=== PATIENT | female | born 1985 | race Caucasian/White ===

== ENCOUNTER 2016-11-19 16:41 | Emergency (ER) | payer BC ==
[~2016-11-19] VITALS: Ht 162.6 cm; Wt 78.9 kg
[~2016-11-19 16:41] MED LIST: PRED10TA PO; VNTHFA/IN INH
[2016-11-19 16:44] VITALS: Ht 162.6 cm; Wt 78.9 kg
[2016-11-19] MEDS ORDERED: PRED10TA PO ×2 (17:55→18:15)
--- NOTE | 2016-11-19 18:15 | EMERGENCY ROOM VISIT NOTE ---
History First contact with patient: 17:40 Chief Complaint: COUGH Stated Complaint: COUGH, ASTHMA Nursing Triage Summary: states she is having trouble with her asthma, she took her last oral steroid today and she is having trouble breathing and when she starts coughing she cant stop, needs a prescription for more prednisone and would like to talk to someone about getting on advair she currently doesnt take advair History of Present Illness The patient is a 31 year old female who presents to the Emergency Department by private vehicle for evaluation of her ongoing symptoms of asthma. She reports that she is been on 10 mg prednisone daily for the last few months. She took her last dose of prednisone this morning. She also has been using her albuterol inhaler more frequently as well. She has had no worsening symptoms today, but is concerned that her symptoms will progressively worsened well- known than the chronic steroids. 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 She does not see a yarder boss. In addition to her ongoing symptoms, the patient is requesting to be placed back on Advair which she has been on in the past. She feels that this will help her ongoing symptoms. The patient denies any pain rating her discomfort a 0/10. She denies any headaches, dizziness, lightheadedness, nausea, vomiting, chest pain, palpitations, hemoptysis, abdominal pain, hematochezia, melena, hematuria, or dysuria. The patient denies any chance for . Review of Systems A complete 10-point Review of Systems was discussed with the patient, with pertinent positives and negatives listed in the History of Present Illness. All remaining Review of Systems questions can be considered negative unless otherwise specified. 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: [employer] student Current/Historical Medications Scheduled Albuterol Hfa (Ventolin Hfa), 2-4 PUFFS INH Q6H Prednisone (Prednisone), 10 MG PO DAILY Prednisone Tab (Prednisone), 10 MG PO DAILY Allergies Coded Allergies: Cefuroxime (Verified Allergy, Severe, CHEST TIGHTENING, "FEEL LIKE CHOKING ", SOB, 11/19/16) Dairy (Verified Allergy, Severe, CHEST TIGHTENING, "CHOKING" FEELING, SOB , 11/19/16) Gluten (Verified Allergy, Severe, CHEST TIGHTENING, "CHOKING" FEELING, SOB , 11/19/16) Penicillins (Verified Allergy, Severe, CHEST TIGHTENING, "CHOKING" FEELING , SOB, 11/19/16) Peanut (Verified Allergy, Intermediate, "NON STOP COUGHING, FELT LIKE CHOKING", 11/19/16) Physical Exam Vital Signs Date Time Temp Pulse Resp B/P Pulse Ox O2 Delivery O2 Flow Rate FiO2 11/19/16 18:52 36.5 105 18 125/89 98 11/19/16 18:29 105 11/19/16 18:25 36.5 105 18 125/89 98 Room Air 11/19/16 18:24 105 18 125/89 98 Room Air 11/19/16 16:47 98 Room Air 11/19/16 16:44 36.5 127 18 123/75 98 Room Air Pain Rating (0-10): 0 Physical Exam VITAL SIGNS - Vital signs and nursing notes were reviewed. GENERAL - 31-year-old female appearing her stated age who is in no acute distress. Communicates well with provider and answers questions appropriately. HEAD - NC/AT. EYES - PERRL with EOMI bilaterally. Sclera anicteric. Palpebral conjunctiva pink and moist with no injection noted. EARS - No deformities of external structures noted on gross examination bilaterally. No pain elicited with palpation of the tragus bilaterally. External auditory canals without discharge or otorrhea. Tympanic membranes pearly paige without retraction or bulging. NOSE - Midline and without cyanosis. No epistaxis or purulent drainage noted. Septum midline without deviation or septal hematoma noted. MOUTH/OROPHARYNX - Without perioral cyanosis. Buccal mucosa pink and moist and without leukoplakia. Tongue midline with equal elevation of palate bilaterally. No tonsillar hypertrophy, erythema, or exudates noted. Good dentition noted. NECK - Neck with FROM. Supple to palpation. LUNGS - Chest wall symmetric without accessory muscle use, intercostals retractions, or central cyanosis. Normal vesicular breath sounds CTA B/L. No wheezes, rales, or rhonchi appreciated. CARDIAC - RRR with S1/S2. No murmur, rubs, or gallops appreciated. No reproducible tenderness to palpation appreciated over the anterior chest wall. ABDOMEN - Abdominal contour flat and without pulsations or visible masses. BS normoactive all four quadrants. No tenderness, palpable masses, hepatosplenomegaly, or ascites noted. EXTREMITIES - No clubbing or peripheral cyanosis. No pretibial edema present. +3 /5 radial and dorsalis pedis pulses palpated throughout. +3/5 strength noted in UE/LE bilaterally. PSYCH - A&Ox3 and cooperates fully with examiner. Pt is very pleasant and interacts well with examiner. Medical Decision & Procedures ED Course Patient was seen and evaluated by myself. Previous emergency department visit notes were reviewed. I had a lengthy discussion with the patient regarding the appropriateness of chronic management of her asthma. She was offered a 1 week course of 10 mg prednisone, however she was encouraged at this point, this would be the extent of what could be provided out of the emergency setting. She was encouraged to follow-up with [facility] for ongoing management of her chronic condition. The patient was educated on worrisome symptoms for return visit to the emergency department. Patient discharged home afebrile and in good condition. Medical Decision Given the patient's presentation and stated complaints, I did elect to perform the above-mentioned workup. Patient presents today requesting a refill of medications. She's been on chronic steroids that had been provided Ativan emergency settings and walk-in clinics. I do not feel that this is the appropriate management of the patient's ongoing asthma symptoms. She was offered a week's worth of atenolol milligrams prednisone which she is been on daily. I do feel it would be inappropriate to completely discontinue her steroids at this time for the risk of adrenal crisis. Regardless, I do feel that continued management of the patient's chronic condition of the emergency setting is inappropriate. Because of this, she was offered a short course of the steroids and instructed to follow-up with with [facility] to establish continuity of care. The patient was educated on worrisome symptoms for return visit to the emergency department. Patient discharged home in good condition. In the evaluation and treatment of this patient, the following differential diagnoses were considered: ACS, [place], PE, pneumonia, psychosis, malingering, somatizations, amongst others. Impression Primary Impression: Encounter for medication refill Additional Impression: Asthma Departure Information Dispostion Home / Self-Care Condition GOOD Prescriptions Prednisone Tab (PREDNISONE) 10 Mg Tab 10 MG PO DAILY for 7 Days, #7 TAB Prov: Ray Martin PA-C 11/19/16 Referrals No Doctor, Assigned (PCP) Patient Instructions My [facility] Additional Instructions Please follow-up with [facility] for continued management of your chronic asthma. Return for any changing or worsening symptoms. Problem Qualifiers Additional Impression: Asthma Asthma severity: unspecified severity Asthma complication type: uncomplicated Qualified Codes: J45.909 - Unspecified asthma, uncomplicated
[2016-11-19 18:52] VITALS: BP 125/89; PULSE 105; TEMP 36.5; O2SAT 98
[2017-02-14] MEDS ORDERED: ONDA4TAB10 SL (14:01)
[2017-02-14] MEDS ORDERED: LEVO-459 PO (14:01)
[2017-02-14] MEDS ORDERED: FRRG PO (14:17)
[2017-05-12] MEDS ORDERED: NORGTAB39 PO (14:04)
[2017-05-12] MEDS ORDERED: ULT50X PO (14:04)
[2017-05-12] MEDS ORDERED: PRT/20 PO (14:04)
[2017-05-12] MEDS ORDERED: METH4PAK PO (14:04)
[2017-05-12] MEDS ORDERED: BENZ100C7 PO (14:04)
[2017-05-27] MEDS ORDERED: ZNT150 PO (12:56)
[2017-05-27] MEDS ORDERED: MTR500 PO (12:56)
[2017-05-27] MEDS ORDERED: ULT50X PO (12:56)
[2017-05-27] MEDS ORDERED: LVQ750 PO (12:56)
[2017-05-27] MEDS ORDERED: PRED-301 PO (12:56)
[2017-05-27] MEDS ORDERED: PRED10TA PO (12:56)
[2017-05-27] MEDS ORDERED: PRT/20 PO (12:56)
== END 2016-11-19 18:54 | disposition home or self-care (01) ==
LOC: C.EDB 16:42
DX: Z76.0 Encounter for issue of repeat prescription (principal); J45.909 Unspecified asthma, uncomplicated

== ENCOUNTER 2016-12-24 11:12 | Emergency (ER) | payer BC ==
[~2016-12-24] VITALS: Ht 162.6 cm; Wt 77.2 kg
[2016-12-24 11:20] VITALS: TEMP 36.5; Ht 162.6 cm; Wt 77.2 kg
[2016-12-24] MEDS ORDERED: ALBUT/IPRATROP 3MG/0.5MG NEB 3 ML VIAL INH STA (11:26)
[2016-12-24] MEDS ORDERED: DEXAMETHASONE SOD INJ 10 MG/ML VIAL PO ONE (11:30)
[2016-12-24] MEDS ORDERED: ALUMINUM/MAGNESIUM SUSP 30 ML UDC PO STA (11:48)
[2016-12-24] MEDS ORDERED: LIDOCAINE HCL 2% VISC SOLN 20 ML UDC PO STA (11:48)
[2016-12-24 11:51] VITALS: O2SAT 94
--- NOTE | 2016-12-24 11:58 | DIAGNOSTIC IMAGING REPORT ---
TWO VIEW CHEST CLINICAL HISTORY: Cough. FINDINGS: PA and lateral chest radiographs are compared to study dated 10/08/2015. The cardiomediastinal silhouette is unremarkable. The lungs and pleural spaces are clear. There is no pneumothorax. The bony thorax appears intact. IMPRESSION: No active disease in the chest. Electronically signed by: Corey Allen M.D. 12/24/2016 11:56 AM Dictated Date/Time: 12/24/2016 11:56 AM
[2016-12-24] MEDS ORDERED: PANTOprazole SOD 40 MG TAB PO STA (12:30)
[2016-12-24] MEDS ORDERED: PRED50TA PO (12:48)
[2016-12-24] MEDS ORDERED: LIDO2SOL19 PO (12:48)
[2016-12-24] MEDS ORDERED: PANT40TA PO (12:48)
[2016-12-24 13:06] VITALS: BP 119/91; PULSE 102; O2SAT 93
[2016-12-24] MEDS ORDERED: ALBUTEROL HFA 8 GM INHALER INH ONE (13:07)
[2016-12-24] MEDS ORDERED: ALBUTEROL HFA 8 GM INHALER INH STA (13:12)
--- NOTE | 2016-12-24 15:38 | EMERGENCY ROOM VISIT NOTE ---
History First contact with patient: 11:23 Chief Complaint: COUGH Stated Complaint: COUGH Nursing Triage Summary: Pt states, "I feel dizzy. I cough like I'm choking. I can't stop. It started a few hours ago." Pt reports hx of asthma. States used inhalers without relief. History of Present Illness The patient is a 31 year old female who presents to the Emergency Room with complaints of cough and wheezing with throat irritation in the morning that has been intermittent for the past week. Patient states when she wakes up the morning sometimes she feels as if she is choking. She does have asthma. She's been on chronic steroids by health services and has recently days. She does not have a thread reeler. Patient denies chest pain, fever, chills, productive cough, back pain, leg pain or swelling, abdominal pain, vomiting, diarrhea. She does have asthma. Review of Systems See HPI for pertinent positives & negatives. A total of 10 systems reviewed and were otherwise negative. 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 Current/Historical Medications Scheduled Albuterol Hfa (Ventolin Hfa), 2-4 PUFFS INH Q6H Lidocaine Hcl (Mouth-Throat) (Lidocaine Viscous), 5 ML PO Q6 Pantoprazole (Protonix), 40 MG PO DAILY Prednisone (Prednisone), 10 MG PO DAILY Prednisone (Prednisone), 50 MG PO DAILY Allergies Coded Allergies: Cefuroxime (Verified Allergy, Severe, CHEST TIGHTENING, "FEEL LIKE CHOKING ", SOB, 12/24/16) Dairy (Verified Allergy, Severe, CHEST TIGHTENING, "CHOKING" FEELING, SOB , 12/24/16) Gluten (Verified Allergy, Severe, CHEST TIGHTENING, "CHOKING" FEELING, SOB , 12/24/16) Penicillins (Verified Allergy, Severe, CHEST TIGHTENING, "CHOKING" FEELING , SOB, 12/24/16) Peanut (Verified Allergy, Intermediate, "NON STOP COUGHING, FELT LIKE CHOKING", 12/24/16) Physical Exam Vital Signs Date Time Temp Pulse Resp B/P Pulse Ox O2 Delivery O2 Flow Rate FiO2 12/24/16 13:06 102 18 119/91 93 12/24/16 11:51 94 Room Air 12/24/16 11:51 112 22 94 Room Air 12/24/16 11:20 36.5 130 20 137/65 96 Room Air Pain Rating (0-10): 0 Physical Exam VITALS: Vitals are noted on the nurse's note and reviewed by myself. Vital signs stable. GENERAL: Pleasant female, in no acute distress, nondiaphoretic, well-developed well-nourished. SKIN: The skin was without rashes, erythema, edema, or bruising. There is no tenting of the skin. Capillary reflex less than 2 seconds. HEAD: Normocephalic atraumatic. EARS: External auditory canals clear, tympanic membranes pearly paige without erythema or effusion bilaterally. EYES: Pupils equal round and reactive to light and accommodation. Conjunctivae without injection, sclerae without icterus. Extraocular movements intact. NOSE: Patent, turbinates without inflammation or discharge. No sinus tenderness. MOUTH: Mucous membranes moist. Pharynx without erythema or exudate. Uvula midline. Airway patent. Tongue does not deviate. NECK: Supple without nuchal rigidity. No lymphadenopathy. No thyromegaly. Cervical spine is nontender. No JVD. HEART: Regular rate and rhythm without murmurs gallops or rubs. LUNGS: Mild diffuse end expiratory wheezes, without rales or rhonchi. No dullness to percussion. No retractions or accessory muscle use. ABDOMEN: Positive bowel sounds x 4. Normal tympanic percussion. Soft, nontender, without masses or organomegaly. Navarrete sign negative. No guarding or rebound tenderness. MUSCULOSKELETAL: No muscle atrophy, erythema, or edema noted. NEURO: Patient was alert and oriented to person place and time. Normal sensation to light and sharp touch. No focal neurological deficits. Medical Decision & Procedures Medications Administered Medications (Trade) Dose Ordered Sig/Jluis Route Start Time Stop Time Status Last Admin Dose Admin Albuterol/ Ipratropium (Duoneb) 3 ml NOW STAT INH 12/24/16 11:26 12/24/16 11:27 DC 12/24/16 11:42 3 ML Dexamethasone Sodium Phosphate (Decadron Inj) 10 mg NOW ONCE PO 12/24/16 11:30 12/24/16 11:31 DC 12/24/16 11:42 10 MG Lidocaine HCl (Viscous Lidocaine 2% Soln) 10 ml NOW STAT PO 12/24/16 11:48 12/24/16 11:49 DC 12/24/16 11:57 10 ML Al Hydroxide/Mg Hydroxide (Maalox Susp) 30 ml NOW STAT PO 12/24/16 11:48 12/24/16 11:49 DC 12/24/16 11:57 30 ML Pantoprazole Sodium (Protonix Tab) 40 mg NOW STAT PO 12/24/16 12:30 12/24/16 12:32 DC 12/24/16 13:03 40 MG Albuterol (Ventolin Hfa Inhaler) 60 puffs STK-MED ONCE INH 12/24/16 13:07 12/24/16 13:08 DC 12/24/16 13:04 60 PUFFS ED Course Prior records/ancillary studies reviewed. Triage Nursing notes reviewed. The patient's history was concerning for respiratory difficulties. Differential diagnosis: Etiologies such as infections, reactive airway disease, pneumonia, pneumothorax , COPD, CHF, cardiac ischemia, pulmonary embolism, musculoskeletal, gastrointestinal, as well as others were entertained. Physical examination: As above. ER treatment provided: Nebulizer, Decadron, GI cocktail On reassessment the patient felt better. Diagnostic interpretation by me: Imaging studies: Chest x-ray as above. This appears to be consistent with asthma exacerbation with reflux. Patient felt much better after being medicated as above. She was referred to pulmonology as she's had ongoing asthma problems and has not seen a thread reeler in quite sometime. Case management did arrange for this. She was started on steroids for her asthma exacerbation and on a PPI for reflux. Patient was advised to take medications as directed and to follow-up as scheduled with pulmonology or here in the ER sooner for chest pain, difficulty breathing, fevers, worsening signs or symptoms or as needed. Patient no pneumonia on x-ray. She was not hypoxic. She was well-appearing. By the evaluation outlined above emergent etiologies such as CHF, cardiac ischemia, pulmonary embolism, pneumonia, pneumothorax, musculoskeletal, serious bacterial infections, as well as others were deemed relatively unlikely. The pt informed about the findings as listed above. All questions were answered and pleased with the treatment. Return instructions were outlined and the patient was discharged in stable condition. Outpatient prescription management: Prednisone, Protonix Referral: The patient was referred back to their primary care physician for follow-up in 2 to 3 days for a recheck of the current condition. Medical Decision As above Impression Primary Impression: Asthma exacerbation Additional Impression: GERD Departure Information Dispostion Home / Self-Care Condition GOOD Prescriptions Lidocaine Hcl (Mouth-Throat) (LIDOCAINE VISCOUS) 2 % Salima 5 ML PO Q6, #200 ML Prov: Leatha Lott PA-C 12/24/16 Pantoprazole (Protonix) 40 Mg Tab 40 MG PO DAILY for 14 Days, #14 TAB Prov: Leatha Lott PA-C 12/24/16 Prednisone (Prednisone) 50 Mg Tab 50 MG PO DAILY for 4 Days, #4 TAB Prov: Leatha Lott PA-C 12/24/16 Forms HOME CARE DOCUMENTATION FORM, School Instructions, Return To School: 1 day IMPORTANT VISIT INFORMATION Patient Instructions GERD, Asthma - [facility], [facility] Additional Instructions Albuterol Inhaler: Take 2 puffs four times daily for five days, then as needed. Prednisone 50mg: Once daily until the prescription is finished. It is best to take this earlier in the day as some patients note occasional difficulty falling asleep when taken in the late evening. Viscous lidocaine: 10 mL's every 6 hours as needed for sore throat. Protonix 40 m tablet daily for next 2 weeks. Take this on an empty stomach. Try Maalox or Zantac for breakthrough symptoms for reflux. Avoid large meals. Avoid acidic foods. Rest and drink plenty of fluids as tolerated. Continue current medications. Avoid strenuous activities and anything that worsens your pain. Resume normal activities once your symptoms resolve. Return to the ER immediately for worsening or persistent chest pain, abdominal pain, black or blood in your stools, vomiting, fevers, chest pains, difficulty breathing, worsening of your condition, or as needed. Follow up with your primary physician and thread reeler as scheduled in 2-3 days for a recheck of your current condition. School Instructions Return To School: 1 day Problem Qualifiers
[2017-02-14] MEDS ORDERED: ONDA4TAB10 SL (14:01)
[2017-02-14] MEDS ORDERED: LEVO-459 PO (14:01)
[2017-02-14] MEDS ORDERED: FRRG PO (14:17)
[2017-05-12] MEDS ORDERED: ULT50X PO (14:04)
[2017-05-12] MEDS ORDERED: BENZ100C7 PO (14:04)
[2017-05-12] MEDS ORDERED: NORGTAB39 PO (14:04)
[2017-05-12] MEDS ORDERED: METH4PAK PO (14:04)
[2017-05-12] MEDS ORDERED: PRT/20 PO (14:04)
[2017-05-27] MEDS ORDERED: PRED-301 PO (12:56)
[2017-05-27] MEDS ORDERED: LVQ750 PO (12:56)
[2017-05-27] MEDS ORDERED: MTR500 PO (12:56)
[2017-05-27] MEDS ORDERED: ZNT150 PO (12:56)
[2017-05-27] MEDS ORDERED: PRT/20 PO (12:56)
[2017-05-27] MEDS ORDERED: ULT50X PO (12:56)
[2017-05-27] MEDS ORDERED: PRED10TA PO (12:56)
[2017-06-25] MEDS ORDERED: PANT40TA PO (15:06)
[2017-08-09] MEDS ORDERED: IPRASOL4 INH (08:40)
[2017-08-09] MEDS ORDERED: ADVIN10050 INH (08:40)
[2017-08-09] MEDS ORDERED: MONT1TAB3 PO (08:40)
[2017-08-10] MEDS ORDERED: PANT40TA PO (10:09)
[2017-08-10] MEDS ORDERED: VNTHFA/IN INH (10:09)
[2017-08-10] MEDS ORDERED: ADVIN10050 INH (10:09)
[2017-08-10] MEDS ORDERED: LEVO-459 OR (10:10)
[2017-08-10] MEDS ORDERED: PRD20 OR (10:10)
[2017-08-10] MEDS ORDERED: NEBMAC (10:10)
[2017-08-10] MEDS ORDERED: MONT1TAB3 PO (10:10)
[2017-08-10] MEDS ORDERED: ALBU0.633 NEB (10:11)
[2017-08-10] MEDS ORDERED: ZNT150 PO (10:26)
== END 2016-12-24 13:10 | disposition home or self-care (01) ==
LOC: C.EDB 11:13 → C.EDC 13:10
DX: J45.901 Unspecified asthma with (acute) exacerbation (principal); K21.9 Gastro-esophageal reflux disease without esophagitis

== ENCOUNTER 2017-01-18 15:50 | Emergency (ER) | payer BC ==
[~2017-01-18] VITALS: Ht 160 cm; Wt 75.4 kg
[2017-01-18 15:55] VITALS: TEMP 36.6; Ht 160 cm; Wt 75.4 kg
[2017-01-18] MEDS ORDERED: LIDO2SOL19 PO (16:13)
[2017-01-18 17:08] VITALS: BP 119/76; PULSE 89; O2SAT 96
--- NOTE | 2017-01-18 18:26 | EMERGENCY ROOM VISIT NOTE ---
History First contact with patient: 16:26 Chief Complaint: MEDICATION REFILL REQUEST Stated Complaint: MEDICATION REFILL History of Present Illness The patient is a 31 year old female who presents to the Emergency Room with complaints of wanting a prescription for viscous lidocaine. The patient has asthma which is not well controlled. She states when she is walking she gets short of breath and starts coughing and then she gags and sometimes vomits. The patient states that she was seen here in December with the same symptoms and was given a prescription for a mouth rinse which had viscous lidocaine. She was just at her PCP today and they gave her a prescription for Magic swizzle but this does not have the lidocaine in therefore she is requesting a prescription with the lidocaine. The patient is taking all her asthma and allergy medications as prescribed. She is on Nexium for her reflux. 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 The patient had a cost report clerk in her hometown but does not have one in [place]. Review of Systems 10 system review was performed and was negative unless stated otherwise history of present illness. 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: [employer] student Current/Historical Medications Scheduled Lidocaine Hcl (Mouth-Throat) (Lidocaine Viscous), 5 ML PO BID Allergies Coded Allergies: Cefuroxime (Verified Allergy, Severe, CHEST TIGHTENING, "FEEL LIKE CHOKING ", SOB, 01/18/17) Dairy (Verified Allergy, Severe, CHEST TIGHTENING, "CHOKING" FEELING, SOB , 01/18/17) Gluten (Verified Allergy, Severe, CHEST TIGHTENING, "CHOKING" FEELING, SOB , 01/18/17) Penicillins (Verified Allergy, Severe, CHEST TIGHTENING, "CHOKING" FEELING , SOB, 01/18/17) Peanut (Verified Allergy, Intermediate, "NON STOP COUGHING, FELT LIKE CHOKING", 01/18/17) Physical Exam Vital Signs Date Time Temp Pulse Resp B/P Pulse Ox O2 Delivery O2 Flow Rate FiO2 01/18/17 17:08 89 18 119/76 96 Room Air 01/18/17 15:55 36.6 110 18 113/57 96 Room Air Pain Rating (0-10): 4.0 Physical Exam PHYSICAL EXAM: Vital Signs were reviewed: Reviewed Nurse's notes and agree. Oxygen saturation is 96 % on room air which is normal . GENERAL: 31-year-old female appears in no acute distress. MENTAL STATUS: Alert, oriented, coherent. EARS: Canals clear. TMs good light reflex, no erythema or fluid level noted. NOSE: Nasal mucosa with moderate erythema engorgement. PHARYNX: No erythema, no edema noted. No exudate noted. Cobblestoning noted on the posterior pharynx. Airway is adequate. NECK: Supple, non-tender. No lymphadenopathy noted. LUNGS: Patient has both inspiratory and expiratory wheezes bilaterally. Good air exchange noted. No rales or rhonchi noted. CARDIAC: Regular rate and rhythm without murmur. ABDOMEN: Positive bowel sounds all 4 quadrants, nontender to palpation without organomegaly or masses. SKIN: No rashes noted. Medical Decision & Procedures ED Course The patient was evaluated. I discussed with the patient that I will not prescribe viscous lidocaine for uncontrolled allergies/asthma and reflux. I feel that this patient needs to be 6 hours evaluated by cost report clerk I discussed with the patient that she needs to follow up with pulmonology for better care of her asthma and allergies. The patient is in agreement with treatment plan. The patient was discharged home in stable condition. Medical Decision Differential diagnosis include postnasal drainage secondary to uncontrolled allergic rhinitis, uncontrolled asthma, GERD Impression Primary Impression: Asthma Additional Impressions: Reflux esophagitis Allergic rhinitis Departure Information Dispostion Home / Self-Care Condition GOOD Referrals Jaime Calzada, DO Forms WORK / SCHOOL INSTRUCTIONS, HOME CARE DOCUMENTATION FORM, IMPORTANT VISIT INFORMATION Patient Instructions My [facility] Additional Instructions Continue all medications as prescribed. Recommend a follow-up with pulmonology , Dr. calzada as soon as possible since your asthma and allergies are not well controlled. Recommend adding a steroid nasal spray in addition to your Zyrtec. Also recommend adding Zantac 150 mg daily in addition to your Nexium. Further follow-up should be by pulmonology or your family physician. Problem Qualifiers
[2017-02-14] MEDS ORDERED: ONDA4TAB10 SL (14:01)
[2017-02-14] MEDS ORDERED: LEVO-459 PO (14:01)
[2017-02-14] MEDS ORDERED: FRRG PO (14:17)
[2017-05-12] MEDS ORDERED: PRT/20 PO (14:04)
[2017-05-12] MEDS ORDERED: METH4PAK PO (14:04)
[2017-05-12] MEDS ORDERED: ULT50X PO (14:04)
[2017-05-12] MEDS ORDERED: NORGTAB39 PO (14:04)
[2017-05-12] MEDS ORDERED: BENZ100C7 PO (14:04)
[2017-05-27] MEDS ORDERED: MTR500 PO (12:56)
[2017-05-27] MEDS ORDERED: ULT50X PO (12:56)
[2017-05-27] MEDS ORDERED: PRT/20 PO (12:56)
[2017-05-27] MEDS ORDERED: PRED-301 PO (12:56)
[2017-05-27] MEDS ORDERED: PRED10TA PO (12:56)
[2017-05-27] MEDS ORDERED: ZNT150 PO (12:56)
[2017-05-27] MEDS ORDERED: LVQ750 PO (12:56)
[2017-06-25] MEDS ORDERED: PANT40TA PO (15:06)
[2017-08-09] MEDS ORDERED: MONT1TAB3 PO (08:40)
[2017-08-09] MEDS ORDERED: ADVIN10050 INH (08:40)
[2017-08-09] MEDS ORDERED: IPRASOL4 INH (08:40)
[2017-08-10] MEDS ORDERED: PANT40TA PO (10:09)
[2017-08-10] MEDS ORDERED: VNTHFA/IN INH (10:09)
[2017-08-10] MEDS ORDERED: ADVIN10050 INH (10:09)
[2017-08-10] MEDS ORDERED: NEBMAC (10:10)
[2017-08-10] MEDS ORDERED: MONT1TAB3 PO (10:10)
[2017-08-10] MEDS ORDERED: LEVO-459 OR (10:10)
[2017-08-10] MEDS ORDERED: PRD20 OR (10:10)
[2017-08-10] MEDS ORDERED: ALBU0.633 NEB (10:11)
[2017-08-10] MEDS ORDERED: ZNT150 PO (10:26)
== END 2017-01-18 17:10 | disposition home or self-care (01) ==
LOC: C.EDB 15:52 → C.EDD 17:10
DX: Z76.0 Encounter for issue of repeat prescription (principal); J45.909 Unspecified asthma, uncomplicated; K21.0 Gastro-esophageal reflux disease with esophagitis

== ENCOUNTER 2017-02-13 22:45 | Inpatient (IN) | payer BC ==
[~2017-02-13] VITALS: Ht 162.6 cm; Wt 72.2 kg
[~2017-02-13 22:45] MED LIST changes: +LIDO2SOL19 PO; -PRED10TA PO; -VNTHFA/IN INH
[2017-02-13] MEDS ORDERED: ONDANSETRON INJ 2 MG/ML 2 ML VIAL IV STA (23:07)
[2017-02-13] MEDS ORDERED: SODIUM CHLORIDE 0.9% 1000ML 1,000 ML IV ONE ×2 (23:15→23:45)
[2017-02-13] MEDS ORDERED: ALBUT/IPRATROP 3MG/0.5MG NEB 3 ML VIAL INH ONE (23:15)
[2017-02-13] MEDS ORDERED: ADVIN10/60 INH (23:26)
[2017-02-13 23:27] LABS: HEMATOCRIT 34.2 % (37-47); MEAN CORPUSCULAR HEMOGLOBIN 20.8 pg (25-34); MEAN CORPUSCULAR HGB CONC 30.1 g/dl (32-36); MEAN PLATELET VOLUME 8.8 fL (7.4-10.4); PLATELET COUNT 703 K/uL (130-400); RED BLOOD COUNT 4.96 M/uL (4.2-5.4); WHITE BLOOD COUNT 16.34 K/uL (4.8-10.8)
[2017-02-13] MEDS ORDERED: DEXT30LI PO (23:27)
[2017-02-13] MEDS ORDERED: CETI10TA84 PO (23:27)
[2017-02-13] MEDS ORDERED: IBUP-103 PO (23:27)
[2017-02-13] MEDS ORDERED: AZTREONAM IV 2,000 MG in DEXTROSE 5% 100ML 100 ML IV ONE (23:45)
[2017-02-13] MEDS ORDERED: SODIUM CHLORIDE 0.9% IV ONE (23:45)
[2017-02-13] MEDS ORDERED: OPTIRAY 320 IV PRN (23:45)
[2017-02-13] MEDS ORDERED: DAPTOMYCIN IV ONE (23:45)
[2017-02-13 23:51] LABS: BUN/CREATININE RATIO 10.4 (10-20); CALCIUM 8.7 mg/dl (8.5-10.1); POTASSIUM 3.7 mmol/L (3.5-5.1)
[2017-02-14 00:09] LABS: BASO % 0.1 %; BASO ABS # 0.02 K/uL (0-0.2); COMPLETE YES; EOS % 2.8 %; IG% 0.2 %; LYMPH % 17.7 %; MICROCYTOSIS PRESENT; MONO % 4.4 %; NEUT % 74.8 %
--- NOTE | 2017-02-14 00:25 | DIAGNOSTIC IMAGING REPORT ---
TWO VIEW CHEST CLINICAL HISTORY: Cough and wheezing. FINDINGS: PA and lateral chest radiographs are compared to study dated 02/14/2017 and correlated with chest CT dated 01/15/2015. The cardiomediastinal silhouette is unremarkable. There is patchy airspace consolidation at the left lung base. The right lung appears clear. No pleural effusion or pneumothorax is seen. The bony thorax appears intact. IMPRESSION: There is left basilar airspace consolidation typical in appearance for pneumonia. Radiographic follow-up to resolution is recommended. Electronically signed by: Corey Allen M.D. 02/14/2017 12:24 AM Dictated Date/Time: 02/14/2017 12:23 AM
--- NOTE | 2017-02-14 00:37 | DIAGNOSTIC IMAGING REPORT ---
CT SCAN OF THE CHEST, ABDOMEN, AND PELVIS WITH IV CONTRAST CLINICAL HISTORY: Atypical chest pain. Generalized abdominal pain. Nausea and vomiting. Fever. Sepsis. COMPARISON STUDY: Chest CT dated 01/15/2015. Chest x-ray dated 02/14/2017. TECHNIQUE: Following the IV administration of 93 of Optiray 320, CT scan of the chest, abdomen, and pelvis was performed from the thoracic inlet to the proximal femora. Images are reviewed in the axial, sagittal, and coronal planes. IV contrast was administered without complication. Automated dose control exposure was utilized. The examination is modestly degraded by motion artifact. CT DOSE: 573.99 mGy.cm FINDINGS: CHEST: Thyroid: Imaged portions of the thyroid gland are normal in size and attenuation. Thoracic aorta: The thoracic aorta is normal in caliber and demonstrates standard 3-vessel arch anatomy. No dissection is seen. Pulmonary vasculature: The pulmonary trunk is normal in caliber. There are no filling defects identified in the central pulmonary vessels to indicate pulmonary was. Note that this examination was not protocoled for evaluation of the pulmonary arteries. Heart: The heart is normal in size and configuration, and without pericardial effusion. Lungs and pleural spaces: Evaluation of the lung parenchyma is degraded by respiratory motion artifact. The trachea and central airways are clear. There is patchy airspace consolidation identified in the left lower lobe, most confluence anteriorly along the major fissure and the left heart border. Mild patchy consolidation is also seen in the lingula. Minimal consolidative change is seen at the right lung base. The right lung is largely clear. No pleural effusion is seen. Mediastinum: There are mildly enlarged mediastinal nodes. A subcarinal node on image #113 measures 13 mm in short axis. A high right paratracheal node image #43 measures 8 mm in short axis. Steph: Prominent left hilar lymph nodes measure up to 9 mm in short axis. Axillae: There is no axillary lymphadenopathy. Bony thorax: No lytic or blastic lesions are identified. ABDOMEN AND PELVIS: Liver: The contrast-enhanced liver is normal in size, contour, and attenuation. There is no intrahepatic or ductal dilatation. The hepatic veins and portal veins are patent. Gallbladder: Unremarkable. Spleen: Normal in size and attenuation. Pancreas: Unremarkable. Adrenal glands: Unremarkable. Kidneys: The contrast enhanced kidneys are normal in size and without hydronephrosis. The kidneys enhance symmetrically. Abdominal vasculature: The abdominal aorta is normal in course and caliber. Bowel: The small bowel and colon are normal in course and caliber. The appendix is well-visualized and normal. Peritoneum: There is no intraperitoneal free air or abdominal ascites. There is a small fat-containing umbilical hernia. Lymphadenopathy: None. Pelvic viscera: The bladder, uterus, and adnexa are normal as visualized. Bilateral ovarian follicles are noted. Skeletal structures: No lytic or blastic lesions are seen. IMPRESSION: 1. There is airspace consolidation in the left lower lobe and lingula typical in appearance for pneumonia. Radiographic follow-up to resolution is recommended. 2. Minimally enlarged mediastinal lymph nodes are likely on a reactive basis. 3. There are no acute infectious or inflammatory findings in the abdomen or pelvis. Electronically signed by: Corey Allen M.D. 02/14/2017 12:36 AM Dictated Date/Time: 02/14/2017 12:27 AM
[2017-02-14] MEDS ORDERED: LEVAQUIN 750MG / 150ML D5W IV ONE (00:45)
[2017-02-14] MEDS ORDERED: ACETAMINOPHEN 325 MG TAB PO STA (01:08)
[2017-02-14] MEDS ORDERED: CLINDAMYCIN IV 600 MG in DEXTROSE 5% ADD-VANTAGE 50ML 50 ML IV STA (01:11)
[2017-02-14] MEDS ORDERED: LACTATED RINGER'S 1000ML 1,000 ML IV SCH (01:15)
[2017-02-14] MEDS ORDERED: ACETAMINOPHEN 325 MG TAB PO PRN ×2 (01:15→02:00)
[2017-02-14] MEDS ORDERED: POTASSIUM CHLORIDE 10 MEQ TABCR PO STA (01:50)
[2017-02-14] MEDS ORDERED: PROMETHAZINE HCL INJ 12.5 MG in SODIUM CHLORIDE 0.9% 50ML 50 ML IV PRN (02:00)
[2017-02-14] MEDS ORDERED: BENZONATATE 100MG CAP PO PRN (02:00)
[2017-02-14] MEDS ORDERED: TRAMADOL HCL 50 MG TAB PO PRN (02:00)
[2017-02-14] MEDS ORDERED: HYDROmorphone INJ 1 MG/ML SYR IV PRN (02:00)
[2017-02-14] MEDS ORDERED: ONDANSETRON INJ 2 MG/ML 2 ML VIAL IV PRN (02:00)
[2017-02-14] MEDS ORDERED: PANTOprazole SOD 40 MG TAB PO STA (02:02)
[2017-02-14 02:03] LABS: FERRITIN 8.8 ng/ml (8.0-388.0); MAGNESIUM 2.1 mg/dl (1.8-2.4); THYROID STIMULATING HORMONE 3.82 uIu/ml (0.300-4.500)
[2017-02-14 02:08] LABS: PREG INTERNAL NEGATIVE QC NEG CLEAR BACKGROUND; PREG INTERNAL POSITIVE QC POS CONTROL LINE
[2017-02-14 02:10] LABS: PARTIAL THROMBOPLASTIN RATIO 1.2
[2017-02-14] MEDS ORDERED: hydrOXYzine HCL 10 MG TAB PO PRN (02:15)
[2017-02-14] MEDS ORDERED: LORAZEPAM 2 MG/ML 1 ML VIAL IV PRN (02:15)
[2017-02-14 02:47] VITALS: O2SAT 97
[2017-02-14 02:55] VITALS: BP 103/69; PULSE 89; TEMP 36.5; Ht 162.6 cm; Wt 72.2 kg
[2017-02-14] MEDS ORDERED: LACTATED RINGER'S 1000ML 1,000 ML IV ONE (03:00)
[2017-02-14] MEDS ORDERED: INFLUENZA ADMINISTRATION CHARGE ONE (03:15)
[2017-02-14] MEDS ORDERED: PNEUMOCOCCAL ADMINISTRATION CHARGE ONE (03:15)
[2017-02-14] MEDS ORDERED: PNEUMOCOCCAL POLYSACCHARIDES 25 MCG/0.5 ML VIAL/SYR IM. ONE (03:15)
[2017-02-14] MEDS ORDERED: INFLUENZA VIRUS QUAD VACCINE 0.5 ML SYR IM. ONE (03:15)
--- NOTE | 2017-02-14 03:57 | EMERGENCY ROOM VISIT NOTE ---
History First contact with patient: 23:00 Chief Complaint: VOMITING Stated Complaint: SEPSIS Nursing Triage Summary: Patient reports coughing, choking, vomiting since earlier today. Patient reports intermittent for the past week. History of Present Illness The patient is a 31 year old female who presents to the Emergency Room with complaints of coughing and wheezing off and on for the past week. The patient has a bad history of asthma and previously was on long-term steroids for this. She has attempted to use her inhalers without relief of symptoms. Today she began with multiple episodes of vomiting. She does not report fever or chills at home. She does not have distinct chest pain and she is short of breath. She has not had recent travel history and has not been able to eat or drink well today because of her symptoms. She rates her overall discomfort a 7/10. She does report some mid abdominal pain that worsens with vomiting. She did eat a hot dog earlier today, and ultimately did vomit this as well. She denies chance of . 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 Review of Systems More than 10 systems were reviewed and otherwise negative with the exception of history of present illness. Past Medical/Surgical History Medical Problems: (1) Asthma, Unspecified (2) Sepsis Surgical Problems: (1) No significant past surgical history Family History No significant family history Social History Smoking Status: Never Smoker Alcohol Use: occasionally Drug Use: none Marital Status: single Housing Status: lives with family Occupation Status: [employer] student Current/Historical Medications Scheduled Cetirizine (Zyrtec), 10 MG PO DAILY Fluticasone Prop/Salmeterol (Advair Diskus 100/50 60 Dose), 1 PUFF INH BID Scheduled PRN Albuterol Hfa (Ventolin Hfa), 2-4 PUFFS INH Q6H PRN for SOB/Wheezing Dextromethorphan Polistirex (Delsym), 5 ML PO UD PRN for Cough Ibuprofen Tab (Advil), 200-600 MG PO Q4H PRN for Pain Allergies Coded Allergies: Cefuroxime (Verified Allergy, Severe, CHEST TIGHTENING, "FEEL LIKE CHOKING ", SOB, 02/13/17) Dairy (Verified Allergy, Severe, CHEST TIGHTENING, "CHOKING" FEELING, SOB , 02/13/17) Gluten (Verified Allergy, Severe, CHEST TIGHTENING, "CHOKING" FEELING, SOB , 02/13/17) Penicillins (Verified Allergy, Severe, CHEST TIGHTENING, "CHOKING" FEELING , SOB, 02/13/17) Peanut (Verified Allergy, Intermediate, "NON STOP COUGHING, FELT LIKE CHOKING", 02/13/17) Physical Exam Vital Signs Date Time Temp Pulse Resp B/P (MAP) Pulse Ox O2 Delivery O2 Flow Rate FiO2 02/14/17 00:45 101 13 96 02/14/17 00:28 110 02/14/17 00:26 111 20 109/62 96 Room Air 02/14/17 00:25 109/62 02/13/17 22:51 38.1 132 25 124/80 92 Room Air Pain Rating (0-10): 0 Physical Exam VITALS: Vitals are noted on the nurse's note and reviewed by myself. Vital signs stable. With fever and tachycardia GENERAL: Female who is vomiting upon my arrival to the room. The patient is with audible wheezing upon my entrance. She is ill but nontoxic HEAD: Normocephalic atraumatic. HEART: Tachycardic rate with regular rhythm LUNGS: Diffuse wheezing and rhonchi throughout ABDOMEN: Positive normal bowel sounds x 4. Soft, nontender, without masses or organomegaly. No guarding or rebound tenderness. MUSCULOSKELETAL: No muscle atrophy, erythema, or edema noted. Full range of motion without joint tenderness in all extremities. Medical Decision & Procedures ER Provider Diagnostic Interpretation: TWO VIEW CHEST CLINICAL HISTORY: Cough and wheezing. FINDINGS: PA and lateral chest radiographs are compared to study dated 02/14/2017 and correlated with chest CT dated 01/15/2015. The cardiomediastinal silhouette is unremarkable. There is patchy airspace consolidation at the left lung base. The right lung appears clear. No pleural effusion or pneumothorax is seen. The bony thorax appears intact. IMPRESSION: There is left basilar airspace consolidation typical in appearance for pneumonia. Radiographic follow-up to resolution is recommended. CT SCAN OF THE CHEST, ABDOMEN, AND PELVIS WITH IV CONTRAST CLINICAL HISTORY: Atypical chest pain. Generalized abdominal pain. Nausea and vomiting. Fever. Sepsis. COMPARISON STUDY: Chest CT dated 01/15/2015. Chest x-ray dated 02/14/2017. TECHNIQUE: Following the IV administration of 93 of Optiray 320, CT scan of the chest, abdomen, and pelvis was performed from the thoracic inlet to the proximal femora. Images are reviewed in the axial, sagittal, and coronal planes. IV contrast was administered without complication. Automated dose control exposure was utilized. The examination is modestly degraded by motion artifact. CT DOSE: 573.99 mGy.cm FINDINGS: CHEST: Thyroid: Imaged portions of the thyroid gland are normal in size and attenuation. Thoracic aorta: The thoracic aorta is normal in caliber and demonstrates standard 3-vessel arch anatomy. No dissection is seen. Pulmonary vasculature: The pulmonary trunk is normal in caliber. There are no filling defects identified in the central pulmonary vessels to indicate pulmonary was. Note that this examination was not protocoled for evaluation of the pulmonary arteries. Heart: The heart is normal in size and configuration, and without pericardial effusion. Lungs and pleural spaces: Evaluation of the lung parenchyma is degraded by respiratory motion artifact. The trachea and central airways are clear. There is patchy airspace consolidation identified in the left lower lobe, most confluence anteriorly along the major fissure and the left heart border. Mild patchy consolidation is also seen in the lingula. Minimal consolidative change is seen at the right lung base. The right lung is largely clear. No pleural effusion is seen. Mediastinum: There are mildly enlarged mediastinal nodes. A subcarinal node on image #113 measures 13 mm in short axis. A high right paratracheal node image #43 measures 8 mm in short axis. Steph: Prominent left hilar lymph nodes measure up to 9 mm in short axis. Axillae: There is no axillary lymphadenopathy. Bony thorax: No lytic or blastic lesions are identified. ABDOMEN AND PELVIS: Liver: The contrast-enhanced liver is normal in size, contour, and attenuation. There is no intrahepatic or ductal dilatation. The hepatic veins and portal veins are patent. Gallbladder: Unremarkable. Spleen: Normal in size and attenuation. Pancreas: Unremarkable. Adrenal glands: Unremarkable. Kidneys: The contrast enhanced kidneys are normal in size and without hydronephrosis. The kidneys enhance symmetrically. Abdominal vasculature: The abdominal aorta is normal in course and caliber. Bowel: The small bowel and colon are normal in course and caliber. The appendix is well-visualized and normal. Peritoneum: There is no intraperitoneal free air or abdominal ascites. There is a small fat-containing umbilical hernia. Lymphadenopathy: None. Pelvic viscera: The bladder, uterus, and adnexa are normal as visualized. Bilateral ovarian follicles are noted. Skeletal structures: No lytic or blastic lesions are seen. IMPRESSION: 1. There is airspace consolidation in the left lower lobe and lingula typical in appearance for pneumonia. Radiographic follow-up to resolution is recommended. 2. Minimally enlarged mediastinal lymph nodes are likely on a reactive basis. 3. There are no acute infectious or inflammatory findings in the abdomen or pelvis. Laboratory Results 02/13/17 23:05 Red Blood Count 4.96, Mean Corpuscular Volume 69.0, Mean Corpuscular Hemoglobin 20.8, Mean Corpuscular Hemoglobin Concent 30.1, Mean Platelet Volume 8.8, Neutrophils (%) (Auto) 74.8, Lymphocytes (%) (Auto) 17.7, Monocytes (%) (Auto) 4.4, Eosinophils (%) (Auto) 2.8, Basophils (%) (Auto) 0.1, Neutrophils # (Auto) 12.22, Lymphocytes # (Auto) 2.90, Monocytes # (Auto) 0.72, Eosinophils # (Auto) 0.45, Basophils # (Auto) 0.02 02/13/17 23:05 Test 02/13/17 23:05 02/13/17 23:17 White Blood Count 16.34 K/uL (4.8-10.8) Red Blood Count 4.96 M/uL (4.2-5.4) Hemoglobin 10.3 g/dL (12.0-16.0) Hematocrit 34.2 % (37-47) Mean Corpuscular Volume 69.0 fL (80-100) Mean Corpuscular Hemoglobin 20.8 pg (25-34) Mean Corpuscular Hemoglobin Concent 30.1 g/dl (32-36) Platelet Count 703 K/uL (130-400) Mean Platelet Volume 8.8 fL (7.4-10.4) Neutrophils (%) (Auto) 74.8 % Lymphocytes (%) (Auto) 17.7 % Monocytes (%) (Auto) 4.4 % Eosinophils (%) (Auto) 2.8 % Basophils (%) (Auto) 0.1 % Neutrophils # (Auto) 12.22 K/uL (1.4-6.5) Lymphocytes # (Auto) 2.90 K/uL (1.2-3.4) Monocytes # (Auto) 0.72 K/uL (0.11-0.59) Eosinophils # (Auto) 0.45 K/uL (0-0.5) Basophils # (Auto) 0.02 K/uL (0-0.2) RDW Standard Deviation 44.1 fL (36.4-46.3) RDW Coefficient of Variation 17.4 % (11.5-14.5) Immature Granulocyte % (Auto) 0.2 % Immature Granulocyte # (Auto) 0.03 K/uL (0.00-0.02) Microcytosis PRESENT Activated Partial Thromboplast Time 32.4 SECONDS (21.0-31.0) Partial Thromboplastin Ratio 1.2 Anion Gap 12.0 mmol/L (3-11) Est Creatinine Clear Calc Drug Dose 80.2 ml/min Estimated GFR () 87.6 Estimated GFR (Non- 75.5 BUN/Creatinine Ratio 10.4 (10-20) Calcium Level 8.7 mg/dl (8.5-10.1) Total Bilirubin 0.4 mg/dl (0.2-1) Aspartate Amino Transf (AST/SGOT) 21 U/L (15-37) Alanine Aminotransferase (ALT/SGPT) 22 U/L (12-78) Alkaline Phosphatase 113 U/L (45-117) Total Protein 7.7 gm/dl (6.4-8.2) Albumin 3.8 gm/dl (3.4-5.0) Globulin 3.9 gm/dl (2.5-4.0) Albumin/Globulin Ratio 1.0 (0.9-2) Lipase 134 U/L (73-393) Human Chorionic Gonadotropin, Qual NEG (NEG) Bedside Lactic Acid Venous 2.98 mmol/L (0.90-1.70) Medications Administered Medications (Trade) Dose Ordered Sig/Jluis Route Start Time Stop Time Status Last Admin Dose Admin Albuterol/ Ipratropium (Duoneb) 3 ml NOW ONCE INH 02/13/17 23:15 02/13/17 23:16 DC 02/13/17 23:24 3 ML Ondansetron HCl (Zofran Inj) 8 mg NOW STAT IV 02/13/17 23:07 02/13/17 23:11 DC 02/13/17 23:24 8 MG Sodium Chloride 1,000 ml @ 999 mls/hr Q1H1M ONCE IV 6/3/17 23:15 02/14/17 00:15 DC 02/13/17 23:24 999 MLS/HR Aztreonam 2000 mg/ Dextrose 110 ml @ 100 mls/hr NOW ONCE IV 02/13/17 23:45 02/14/17 01:24 DC 02/14/17 00:44 100 MLS/HR Daptomycin 432 mg/ Sodium Chloride 58.64 ml @ 100 mls/hr NOW ONCE IV 02/13/17 23:45 02/14/17 01:25 DC 02/14/17 00:44 100 MLS/HR Sodium Chloride 1,000 ml @ 999 mls/hr Q1H1M ONCE IV 02/13/17 23:45 02/14/17 00:45 DC 02/13/17 00:26 999 MLS/HR Acetaminophen (Tylenol Tab) 650 mg NOW STAT PO 02/14/17 01:08 02/14/17 01:09 DC 02/14/17 02:08 650 MG ED Course Physical exam and history were performed. Nursing notes and EMR were reviewed. Patient appears to have fever, tachycardia, wheezing, and vomiting bringing her to the emergency department this evening. IV access was established and labs were obtained. Blood cultures were gathered. X-ray of the chest was performed. The patient was hydrated and medicated as above. The patient's blood work is with a notably elevated white blood cell count of greater than 16,000. She does have a left shift. Additionally her lactic acid is elevated, and this is very concerning for sepsis. The patient was given additional fluids as well as daptomycin and aztreonam. She is penicillin allergic, and at the time of medication we do not have a known source. Because she appears to be septic and has both findings of her chest and abdomen, CT scans were performed. The patient CT scans appear to show acute left lower lobe pneumonia, which clinically would correlate with the patient's symptoms. I suspect that she is having posttussive emesis secondary to the coughing. She was given a dose of Levaquin here in the ER. The case was discussed with the on-call [facility] hospitalist, who agreed to evaluate the patient here in the department. Please see their dictation for further patient course, plan, and disposition. The chart was completed utilizing [employer] Voice Recognition Software. Grammatical errors, random word insertions, pronoun errors, and incomplete sentences are an occasional consequence of this system due to software limitations, ambient noise, and hardware issues. Any formal questions or concerns about the content, text, or information contained within the body of this dictation should be directly addressed to the provider for clarification. . Medical Decision Differential diagnosis: Etiologies such as sepsis, UTI, pneumonia, metabolic, electrolyte abnormalities , cardiac sources, intracerebral event, toxicologic, neurologic, as well as others were entertained. Impression Primary Impression: Sepsis Additional Impression: Pneumonia Departure Information Dispostion Still a Patient Condition FAIR Referrals Karely Oreilly D.O. (PCP) Forms HOME CARE DOCUMENTATION FORM, IMPORTANT VISIT INFORMATION Patient Instructions [facility] Problem Qualifiers
--- NOTE | 2017-02-14 05:34 | HISTORY & PHYSICAL EXAMINATION ---
DATE OF ADMISSION: 02/14/2017 PRIMARY CARE DOCTOR: Dr. Oreilly. CHIEF COMPLAINT: Coughing, choking and vomiting. History obtained from the patient's records. HISTORY OF PRESENT ILLNESS: Medical history significant for asthma, panic disorder as per records, reflux as per records. Recent confinement last January 2015 for hypoxia with asthma exacerbation. Occasional ER visits since but no hospital confinements related to asthma. Daily rescue inhaler use however.. Asper patient since she was in her teens, about 10 years ago, she would have a choking sensation, coughing followed by emesis. PX seen at PCP's office last month ff [facility] ER visit for asthma exacerbation. Prescribed Lidocaine viscous, Protonix, and prednisone course. As per outpx note, px claimed she was in the ER for "nerve pain", Px recounted chronic choking,coughing sx to PCP. Outpx Pulmo, GI, ENT work up in [place]. Px not clear on findings. Magic swizzle prescribed by PCP for "phlegm associated choking/vomiting episodes ". PCP concerned about possible concomitant Panic DSO as per outpx note. Lexapro rx given. Unclear if px compliant w/ rx. Outpx GI appointment scheduled next week for chronic vomiting symptoms. Over the last week, worsening choking-cough symptoms. No chest pain, no shortness of breath, left-sided achy abdominal pain w/ coughing, fever, vomiting, ncreasing shortness of breath. good bowel movement. No black/bloody stools; no bloody emesis. No unusual weight loss although px admits to chronic fatigue symptoms. Irregular menses like 4 times a year, but would last a month long. At the Emergency Room, the patient given Azactam and Daptomycin for sepsis. MEDICAL HISTORY: As above. No history of pneumococcal vaccines in the past. No recent flu vaccines (cites illness following administration in the past.) SURGERIES: Sinus surgery. HOME MEDICATIONS: Include albuterol, Zyrtec, Advair Diskus, Advil. ALLERGIES: DAIRY, GLUTEN, CEFUROXIME, PENICILLIN, PEANUTS. FAMILY HISTORY: Diabetes. 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 REVIEW OF SYSTEMS: As per HPI, all other ROS negative PHYSICAL EXAMINATION: VITAL SIGNS: Blood pressure was noted to be 130/80, pulse rate 102, RR 25, temperature 38.1, sats 92% on room air. GENERAL: Noted to be slightly anxious, no respiratory distress SKIN: Pallor. HEENT: Pale palpebral conjunctivae. Dry mucosa. NECK: No JVD. Supple. CHEST: Decreased breath sounds. No wheeze. HEART: Tachycardic. ABDOMEN: Some distension. some LUQ tenderness RECTAL: Intact sphincter, pasty stool heme negative. EXTREMITIES: No edema. no tenderness NEUROLOGIC: No gross focality. LABORATORY DATA: Hemoglobin is noted to be 10 (from 13.9 last 01/2016), hematocrit 34.2, white cell count 16 platelets 703. Sodium 140, potassium 3.7, chloride 105, CO2 20, BUN 10, creatinine 1, glucose 142. Initial lactic acid 2.4 later 1.4. IMAGING DATA: CT chest showed airspace consolidation in the left lower lobe and lingula ASSESSMENT: 1. Sepsis secondary to possible aspiration pneumonia recurrent coughing, choking and vomiting episodes in the last 10 years esophageal dysfunction versus laryngopharyngeal reflux (hx GERD as per records, PPI non-compliance) ? anxiety/depression contributory to recurrent choking/vomting sx (panic DSO as per recent outpx PCP visit 12/2016) 2. Anemia gastrointestinal (esophagitis, celiac dse) versus gynecological (irregular/ infrequent menses w/ prolonged heavy bleeding as per px) 3. Asthma currently not in exacerbation suboptimal control however w/ daily rescue inhaler use PLAN: GMF Cultures, Clindamycin aspiration precautions for now swallow eval. resume PPI for reflux. Outpatient GI appointment next week as per px. RE recurrent choking, coughing, vomiting sx Anemia workup. Transfuse prbc for hemoglobin less than 7 and/or symptomatic anemia if px agreeable (px currently undecided about blood transfusion should need arise) outpx Pulmo referral (suboptimal asthma) outpx Care Assistant referral (abnormal menses) Consider Psych eval for poss concomitant anxiety/mood DSO. DVT prophylaxis, SCDs RE anemia Full code. MTDD
[2017-02-14] MEDS ORDERED: CETIRIZINE HCL 10 MG TAB PO SCH (08:00)
[2017-02-14] MEDS ORDERED: CLINDAMYCIN CONSULT ACTIVE PRN (08:00)
[2017-02-14] MEDS ORDERED: CLINDAMYCIN HCL 150 MG CAP PO SCH (08:00)
[2017-02-14] MEDS ORDERED: FLUTICASONE/SALMETEROL 100/50 (ADVAIR) 14 PUFF/1 INHALER INH SCH (08:00)
[2017-02-14 08:10] VITALS: BP 106/71; PULSE 77; TEMP 36.3; O2SAT 97
[2017-02-14 08:20] LABS: MEAN CELL VOLUME 68.3 fL (80-100); MEAN CORPUSCULAR HEMOGLOBIN 20.7 pg (25-34); MEAN CORPUSCULAR HGB CONC 30.3 g/dl (32-36); MEAN PLATELET VOLUME 8.3 fL (7.4-10.4); PLATELET COUNT 549 K/uL (130-400); RED BLOOD COUNT 4.39 M/uL (4.2-5.4); WHITE BLOOD COUNT 13.76 K/uL (4.8-10.8)
[2017-02-14] MEDS: LACTOBACILLUS ACIDOPHILUS (FLORANEX) TAB PO SCH ×2 (08:39→11:39)
[2017-02-14 08:44] LABS: BUN/CREATININE RATIO 10.4 (10-20); CREATININE 0.73 mg/dl (0.60-1.20); POTASSIUM 4.1 mmol/L (3.5-5.1)
[2017-02-14 08:48] LABS: CALCIUM 8.1 mg/dl (8.5-10.1)
[2017-02-14] MEDS ORDERED: GUAIFENESIN 600 MG TABCR PO SCH (09:00)
[2017-02-14 09:08] LABS: BASO % 0.2 %; BASO ABS # 0.03 K/uL (0-0.2); COMPLETE YES; EOS % 5.7 %; IG% 0.2 %; LYMPH % 19.2 %; LYMPH ABS # 2.64 K/uL (1.2-3.4); MICROCYTOSIS PRESENT; MONO % 6.3 %; NEUT % 68.4 %; OVALOCYTES 1+
[2017-02-14 10:48] LABS: URINE APPEARANCE CLEAR (CLEAR); URINE BILIRUBIN NEG (NEG); URINE COLOR YELLOW; URINE NITRITE NEG (NEG); UROBILINOGEN NEG (NEG); ZZUR CULT IF INDIC CLEAN CATCH NO
[2017-02-14 10:59] LABS: MANUAL MICROSCOPIC REQUIRED? NO; REVIEW REQ? NO
[2017-02-14] MEDS ORDERED: LEVO-459 PO (14:01)
[2017-02-14] MEDS ORDERED: ONDA4TAB10 SL (14:01)
--- NOTE | 2017-02-14 14:03 | Discharge Instructions ---
Discharge Instructions Date of Service Feb 14, 2017. Admission Reason for Admission: Sepsis Discharge Discharge Diagnosis / Problem: INTRACTABLE NAUSEA /PNEUMONIA Discharge Goals Goal(s): Decrease discomfort, Diagnostic testing Activity Recommendations Activity Limitations: resume your previous activity . Instructions / Follow-Up Instructions / Follow-Up HOSPITAL FOLLOW UP AT [facility] OFFICE WILL CALL WITH APPOINTMENT GASTROENTEROLOGY FOLLOW UP ON 02/18/2017 @ 2:[address] Myra Leroy, DO Gastroenterology, [facility] PLEASE SCHEDULE OUT PT [facility] REPAIR HELPER FOLLOW UP , NEED EVALUATION FOR IRREGULAR /EXCESSIVE MENSTRUATION Current Hospital Diet Patient's current hospital diet: Regular Diet Discharge Diet Recommended Diet: Regular Diet Pending Studies Studies pending at discharge: no Laboratory Results Hemoglobin A1c Test 02/14/17 01:25 Range/Units Medical Emergencies . Who to Call and When: Medical Emergencies: If at any time you feel your situation is an emergency, please call 911 immediately. . Non-Emergent Contact Non-Emergency issues call your: Primary Care Provider . . "Provider Documentation" section prepared by Sara Henderson. . VTE Core Measure Inpt VTE Proph given/why not?: Jacques Penn, SCD's
--- NOTE | 2017-02-14 14:05 | Discharge Summary ---
Discharge Summary Date of Service Feb 14, 2017. Discharge Summary Admission Date: Feb 14, 2017 at 01:09 Discharge Date: Feb 14, 2017 Discharge Disposition: Home Principal Diagnosis: INTRACTABLE NAUSEA /PNEUMONIA Procedures: CT ABDOMEN /PELVIS : IMPRESSION: 1. There is airspace consolidation in the left lower lobe and lingula typical in appearance for pneumonia. Radiographic follow-up to resolution is recommended. 2. Minimally enlarged mediastinal lymph nodes are likely on a reactive basis. 3. There are no acute infectious or inflammatory findings in the abdomen or pelvis. Medication Reconciliation New Medications: Levofloxacin (Levaquin) 500 Mg Tab 1 TAB PO DAILY for 4 Days, #4 TABS Ondasetron Odt (Zofran Odt) 4 Mg Tab 4 MG SL Q6H for Nausea for 30 Days, #120 TAB Continued Medications: Albuterol Hfa (Ventolin Hfa) 200 Puffs/85131 Mcg Aers 2-4 PUFFS INH Q6H PRN for SOB/Wheezing, #1 INHALER Cetirizine (Zyrtec) 10 Mg Tab 10 MG PO DAILY, TAB Dextromethorphan Polistirex (Delsym) 30 Mg/5 Ml Liq 5 ML PO UD PRN for Cough, ML Ibuprofen Tab (Advil) 200 Mg Tab 200-600 MG PO Q4H PRN for Pain, TAB Discontinued Medications: Fluticasone Prop/Salmeterol (Advair Diskus 100/50 60 Dose) 1 Ea Aerp 1 PUFF INH BID, INHALER Referrals At Discharge Follow up Referrals: Generation Technician Referral - 02/18/17 with Myra Leroy DO Admission Information HPI (per Admitting provider): DATE OF ADMISSION: 02/14/2017 PRIMARY CARE DOCTOR: Dr. Oreilly. CHIEF COMPLAINT: Coughing, choking and vomiting. History obtained from the patient's records. HISTORY OF PRESENT ILLNESS: Medical history significant for asthma, panic disorder as per records, reflux as per records. Recent confinement last January 2015 for hypoxia with asthma exacerbation. Occasional ER visits since but no hospital confinements related to asthma. Daily rescue inhaler use however.. Asper patient since she was in her teens, about 10 years ago, she would have a choking sensation, coughing followed by emesis. PX seen at PCP's office last month ff [facility] ER visit for asthma exacerbation. Prescribed Lidocaine viscous, Protonix, and prednisone course. As per outpx note, px claimed she was in the ER for "nerve pain", Px recounted chronic choking,coughing sx to PCP. Outpx Pulmo, GI, ENT work up in [place]. Px not clear on findings. Magic swizzle prescribed by PCP for "phlegm associated choking/vomiting episodes ". PCP concerned about possible concomitant Panic DSO as per outpx note. Lexapro rx given. Unclear if px compliant w/ rx. Outpx GI appointment scheduled next week for chronic vomiting symptoms. Over the last week, worsening choking-cough symptoms. No chest pain, no shortness of breath, left-sided achy abdominal pain w/ coughing, fever, vomiting, ncreasing shortness of breath. good bowel movement. No black/bloody stools; no bloody emesis. No unusual weight loss although px admits to chronic fatigue symptoms. Irregular menses like 4 times a year, but would last a month long. At the Emergency Room, the patient given Azactam and Daptomycin for sepsis. MEDICAL HISTORY: As above. No history of pneumococcal vaccines in the past. No recent flu vaccines (cites illness following administration in the past.) SURGERIES: Sinus surgery. HOME MEDICATIONS: Include albuterol, Zyrtec, Advair Diskus, Advil. ALLERGIES: DAIRY, GLUTEN, CEFUROXIME, PENICILLIN, PEANUTS. FAMILY HISTORY: Diabetes. 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 Physical Exam (per Admitting): REVIEW OF SYSTEMS: As per HPI, all other ROS negative PHYSICAL EXAMINATION: VITAL SIGNS: Blood pressure was noted to be 130/80, pulse rate 102, RR 25, temperature 38.1, sats 92% on room air. GENERAL: Noted to be slightly anxious, no respiratory distress SKIN: Pallor. HEENT: Pale palpebral conjunctivae. Dry mucosa. NECK: No JVD. Supple. CHEST: Decreased breath sounds. No wheeze. HEART: Tachycardic. ABDOMEN: Some distension. some LUQ tenderness RECTAL: Intact sphincter, pasty stool heme negative. EXTREMITIES: No edema. no tenderness NEUROLOGIC: No gross focality. Hospital Course feels much better today , no nausea or vomiting , diet advanced to regular , tolerating well no cough , no fever or chills wants to be discharged home today P/E: GEN ; no sign of distress HEENT ; sclera non icteric HT : regular , S1/S2 LUNGS : CTA ABDOMEN : soft, non tender EXT : no lower ext edema NEURO: AAO x3, no focal deficit A/P: INTRACTABLE NAUSEA /VOMITING : not sure of the etiology had extensive work up done in [address] [place] [address] abdomen /pelvis -no pathology noted possible Cyclic vomiting syndrome ? scheduled to see GI on 02/18/17 diet advanced to regular tolerating well pt requests to be discharged home and follow up with GI Dr Leroy on script sent her Pharmacy for PRN Zofran ODT PNEUMONIA: Possible due to aspiration with chronic vomiting Chest xray /Ct chest shows left lower lobe infiltrate no evidence of sepsis afebrile with minimum cough Abx changed to PO Levaquin stable to be discharged home today ANEMIA : due to fe deficiency Fe study shows low Fe level 8 ordered for Fe supplement need to follow up with [facility] as out pt for irregular menstrual period FULL CODE DISPOSITION : discharge pt home today GI follow up with Dr Myra Leroy on 02/18/17 Total time spent on discharge = 35 MINS This includes examination of the patient, discharge planning, medication reconciliation, and communication with other providers. Discharge Instructions Discharge Instructions Date of Service Feb 14, 2017. Admission Reason for Admission: Sepsis Discharge Discharge Diagnosis / Problem: INTRACTABLE NAUSEA /PNEUMONIA Discharge Goals Goal(s): Decrease discomfort, Diagnostic testing Activity Recommendations Activity Limitations: resume your previous activity . Instructions / Follow-Up Instructions / Follow-Up HOSPITAL FOLLOW UP AT [facility] OFFICE WILL CALL WITH APPOINTMENT GASTROENTEROLOGY FOLLOW UP ON 02/18/2017 @ 2:[address] Myra Leroy, DO Gastroenterology, [facility] Diet Patient's current hospital diet: Regular Diet Discharge Diet Recommended Diet: Regular Diet Pending Studies Studies pending at discharge: no Laboratory Results Hemoglobin A1c Test 02/14/17 01:25 Range/Units Medical Emergencies . Who to Call and When: Medical Emergencies: If at any time you feel your situation is an emergency, please call 911 immediately. . Non-Emergent Contact Non-Emergency issues call your: Primary Care Provider . . "Provider Documentation" section prepared by Sara Henderson. . VTE Core Measure Inpt VTE Proph given/why not?: Jacques Penn, SCD's Additional Copies To Myra Leroy, DO
[2017-02-14 14:06] VITALS: BP 106/71; PULSE 77; TEMP 36.3; O2SAT 97
[2017-02-14] MEDS ORDERED: FRRG PO (14:17)
[2017-02-15 06:58] LABS: ESTIMATED AVERAGE GLUCOSE 123 mg/dl; HA1C FLAG Normal (Normal)
[2017-02-15] MEDS ORDERED: PANTOprazole SOD 40 MG TAB PO SCH (08:00)
[2017-02-17 17:37] LABS: IGA SERUM 184 mg/dL (81-463); TIS TRANS IGA 1 U/mL (<4)
[2017-05-12] MEDS ORDERED: METH4PAK PO (14:04)
[2017-05-12] MEDS ORDERED: ULT50X PO (14:04)
[2017-05-12] MEDS ORDERED: NORGTAB39 PO (14:04)
[2017-05-12] MEDS ORDERED: PRT/20 PO (14:04)
[2017-05-12] MEDS ORDERED: BENZ100C7 PO (14:04)
[2017-05-27] MEDS ORDERED: LVQ750 PO (12:56)
[2017-05-27] MEDS ORDERED: MTR500 PO (12:56)
[2017-05-27] MEDS ORDERED: PRED-301 PO (12:56)
[2017-05-27] MEDS ORDERED: ULT50X PO (12:56)
[2017-05-27] MEDS ORDERED: ZNT150 PO (12:56)
[2017-05-27] MEDS ORDERED: PRT/20 PO (12:56)
[2017-05-27] MEDS ORDERED: PRED10TA PO (12:56)
[2017-06-25] MEDS ORDERED: PANT40TA PO (15:06)
[2017-08-09] MEDS ORDERED: IPRASOL4 INH (08:40)
[2017-08-09] MEDS ORDERED: MONT1TAB3 PO (08:40)
[2017-08-09] MEDS ORDERED: ADVIN10050 INH (08:40)
[2017-08-10] MEDS ORDERED: ADVIN10050 INH (10:09)
[2017-08-10] MEDS ORDERED: PANT40TA PO (10:09)
[2017-08-10] MEDS ORDERED: VNTHFA/IN INH (10:09)
[2017-08-10] MEDS ORDERED: PRD20 OR (10:10)
[2017-08-10] MEDS ORDERED: LEVO-459 OR (10:10)
[2017-08-10] MEDS ORDERED: NEBMAC (10:10)
[2017-08-10] MEDS ORDERED: MONT1TAB3 PO (10:10)
[2017-08-10] MEDS ORDERED: ALBU0.633 NEB (10:11)
[2017-08-10] MEDS ORDERED: ZNT150 PO (10:26)
== END 2017-02-14 14:30 | disposition home or self-care (01) | DRG 179 ==
LOC: C.EDB 22:47 → C.4E 02-14 01:09 → ENRESERV 02-14 02:34
PROVIDERS: ADMIT Internal Medicine; ATTEND Hospitalist
DX: J69.0 Pneumonitis due to inhalation of food and vomit (principal); J45.909 Unspecified asthma, uncomplicated; F41.0 Panic disorder [episodic paroxysmal anxiety]; R00.0 Tachycardia, unspecified; K21.9 Gastro-esophageal reflux disease without esophagitis; D50.9 Iron deficiency anemia, unspecified; Z91.19 Patient's noncompliance with other medical treatment and regimen; Z79.899 Other long term (current) drug therapy; Z91.011 Allergy to milk products; Z91.010 Allergy to peanuts; Z88.0 Allergy status to penicillin; Z88.8 Allergy status to other drugs, medicaments and biological substances; Z91.018 Allergy to other foods; Z83.3 Family history of diabetes mellitus

== ENCOUNTER 2017-02-26 17:32 | Emergency (ER) | payer BC ==
[~2017-02-26] VITALS: Ht 162.6 cm; Wt 72.1 kg
[~2017-02-26 17:32] MED LIST changes: +CETI10TA84 PO; +DEXT30LI PO; +FRRG PO; +IBUP-103 PO; +LEVO-459 PO; -LIDO2SOL19 PO; +ONDA4TAB10 SL
[2017-02-26 17:39] VITALS: TEMP 36.9; Ht 162.6 cm; Wt 72.1 kg
[2017-02-26] MEDS ORDERED: SODIUM CHLORIDE 0.9% 1000ML 1,000 ML IV STA (17:58)
[2017-02-26] MEDS ORDERED: ONDANSETRON INJ 2 MG/ML 2 ML VIAL IV STA (17:58)
[2017-02-26] MEDS ORDERED: PROMETHAZINE HCL INJ 25 MG/ML 1 ML VIAL IV STA (17:58)
[2017-02-26] MEDS ORDERED: PROMETHAZINE HCL INJ 12.5 MG in SODIUM CHLORIDE 0.9% 50ML 50 ML IV STA (18:07)
--- NOTE | 2017-02-26 18:07 | EMERGENCY ROOM VISIT NOTE ---
History Report prepared by Moses: Felecia Galloway Under the Supervision of: Dr. Corey Augustin M.D. First contact with patient: 17:52 Chief Complaint: VOMITING Stated Complaint: VOMIT, STOMACH WORM POSSIBLE Nursing Triage Summary: triage note: pt reports nausea and vomitting x a month. pt reports " i was in the er two weeks ago and admitted and it got worse again last night." History of Present Illness The patient is a 31 year old female who presents to the Emergency Room with complaints of intermittent vomiting for the past 4 weeks. She reports she was seen here in the ED 2 weeks ago with the same symptoms and remained in the hospital for a brief stay. She improved for a few days, but then her vomiting started up again last night. She has tried taking Zofran, and reports it has provided minimal relief. She has also experienced abdominal pain, rating her discomfort as a 7/10 in severity. The patient states she thinks she has pinworms , and has been taking a prescription medication she had from a previous bout of pinworms. She reports she was having rectal itching before she started taking the prescription, but that has now resolved. The patient recently had pneumonia and states her cough has improved with antibiotics, but she still coughs with the vomiting. She was running a fever two weeks ago, but has not had any recent fevers. She denies any recent diarrhea and states she has been moving her bowels. She does have an upcoming appointment with Gastroenterology next month. 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 A total of 10 systems reviewed and were otherwise negative. Past Medical & Surgical Medical Problems: (1) Asthma, Unspecified (2) Nausea (3) Sepsis Surgical Problems: (1) No significant past surgical history Family History No significant family history Social History Smoking Status: Never Smoker Smokeless Tobacco Use: No Alcohol Use: occasionally Drug Use: none Marital Status: single Housing Status: lives with family Occupation Status: [employer] student Current/Historical Medications Scheduled Cetirizine (Zyrtec), 10 MG PO DAILY Ferrous Gluconate (Ferrous Gluconate), 324 MG PO BID Mebendazole (Emverm), 1 TAB PO DIRECTED Scheduled PRN Albuterol Hfa (Ventolin Hfa), 2-4 PUFFS INH Q6H PRN for SOB/Wheezing Dextromethorphan Polistirex (Delsym), 5 ML PO UD PRN for Cough Ibuprofen Tab (Advil), 200-600 MG PO Q4H PRN for Pain Ondasetron Odt (Zofran Odt), 4 MG SL Q6H PRN for Nausea or Vomiting Promethazine Hcl (Phenergan), 25 MG PO Q6H PRN for Nausea Sennosides-Docusate Sodium (Senokot S), 2 TAB PO BID PRN for Constipation Allergies Coded Allergies: Cefuroxime (Verified Allergy, Severe, CHEST TIGHTENING, "FEEL LIKE CHOKING ", SOB, 02/26/17) Dairy (Verified Allergy, Severe, CHEST TIGHTENING, "CHOKING" FEELING, SOB , 02/26/17) Gluten (Verified Allergy, Severe, CHEST TIGHTENING, "CHOKING" FEELING, SOB , 02/26/17) Penicillins (Verified Allergy, Severe, CHEST TIGHTENING, "CHOKING" FEELING , SOB, 02/26/17) Peanut (Verified Allergy, Intermediate, "NON STOP COUGHING, FELT LIKE CHOKING", 02/26/17) Physical Exam Vital Signs Date Time Temp Pulse Resp B/P (MAP) Pulse Ox O2 Delivery O2 Flow Rate FiO2 02/26/17 20:01 101 16 112/75 97 Room Air 02/26/17 17:39 36.9 88 18 109/72 98 Room Air Physical Exam GENERAL: Patient is in no acute distress. HEENT: No acute trauma, normocephalic atraumatic, mucous membranes moist, no nasal congestion, no scleral icterus. NECK: No stridor, no adenopathy, no meningismus, trachea is midline. LUNGS: Clear to auscultation bilaterally, no wheeze, no rhonchi, breath sounds equal. HEART: Without murmurs gallops or rubs, regular rate and rhythm. ABDOMEN: Soft, nontender, bowel sounds positive, no hernias, no peritonitis. EXTREMITIES: No cyanosis or edema, full range of motion of all the joints without pain or difficulty, no signs for acute trauma. NEUROLOGIC: Oriented x 3, no acute motor or sensory deficits, no focal weakness. SKIN: No rash, no jaundice, no diaphoresis. Medical Decision & Procedures ER Provider Diagnostic Interpretation: X-ray results as stated below per interpretation by me and the radiologist: CHEST AND ABDOMEN 2 VIEWS HISTORY: Generalized abdominal pain. COMPARISON: Chest abdomen and pelvis CT 02/14/2017. FINDINGS: The heart is normal in size. Lingular airspace opacity has a most completely resolved. The right lung is clear. No pleural effusions. No pneumothorax. No dilated loops of bowel to suggest an obstruction. No pneumoperitoneum. No pneumatosis. No renal or ureteral calculi. Moderate well-formed stool within the proximal colon. IMPRESSION: 1. Near complete resolution of the lingular airspace opacity consistent with a resolving pneumonia. 2. No evidence for bowel obstruction. Electronically signed by: Mason Reilly M.D. 02/26/2017 7:38 PM Laboratory Results 02/26/17 18:10 Red Blood Count 5.23, Mean Corpuscular Volume 67.1, Mean Corpuscular Hemoglobin 19.5, Mean Corpuscular Hemoglobin Concent 29.1, Mean Platelet Volume 8.2, Neutrophils (%) (Auto) 69.1, Lymphocytes (%) (Auto) 24.5, Monocytes (%) (Auto) 4.0, Eosinophils (%) (Auto) 1.8, Basophils (%) (Auto) 0.2, Neutrophils # (Auto) 10.96, Lymphocytes # (Auto) 3.89, Monocytes # (Auto) 0.63, Eosinophils # (Auto) 0.28, Basophils # (Auto) 0.03 02/26/17 18:10 Test 02/26/17 00:00 02/26/17 18:10 Urine Color RED Urine Appearance CLOUDY (CLEAR) Urine pH 6.0 (4.5-7.5) Urine Specific [place] 1.023 (1.000-1.030) Urine Protein 1+ (NEG) Urine Glucose (UA) NEG (NEG) Urine Ketones NEG (NEG) Urine Occult Blood 3+ (NEG) Urine Nitrite NEG (NEG) Urine Bilirubin NEG (NEG) Urine Urobilinogen NEG (NEG) Urine Leukocyte Esterase SMALL (NEG) Urine WBC (Auto) 10-30 /hpf (0-5) Urine RBC (Auto) >30 /hpf (0-4) Urine Hyaline Casts (Auto) 1-5 /lpf (0-5) Urine Epithelial Cells (Auto) >30 /lpf (0-5) Urine Bacteria (Auto) NEG (NEG) Urine Yeast (Auto) (NONE PRSENT) White Blood Count 15.85 K/uL (4.8-10.8) Red Blood Count 5.23 M/uL (4.2-5.4) Hemoglobin 10.2 g/dL (12.0-16.0) Hematocrit 35.1 % (37-47) Mean Corpuscular Volume 67.1 fL (80-100) Mean Corpuscular Hemoglobin 19.5 pg (25-34) Mean Corpuscular Hemoglobin Concent 29.1 g/dl (32-36) Platelet Count 704 K/uL (130-400) Mean Platelet Volume 8.2 fL (7.4-10.4) Neutrophils (%) (Auto) 69.1 % Lymphocytes (%) (Auto) 24.5 % Monocytes (%) (Auto) 4.0 % Eosinophils (%) (Auto) 1.8 % Basophils (%) (Auto) 0.2 % Neutrophils # (Auto) 10.96 K/uL (1.4-6.5) Lymphocytes # (Auto) 3.89 K/uL (1.2-3.4) Monocytes # (Auto) 0.63 K/uL (0.11-0.59) Eosinophils # (Auto) 0.28 K/uL (0-0.5) Basophils # (Auto) 0.03 K/uL (0-0.2) RDW Standard Deviation 44.1 fL (36.4-46.3) RDW Coefficient of Variation 18.1 % (11.5-14.5) Immature Granulocyte % (Auto) 0.4 % Immature Granulocyte # (Auto) 0.06 K/uL (0.00-0.02) Polychromasia 1+ Ovalocytes 1+ Anion Gap 8.0 mmol/L (3-11) Est Creatinine Clear Calc Drug Dose 93.1 ml/min Estimated GFR () 105.1 Estimated GFR (Non- 90.7 BUN/Creatinine Ratio 11.9 (10-20) Calcium Level 9.6 mg/dl (8.5-10.1) Total Bilirubin 0.3 mg/dl (0.2-1) Aspartate Amino Transf (AST/SGOT) 13 U/L (15-37) Alanine Aminotransferase (ALT/SGPT) 24 U/L (12-78) Alkaline Phosphatase 89 U/L (45-117) Total Protein 7.7 gm/dl (6.4-8.2) Albumin 3.8 gm/dl (3.4-5.0) Globulin 3.9 gm/dl (2.5-4.0) Albumin/Globulin Ratio 1.0 (0.9-2) Lipase 216 U/L (73-393) Human Chorionic Gonadotropin, Qual NEG (NEG) Laboratory results reviewed by me. Medications Administered Medications (Trade) Dose Ordered Sig/Jluis Route Start Time Stop Time Status Last Admin Dose Admin Ondansetron HCl (Zofran Inj) 4 mg NOW STAT IV 02/26/17 17:58 02/26/17 18:02 DC 02/26/17 18:12 4 MG Sodium Chloride 1,000 ml @ 200 mls/hr Q5H STAT IV 02/26/17 17:58 02/26/17 22:57 02/26/17 18:17 200 MLS/HR Promethazine HCl 12.5 mg/Sodium Chloride 50.5 ml @ 202 mls/hr NOW STAT IV 02/26/17 18:07 02/26/17 18:21 DC 02/26/17 18:14 202 MLS/HR ED Course 1755: The patient was evaluated in room C8. A complete history and physical exam was performed. 175: NSS 1000 ml @ 200 mls/hr IV, Zofran 4 mg IV. 1806: Promethazine HCl 12.5 mg/NSS 50.5 ml @ 202 mls/hr IV. 2024: I reevaluated the patient. She is feeling better. I discussed her results and discharge instructions and she verbalized complete understanding and agreement. Medical Decision Medication Reconciliation: I attest that I have personally reviewed the patient' s current medication list. Blood Pressure Screening: Patient was found to have normal blood pressure on screening and does not require follow-up. The differential diagnoses considered include pinworms, viral illness, bowel obstruction, pneumonia, UTI, electrolyte imbalance and anemia. There is a moderate leukocytosis, this is consistent with her vomiting. Her white count has been elevated recently with her hospital stay. She is anemic but this is baseline. Platelet count is elevated but also this seems baseline. No significant electrolyte abnormality or kidney failure. There is no hepatitis or pancreatitis. testing is negative. Obstruction series shows some extra stool, no bowel obstruction, her pneumonia has almost completely resolved. There was no free air. Urinalysis shows contamination, no infection. On exam, the patient was not toxic or febrile. There was no peritonitis. The patient received IV saline, IV Zofran and IV Phenergan, there has been no vomiting, she is resting comfortably. The patient does not need to be brought into the hospital. I do think she can be managed as an outpatient. She is quite adamant that she has pinworms and would like treatment as she has felt similar with previous pinworm infections. She is asking for Mebendazole orally. The patient is being discharged on Mebendazole, I will switch her to Phenergan for nausea. A bland diet was suggested. Some Senokot will be used for her constipation. She can return for fever, lack of improvement or worsening symptoms. The cause for her entire presentation is not completely clear but I suspect multifactorial. Impression Primary Impression: Nausea and vomiting Additional Impression: Dehydration Scribe Attestation The scribe's documentation has been prepared under my direction and personally reviewed by me in its entirety. I confirm that the note above accurately reflects all work, treatment, procedures, and medical decision making performed by me. Departure Information Dispostion Home / Self-Care Prescriptions Sennosides-Docusate Sodium (SENOKOT S) 1 Tab Tab 2 TAB PO BID Y for Constipation, #15 TAB Prov: Corey Augustin M.D. 02/26/17 Mebendazole (Emverm) 100 Mg Chw 1 TAB PO DIRECTED, #2 TAB take 1 tab now and then 1 tab in 2 weeks Prov: Corey Augustin M.D. 02/26/17 Promethazine Hcl (Phenergan) 25 Mg Tab 25 MG PO Q6H Y for Nausea, #15 TAB Prov: Corey Augustin M.D. 02/26/17 Referrals Karely Oreilly D.OKirk (PCP) Patient Instructions [facility] Additional Instructions senokot 2 tab 2x per day to help you move your bowels try phenergan 1 tab every 6 hours for the nausea if the zofran does not work mebendazole now orally and then again in 2 weeks bland diet--crackers, soup, gatorade, toast return if worsening or if not improving as we discussed see michele wolf and GI in follow up--call for appts Problem Qualifiers
[2017-02-26 18:18] LABS: BASO % 0.2 %; BASO ABS # 0.03 K/uL (0-0.2); EOS % 1.8 %; HEMATOCRIT 35.1 % (37-47); IG% 0.4 %; LYMPH % 24.5 %; LYMPH ABS # 3.89 K/uL (1.2-3.4); MEAN CELL VOLUME 67.1 fL (80-100); MEAN CORPUSCULAR HEMOGLOBIN 19.5 pg (25-34); MEAN CORPUSCULAR HGB CONC 29.1 g/dl (32-36); MEAN PLATELET VOLUME 8.2 fL (7.4-10.4); NEUT % 69.1 %; PLATELET COUNT 704 K/uL (130-400); RED BLOOD COUNT 5.23 M/uL (4.2-5.4); WHITE BLOOD COUNT 15.85 K/uL (4.8-10.8)
[2017-02-26 18:37] LABS: BUN/CREATININE RATIO 11.9 (10-20); CALCIUM 9.6 mg/dl (8.5-10.1); CREATININE 0.86 mg/dl (0.60-1.20); POTASSIUM 3.6 mmol/L (3.5-5.1)
[2017-02-26 18:45] LABS: PREG INTERNAL NEGATIVE QC NEG CLEAR BACKGROUND; PREG INTERNAL POSITIVE QC POS CONTROL LINE
[2017-02-26 18:50] LABS: COMPLETE YES; OVALOCYTES 1+; POLYCHROMASIA 1+
--- NOTE | 2017-02-26 19:39 | DIAGNOSTIC IMAGING REPORT ---
CHEST AND ABDOMEN 2 VIEWS HISTORY: Generalized abdominal pain. COMPARISON: Chest abdomen and pelvis CT 02/14/2017. FINDINGS: The heart is normal in size. Lingular airspace opacity has a most completely resolved. The right lung is clear. No pleural effusions. No pneumothorax. No dilated loops of bowel to suggest an obstruction. No pneumoperitoneum. No pneumatosis. No renal or ureteral calculi. Moderate well-formed stool within the proximal colon. IMPRESSION: 1. Near complete resolution of the lingular airspace opacity consistent with a resolving pneumonia. 2. No evidence for bowel obstruction. Electronically signed by: Mason Reilly M.D. 02/26/2017 7:38 PM Dictated Date/Time: 02/26/2017 7:34 PM
[2017-02-26 20:01] VITALS: BP 112/75; PULSE 101; O2SAT 97
[2017-02-26 20:03] LABS: MANUAL MICROSCOPIC REQUIRED? NO; REVIEW REQ? YES; URINE APPEARANCE CLOUDY (CLEAR); URINE BILIRUBIN NEG (NEG); URINE COLOR RED; URINE EPITHELIAL CELL AUTO >30 /lpf (0-5); URINE NITRITE NEG (NEG); URINE SPECIFIC GRAVITY 1.023 (1.000-1.030); UROBILINOGEN NEG (NEG); ZZUR CULT IF INDIC CLEAN CATCH YES
[2017-02-26] MEDS ORDERED: SENN-65 PO (20:36)
[2017-02-26] MEDS ORDERED: MEBE1CHW PO (20:36)
[2017-02-26] MEDS ORDERED: PROM25TA9 PO (20:36)
[2017-05-12] MEDS ORDERED: ULT50X PO (14:04)
[2017-05-12] MEDS ORDERED: METH4PAK PO (14:04)
[2017-05-12] MEDS ORDERED: NORGTAB39 PO (14:04)
[2017-05-12] MEDS ORDERED: PRT/20 PO (14:04)
[2017-05-12] MEDS ORDERED: BENZ100C7 PO (14:04)
[2017-05-27] MEDS ORDERED: ULT50X PO (12:56)
[2017-05-27] MEDS ORDERED: PRED10TA PO (12:56)
[2017-05-27] MEDS ORDERED: LVQ750 PO (12:56)
[2017-05-27] MEDS ORDERED: ZNT150 PO (12:56)
[2017-05-27] MEDS ORDERED: PRED-301 PO (12:56)
[2017-05-27] MEDS ORDERED: PRT/20 PO (12:56)
[2017-05-27] MEDS ORDERED: MTR500 PO (12:56)
[2017-06-25] MEDS ORDERED: PANT40TA PO (15:06)
[2017-08-09] MEDS ORDERED: ADVIN10050 INH (08:40)
[2017-08-09] MEDS ORDERED: IPRASOL4 INH (08:40)
[2017-08-09] MEDS ORDERED: MONT1TAB3 PO (08:40)
[2017-08-10] MEDS ORDERED: PANT40TA PO (10:09)
[2017-08-10] MEDS ORDERED: ADVIN10050 INH (10:09)
[2017-08-10] MEDS ORDERED: VNTHFA/IN INH (10:09)
[2017-08-10] MEDS ORDERED: MONT1TAB3 PO (10:10)
[2017-08-10] MEDS ORDERED: NEBMAC (10:10)
[2017-08-10] MEDS ORDERED: PRD20 OR (10:10)
[2017-08-10] MEDS ORDERED: LEVO-459 OR (10:10)
[2017-08-10] MEDS ORDERED: ALBU0.633 NEB (10:11)
[2017-08-10] MEDS ORDERED: ZNT150 PO (10:26)
== END 2017-02-26 20:44 | disposition home or self-care (01) ==
LOC: C.EDB 17:34 → C.EDC 20:44
DX: R11.2 Nausea with vomiting, unspecified (principal); E86.0 Dehydration; J45.909 Unspecified asthma, uncomplicated

== ENCOUNTER 2017-03-01 22:45 | Emergency (ER) | payer BC ==
[~2017-03-01] VITALS: Ht 162.6 cm; Wt 75.0 kg
[~2017-03-01 22:45] MED LIST changes: -FRRG PO; -LEVO-459 PO; +MEBE1CHW PO; -ONDA4TAB10 SL; +PROM25TA9 PO; +SENN-65 PO
[2017-03-01 22:50] VITALS: TEMP 36.8; O2SAT 98; Ht 162.6 cm; Wt 75.0 kg
[2017-03-01] MEDS ORDERED: ALBUT/IPRATROP 3MG/0.5MG NEB 3 ML VIAL INH STA (23:05)
[2017-03-01] MEDS ORDERED: LORAZEPAM 0.5 MG TAB PO STA (23:48)
[2017-03-01] MEDS ORDERED: COUGH DROP (SUGAR FREE) LOZ 24 LOZ/1 BOX PO STA (23:48)
[2017-03-02] MEDS ORDERED: FLEXERIL HOME PACK 10 MG VIAL PO ONE (00:30)
[2017-03-02] MEDS ORDERED: LIDOCAINE HCL 2% VISC SOLN 20 ML UDC MT ONE (00:30)
[2017-03-02] MEDS ORDERED: LIDO2SOL19 PO (00:33)
[2017-03-02] MEDS ORDERED: CYCL10TA6 PO (00:33)
--- NOTE | 2017-03-02 00:34 | EMERGENCY ROOM VISIT NOTE ---
History First contact with patient: 22:52 Chief Complaint: RESPIRATORY PROBLEMS Stated Complaint: ASTHMA ATTACK Nursing Triage Summary: arrived via amb with als. pt walked home from work and when it got dark she sdeveloped a cough and felt short of breath. seen in ed recently for the same. pt had one duoneb History of Present Illness The patient is a 31 year old female who presents to the Emergency Room with complaints of coughing and vomiting for the past several months. The patient states that she has had intermittent episodes of coughing with vomiting. Her symptoms started approximately one hour ago today. She states that she has these symptoms every day. She has been seeing her primary care provider and has an EGD scheduled due to some intermittent abdominal pain. She has a prescription for albuterol nebulized treatments, but states she does not have a nebulizer. She reports her throat feels dry and painful. She denies any chest pain or difficulty breathing. She does report a history of asthma. Review of Systems A complete 10 point review of systems was reviewed with the patient with pertinent positives and negatives as per history of present illness. All else were negative. Past Medical/Surgical History Medical Problems: (1) Asthma, Unspecified (2) Nausea (3) Sepsis Surgical Problems: (1) No significant past surgical history Family History No significant family history Social History Smoking Status: Never Smoker Alcohol Use: occasionally Drug Use: none Marital Status: single Housing Status: lives with family Occupation Status: [employer] student Current/Historical Medications Scheduled Cetirizine (Zyrtec), 10 MG PO DAILY Cyclobenzaprine Hcl (Flexeril), 10 MG PO TID Ferrous Gluconate (Ferrous Gluconate), 324 MG PO BID Lidocaine Hcl (Mouth-Throat) (Lidocaine Viscous), 5 ML PO TID Mebendazole (Emverm), 1 TAB PO DIRECTED Scheduled PRN Albuterol Hfa (Ventolin Hfa), 2-4 PUFFS INH Q6H PRN for SOB/Wheezing Dextromethorphan Polistirex (Delsym), 5 ML PO UD PRN for Cough Ibuprofen Tab (Advil), 200-600 MG PO Q4H PRN for Pain Ondasetron Odt (Zofran Odt), 4 MG SL Q6H PRN for Nausea or Vomiting Promethazine Hcl (Phenergan), 25 MG PO Q6H PRN for Nausea Sennosides-Docusate Sodium (Senokot S), 2 TAB PO BID PRN for Constipation Allergies Coded Allergies: Cefuroxime (Verified Allergy, Severe, CHEST TIGHTENING, "FEEL LIKE CHOKING ", SOB, 03/01/17) Dairy (Verified Allergy, Severe, CHEST TIGHTENING, "CHOKING" FEELING, SOB , 03/01/17) Gluten (Verified Allergy, Severe, CHEST TIGHTENING, "CHOKING" FEELING, SOB , 03/01/17) Penicillins (Verified Allergy, Severe, CHEST TIGHTENING, "CHOKING" FEELING , SOB, 03/01/17) Peanut (Verified Allergy, Intermediate, "NON STOP COUGHING, FELT LIKE CHOKING", 03/01/17) Physical Exam Vital Signs Date Time Temp Pulse Resp B/P (MAP) Pulse Ox O2 Delivery O2 Flow Rate FiO2 03/02/17 00:43 106 18 102/51 100 Room Air 03/01/17 23:56 102 18 115/63 98 Room Air 03/01/17 22:53 104 03/01/17 22:50 98 Room Air 03/01/17 22:50 36.8 109 22 121/71 98 Room Air Physical Exam VITALS: Vitals are noted on the nurse's note and reviewed by myself. Vital signs stable. GENERAL: This is a 31-year-old female, in no acute distress, nondiaphoretic, well-developed well-nourished. SKIN: Capillary reflex less than 2 seconds. HEENT: Normocephalic. PERRLA. EOMI. Nares patent. Mucous membranes moist. Neck is supple without nuchal rigidity. HEART: Regular rate and rhythm without murmurs gallops or rubs. LUNGS: Patient has a dry, hacking cough. Clear to auscultation bilaterally without wheezes, rales or rhonchi. No retractions or accessory muscle use. ABDOMEN: Positive bowel sounds x 4. Soft, nontender, without masses or organomegaly. NEURO: Patient was alert and oriented to person place and time. Medical Decision & Procedures ER Provider Diagnostic Interpretation: Chest x-ray interpretation: No acute cardiopulmonary abnormalities. No infiltrate. Medications Administered Medications (Trade) Dose Ordered Sig/Jluis Route Start Time Stop Time Status Last Admin Dose Admin Albuterol/ Ipratropium (Duoneb) 3 ml NOW STAT INH 03/01/17 23:05 03/01/17 23:07 DC 03/01/17 23:15 3 ML Menthol (Nice Cain) 1 cain NOW STAT PO 03/01/17 23:48 03/01/17 23:49 DC 03/01/17 23:55 1 CAIN Lorazepam (Ativan Tab) 0.5 mg NOW STAT PO 03/01/17 23:48 03/01/17 23:49 DC 03/01/17 23:55 0.5 MG Cyclobenzaprine HCl (FLEXERIL 10MG Home Pack) 1 homepack UD ONCE PO 03/02/17 00:30 03/02/17 00:31 DC 03/02/17 00:38 1 HOMEPACK Lidocaine HCl (Viscous Lidocaine 2% Soln) 20 ml NOW ONCE MT 03/02/17 00:30 03/02/17 00:31 DC 03/02/17 00:38 20 ML ED Course The patient was evaluated as above. Labs were drawn and IV access was obtained. Patient was medicated with a DuoNeb treatment. Chest x-ray was performed and read by radiology as above. Patient was reevaluated and requested something for her spasms. She was given Ativan here without relief. She will be sent home with Flexeril and viscous lidocaine. Discharge instructions were reviewed with the patient. The patient verbalized understanding of my assessment and treatment plan and was discharged home in good condition. Medical Decision Differential diagnosis includes asthma exacerbation, pneumonia, upper respiratory infection, among others. The patient is a 31-year-old female who presents today complaining of coughing and vomiting. The patient has had these symptoms daily for the past several months. She has already seen her primary care provider multiple times for these symptoms and has an EGD scheduled for intermittent abdominal "spasms." The patient is well-appearing but has a dry hacking cough. She was given a DuoNeb treatment. She was given viscous lidocaine for her throat discomfort and Flexeril for her muscle spasms. The patient had oxygen saturations of 100% on room air. She was mildly tachycardic, likely secondary to the albuterol treatments. I recommended that she follow-up with her primary care provider so that she is able to get a nebulizer and receive her treatments at home. She is well-appearing and I feel that she can be discharged to follow-up with her primary care provider this week. Based on the patient's presentation and work up, I feel the patient is stable for outpatient treatment. The patient was educated to return to the emergency department for any worsening of their current condition or new/concerning symptoms. She will follow up with her PCP. Medication reconciliation: I attest that I have personally reviewed the patient 's current medication list. Blood pressure screening: Patient was found to have normal blood pressure on screening and does not require follow-up. Impression Primary Impression: Asthma exacerbation Departure Information Dispostion Home / Self-Care Condition GOOD Prescriptions Lidocaine Hcl (Mouth-Throat) (LIDOCAINE VISCOUS) 2 % Salima 5 ML PO TID for 6 Days, #100 ML Prov: Dorota Mora PA-C 03/02/17 Cyclobenzaprine Hcl (FLEXERIL) 10 Mg Tab 10 MG PO TID for 3 Days, #9 TAB Prov: Dorota Mora PA-C 03/02/17 Referrals Karely Oreilly D.O. (PCP) Patient Instructions My [facility] Additional Instructions You have been prescribed Flexeril (cyclobenzaprine) 1-2 tabs orally, three times per day. Do NOT exceed 30 mg (6 tabs) per day. Take your first dose at bedtime as it can make you drowsy. Always take all medications as prescribed. Viscous Lidocaine as needed. Call your primary care provider tomorrow for follow-up. For pain control, you can use the following [id number] medicines (if >12 yo): - Regular strength (325mg/tab) Tylenol (acetaminophen) 2 tabs every 4-6 hours as needed. Do not exceed 12 tablets in a 24 hour period. Avoid taking more than 4 grams (4000 mg) of Tylenol per day. This includes any other sources of acetaminophen you may take on a regular basis. - Regular strength (200 mg/tab) Advil (ibuprofen) 1-2 tabs every 4-6 hours as needed. Do not exceed a dose of 3200 mg per day. Use your albuterol treatments at home. Return to the emergency department for any worsening or new/concerning symptoms.
[2017-03-02 00:43] VITALS: BP 102/51; PULSE 106; O2SAT 100
--- NOTE | 2017-03-02 07:19 | DIAGNOSTIC IMAGING REPORT ---
TWO VIEW CHEST CLINICAL HISTORY: Cough. FINDINGS: PA and lateral chest radiographs are compared to study dated 02/26/2017. Correlation is made with chest CT dated 02/14/2017. The cardiomediastinal silhouette is unremarkable. Persistent airspace consolidation is suggested within the left lower lobe/lingula. This is best seen on the lateral projection. The right lung appears clear. No pleural effusion or pneumothorax is identified. The bony thorax appears intact. IMPRESSION: There is persistent consolidation at the left lung base, likely within the left lower lobe/lingula. This is similar to recent prior examinations. Electronically signed by: Corey Allen M.D. 03/02/2017 7:18 AM Dictated Date/Time: 03/02/2017 7:16 AM
[2017-05-12] MEDS ORDERED: METH4PAK PO (14:04)
[2017-05-12] MEDS ORDERED: PRT/20 PO (14:04)
[2017-05-12] MEDS ORDERED: ULT50X PO (14:04)
[2017-05-12] MEDS ORDERED: NORGTAB39 PO (14:04)
[2017-05-12] MEDS ORDERED: BENZ100C7 PO (14:04)
[2017-05-27] MEDS ORDERED: LVQ750 PO (12:56)
[2017-05-27] MEDS ORDERED: PRED10TA PO (12:56)
[2017-05-27] MEDS ORDERED: ULT50X PO (12:56)
[2017-05-27] MEDS ORDERED: ZNT150 PO (12:56)
[2017-05-27] MEDS ORDERED: PRED-301 PO (12:56)
[2017-05-27] MEDS ORDERED: PRT/20 PO (12:56)
[2017-05-27] MEDS ORDERED: MTR500 PO (12:56)
[2017-06-25] MEDS ORDERED: PANT40TA PO (15:06)
[2017-08-09] MEDS ORDERED: ADVIN10050 INH (08:40)
[2017-08-09] MEDS ORDERED: IPRASOL4 INH (08:40)
[2017-08-09] MEDS ORDERED: MONT1TAB3 PO (08:40)
[2017-08-10] MEDS ORDERED: PANT40TA PO (10:09)
[2017-08-10] MEDS ORDERED: VNTHFA/IN INH (10:09)
[2017-08-10] MEDS ORDERED: ADVIN10050 INH (10:09)
[2017-08-10] MEDS ORDERED: NEBMAC (10:10)
[2017-08-10] MEDS ORDERED: MONT1TAB3 PO (10:10)
[2017-08-10] MEDS ORDERED: PRD20 OR (10:10)
[2017-08-10] MEDS ORDERED: LEVO-459 OR (10:10)
[2017-08-10] MEDS ORDERED: ALBU0.633 NEB (10:11)
[2017-08-10] MEDS ORDERED: ZNT150 PO (10:26)
== END 2017-03-02 00:46 | disposition home or self-care (01) ==
LOC: C.EDC 22:45 → EDBD 22:45 → C.EDC 03-02 00:46
DX: J45.901 Unspecified asthma with (acute) exacerbation (principal)

== ENCOUNTER 2017-05-11 12:09 | Inpatient (IN) | payer BC, OTHER ==
[~2017-05-11] VITALS: Ht 162.6 cm; Wt 74.7 kg
[~2017-05-11 12:09] MED LIST changes: -SENN-65 PO
[2017-05-11] MEDS ORDERED: LORAZEPAM 1 MG TAB PO STA (12:34)
[2017-05-11] MEDS ORDERED: GI COCKTAIL PO STA (12:34)
[2017-05-11] MEDS ORDERED: ALUMINUM/MAGNESIUM SUSP 30 ML UDC ONE (12:41)
[2017-05-11] MEDS ORDERED: LIDOCAINE HCL 2% VISC SOLN 20 ML UDC ONE (12:41)
--- NOTE | 2017-05-11 13:08 | DIAGNOSTIC IMAGING REPORT ---
CHEST ONE VIEW PORTABLE CLINICAL HISTORY: Cough. History of pneumonia. COMPARISON STUDY: Chest radiograph 11/01/[address] February 14, 2017. FINDINGS: Lung volumes are normal. Lungs are clear. No pneumothorax or pleural effusion is present. Pulmonary vascularity is normal. Cardiomediastinal silhouette is normal. IMPRESSION: No acute cardiopulmonary findings. Electronically signed by: Arcenio De La Torre M.D. 05/11/2017 1:06 PM Dictated Date/Time: 05/11/2017 1:03 PM
[2017-05-11 13:10] LABS: URINE APPEARANCE CLEAR (CLEAR); URINE BILIRUBIN NEG (NEG); URINE COLOR ORANGE; URINE NITRITE NEG (NEG); URINE PH >= 9.0 (4.5-7.5); URINE SPECIFIC GRAVITY 1.006 (1.000-1.030); UROBILINOGEN NEG (NEG); ZZUR CULT IF INDIC CLEAN CATCH NO
[2017-05-11 13:16] LABS: MANUAL MICROSCOPIC REQUIRED? YES; REVIEW REQ? NO
[2017-05-11 13:35] LABS: BASO % 0.3 %; BASO ABS # 0.04 K/uL (0-0.2); EOS % 6.9 %; HEMATOCRIT 28.9 % (37-47); IG% 0.4 %; LYMPH ABS # 4.11 K/uL (1.2-3.4); MEAN CELL VOLUME 75.3 fL (80-100); MEAN CORPUSCULAR HEMOGLOBIN 22.9 pg (25-34); MEAN CORPUSCULAR HGB CONC 30.4 g/dl (32-36); MEAN PLATELET VOLUME 8.3 fL (7.4-10.4); MONO % 5.6 %; NEUT % 56.8 %; PLATELET COUNT 554 K/uL (130-400); RED BLOOD COUNT 3.84 M/uL (4.2-5.4); WHITE BLOOD COUNT 13.69 K/uL (4.8-10.8)
[2017-05-11 13:39] LABS: URINE RBC >30 /hpf (0-4)
[2017-05-11 13:40] LABS: URINE BACTERIA NEG (NEG)
[2017-05-11 13:54] LABS: BUN/CREATININE RATIO 13.9 (10-20); CALCIUM 8.7 mg/dl (8.5-10.1); CREATININE 0.62 mg/dl (0.60-1.20); MAGNESIUM 2.1 mg/dl (1.8-2.4); POTASSIUM 3.8 mmol/L (3.5-5.1)
[2017-05-11 13:57] LABS: ALB/GLOB RATIO 0.9 (0.9-2); ANISOCYTOSIS PRESENT; COMPLETE YES; OVALOCYTES 1+; POLYCHROMASIA 1+
[2017-05-11] MEDS ORDERED: ALBUT/IPRATROP 3MG/0.5MG NEB 3 ML VIAL INH STA (14:18)
[2017-05-11] MEDS ORDERED: BENZONATATE 100MG CAP PO STA (15:03)
[2017-05-11] MEDS ORDERED: FAMOTIDINE 20 MG TAB PO STA (15:03)
[2017-05-11] MEDS ORDERED: PROMETHAZINE HCL INJ 12.5 MG in SODIUM CHLORIDE 0.9% 50ML 50 ML IV STA (15:43)
[2017-05-11] MEDS ORDERED: SODIUM CHLORIDE 0.9% 1000ML 1,000 ML IV STA (17:11)
[2017-05-11] MEDS ORDERED: AZITHROMYCIN 250 MG TAB PO STA (17:11)
[2017-05-11] MEDS ORDERED: SODIUM CHLORIDE 0.9% 500ML 500 ML IV STA (18:11)
[2017-05-11] MEDS ORDERED: ACETAMINOPHEN 325 MG TAB PO ONE (20:14)
[2017-05-11] MEDS ORDERED: ACETAMINOPHEN 325 MG TAB PO PRN (20:15)
[2017-05-11] MEDS ORDERED: OPTIRAY 320 IV PRN (20:30)
[2017-05-11] MEDS ORDERED: ACETAMINOPHEN IV 650 MG in EMPTY BAG 0 ML IV PRN (20:45)
[2017-05-11] MEDS ORDERED: hydrOXYzine HCL 10 MG TAB PO PRN (20:45)
[2017-05-11] MEDS ORDERED: PROMETHAZINE HCL INJ 12.5 MG in SODIUM CHLORIDE 0.9% 50ML 50 ML IV PRN (20:45)
[2017-05-11] MEDS ORDERED: ONDANSETRON INJ 2 MG/ML 2 ML VIAL IV PRN (20:45)
[2017-05-11] MEDS ORDERED: LEVALBUTEROL/IPRATROPIUM NEB INH PRN ×2 (20:45→22:15)
[2017-05-11 21:00] VITALS: BP 117/78; PULSE 121; TEMP 37.1; O2SAT 100
[2017-05-11] MEDS ORDERED: IPRATROPIUM BROMIDE NEB SOLN 0.02% 2.5 ML VIAL INH PRN ×2 (21:15→22:30)
[2017-05-11] MEDS ORDERED: LEVALBUTEROL 1.25MG/0.5ML NEB INH PRN ×2 (21:15→22:30)
--- NOTE | 2017-05-11 21:25 | EMERGENCY ROOM VISIT NOTE ---
History First contact with patient: 12:25 Chief Complaint: COUGH Stated Complaint: SEPSIS Nursing Triage Summary: pt was at [facility] for cough reports coughs so hard vomits sometimes feels like she is going to pass out. sx for 2 weeks. pt is extremely anxious ,wants lido for throat History of Present Illness The patient is a 32 year old female who presents to the Emergency Room via ambulance with complaints of "cough/nausea". The patient states that a year ago , she had recurring pain with vomiting. She notes that this started when she ate. She also notes pain in the left upper quadrant. She states that most recently, she woke up and began vomiting, and notes that she is up able to eat food or drink liquids over the past couple weeks secondary to vomiting. She states ice cream helps. She states that today she was at the [facility] walk-in clinic, and was given Zofran and began vomiting. She does have history of sepsis. She thinks that this all occurred because she consumed contaminated food in the past. She requests lidocaine for her throat. Review of Systems A complete 10-point Review of Systems was discussed with the patient, with pertinent positives and negatives listed in the History of Present Illness. All remaining Review of Systems questions can be considered negative unless otherwise specified. Past Medical/Surgical History Medical Problems: (1) Asthma, Unspecified (2) Nausea (3) Sepsis Surgical Problems: (1) No significant past surgical history Family History No significant family history Social History Smoking Status: Never Smoker Alcohol Use: occasionally Drug Use: none Marital Status: single Housing Status: lives with family Occupation Status: [employer] student Current/Historical Medications Scheduled Cetirizine (Zyrtec), 10 MG PO DAILY Ferrous Gluconate (Ferrous Gluconate), 324 MG PO BID Scheduled PRN Albuterol Hfa (Ventolin Hfa), 2-4 PUFFS INH Q6H PRN for SOB/Wheezing Ondasetron Odt (Zofran Odt), 4 MG SL Q6H PRN for Nausea or Vomiting Physical Exam Vital Signs Date Time Temp Pulse Resp B/P (MAP) Pulse Ox O2 Delivery O2 Flow Rate FiO2 05/11/17 19:10 37.3 05/11/17 18:30 127 18 124/75 96 Room Air 05/11/17 17:35 120 05/11/17 17:00 118 20 114/77 96 Room Air 05/11/17 16:01 115 20 104/61 99 Room Air 05/11/17 14:52 128 22 103/74 100 Nebulizer 05/11/17 13:38 103 05/11/17 13:34 105 24 103/74 93 Room Air 05/11/17 13:33 92 Room Air 05/11/17 12:17 36.8 118 18 103/74 97 Room Air 05/11/17 12:14 97 Room Air Pain Rating (0-10): 3.0 Physical Exam VITAL SIGNS - Vital signs and nursing notes were reviewed. Patient is afebrile , normotensive, tachycardic irregular 118 bpm, and is saturating well on room air 97%. GENERAL -32-year-old female appearing her stated age who is in no acute distress , but does appear to be actively expressing vomiting in the room as well as coughing. Communicates well with provider and answers questions appropriately. SKIN - Without rashes. No petechial rashes. HEAD - NC/AT. EYES - PERRL with EOMI bilaterally. Sclera anicteric. EARS - No deformities of external structures noted on gross examination bilaterally. NOSE - Midline and without cyanosis. No epistaxis or purulent drainage noted. MOUTH/OROPHARYNX - Without perioral cyanosis. NECK - Neck with FROM. Supple to palpation. No lymphadenopathy noted. No nuchal rigidity. LUNGS - Chest wall symmetric without accessory muscle use, intercostals retractions, or central cyanosis. Normal vesicular breath sounds CTA B/L. No wheezes, rales, or rhonchi appreciated. CARDIAC - RRR with S1/S2. No murmur, rubs, or gallops appreciated. ABDOMEN - Abdominal contour without pulsations or visible masses. BS normoactive all four quadrants. No tenderness, palpable masses, hepatosplenomegaly, or ascites noted. EXTREMITIES - No clubbing or peripheral cyanosis. No pretibial edema present. +5 /5 strength noted in UE/LE bilaterally. NEUROLOGIC - Cranial nerves II through XII grossly intact. Sensory intact to light touch throughout. PSYCH - A&O. Pt is very pleasant and interacts well with examiner. Medical Decision & Procedures ER Provider Diagnostic Interpretation: CHEST ONE VIEW PORTABLE CLINICAL HISTORY: Cough. History of pneumonia. COMPARISON STUDY: Chest radiograph 11/01/[address] February 14, 2017. FINDINGS: Lung volumes are normal. Lungs are clear. No pneumothorax or pleural effusion is present. Pulmonary vascularity is normal. Cardiomediastinal silhouette is normal. IMPRESSION: No acute cardiopulmonary findings. Electronically signed by: Arcenio De La Torre M.D. 05/11/2017 1:06 PM Dictated Date/Time: 05/11/2017 1:03 PM Laboratory Results 05/11/17 13:05 Red Blood Count 3.84, Mean Corpuscular Volume 75.3, Mean Corpuscular Hemoglobin 22.9, Mean Corpuscular Hemoglobin Concent 30.4, Mean Platelet Volume 8.3, Neutrophils (%) (Auto) 56.8, Lymphocytes (%) (Auto) 30.0, Monocytes (%) (Auto) 5.6, Eosinophils (%) (Auto) 6.9, Basophils (%) (Auto) 0.3, Neutrophils # (Auto) 7.79, Lymphocytes # (Auto) 4.11, Monocytes # (Auto) 0.76, Eosinophils # (Auto) 0.94, Basophils # (Auto) 0.04 05/11/17 13:05 Test 05/11/17 12:50 05/11/17 13:05 05/11/17 19:39 Urine Color ORANGE Urine Appearance CLEAR (CLEAR) Urine pH >= 9.0 (4.5-7.5) Urine Specific [place] 1.006 (1.000-1.030) Urine Protein NEG (NEG) Urine Glucose (UA) NEG (NEG) Urine Ketones NEG (NEG) Urine Occult Blood 3+ (NEG) Urine Nitrite NEG (NEG) Urine Bilirubin NEG (NEG) Urine Urobilinogen NEG (NEG) Urine Leukocyte Esterase NEG (NEG) Urine WBC (Auto) /hpf (0-5) Urine RBC (Auto) /hpf (0-4) Urine Hyaline Casts (Auto) /lpf (0-5) Urine Epithelial Cells (Auto) /lpf (0-5) Urine Bacteria (Auto) (NEG) Urine RBC >30 /hpf (0-4) Urine WBC 1-5 /hpf (0-5) Urine Epithelial Cells 5-10 /lpf (0-5) Urine Bacteria NEG (NEG) Urine Test NEG (NEG) White Blood Count 13.69 K/uL (4.8-10.8) Red Blood Count 3.84 M/uL (4.2-5.4) Hemoglobin 8.8 g/dL (12.0-16.0) Hematocrit 28.9 % (37-47) Mean Corpuscular Volume 75.3 fL (80-100) Mean Corpuscular Hemoglobin 22.9 pg (25-34) Mean Corpuscular Hemoglobin Concent 30.4 g/dl (32-36) Platelet Count 554 K/uL (130-400) Mean Platelet Volume 8.3 fL (7.4-10.4) Neutrophils (%) (Auto) 56.8 % Lymphocytes (%) (Auto) 30.0 % Monocytes (%) (Auto) 5.6 % Eosinophils (%) (Auto) 6.9 % Basophils (%) (Auto) 0.3 % Neutrophils # (Auto) 7.79 K/uL (1.4-6.5) Lymphocytes # (Auto) 4.11 K/uL (1.2-3.4) Monocytes # (Auto) 0.76 K/uL (0.11-0.59) Eosinophils # (Auto) 0.94 K/uL (0-0.5) Basophils # (Auto) 0.04 K/uL (0-0.2) RDW Standard Deviation 63.6 fL (36.4-46.3) RDW Coefficient of Variation 23.2 % (11.5-14.5) Immature Granulocyte % (Auto) 0.4 % Immature Granulocyte # (Auto) 0.05 K/uL (0.00-0.02) Polychromasia 1+ Anisocytosis PRESENT Ovalocytes 1+ Activated Partial Thromboplast Time 24.7 SECONDS (21.0-31.0) Partial Thromboplastin Ratio 1.0 Anion Gap 7.0 mmol/L (3-11) Est Creatinine Clear Calc Drug Dose 130.2 ml/min Estimated GFR () 139.3 Estimated GFR (Non- 120.2 BUN/Creatinine Ratio 13.9 (10-20) Calcium Level 8.7 mg/dl (8.5-10.1) Magnesium Level 2.1 mg/dl (1.8-2.4) Total Bilirubin 0.1 mg/dl (0.2-1) Aspartate Amino Transf (AST/SGOT) 16 U/L (15-37) Alanine Aminotransferase (ALT/SGPT) 27 U/L (12-78) Alkaline Phosphatase 85 U/L (45-117) Total Protein 7.0 gm/dl (6.4-8.2) Albumin 3.4 gm/dl (3.4-5.0) Globulin 3.6 gm/dl (2.5-4.0) Albumin/Globulin Ratio 0.9 (0.9-2) Lipase 184 U/L (73-393) Medications Administered Medications (Trade) Dose Ordered Sig/Jluis Route Start Time Stop Time Status Last Admin Dose Admin Lorazepam (Ativan Tab) 1 mg NOW STAT PO 05/11/17 12:34 05/11/17 12:38 DC 05/11/17 12:47 1 MG Al Hydroxide/Mg Hydroxide (Maalox Susp) 30 ml STK-MED ONCE .ROUTE 05/11/17 12:41 05/11/17 12:42 DC 05/11/17 12:47 30 ML Lidocaine HCl (Viscous Lidocaine 2% Soln) 20 ml STK-MED ONCE .ROUTE 05/11/17 12:41 05/11/17 12:42 DC 05/11/17 12:47 20 ML Albuterol/ Ipratropium (Duoneb) 3 ml NOW STAT INH 05/11/17 14:18 05/11/17 14:19 DC 05/11/17 14:51 3 ML Benzonatate (Tessalon Perles Cap) 100 mg NOW STAT PO 05/11/17 15:03 05/11/17 15:04 DC 05/11/17 15:16 100 MG Famotidine (Pepcid Tab) 20 mg NOW STAT PO 05/11/17 15:03 05/11/17 15:04 DC 05/11/17 15:16 20 MG Promethazine HCl 12.5 mg/Sodium Chloride 50.5 ml @ 204 mls/hr NOW STAT IV 05/11/17 15:43 05/11/17 15:57 DC 05/11/17 16:00 204 MLS/HR Azithromycin (Zithromax Tab) 500 mg NOW STAT PO 05/11/17 17:11 05/11/17 17:12 DC 05/11/17 17:18 500 MG Sodium Chloride 1,000 ml @ 999 mls/hr Q1H1M STAT IV 05/11/17 17:11 05/11/17 18:11 DC 05/11/17 17:18 999 MLS/HR Sodium Chloride 500 ml @ 999 mls/hr Q31M STAT IV 05/11/17 18:11 05/11/17 18:41 DC 05/11/17 18:44 999 MLS/HR Acetaminophen (Tylenol Tab) 650 mg 2014 ONCE PO 05/11/17 20:14 05/11/17 20:19 DC 05/11/17 20:33 650 MG Medical Decision Patient was seen and evaluated as above. She presents to us today with nausea, coughing and vomiting. She also has left upper quadrant pain, which at this time appears to be nearly dissolved. Her examination is unremarkable of the abdomen. She does appear to be nauseous, but I suspect she is likely experiencing a lot of GERD. CBC reveals leukocytosis at 13.69, hemoglobin low at 8.8. Coags unremarkable. Total bilirubin is low 0.1. CMP otherwise unremarkable. She was given a GI cocktail, 1 mg of sublingual Ativan, DuoNeb, Pepcid, Tessalon Perle, 12.5 mg Phenergan, a liter of normal saline, 500 mg of azithromycin, another half liter of normal saline with persistence of her symptoms. She was having a fluid trial by mouth, as well as food and did not do well. I do believe that further evaluation and management in the inpatient setting is warranted. The concern is that there could be underlying infection and has not been identify, and she cannot tolerate by mouth food well. Please refer to further documentation regarding her stay. Case was discussed with the attending physician. In the evaluation and treatment of this patient following differential diagnoses were entertained: Cyclic vomiting, sepsis, gallbladder etiology, splenic etiology, GERD, reflux, gastric ulcer, among others. Impression Primary Impression: Cough Additional Impressions: Anemia Acute asthma exacerbation Nausea Departure Information Dispostion Admitted as an inpatient Condition FAIR Referrals Karely Oreilly D.O. (PCP) Patient Instructions My [facility] Problem Qualifiers
[2017-05-11] MEDS: NSS + 20MEQ KCL 1000ML 1,000 ML IV SCH (21:53)
[2017-05-11] MEDS: FERROUS GLUCONATE 324 MG TAB PO SCH (21:53)
[2017-05-11] MEDS: TRAMADOL HCL 50 MG TAB PO PRN (21:55)
[2017-05-11] MEDS ORDERED: GUAIFENESIN 600 MG TABCR PO ONE (21:57)
[2017-05-11] MEDS ORDERED: LEVALBUTEROL/IPRATROPIUM NEB INH STA (22:09)
[2017-05-11] MEDS ORDERED: IPRATROPIUM BROMIDE NEB SOLN 0.02% 2.5 ML VIAL INH STA (22:18)
[2017-05-11] MEDS ORDERED: LEVALBUTEROL 1.25MG/0.5ML NEB INH STA (22:18)
[2017-05-11 22:35] VITALS: BP 117/78; PULSE 121; TEMP 37.1; O2SAT 100; Ht 162.6 cm; Wt 74.7 kg
[2017-05-11 22:43] LABS: HEMATOCRIT 28.7 % (37-47)
[2017-05-11 22:46] VITALS: PULSE 78; O2SAT 96
[2017-05-11] MEDS: DOXYCYCLINE IV 100 MG in DEXTROSE 5% 100ML 100 ML IV SCH (22:55)
[2017-05-11 23:33] VITALS: BP 108/71; PULSE 108; TEMP 36.9; O2SAT 93
--- NOTE | 2017-05-11 23:57 | HISTORY & PHYSICAL EXAMINATION ---
DATE OF ADMISSION: 05/11/2017 PRIMARY CARE DOCTOR: Dr. Oreilly. CHIEF COMPLAINT: Cough, vomiting, abdominal pain. HISTORY OF PRESENT ILLNESS: History obtained from patient, patient's mother, and records. Medical history significant for asthma, panic disorder as per records, reflux. chronic anemia baseline hemoglobin 10. Recent confinement February 2017 for sepsis secondary to possible aspiration pneumonia. The patient also noted to be anemic, hemoglobin noted to be 10. Workup showed iron deficiency anemia. As per patient in the last 5 years, she has been having chronic choking, coughing, emesis symptoms. Claims she has had a previous outpatient Pulmo, GI, ENT workup in [place]. (Mother only aware of [employer] evaluation.) Patient not clear on findings. Patient seen at [facility] last February 2017. As per note, patient worried about history of food poisoning. Impression was intractable cyclic vomiting and nausea. Outpatient EGD contemplated. Over the last 2 months, patient has had intermittent flare ups of her vomiting, cough symptoms. In February of 2017, she was vacationing in [place], [place]. She was seen at the ER for recurrent abdominal pain, coughing symptoms. (Patient cannot recall name of hospital ER where she was evaluated.) She was told she had a GI bug. She claims she was prescribed in antiparasitic which resolved symptoms. The last few days, she had recurrence of dry cough symptoms with vomiting, complaining of achy left upper quadrant pain. Good bowel movement, no diarrhea. Denies hematemesis, coffee-ground emesis, black/bloody stools. Denies chest pain or shortness of breath. Complaining of achy posterior headache symptoms. Patient denies history of weight loss. Patient denies alcohol intake. Patient seen at the Emergency Room for intractable symptoms, given Azithromycin. MEDICAL HISTORY: As above. Patient claims she has had an upper endoscopy in the past in [place]. Mother unaware of previous endoscopies. SURGERIES: Sinus surgery. HOME MEDICATIONS: Include Ventolin, Zyrtec, ferrous gluconate, Zofran. ALLERGIES: DAIRY GLUTEN, CEFUROXIME, PENICILLIN, PEANUTS. FAMILY HISTORY: Diabetes. PERSONAL AND SOCIAL HISTORY: Nonsmoker. 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 REVIEW OF SYSTEMS: As per HPI, patient also gives a history of heavy vaginal bleeding more than usual For a month now which she attributes to running out off her OCP, no unusual pain ; all other ROS negative. PHYSICAL EXAMINATION: VITAL SIGNS: Blood pressure was noted to be BP 110/70, pulse rate 120 RR 18, T 37 O2 sats 96% on room air. GENERAL: Noted to be slightly anxious, distressed. SKIN: Pallor. HEENT: Pale palpebral conjunctivae. Dry mucosa. NECK: Short neck. LUNGS: Decreased breath sounds. Occasional wheeze left HEART: Tachycardic. ABDOMEN: Some distention, no overt tenderness. RECTAL : Intact sphincter. Menstrual blood, perianal area, brown stool FOBT positive EXTREMITIES: No edema. No tenderness NEUROLOGIC: No gross focality. LABS: Hemoglobin was noted to be 8.8, WBC 13 Sodium 140 potassium 3.8, chloride 104, CO2 28, BUN 9, creatinine 0.6, glucose was noted to be 82. Lipase 184. LFTs normal. UA - pH 9, occult blood +3. IMAGING DATA: Chest x-ray did not show any clear cut infiltrate. CT head initial read no acute pathology CT chest initial read: No pulmonary embolism, atelectasis versus improved consolidation L from [address] abdomen and pelvis initial read no bowel obstruction, ASSESSMENT: 1. Sepsis secondary to atypical pneumonia, bronchitis 2. Asthma exacerbation secondary to above 3. Recurrent cough/vomiting episodes over the last 5 years ? GERD ? psychosomatic 4. Acute on chronic anemia Secondary to heavy vaginal bleeding the last month after running out of OCP as per patient ? Occult GI bleed (unreliable stool FOBT due to menstrual blood at the perineum /perianal area at time of exam) PLAN: GMF Cultures. IV fluids. Doxycycline for now. Nebs steroids for asthma exacerbation PPI trial for GERD, possible precipitant of asthma exacerbation GI consult. RE recurrent vomiting episodes Pelvic ultrasound, Sales Product Specialist consult RE month-long heavy vaginal bleeding Follow H&H, transfuse packed RBC for hemoglobin less than 7 (Patient currently undecided about receiving blood products for now.) DVT prophylaxis, SCDs RE anemia Full code. MTDD
[2017-05-12] MEDS: BENZONATATE 100MG CAP PO PRN ×2 (01:35→11:07)
[2017-05-12] MEDS ORDERED: OPTIRAY 320 IV PRN (01:45)
[2017-05-12 02:38] VITALS: PULSE 111; O2SAT 82
[2017-05-12] MEDS: IPRATROPIUM BROMIDE NEB SOLN 0.02% 2.5 ML VIAL INH SCH ×3 (02:38→14:21)
[2017-05-12] MEDS: LEVALBUTEROL 1.25MG/0.5ML NEB INH SCH ×3 (02:38→14:21)
[2017-05-12] MEDS ORDERED: LEVALBUTEROL/IPRATROPIUM NEB INH SCH (03:00)
[2017-05-12 03:37] VITALS: BP 108/70; PULSE 104; TEMP 37; O2SAT 97
[2017-05-12] MEDS ORDERED: BENZONATATE 100MG CAP PO PRN (06:30)
[2017-05-12] MEDS ORDERED: METHYLPREDNISOLONE IV 40 MG in SYRINGE 0 ML IV STA (06:31)
[2017-05-12] MEDS ORDERED: PANTOprazole SOD 40 MG TAB PO ONE (06:34)
[2017-05-12] MEDS ORDERED: LEVALBUTEROL/IPRATROPIUM NEB INH STA (06:51)
[2017-05-12] MEDS ORDERED: IPRATROPIUM BROMIDE NEB SOLN 0.02% 2.5 ML VIAL INH STA (06:52)
[2017-05-12] MEDS ORDERED: LEVALBUTEROL 1.25MG/0.5ML NEB INH STA (06:52)
--- NOTE | 2017-05-12 07:01 | DIAGNOSTIC IMAGING REPORT ---
CT OF THE HEAD WITHOUT CONTRAST CLINICAL HISTORY: Headache. COMPARISON STUDY: Head CT October 08, 2015. TECHNIQUE: Helical axial images of the head were obtained without IV contrast. Automated exposure control was utilized for the study. A dose lowering technique was utilized adhering to the principles of ALARA. FINDINGS: No acute intracranial hemorrhage, midline shift or mass effect is present. Ventricular system is normal. Basilar cisterns are patent. There are no extra-axial collections. Redd-white differentiation is maintained. There are no findings to suggest acute dural sinus thrombosis or acute territorial infarct. Trace fluid is noted within left mastoid air cells. A small amount of fluid is present within the right mastoid air cells. Moderate polypoid mucosal thickening within visualized portions of the sinuses and nasal cavity is noted. A small left maxillary sinus air-fluid level is present. IMPRESSION: 1. No acute intracranial findings. 2. Moderate polypoid mucosal thickening of the visualized portions of the sinuses and nasal cavity with a small left maxillary sinus air-fluid level. This may reflect acute sinusitis. 3. Small amount of fluid within the right mastoid air cells and trace fluid within the left mastoid air cells. Electronically signed by: Arcenio De La Torre M.D. 05/12/2017 6:59 AM Dictated Date/Time: 05/12/2017 6:55 AM
[2017-05-12 07:15] LABS: BASO % 0.2 %; BASO ABS # 0.03 K/uL (0-0.2); EOS % 8.2 %; HEMATOCRIT 28.8 % (37-47); IG% 0.2 %; LYMPH % 20.3 %; LYMPH ABS # 2.45 K/uL (1.2-3.4); MEAN CELL VOLUME 76.6 fL (80-100); MEAN CORPUSCULAR HEMOGLOBIN 22.6 pg (25-34); MEAN CORPUSCULAR HGB CONC 29.5 g/dl (32-36); MONO % 4.2 %; NEUT % 66.9 %; PLATELET COUNT 513 K/uL (130-400); RED BLOOD COUNT 3.76 M/uL (4.2-5.4); WHITE BLOOD COUNT 12.08 K/uL (4.8-10.8)
--- NOTE | 2017-05-12 07:24 | DIAGNOSTIC IMAGING REPORT ---
(CHEST FOR PE) ANGIO WITH CT DOSE: 2064.23 mGy.cm HISTORY: 32 years-old Female presents with acute cough and chest pain TECHNIQUE: Multiple CTA images of the chest were obtained after the intravenous administration of 93 ml Optiray 320. Coronal and sagittal MIPS were obtained from the axial data set and were submitted for review. A dose lowering technique was utilized adhering to the principles of ALARA. COMPARISON: CT chest 02/14/2017. FINDINGS: CTA: There is adequate opacification of the pulmonary arteries to the level of the proximal subsegmental branches without convincing evidence of acute pulmonary embolism. Thoracic aorta is normal in course and caliberHeart size is normal. Exam is mildly limited secondary to respiratory motion. CT CHEST: No dominant thyroid. Mild subcarinal adenopathy is seen measuring up to 1.0 cm in short axis, mildly improved. Mild left hilar adenopathy is again seen as well, which appears unchanged. There is likely residual thymic tissue of the anterior mediastinum. There is no pneumothorax or pleural effusion. Improved aeration of the left lower lobe and lingula is noted with minimal residual airspace opacities and groundglass densities within this distribution. Mild bronchial wall thickening is seen within the left upper lobe, lingula and left lower lobe with mild mucous plugging. Asymmetric increased density seen involving the inferolateral aspect of the left breast without discrete mass identified. The imaged upper abdominal structures are unremarkable. The soft tissues are within normal limits. The bones appear intact. IMPRESSION: 1. No aortic aneurysm or evidence of pulmonary thromboembolic disease. 2. Improved aeration of the left lung with minimal persistent airspace opacities and groundglass densities of the left upper lobe, lingula and left lower lobe with bronchial wall thickening and areas of mucus plugging seen within this distribution suggesting residual bronchopneumonia. 3. Mildly improved likely reactive mediastinal adenopathy. 4. Incidental note is made of asymmetric increased density of the inferior lateral quadrant left breast which can be correlated with mammography. The above report was generated using voice recognition software. It may contain grammatical, syntax or spelling errors. Electronically signed by: Jay Palmer M.D. 05/12/2017 7:22 AM Dictated Date/Time: 05/12/2017 7:15 AM
[2017-05-12 07:28] VITALS: PULSE 119; O2SAT 85
[2017-05-12 07:37] VITALS: BP 117/78; PULSE 119; TEMP 37.1; O2SAT 94
[2017-05-12] MEDS: NSS + 20MEQ KCL 1000ML 1,000 ML IV SCH (07:57)
--- NOTE | 2017-05-12 08:04 | DIAGNOSTIC IMAGING REPORT ---
CT OF THE ABDOMEN AND PELVIS WITH CONTRAST CLINICAL HISTORY: Abdominal pain. Nausea. COMPARISON STUDY: CT of the abdomen and pelvis February 14, 2017. TECHNIQUE: Following IV administration of 93 mL of Optiray-320, axial images of the abdomen and pelvis were obtained from the lung bases to the proximal femurs. Images were reviewed in the axial, sagittal, and coronal planes. IV contrast was administered without complication. A dose lowering technique was utilized adhering to the principles of ALARA. FINDINGS: The chest will be reported separately. The liver, spleen, adrenal glands, kidneys and pancreas are normal. There is no biliary or pancreatic ductal dilatation. Caliber and wall thickness of small and large bowel are normal. The appendix is normal. Both ovaries are mildly enlarged. No peripancreatic or pericholecystic infiltration is present. Skeletal structures are unremarkable. IMPRESSION: No acute process within the abdomen or pelvis. Electronically signed by: Arcenio De La Torre M.D. 05/12/2017 8:03 AM Dictated Date/Time: 05/12/2017 7:41 AM
[2017-05-12 08:17] LABS: ANISOCYTOSIS PRESENT; COMPLETE YES; HYPOCHROMIA PRESENT; POLYCHROMASIA 1+
[2017-05-12] MEDS: DOXYCYCLINE IV 100 MG in DEXTROSE 5% 100ML 100 ML IV SCH (08:32)
[2017-05-12] MEDS: FERROUS GLUCONATE 324 MG TAB PO SCH (08:33)
[2017-05-12] MEDS ORDERED: GUAIFENESIN 600 MG TABCR PO SCH (09:00)
[2017-05-12] MEDS ORDERED: CETIRIZINE HCL 10 MG TAB PO SCH (09:00)
--- NOTE | 2017-05-12 10:47 | Gastrointestinal Consultation ---
Gastrointestinal Consultation Date of Consultation: May 12, 2017 Attending Physician: Dr. Jason/Di Telles NP Consulting Physician: Dr. Herbert Reason for Consultation: Episodic vomiting History of Present Illness Patient is a 32 year old female patient of Dr. Karely Oreilly with ahx of asthma presented to the ED yesterday for chest discomfort, cough, vomiting. Since age 17, after having eaten something that didn't agree with her, she has had episodes of chest discomfort, cough and vomiting. Almost every day, she has a cough and discomfort in her chest, sometimes after eating foods and sometimes it "just happens." Soon after feeling this, she has gurgling and bubbling in her stomach, and a prickly pain in the chest and then without experiencing nausea, she vomits. There are no specific food triggers. Regarding this episode, she was awakened early yesterday morning by a cough, then had the above symptoms. she is standing, breathing quickly and tells me that the pain in the left upper quadrant is strong, making it hard to breath and then "I start chocking." The pain yesterday "disappeared with the pain medicine and cough pearls." She feels that if she had "strong medicine" to " keep the discomfort from happening in the chest," then the cough and bubbling would not start and she would not vomit. Past Medical/Surgical History Medical Problems: (1) Acute asthma exacerbation Status: Acute (2) Allergic rhinitis Status: Acute (3) Anemia Status: Acute (4) Asthma Status: Acute (5) Asthma Status: Acute (6) Asthma exacerbation Status: Acute (7) Cough Status: Acute (8) Cough Status: Acute (9) Dehydration Status: Acute (10) Encounter for medication refill Status: Acute (11) Medication refill Status: Acute (12) Nausea and vomiting Status: Acute (13) Pneumonia Status: Acute (14) Reflux esophagitis Status: Acute (15) Vomiting Status: Acute Past Medical History: Asthma Past Surgical History: Sinus surgery Pt tells me no prior endoscopies (of note the H&P states the that pt reported a prior upper endoscopy but unsure when) Family History No significant family history Social History Smoking Status: Never Smoker Alcohol Use: occasionally Drug Use: none Marital Status: single Housing Status: lives with family Occupation Status: [email or web address] student Allergies Coded Allergies: Cefuroxime (Verified Allergy, Severe, CHEST TIGHTENING, "FEEL LIKE CHOKING ", SOB, 05/11/17) Dairy (Verified Allergy, Severe, CHEST TIGHTENING, "CHOKING" FEELING, SOB , 05/11/17) Gluten (Verified Allergy, Severe, CHEST TIGHTENING, "CHOKING" FEELING, SOB , 05/11/17) Penicillins (Verified Allergy, Severe, CHEST TIGHTENING, "CHOKING" FEELING , SOB, 05/11/17) Peanut (Verified Allergy, Intermediate, "NON STOP COUGHING, FELT LIKE CHOKING", 05/11/17) Current Medications Home Meds and Scripts Medications Dose Route/Sig Max Daily Dose Days Date Category Zofran Odt (Ondansetron HCl) 4 Mg Tab 4 Mg SL Q6H PRN 02/26/17 Reported Ferrous Gluconate 324 Mg Tab 324 Mg PO BID 02/26/17 Reported Zyrtec (Cetirizine HCl) 10 Mg Tab 10 Mg PO DAILY 02/13/17 Reported Ventolin Hfa (Albuterol) 200 Puffs/57780 Mcg Aers 2-4 Puffs INH Q6H PRN 02/13/17 Reported Review of Systems Constitutional: No fever, No chills, No sweats, No weight loss, No weakness Eyes: No eye pain, No redness ENT: No sore throat, No trouble swallowing, No pain on swallowing Respiratory: No cough, No wheezing, No shortness of breath, No dyspnea on exertion Cardiac: + chest pain, No edema, No palpitations Abdomen: + see HPI, + pain (upper abd ), + vomiting Female : No dysuria Neuro: No memory loss, No weakness, No numbness/tingling, No vertigo, No balance problems Psych: No depression symptoms, No anxiety, No insomnia Heme: No abnormal bleeding/bruising, No night sweats Endo: No fatigue, No excessive thirst, No excessive urination Skin: No rash, No itch, No new/changing skin lesions, No jaundice Physical Exam Date Time Temp Pulse Resp B/P (MAP) Pulse Ox O2 Delivery O2 Flow Rate FiO2 05/12/17 07:37 37.1 119 16 117/78 (91) 94 Nasal Cannula 3.0 05/12/17 07:28 119 16 85 Room Air 05/12/17 03:37 37.0 104 20 108/70 (83) 97 Nasal Cannula 2.0 05/12/17 02:38 111 16 82 Room Air 05/12/17 00:00 Nasal Cannula 2.0 05/11/17 23:33 36.9 108 20 108/71 (83) 93 Nasal Cannula 2.0 05/11/17 22:46 78 16 96 Room Air 05/11/17 22:35 37.1 121 16 117/78 100 Room Air 05/11/17 21:00 37.1 121 16 117/78 (91) 100 Room Air 05/11/17 20:52 114 20 127/82 100 05/11/17 19:10 37.3 05/11/17 18:30 127 18 124/75 96 Room Air 05/11/17 17:35 120 05/11/17 17:00 118 20 114/77 96 Room Air 05/11/17 16:01 115 20 104/61 99 Room Air 05/11/17 14:52 128 22 103/74 100 Nebulizer 05/11/17 13:38 103 05/11/17 13:34 105 24 103/74 93 Room Air 05/11/17 13:33 92 Room Air 05/11/17 12:17 36.8 118 18 103/74 97 Room Air 05/11/17 12:14 97 Room Air General Appearance: no apparent distress, + moderate distress (intermittently during the interview with pt being very verbal and very discriptive of her pain) Eyes: normal inspection, EOMI Neck: supple, no adenopathy, thyroid normal Respiratory/Chest: chest non-tender, lungs clear, normal breath sounds, no accessory muscle use Cardiovascular: regular rate, rhythm, no JVD, no murmur Abdomen: normal bowel sounds, soft, no organomegaly, + tenderness (mild, upper abdomen tenderness) Extremities: normal inspection, no pedal edema, normal capillary refill Neurologic/Psych: alert, normal mood/affect, oriented x 3 Skin: normal color, no jaundice, warm/dry, no rash Laboratory Results Last 24 Hours Test 05/11/17 12:50 05/11/17 13:05 05/11/17 22:22 05/12/17 04:44 Urine Color ORANGE Urine Appearance CLEAR Urine pH >= 9.0 Urine Specific [place] 1.006 Urine Protein NEG Urine Glucose (UA) NEG Urine Ketones NEG Urine Occult Blood 3+ Urine Nitrite NEG Urine Bilirubin NEG Urine Urobilinogen NEG Urine Leukocyte Esterase NEG Urine WBC (Auto) /hpf Urine RBC (Auto) /hpf Urine Hyaline Casts (Auto) /lpf Urine Epithelial Cells (Auto) /lpf Urine Bacteria (Auto) Urine RBC >30 /hpf Urine WBC 1-5 /hpf Urine Epithelial Cells 5-10 /lpf Urine Bacteria NEG Urine Test NEG White Blood Count 13.69 K/uL Red Blood Count 3.84 M/uL Hemoglobin 8.8 g/dL 8.7 g/dL Hematocrit 28.9 % 28.7 % Mean Corpuscular Volume 75.3 fL Mean Corpuscular Hemoglobin 22.9 pg Mean Corpuscular Hemoglobin Concent 30.4 g/dl Platelet Count 554 K/uL Mean Platelet Volume 8.3 fL Neutrophils (%) (Auto) 56.8 % Lymphocytes (%) (Auto) 30.0 % Monocytes (%) (Auto) 5.6 % Eosinophils (%) (Auto) 6.9 % Basophils (%) (Auto) 0.3 % Neutrophils # (Auto) 7.79 K/uL Lymphocytes # (Auto) 4.11 K/uL Monocytes # (Auto) 0.76 K/uL Eosinophils # (Auto) 0.94 K/uL Basophils # (Auto) 0.04 K/uL RDW Standard Deviation 63.6 fL RDW Coefficient of Variation 23.2 % Immature Granulocyte % (Auto) 0.4 % Immature Granulocyte # (Auto) 0.05 K/uL Polychromasia 1+ Anisocytosis PRESENT Ovalocytes 1+ Activated Partial Thromboplast Time 24.7 SECONDS Partial Thromboplastin Ratio 1.0 Sodium Level 139 mmol/L Potassium Level 3.8 mmol/L Chloride Level 104 mmol/L Carbon Dioxide Level 28 mmol/L Anion Gap 7.0 mmol/L Blood Urea Nitrogen 9 mg/dl Creatinine 0.62 mg/dl Est Creatinine Clear Calc Drug Dose 130.2 ml/min Estimated GFR () 139.3 Estimated GFR (Non- 120.2 BUN/Creatinine Ratio 13.9 Random Glucose 82 mg/dl Calcium Level 8.7 mg/dl Magnesium Level 2.1 mg/dl Total Bilirubin 0.1 mg/dl Aspartate Amino Transf (AST/SGOT) 16 U/L Alanine Aminotransferase (ALT/SGPT) 27 U/L Alkaline Phosphatase 85 U/L Total Protein 7.0 gm/dl Albumin 3.4 gm/dl Globulin 3.6 gm/dl Albumin/Globulin Ratio 0.9 Lipase 184 U/L Lactic Acid Level 2.7 mmol/L Test 05/12/17 06:58 White Blood Count 12.08 K/uL Red Blood Count 3.76 M/uL Hemoglobin 8.5 g/dL Hematocrit 28.8 % Mean Corpuscular Volume 76.6 fL Mean Corpuscular Hemoglobin 22.6 pg Mean Corpuscular Hemoglobin Concent 29.5 g/dl Platelet Count 513 K/uL Mean Platelet Volume 8.0 fL Neutrophils (%) (Auto) 66.9 % Lymphocytes (%) (Auto) 20.3 % Monocytes (%) (Auto) 4.2 % Eosinophils (%) (Auto) 8.2 % Basophils (%) (Auto) 0.2 % Neutrophils # (Auto) 8.08 K/uL Lymphocytes # (Auto) 2.45 K/uL Monocytes # (Auto) 0.51 K/uL Eosinophils # (Auto) 0.99 K/uL Basophils # (Auto) 0.03 K/uL RDW Standard Deviation 66.0 fL RDW Coefficient of Variation 23.6 % Immature Granulocyte % (Auto) 0.2 % Immature Granulocyte # (Auto) 0.02 K/uL Polychromasia 1+ Hypochromasia PRESENT Anisocytosis PRESENT Lactic Acid Level 2.9 mmol/L Impression Patient is a 32 year old female with report of reflux symptoms that trigger a cough. This most likely represents GERD or esophageal dysmotility. Plan 1. Pt mentioned that she would be OK if she had "strong medication," three times during the interview. There is no indication for narcotic or even NSAID use for GERD or esophageal dysmotility. I told that pt that I would not prescribe narcotics for these symptoms. 2. Would recommend low dose Omeprazole BID on DC. 3. Recommend EGD though pt asks if she could be discharged and plan an OP EGD. This is very appropriate. I will place the order for EGD and give her contact information to our OP GI schedulers and ask them to contact her to set this up. I have personally seen and examined the patient with SINDHU Barakat. Her note reflects my exam and findings. I agree with her impression and plan. Agree with treatment with PPI and out patient EGD. Cody Herbert M.D.
--- NOTE | 2017-05-12 10:51 | GYNECOLOGICAL CONSULTATION ---
DATE OF CONSULTATION: 05/12/2017 DATE OF CONSULTATION: 05/12/2017 CHIEF COMPLAINT: Prolonged vaginal bleeding, coughing associated with vomiting. HISTORY OF PRESENT ILLNESS: The patient is a 32-year-old nullip. General health complicated by asthma diagnosed since age 17. She uses an albuterol inhaler p.r.n. She was previously on Ortho Tri-Cyclen low for control; however, she ran out a month ago and has had irregular bleeding since then. She states in the past when she was not on the control she had irregular bleeding cycle. Her normal cycles on the pill are described as being 28-30 days, periods last for 3-4 days, bleeding is moderate, no cramps. She had a Pap smear done 6 months ago which was normal. Her last menstrual period started 04/16/2017, ran out of pills, has been bleeding ever since. I did suggest that she have a transvaginal ultrasound and the patient stated that she was planning on doing it as an outpatient and was not interested in having it done in the hospital. She did request that I renew her control pills, which I did. She was hospitalized after being seen at an outpatient urgicenter with symptoms of coughing associated with persistent vomiting. PAST MEDICAL HISTORY: ALLERGIC TO PENICILLIN. She been diagnosed with asthma since age 17 on albuterol inhaler and recently has had coughing associated with vomiting. PAST SURGICAL HISTORY: She has had no previous surgery. SOCIAL HISTORY: No smoking. No excessive alcohol intake. Works for [employer]. FAMILY HISTORY: Mom is 60 in good health. Father 60 in good health. No brothers or sisters. REVIEW OF SYSTEMS: She has had asthma since age 17. No history of migraine headaches. PHYSICAL EXAMINATION: GENERAL: Well-developed, well-nourished 32-year-old white female, alert, oriented x3 and cooperative in no acute distress, appears stated age. EYES: Conjunctivae are pink, sclerae white, no evidence of jaundice. EARS: Had normal light reflex bilaterally. NOSE: Had normal mucosa. Septum is midline. There were no polyps. THROAT: No erythema or evidence of infection. Teeth are in good state of repair. HEAD: Was normocephalic. Normal distribution of hair. NECK: Supple. Trachea midline. Thyroid is not enlarged. No adenopathy appreciated. Both carotids are of good intensity. CHEST: Clear to auscultation and percussion. HEART: Regular rhythm. S1 and S2 were normal. ABDOMEN: Soft and nontender. There was no CVA tenderness. EXTREMITIES: No calf tenderness. IMPRESSIONS OF THIS CASE: Asthma, dysfunctional uterine bleeding and persistent nausea of uncertain etiology.
[2017-05-12] MEDS: TRAMADOL HCL 50 MG TAB PO PRN (11:07)
[2017-05-12 13:04] LABS: HEMATOCRIT 29.5 % (37-47)
--- NOTE | 2017-05-12 14:00 | Progress Note ---
Subjective Date of Service: May 12, 2017. Subjective Pt evaluation today including: conversation w/ patient, physical exam, lab review, review of studies, review of inpatient medication list Saw/examined the patient in room 282 She ate her lunch without gagging/coughing or vomiting no more nausea at this time Denies any other symptoms and is eager to go home Problem List Medical Problems: (1) Acute asthma exacerbation Status: Acute (2) Allergic rhinitis Status: Acute (3) Anemia Status: Acute (4) Asthma Status: Acute (5) Asthma Status: Acute (6) Asthma exacerbation Status: Acute (7) Cough Status: Acute (8) Cough Status: Acute (9) Dehydration Status: Acute (10) Encounter for medication refill Status: Acute (11) Medication refill Status: Acute (12) Nausea and vomiting Status: Acute (13) Pneumonia Status: Acute (14) Reflux esophagitis Status: Acute (15) Vomiting Status: Acute Review of Systems Constitutional: No fever, No chills Respiratory: No cough (resolved), No sputum, No shortness of breath Cardiac: No chest pain Abdomen: No pain, No nausea, No vomiting (resolved), No diarrhea Medications Current Inpatient Medications Medications (Trade) Dose Ordered Sig/Jluis Route Start Time Stop Time Status Last Admin Dose Admin Acetaminophen (Tylenol Tab) 650 mg Q6H PRN PO 05/11/17 20:15 06/10/17 20:14 Ioversol (Optiray 320) 111 ml UD PRN IV 05/11/17 20:30 05/15/17 20:29 Potassium Chloride/Sodium Chloride 1,000 ml @ 100 mls/hr Q10H IV 05/11/17 21:30 06/10/17 20:44 05/12/17 07:57 100 MLS/HR Doxycycline Hyclate 100 mg/ Dextrose 110 ml @ 50 mls/hr BID IV 05/11/17 21:00 05/18/17 20:59 05/12/17 08:32 50 MLS/HR Ondansetron HCl (Zofran Inj) 4 mg Q6H PRN IV 05/11/17 20:45 06/10/17 20:44 05/11/17 21:55 4 MG Promethazine HCl 12.5 mg/Sodium Chloride 50.5 ml @ 204 mls/hr Q6H PRN IV 05/11/17 20:45 06/10/17 20:44 Acetaminophen 650 mg/Empty Bag 65 ml @ 260 mls/hr Q6H PRN IV 05/11/17 20:45 06/10/17 20:44 Tramadol HCl (Ultram Tab) `1-2 tabs for pain 1 tab ... Q6H PRN PO 05/11/17 20:45 06/10/17 20:44 05/12/17 11:07 25 MG Cetirizine HCl (zyrTEC TAB) 10 mg DAILY PO 05/12/17 09:00 06/11/17 08:59 05/12/17 08:33 10 MG Ferrous Gluconate (Ferrous Gluconate Tab) 324 mg BID PO 05/11/17 21:00 06/10/17 20:59 05/12/17 08:33 324 MG Hydroxyzine HCl (Vistaril Tab) 10 mg Q6H PRN PO 05/11/17 20:45 06/10/17 20:44 05/11/17 21:54 10 MG Ipratropium Schlater (Atrovent 0.02% 0.5MG/2.5ML Neb) 0.5 mg Q4H PRN INH 05/11/17 21:15 06/10/17 21:14 Levalbuterol (Xopenex 1.25MG/ 0.5ML Neb) 1.25 mg Q4H PRN INH 05/11/17 21:15 06/10/17 21:14 Benzonatate (Tessalon Perles Cap) 100 mg Q8H PRN PO 05/11/17 22:00 06/10/17 21:59 05/12/17 11:07 100 MG Guaifenesin (Mucinex Contr Rel Tab) 600 mg Q12 PO 05/12/17 09:00 06/11/17 08:59 05/12/17 08:33 600 MG Ipratropium Schlater (Atrovent 0.02% 0.5MG/2.5ML Neb) 0.5 mg Q6R INH 05/12/17 03:00 06/11/17 02:59 05/12/17 07:13 0.5 MG Levalbuterol (Xopenex 1.25MG/ 0.5ML Neb) 1.25 mg Q6R INH 05/12/17 03:00 06/11/17 02:59 05/12/17 07:13 1.25 MG Ipratropium Schlater (Atrovent 0.02% 0.5MG/2.5ML Neb) 0.5 mg Q4H PRN INH 05/11/17 22:30 06/10/17 22:29 Levalbuterol (Xopenex 1.25MG/ 0.5ML Neb) 1.25 mg Q4H PRN INH 05/11/17 22:30 06/10/17 22:29 Ioversol (Optiray 320) 100 ml UD PRN IV 05/12/17 01:45 05/16/17 01:44 Prednisone (PredniSONE TAB) 40 mg DAILY PO 05/13/17 09:00 05/18/17 08:59 Benzonatate (Tessalon Perles Cap) 100 mg Q8H PRN PO 05/12/17 06:30 06/11/17 06:29 Pantoprazole Sodium (Protonix Tab) 40 mg QAM PO 05/13/17 09:00 06/12/17 08:59 Objective Vital Signs Date Time Temp Pulse Resp B/P (MAP) Pulse Ox O2 Delivery O2 Flow Rate FiO2 05/12/17 08:00 Nasal Cannula 2.0 05/12/17 07:37 37.1 119 16 117/78 (91) 94 Nasal Cannula 3.0 05/12/17 07:28 119 16 85 Room Air 05/12/17 03:37 37.0 104 20 108/70 (83) 97 Nasal Cannula 2.0 05/12/17 02:38 111 16 82 Room Air 05/12/17 00:00 Nasal Cannula 2.0 05/11/17 23:33 36.9 108 20 108/71 (83) 93 Nasal Cannula 2.0 05/11/17 22:46 78 16 96 Room Air 05/11/17 22:35 37.1 121 16 117/78 100 Room Air 05/11/17 21:00 37.1 121 16 117/78 (91) 100 Room Air 05/11/17 20:52 114 20 127/82 100 05/11/17 19:10 37.3 05/11/17 18:30 127 18 124/75 96 Room Air 05/11/17 17:35 120 05/11/17 17:00 118 20 114/77 96 Room Air 05/11/17 16:01 115 20 104/61 99 Room Air 05/11/17 14:52 128 22 103/74 100 Nebulizer Physical Exam General Appearance: no apparent distress Respiratory/Chest: lungs clear, normal breath sounds, no respiratory distress, no accessory muscle use Cardiovascular: no edema, no murmur, + tachycardia Abdomen: normal bowel sounds, non tender, soft Extremities: normal inspection, no pedal edema Neurologic/Psychiatric: no motor/sensory deficits, alert, normal mood/affect Laboratory Results Last 24 Hours Test 05/11/17 22:22 05/12/17 06:58 05/12/17 12:41 Hemoglobin 8.7 g/dL 8.5 g/dL 9.2 g/dL Hematocrit 28.7 % 28.8 % 29.5 % Lactic Acid Level 2.7 mmol/L 2.9 mmol/L White Blood Count 12.08 K/uL Red Blood Count 3.76 M/uL Mean Corpuscular Volume 76.6 fL Mean Corpuscular Hemoglobin 22.6 pg Mean Corpuscular Hemoglobin Concent 29.5 g/dl Platelet Count 513 K/uL Mean Platelet Volume 8.0 fL Neutrophils (%) (Auto) 66.9 % Lymphocytes (%) (Auto) 20.3 % Monocytes (%) (Auto) 4.2 % Eosinophils (%) (Auto) 8.2 % Basophils (%) (Auto) 0.2 % Neutrophils # (Auto) 8.08 K/uL Lymphocytes # (Auto) 2.45 K/uL Monocytes # (Auto) 0.51 K/uL Eosinophils # (Auto) 0.99 K/uL Basophils # (Auto) 0.03 K/uL RDW Standard Deviation 66.0 fL RDW Coefficient of Variation 23.6 % Immature Granulocyte % (Auto) 0.2 % Immature Granulocyte # (Auto) 0.02 K/uL Polychromasia 1+ Hypochromasia PRESENT Anisocytosis PRESENT Assessment and Plan This is a 32 year old female with a PMH of cyclic vomiting, panic disorder, possibly asthma presents with excessive belching/burping and vomiting Vomiting possibly GERD vs. esophageal dysmotility which is now resolved as per patient, she feels better today ate her lunch with no issues does not want an EGD done while inpatient would like outpatient EGD; appreciate GI input will d/c with low dose PPI - she is refusing Prilosec, will write for Protonix 20mg BID Shortness of Breath Possibly Aspiration vs. Asthma Exacerbation unlikely infectious, patient states she has had no fevers does not feel short of breath, no chest pain will discharge with a medrol dose pamela as well as Tessalon Perlzach Anemia likely acute blood loss secondary to menorrhagia appreciate hand binder cutter input patient is refusing pelvic U/S script written for ortho tricyclic lo DVT ppx SCDs FULL CODE
[2017-05-12] MEDS ORDERED: ULT50X PO (14:04)
[2017-05-12] MEDS ORDERED: METH4PAK PO (14:04)
[2017-05-12] MEDS ORDERED: NORGTAB39 PO (14:04)
[2017-05-12] MEDS ORDERED: BENZ100C7 PO (14:04)
[2017-05-12] MEDS ORDERED: PRT/20 PO (14:04)
--- NOTE | 2017-05-12 14:11 | Discharge Instructions ---
Discharge Instructions Date of Service May 12, 2017. Admission Reason for Admission: Sepsis Discharge Discharge Diagnosis / Problem: GERD/Esophageal Dysmotility; Cyclic Vomiting, Asthma Exacerbation; Anemia Discharge Goals Goal(s): Decrease discomfort, Improve function, Diagnostic testing, Therapeutic intervention Activity Recommendations Activity Limitations: resume your previous activity . Instructions / Follow-Up Instructions / Follow-Up Please follow-up with Dr. Karely Oreilly on May 18 at 1:15PM * For your anemia, you should continue taking iron supplements and start taking oral contraceptives - recheck blood work in one week * Please follow-up with roll line operator, you will likely need an outpatient pelvic ultrasound done * For your vomiting, you will be put on Protonix 20mg twice a day - you will need an outpatient EGD done with gastroenterology * For your coughing/shortness of breath, you will be started on a medrol dose pamela (take this as directed) and Tessalon Perles * You are prescribed a low dose Tramadol - only take this as needed Current Hospital Diet Patient's current hospital diet: Regular Diet Discharge Diet Recommended Diet: Regular Diet Pending Studies Studies pending at discharge: no Laboratory Results Hemoglobin A1c Test 02/14/17 01:25 Range/Units Estimated Average Glucose 123 mg/dl Hemoglobin A1c 5.9 H 4.5-5.6 % Medical Emergencies . Who to Call and When: Medical Emergencies: If at any time you feel your situation is an emergency, please call 911 immediately. . Non-Emergent Contact Non-Emergency issues call your: Primary Care Provider, International Account Representative . . "Provider Documentation" section prepared by Erin Jason. . VTE Core Measure Inpt VTE Proph given/why not?: SCD's [place] Drug Monitoring Program Search Results: patient reviewed within database, no issues identified
--- NOTE | 2017-05-12 14:14 | Discharge Summary ---
Discharge Summary Date of Service May 12, 2017. Discharge Summary Admission Date: May 11, 2017 at 20:17 Discharge Date: May 12, 2017 Discharge Disposition: Home Principal Diagnosis: GERD/Dysmotility Intermittent, Cyclic Vomiting Anemia secondary to Acute Blood Loss; Menorrhagia Medication Reconciliation New Medications: Methylprednisolone (Medrol Dosepak) 4 Mg Yoshi 1 PKT PO DAILY, #1 PKT Norgestimate-Ethinyl Estradiol (Ortho Tri-Cyclen Lo) 1 Tab Tab 1 TAB PO DAILY for 28 Days, #28 TAB 11 Refills Pantoprazole (Protonix) 20 Mg Tab 20 MG PO BID for 30 Days, #60 TAB Benzonatate (Benzonatate) 100 Mg Cap 100 MG PO TID PRN for Cough for 5 Days, #15 CAP Tramadol HCl (Tramadol HCl) 50 Mg Tab 25 MG PO Q6H PRN for Pain for 3 Days, #6 TAB Continued Medications: Albuterol Hfa (Ventolin Hfa) 200 Puffs/46268 Mcg Aers 2-4 PUFFS INH Q6H PRN for SOB/Wheezing, #1 INHALER Cetirizine (Zyrtec) 10 Mg Tab 10 MG PO DAILY, TAB Ferrous Gluconate (Ferrous Gluconate) 324 Mg Tab 324 MG PO BID, TAB Ondasetron Odt (Zofran Odt) 4 Mg Tab 4 MG SL Q6H PRN for Nausea or Vomiting, #6 TAB Admission Information HPI (per Admitting provider): DATE OF ADMISSION: 05/11/2017 PRIMARY CARE DOCTOR: Dr. Oreilly. CHIEF COMPLAINT: Cough, vomiting, abdominal pain. HISTORY OF PRESENT ILLNESS: History obtained from patient and patient's mother, and records, chronic anemia baseline hemoglobin 10. Medical history significant for asthma, panic disorder as per records, reflux. Recent confinement February 2017 for sepsis secondary to possible aspiration pneumonia. The patient also noted to be anemic, hemoglobin noted to be 10, workup showed iron deficiency anemia. As per patient in the last 5 years, she has been having chronic choking, coughing, emesis symptoms, claims she has had a previous outpatient ____ GI, ENT workup in [place]. As per mother, patient ____ seen by a it program engagement director. Patient not clear on findings. Patient's [facility] last February 2017. As per note, patient worried about history of food poisoning. Impression was intractable cyclic vomiting and nausea. Outpatient EGD contemplated. Over the last 2 months, patient has had intermittent flare ups of her vomiting, cough symptoms. In February of 2017, she was vacationing in ____ [place]. She was seen at the ER for symptoms, told she had a GI ____ which resolved symptoms. The last few days, she had recurrence of dry cough symptoms with vomiting, complaining of left upper quadrant pain. Good bowel movement, no diarrhea. Denies chest pain or shortness of breath. Complaining of posterior headache symptoms. The patient seen at the Emergency Room for intractable symptoms, given azithromycin. Patient denies history of weight loss. Patient denies alcohol intake. PAST MEDICAL HISTORY: As above. As per mother, mother unaware of previous endoscopies ____ patient claims she has had an upper endoscopy in the past. ____ at home. SURGERIES: Sinus surgery. HOME MEDICATIONS: Include Ventolin, Zyrtec, ferrous gluconate, Zofran. ALLERGIES: DAIRY GLUTEN, CEFUROXIME, PENICILLIN, PEANUTS. FAMILY HISTORY: Diabetes. PERSONAL AND SOCIAL HISTORY: Nonsmoker. 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 REVIEW OF SYSTEMS: As per HPI, others negative. PHYSICAL EXAMINATION: VITAL SIGNS: Blood pressure was noted to be ____ RR 18, ____ sats 96% on room air. GENERAL: Noted to be slightly anxious and distressed. SKIN: Pallor. HEENT: [place] palpebral conjunctivae. Dry mucosa. NECK: Short neck. LUNGS: Decreased breath sounds. HEART: Tachycardic. ABDOMEN: Some distention, no overt tenderness. RECTAL : Intact sphincter. Menstrual blood, perianal area, brown stool FOBT positive EXTREMITIES: No edema. NEUROLOGIC: No gross focality. LABS: Hemoglobin was noted to be 8.8, ____ Sodium ____ potassium 3.8, chloride 104, CO2 28, BUN 9, creatinine 0.6, glucose was noted to be 82. Lipase 184. LFTs normal. UA - pH 9, occult blood +3. IMAGING DATA: Chest x-ray did not show any clear cut infiltrate. CT abdomen and pelvis. CT head, headache. CT abdomen and pelvis, ASSESSMENT: 1. Sepsis secondary to atypical pneumonia, bronchitis 2. Asthma exacerbation secondary to above 3. Recurrent cough/vomiting episodes over the last 5 years ? GERD ? psychosomatic 4. Acute on chronic anemia Secondary to heavy vaginal bleeding the last month after running out of OCP as per patient ? Occult GI bleed (unreliable stool FOBT due to menstrual blood at the perineum /perianal area at time of exam) PLAN: [facility] Cultures. IV fluids. Doxycycline for now. Nebs steroids for asthma exacerbation PPI trial for GERD, possible precipitant of asthma exacerbation GI consult. RE recurrent vomiting episodes Pelvic ultrasound, Net Washer consult RE month-long heavy vaginal bleeding Follow H&H, transfuse packed RBC for hemoglobin less than 7 (Patient currently undecided about receiving blood products for now.) DVT prophylaxis, SCDs RE anemia Full code. Hospital Course This is a 32 year old female with a PMH of cyclic vomiting, panic disorder, possibly asthma presents with excessive belching/burping and vomiting Vomiting possibly GERD vs. esophageal dysmotility which is now resolved as per patient, she feels better today ate her lunch with no issues does not want an EGD done while inpatient would like outpatient EGD; appreciate GI input will d/c with low dose PPI - she is refusing Prilosec, will write for Protonix 20mg BID Shortness of Breath Possibly Aspiration vs. Asthma Exacerbation unlikely infectious, patient states she has had no fevers does not feel short of breath, no chest pain will discharge with a medrol dose yoshi as well as Tessalon Perles Anemia likely acute blood loss secondary to menorrhagia appreciate material coordinator input patient is refusing pelvic U/S script written for ortho tricyclic lo DVT ppx SCDs FULL CODE Total time spent on discharge = 50 minutes This includes examination of the patient, discharge planning, medication reconciliation, and communication with other providers. Discharge Instructions Please follow-up with Dr. Karely Oreilly on May 18 at 1:15PM * For your anemia, you should continue taking iron supplements and start taking oral contraceptives - recheck blood work in one week * Please follow-up with material coordinator, you will likely need an outpatient pelvic ultrasound done * For your vomiting, you will be put on Protonix 20mg twice a day - you will need an outpatient EGD done with gastroenterology * For your coughing/shortness of breath, you will be started on a medrol dose yoshi (take this as directed) and Tessalon Perles * You are prescribed a low dose Tramadol - only take this as needed
[2017-05-12 14:16] VITALS: BP 117/78; PULSE 119; TEMP 37.1; O2SAT 94
[2017-05-12 14:21] VITALS: PULSE 122; O2SAT 92
[2017-05-13] MEDS ORDERED: PANTOprazole SOD 40 MG TAB PO SCH (09:00)
[2017-05-27] MEDS ORDERED: PRED10TA PO (12:56)
[2017-05-27] MEDS ORDERED: ULT50X PO (12:56)
[2017-05-27] MEDS ORDERED: LVQ750 PO (12:56)
[2017-05-27] MEDS ORDERED: PRT/20 PO (12:56)
[2017-05-27] MEDS ORDERED: MTR500 PO (12:56)
[2017-05-27] MEDS ORDERED: ZNT150 PO (12:56)
[2017-05-27] MEDS ORDERED: PRED-301 PO (12:56)
[2017-06-25] MEDS ORDERED: PANT40TA PO (15:06)
== END 2017-05-12 14:36 | disposition home or self-care (01) | DRG 871 ==
LOC: EDBD 12:09 → C.EDA 12:10 → C.MED 20:17 → ENRESERV 20:42
PROVIDERS: ADMIT Family Medicine; ATTEND Family Medicine
DX: A41.9 Sepsis, unspecified organism (principal); J18.9 Pneumonia, unspecified organism; J45.901 Unspecified asthma with (acute) exacerbation; D62 Acute posthemorrhagic anemia; D50.9 Iron deficiency anemia, unspecified; K21.9 Gastro-esophageal reflux disease without esophagitis; K22.4 Dyskinesia of esophagus; G43.A0 Cyclical vomiting, in migraine, not intractable; N92.0 Excessive and frequent menstruation with regular cycle; N93.8 Other specified abnormal uterine and vaginal bleeding; F41.0 Panic disorder [episodic paroxysmal anxiety]; Z79.899 Other long term (current) drug therapy

== ENCOUNTER 2017-05-22 15:54 | Emergency (ER) | payer BC, OTHER ==
[~2017-05-22] VITALS: Ht 162.6 cm; Wt 74.4 kg
[~2017-05-22 15:54] MED LIST changes: +BENZ100C7 PO; -DEXT30LI PO; -IBUP-103 PO; -MEBE1CHW PO; +METH4PAK PO; +NORGTAB39 PO; -PROM25TA9 PO; +PRT/20 PO; +ULT50X PO
[2017-05-22 15:57] VITALS: Ht 162.6 cm; Wt 74.4 kg
[2017-05-22] MEDS ORDERED: BCPILLS PO (16:16)
[2017-05-22] MEDS ORDERED: PRT/20 PO (16:16)
[2017-05-22] MEDS ORDERED: ALBUT/IPRATROP 3MG/0.5MG NEB 3 ML VIAL INH STA (16:30)
[2017-05-22] MEDS ORDERED: BENZ100C84 PO ×2 (16:34→21:22)
[2017-05-22] MEDS ORDERED: VNTHFA/IN INH ×2 (16:34→23:26)
[2017-05-22 17:12] VITALS: BP 123/69; PULSE 96; TEMP 36.8; O2SAT 99
--- NOTE | 2017-05-22 17:18 | EMERGENCY ROOM VISIT NOTE ---
History First contact with patient: 16:16 Chief Complaint: MEDICATION REFILL REQUEST Stated Complaint: PAIN, COUGH History of Present Illness The patient is a 32 year old female who presents to the Emergency Room requesting refills of Ultram, Tessalon Perles and albuterol inhaler. The patient reports that she was recently admitted to our hospital and was prescribed these medications. The patient reports that she is now starting to get shortness of breath, chest discomfort and cough similar to what she had prior to her admission. When asked if the patient followed up with her family doctor after her discharge, she reports that she was scheduled for an appointment this past Wednesday, but could not go because of work. She denies any fevers or chills, productive cough, back pain, abdominal pain, urinary symptoms or diarrhea. Review of Systems 10 system review was performed and was negative except for pertinent positives and negatives as indicated in history of present illness Past Medical/Surgical History Medical Problems: (1) Asthma, Unspecified (2) Nausea (3) Sepsis Surgical Problems: (1) No significant past surgical history Family History No significant family history Social History Smoking Status: Never Smoker Alcohol Use: occasionally Drug Use: none Marital Status: single Housing Status: lives with family Occupation Status: [employer] student Current/Historical Medications Scheduled Albuterol Hfa (Ventolin Hfa), 2 PUFFS INH QID Benzonatate (Tessalon Perles), 1 CAP PO TID Control Pills ( Control Pills), 1 TAB PO DAILY Ferrous Gluconate (Ferrous Gluconate), 324 MG PO BID Methylprednisolone (Medrol Dosepak), 1 PKT PO DAILY Pantoprazole (Protonix), 20 MG PO BID Scheduled PRN Albuterol Hfa (Ventolin Hfa), 2-4 PUFFS INH Q6H PRN for SOB/Wheezing Benzonatate (Benzonatate), 100 MG PO TID PRN for Cough Ondasetron Odt (Zofran Odt), 4 MG SL Q6H PRN for Nausea or Vomiting Tramadol HCl (Tramadol HCl), 25 MG PO Q6H PRN for Pain Physical Exam Vital Signs Date Time Temp Pulse Resp B/P (MAP) Pulse Ox O2 Delivery O2 Flow Rate FiO2 05/22/17 17:12 36.8 96 18 123/69 99 05/22/17 15:57 36.8 115 18 123/69 98 Room Air Physical Exam CONSTITUTIONAL: Healthy and well nourished. Alert and oriented X 3 with positive affect. HEENT: Normocephalic, atraumatic. Pupils equal, round and reactive. No scleral icterus or conjunctival injection. NECK: Full active range of motion without discomfort. RESPIRATORY: Patient shows mild expiratory wheezing in upper lung benjamin. No crackles, rhonchi or stridor appreciated. CARDIOVASCULAR: Regular rate and rhythm with no murmurs, rubs or gallops. GASTROINTESTINAL: Bowel sounds present in all quadrants. Soft and nontender to palpation. MUSCULOSKELETAL: Full range of motion of all joints without discomfort. INTEGUMENTARY: No rash or other significant dermatologic conditions noted. NEUROLOGIC: No focal neurologic deficits noted. Medical Decision & Procedures Medications Administered Medications (Trade) Dose Ordered Sig/Jluis Route Start Time Stop Time Status Last Admin Dose Admin Albuterol/ Ipratropium (Duoneb) 3 ml NOW STAT INH 05/22/17 16:30 05/22/17 16:31 DC 05/22/17 16:30 3 ML ED Course Patient history and physical exam were performed. Nurse's notes were reviewed. Vital signs were reviewed and normal. The patient is afebrile, and has an O2 saturation of 98% on room air. As indicated in the history of present illness, the patient is requesting prescription refills of her Tessalon Perles, Ultram and albuterol inhaler. Review of medical records shows that the patient was recently admitted to our hospital for intermittent GERD/dysmotility and cyclic vomiting. A GI consultation was performed. It is noted in the notes that the patient requested "strong medication" for her symptoms, and was told that she would not be provided prescriptions for narcotics. It is noted that the patient was provided discharge prescriptions for a Medrol Dosepak, Protonix 20 mg twice daily, Ultram and Tessalon Perles. It is also noted that the patient was scheduled for an outpatient follow-up with Dr. Karely Johnson on Wednesday at 1:15 PM. I did have our dependency case managerdietary services manager her office notes, and discovered that the patient was a no-show for her appointment. The patient reports that she has been taking her medication as prescribed. The patient was administered a DuoNeb treatment in the emergency department. The patient was provided prescriptions for Tessalon Perles 100 mg 3 times a day 10 days, as well as an albuterol metered-dose inhaler. The patient was advised that the emergency department does not provide prescription refills for controlled substances. She will need to follow-up with her family doctor or call her family doctor's office for this prescription. The patient was happy with plan of care, and voiced understanding of all discharge instructions. Medical Decision See previous section, showing a review of the patient's medical records for her condition. The patient presents today for prescription refills after missing her family doctor's office appointment this past week. The patient did have some respiratory wheezing, and a DuoNeb treatment was administered. At this time, I do not feel that further imaging or laboratory studies are needed. Patient does not appear in any acute distress. The patient was reminded again that she must follow-up with her PCP for further management. He was also recommended that she follow up with GI to schedule an outpatient EGD study. [place] Drug Monitoring Program Search Results: patient reviewed within database, no issues identified Medication Reconcilliation Current Medication List: was personally reviewed by me Blood Pressure Screening Patient's blood pressure: Normal blood pressure Impression Primary Impression: Asthma exacerbation Additional Impression: GERD (gastroesophageal reflux disease) Departure Information Prescriptions Benzonatate (Tessalon Perles) 100 Mg Cap 1 CAP PO TID for 10 Days, #30 CAP Prov: Miky Corey PA 05/22/17 Albuterol Hfa (VENTOLIN HFA) 200 Puffs/96295 Mcg Aers 2 PUFFS INH QID, #1 INHALER Prov: Miky Corey PA 05/22/17 Referrals No Doctor, Assigned (PCP) Patient Instructions [facility] Problem Qualifiers Additional Impression: GERD (gastroesophageal reflux disease) Esophagitis presence: esophagitis presence not specified Qualified Codes: K21.9 - Gastro-esophageal reflux disease without esophagitis
[2017-05-22] MEDS ORDERED: FERR325T18 PO (18:19)
[2017-05-22] MEDS ORDERED: ONDA4TAB10 SL (18:19)
[2017-05-27] MEDS ORDERED: ULT50X PO (12:56)
[2017-05-27] MEDS ORDERED: MTR500 PO (12:56)
[2017-05-27] MEDS ORDERED: LVQ750 PO (12:56)
[2017-05-27] MEDS ORDERED: ZNT150 PO (12:56)
[2017-05-27] MEDS ORDERED: PRED10TA PO (12:56)
[2017-05-27] MEDS ORDERED: PRT/20 PO (12:56)
[2017-05-27] MEDS ORDERED: PRED-301 PO (12:56)
[2017-06-25] MEDS ORDERED: PANT40TA PO (15:06)
== END 2017-05-22 17:13 | disposition home or self-care (01) ==
LOC: C.EDB 15:56 → C.EDD 17:13
DX: J45.909 Unspecified asthma, uncomplicated (principal); K21.9 Gastro-esophageal reflux disease without esophagitis; Z76.0 Encounter for issue of repeat prescription

== ENCOUNTER 2017-05-22 20:37 | Inpatient (IN) | payer BC ==
[~2017-05-22] VITALS: Ht 162.6 cm; Wt 71.6 kg
[~2017-05-22 20:37] MED LIST changes: +BCPILLS PO; +BENZ100C84 PO; +FERR325T18 PO; +ONDA4TAB10 SL; +VNTHFA/IN INH
[2017-05-22] MEDS ORDERED: BENZ100C84 PO (21:22)
[2017-05-22] MEDS ORDERED: LORAZEPAM 2 MG/ML 1 ML VIAL IV STA (21:31)
[2017-05-22] MEDS ORDERED: TRAMADOL HCL 50 MG TAB PO STA (21:31)
[2017-05-22] MEDS ORDERED: SODIUM CHLORIDE 0.9% 500ML 500 ML IV STA (21:31)
[2017-05-22] MEDS ORDERED: ALBUT/IPRATROP 3MG/0.5MG NEB 3 ML VIAL INH ONE (21:45)
[2017-05-22] MEDS ORDERED: DEXAMETHASONE SOD INJ 10 MG/ML VIAL IV ONE (21:45)
[2017-05-22 21:53] VITALS: PULSE 112; O2SAT 97
--- NOTE | 2017-05-22 21:53 | DIAGNOSTIC IMAGING REPORT ---
CHEST ONE VIEW PORTABLE CLINICAL HISTORY: CHEST PAIN dyspnea COMPARISON STUDY: 05/11/2017 FINDINGS: Mild chronic left hilar fullness. Lungs are clear. Diaphragms smooth. There are no focal infiltrates. IMPRESSION: No acute process. The above report was generated using voice recognition software. It may contain grammatical, syntax or spelling errors. Electronically signed by: Gurinder Lau M.D. 05/22/2017 9:51 PM Dictated Date/Time: 05/22/2017 9:51 PM
[2017-05-22 22:28] LABS: BASO % 0.3 %; BASO ABS # 0.03 K/uL (0-0.2); EOS % 3.8 %; IG% 0.2 %; LYMPH % 16.6 %; LYMPH ABS # 1.88 K/uL (1.2-3.4); MEAN CELL VOLUME 72.7 fL (80-100); MEAN CORPUSCULAR HEMOGLOBIN 21.6 pg (25-34); MEAN CORPUSCULAR HGB CONC 29.7 g/dl (32-36); MEAN PLATELET VOLUME 8.5 fL (7.4-10.4); MONO % 5.8 %; NEUT % 73.3 %; PLATELET COUNT 514 K/uL (130-400); RED BLOOD COUNT 3.99 M/uL (4.2-5.4); WHITE BLOOD COUNT 11.31 K/uL (4.8-10.8)
[2017-05-22 22:47] LABS: ALT/SGPT 21 U/L (12-78); ANISOCYTOSIS PRESENT; BLOOD UREA NITROGEN 14 mg/dl (7-18); BUN/CREATININE RATIO 10.5 (10-20); CALCIUM 8.8 mg/dl (8.5-10.1); CARBON DIOXIDE 24 mmol/L (21-32); CHLORIDE 106 mmol/L (98-107); COMPLETE YES; GLUCOSE 101 mg/dl (70-99); HYPOCHROMIA PRESENT; OVALOCYTES 1+; POTASSIUM 3.6 mmol/L (3.5-5.1); SODIUM 139 mmol/L (136-145)
[2017-05-22 22:52] LABS: ALKALINE PHOSPHATASE 84 U/L (45-117); AST/SGOT 13 U/L (15-37)
[2017-05-22] MEDS ORDERED: VNTHFA/IN INH (23:26)
[2017-05-22] MEDS ORDERED: OPTIRAY 320 IV PRN (23:45)
[2017-05-23] VITALS (16 sets, daily range): BP systolic 108–142; BP diastolic 62–76; PULSE 92–130; TEMP 36.5–37; O2SAT 95–98; Ht 162.6 cm; Wt 71.6 kg
[2017-05-23] MEDS ORDERED: LEVALBUTEROL/IPRATROPIUM NEB INH SCH
[2017-05-23] MEDS ORDERED: ONDANSETRON INJ 2 MG/ML 2 ML VIAL IV PRN (00:15)
[2017-05-23] MEDS ORDERED: ACETAMINOPHEN 325 MG TAB PO PRN (00:15)
--- NOTE | 2017-05-23 00:36 | History and Physical ---
History & Physical Date & Time of Service: May 23, 2017 at 00:09 Chief Complaint: Asthma Attack Primary Care Physician: Karely Oreilly D.O. History of Present Illness Source: patient, clinic records, hospital records 32 year old female with history of Asthma, Cyclic Vomiting, GERD, Anemia, presenting with shortness of breath that started today. Patient follows with Dr. Oreilly for Primary Care. She was discharged last 05/12/17 from [facility] after being treated for vomiting, asthma exacerbation and was discharged on Medrol dosepak. Patient states since she finished the Medrol dosepak, she had non productive cough again. She also has intermittent epigastric pain, followed by reflux symptoms which triggers her cough more. Today, the shortness of breath worsened. She presented to the ER this morning, given Duoneb and was discharged home. She returned due to progressive shortness of breath. On arrival, O2 sats was 95% , HR 136. She was given Decadron, Duoneb. CXR did not show pneumonia. CT chest for PE pending. On exam, patient is sitting up in bed, comfortable, o2 via NC is off with o2 sats 92%, HR 120s. She states her breathing has improved since arrival. Denies active chest pain, palpitations, dizziness, nausea, abdominal pain. Past Medical/Surgical History Surgical Problems: (1) No significant past surgical history Status: Chronic Family History No significant family history Social History Smoking Status: Never Smoker Smokeless Tobacco Use: No Alcohol Use: none Drug Use: none Marital Status: single Occupational Status: [employer] student Allergies Coded Allergies: Cefuroxime (Verified Allergy, Severe, CHEST TIGHTENING, "FEEL LIKE CHOKING ", SOB, 05/11/17) Dairy (Verified Allergy, Severe, CHEST TIGHTENING, "CHOKING" FEELING, SOB , 05/11/17) Gluten (Verified Allergy, Severe, CHEST TIGHTENING, "CHOKING" FEELING, SOB , 05/11/17) Penicillins (Verified Allergy, Severe, CHEST TIGHTENING, "CHOKING" FEELING , SOB, 05/11/17) Peanut (Verified Allergy, Intermediate, "NON STOP COUGHING, FELT LIKE CHOKING", 05/11/17) Home Medications Scheduled Albuterol Hfa (Ventolin Hfa), 2 PUFFS INH Q6H Control Pills ( Control Pills), 1 TAB PO DAILY Ferrous Gluconate (Ferrous Gluconate), 324 MG PO BID Pantoprazole (Protonix), 20 MG PO BID Scheduled PRN Benzonatate (Tessalon Perles), 100 MG PO TID PRN for Cough Ondasetron Odt (Zofran Odt), 4 MG SL Q6H PRN for Nausea or Vomiting Tramadol HCl (Tramadol HCl), 25 MG PO Q6H PRN for Pain Review of Systems Constitutional- no fever; no weight loss Eyes- no acute visual changes ENT- no sinus drainage; no pharyngitis Pulmonary- (+) as noted above Cardiac- no chest pain, no palpitations, no orthopnea, no dependent edema GI- (+) as noted above - no dysuria, no hematuria Musculoskeletal- no arthralgias, no myalgias Derm- no rashes, no new skin lesions, no changing skin lesions Hematologic- no unusual bruising, no unusual bleeding Lymphatics- no adenopathy Endocrine- no polyuria or polydipsia; no heat or cold intolerance Neuro- no headaches, no focal neurologic symptoms Psych- no anxiety, no depression Physical Exam Vital Signs Date Time Temp Pulse Resp B/P (MAP) Pulse Ox O2 Delivery O2 Flow Rate FiO2 05/22/17 23:01 119 18 134/84 97 Nebulizer 05/22/17 22:04 Room Air 05/22/17 22:04 Room Air 05/22/17 21:53 112 15 97 Nasal Cannula 3.0 05/22/17 20:54 128 05/22/17 20:38 37.5 136 25 133/69 95 Room Air General Appearance: WD/WN, no apparent distress Head: normocephalic, atraumatic Eyes: normal inspection, EOMI, sclerae normal ENT: normal ENT inspection, hearing grossly normal, pharynx normal Neck: supple, no adenopathy, thyroid normal, no JVD, trachea midline Respiratory/Chest: no respiratory distress, no accessory muscle use, + pertinent finding ((+) scattered mild rhonchi and wheeze bilaterally at mid- bases) Cardiovascular: no edema, no JVD, no murmur, + tachycardia (regular) Abdomen/GI: normal bowel sounds, non tender, soft, no organomegaly Back: normal inspection, no CVA tenderness Extremities/Musculoskelatal: normal inspection, no calf tenderness, no pedal edema, non-tender Neurologic/Psych: urogynaecologist II-XII nml as tested, no motor/sensory deficits, alert, normal mood/affect, oriented x 3 Skin: normal color, warm/dry, no rash Lymphatic: no adenopathy Diagnostics Laboratory Results Results Past 24 Hours Test 05/22/17 22:17 05/22/17 23:48 Range/Units White Blood Count 11.31 4.8-10.8 K/uL Red Blood Count 3.99 4.2-5.4 M/uL Hemoglobin 8.6 12.0-16.0 g/dL Hematocrit 29.0 37-47 % Mean Corpuscular Volume 72.7 80-100 fL Mean Corpuscular Hemoglobin 21.6 25-34 pg Mean Corpuscular Hemoglobin Concent 29.7 32-36 g/dl Platelet Count 514 130-400 K/uL Mean Platelet Volume 8.5 7.4-10.4 fL Neutrophils (%) (Auto) 73.3 % Lymphocytes (%) (Auto) 16.6 % Monocytes (%) (Auto) 5.8 % Eosinophils (%) (Auto) 3.8 % Basophils (%) (Auto) 0.3 % Neutrophils # (Auto) 8.29 1.4-6.5 K/uL Lymphocytes # (Auto) 1.88 1.2-3.4 K/uL Monocytes # (Auto) 0.66 0.11-0.59 K/uL Eosinophils # (Auto) 0.43 0-0.5 K/uL Basophils # (Auto) 0.03 0-0.2 K/uL RDW Standard Deviation 60.9 36.4-46.3 fL RDW Coefficient of Variation 22.8 11.5-14.5 % Immature Granulocyte % (Auto) 0.2 % Immature Granulocyte # (Auto) 0.02 0.00-0.02 K/uL Hypochromasia PRESENT Anisocytosis PRESENT Ovalocytes 1+ D-Dimer 630 0-500 ug/L FEU Sodium Level 139 136-145 mmol/L Potassium Level 3.6 3.5-5.1 mmol/L Chloride Level 106 98-107 mmol/L Carbon Dioxide Level 24 21-32 mmol/L Anion Gap 9.0 3-11 mmol/L Blood Urea Nitrogen 14 7-18 mg/dl Creatinine 1.30 0.60-1.20 mg/dl Est Creatinine Clear Calc Drug Dose 62.4 ml/min Estimated GFR () 63.3 Estimated GFR (Non- 54.6 BUN/Creatinine Ratio 10.5 10-20 Random Glucose 101 70-99 mg/dl Calcium Level 8.8 8.5-10.1 mg/dl Total Bilirubin 0.2 0.2-1 mg/dl Direct Bilirubin < 0.1 0-0.2 mg/dl Aspartate Amino Transf (AST/SGOT) 13 15-37 U/L Alanine Aminotransferase (ALT/SGPT) 21 12-78 U/L Alkaline Phosphatase 84 45-117 U/L Troponin I < 0.015 0-0.045 ng/ml Total Protein 7.6 6.4-8.2 gm/dl Albumin 3.7 3.4-5.0 gm/dl Lipase 314 73-393 U/L Microbiology Results 05/22/17 Blood Culture, Received Pending 05/22/17 Blood Culture, Received Pending Diagnostic Radiology CHEST ONE VIEW PORTABLE CLINICAL HISTORY: CHEST PAIN dyspnea COMPARISON STUDY: 05/11/2017 FINDINGS: Mild chronic left hilar fullness. Lungs are clear. Diaphragms smooth. There are no focal infiltrates. IMPRESSION: No acute process. EKG sinus tachycardia Impression Assessment and Plan 32 year old female with history of Asthma, Cyclic Vomiting, GERD, Anemia, presenting with shortness of breath that started today. LEFT UPPER LOBE COLLAPSE - seen on CT chest, preliminary reading - patient currently without respiratory distress 98% on 3 liters nasal cannula - discussed with Dr. Valadez for Bronch early AM today NPO ASTHMA EXACERBATION - likely Acute Bronchitis GERD contributing? - symptoms recurred after finishing Medrol dosepak, no antibiotics on discharge last admission CXR no pneumonia empiric Levaquin 500mg IV Solumedrol 40mg q8h Nebs q4h - on PO Omeprazole 20mg BID Protonix 40mg IV daily for now may need to add Ranitidine on discharge ACUTE RENAL FAILURE - crea 1.3 baseline 0.6 - IV NSS D DIMER ELEVATION - 600s - CT chest: No PE will order Lower Ext Doppler SINUS TACHYCARDIA - from nebs? Dehydration? - CT chest no PE - IV fluids monitor in Tele GERD CYCLIC VOMITING - on PO Omeprazole 20mg BID Protonix 40mg IV daily for now may need to add Ranitidine on discharge ANEMIA - Hg 9 on previous admission 8.6 today monitor DVT PROPHYLAXIS SCDs Full Code Disposition anticipate d/c home when medically stable Dr. Oreilly for PCP follow up VTE Prophylaxis VTE Risk Assessment Done? Y/N: Yes Risk Level: Moderate Given or contraindicated: SCD's
--- NOTE | 2017-05-23 01:12 | EMERGENCY ROOM VISIT NOTE ---
History First contact with patient: 20:51 Chief Complaint: RESPIRATORY PROBLEMS Stated Complaint: ASTHMA ATTACK Nursing Triage Summary: Patient reports asthma attack, seen here at 1600 today for same thing, left here feeling better and approx 30 mins ago began having another asthma attack. History of Present Illness The patient is a 32 year old female who presents to the Emergency Room with complaints of worsening difficulty breathing. The patient was here earlier today, and evaluated by me. On that visit, the patient was administered a unit dose DuoNeb treatment, and reported complete resolution of her wheezing. When she got home, she reported that the wheezing worsened, and now presents with worsening symptoms. She still reports mild lower central chest pain. She denies any recent cough, fever or chills. The patient was admitted this past summer with sepsis secondary to pneumonia. She was just admitted less than 2 weeks ago with respiratory symptoms. The patient rates her overall discomfort a 4 out of 10 on my exam. She rated her pain a 9 out of 10 in triage. Review of Systems HEENT: Denies dizziness, visual problems, hearing loss, tinnitus. Denies difficulty swallowing or oral lesions. PULMONARY: Denies recent sputum production or hemoptysis. Otherwise see history of present illness. CARDIOVASCULAR: Reports mild lower chest pain, but denies palpitations, dyspnea on exertion, orthopnea or peripheral edema. GASTROINTESTINAL: Denies diarrhea, constipation, nausea, vomiting, or abdominal pain. GENITOURINARY: Denies dysuria, frequency, urgency or nocturia. NEUROLOGIC: Denies history of epilepsy, CVA, TIA or chronic headaches. MUSCULOSKELETAL: Denies history of joint tenderness/swelling. SKIN: Denies rashes or lesions. PSYCHIATRIC: Denies history of depression or mental illness. ENDOCRINE: Denies history of diabetes or thyroid disorders. Past Medical/Surgical History Medical Problems: (1) Asthma, Unspecified (2) Nausea (3) Sepsis Surgical Problems: (1) No significant past surgical history Family History No significant family history Social History Smoking Status: Never Smoker Alcohol Use: occasionally Drug Use: none Marital Status: single Housing Status: lives with family Occupation Status: [employer] student Current/Historical Medications Scheduled Albuterol Hfa (Ventolin Hfa), 2 PUFFS INH Q6H Control Pills ( Control Pills), 1 TAB PO DAILY Ferrous Gluconate (Ferrous Gluconate), 324 MG PO BID Pantoprazole (Protonix), 20 MG PO BID Scheduled PRN Benzonatate (Tessalon Perles), 100 MG PO TID PRN for Cough Ondasetron Odt (Zofran Odt), 4 MG SL Q6H PRN for Nausea or Vomiting Tramadol HCl (Tramadol HCl), 25 MG PO Q6H PRN for Pain Physical Exam Vital Signs Date Time Temp Pulse Resp B/P (MAP) Pulse Ox O2 Delivery O2 Flow Rate FiO2 05/22/17 23:01 119 18 134/84 97 Nebulizer 05/22/17 22:04 Room Air 05/22/17 22:04 Room Air 05/22/17 21:53 112 15 97 Nasal Cannula 3.0 05/22/17 20:54 128 05/22/17 20:38 37.5 136 25 133/69 95 Room Air Physical Exam CONSTITUTIONAL: Healthy and well nourished. Alert and oriented X 3 with positive affect. Patient appears in mild to moderate respiratory distress. She does not appear acutely ill or toxic. HEENT: Normocephalic, atraumatic. Pupils equal, round and reactive. Ears and nares are clear. No rhinorrhea, scleral icterus or conjunctival injection. NECK: Full active range of motion without discomfort. No JVD or carotid bruits. RESPIRATORY: Auscultation shows worsened expiratory wheezing when compared to breath sounds earlier this afternoon. No crackles, rhonchi or stridor noted. No accessory muscle use. CARDIOVASCULAR: Regular rate and rhythm with no murmurs, rubs or gallops. GASTROINTESTINAL: Bowel sounds present in all quadrants. Soft and nontender to palpation. MUSCULOSKELETAL: Full range of motion of all joints without discomfort. INTEGUMENTARY: No rash or other significant dermatologic conditions noted. HEMATOLOGIC: No ecchymosis or petechiae. NEUROLOGIC: No focal neurologic deficits noted. Medical Decision & Procedures ER Provider Diagnostic Interpretation: My interpretation of an ECG shows a sinus tachycardia of [address] elevation or other conduction abnormalities. My interpretation of a portable chest x-ray does not show any consolidations, pneumothorax or cardiomegaly. Radiologist report is as follows: CHEST ONE VIEW PORTABLE CLINICAL HISTORY: CHEST PAIN dyspnea COMPARISON STUDY: 05/11/2017 FINDINGS: Mild chronic left hilar fullness. Lungs are clear. Diaphragms smooth. There are no focal infiltrates. IMPRESSION: No acute process. Chest CT angiography shows a complete collapse of the left upper lobe. There is no evidence for PE or aortic dissection. Comparison was made with a CT dated 05/12/17. Local radiologist report is pending. Laboratory Results 05/22/17 22:17 Red Blood Count 3.99, Mean Corpuscular Volume 72.7, Mean Corpuscular Hemoglobin 21.6, Mean Corpuscular Hemoglobin Concent 29.7, Mean Platelet Volume 8.5, Neutrophils (%) (Auto) 73.3, Lymphocytes (%) (Auto) 16.6, Monocytes (%) (Auto) 5.8, Eosinophils (%) (Auto) 3.8, Basophils (%) (Auto) 0.3, Neutrophils # (Auto) 8.29, Lymphocytes # (Auto) 1.88, Monocytes # (Auto) 0.66, Eosinophils # (Auto) 0.43, Basophils # (Auto) 0.03 05/22/17 22:17 Test 05/22/17 22:17 05/22/17 23:48 White Blood Count 11.31 K/uL (4.8-10.8) Red Blood Count 3.99 M/uL (4.2-5.4) Hemoglobin 8.6 g/dL (12.0-16.0) Hematocrit 29.0 % (37-47) Mean Corpuscular Volume 72.7 fL (80-100) Mean Corpuscular Hemoglobin 21.6 pg (25-34) Mean Corpuscular Hemoglobin Concent 29.7 g/dl (32-36) Platelet Count 514 K/uL (130-400) Mean Platelet Volume 8.5 fL (7.4-10.4) Neutrophils (%) (Auto) 73.3 % Lymphocytes (%) (Auto) 16.6 % Monocytes (%) (Auto) 5.8 % Eosinophils (%) (Auto) 3.8 % Basophils (%) (Auto) 0.3 % Neutrophils # (Auto) 8.29 K/uL (1.4-6.5) Lymphocytes # (Auto) 1.88 K/uL (1.2-3.4) Monocytes # (Auto) 0.66 K/uL (0.11-0.59) Eosinophils # (Auto) 0.43 K/uL (0-0.5) Basophils # (Auto) 0.03 K/uL (0-0.2) RDW Standard Deviation 60.9 fL (36.4-46.3) RDW Coefficient of Variation 22.8 % (11.5-14.5) Immature Granulocyte % (Auto) 0.2 % Immature Granulocyte # (Auto) 0.02 K/uL (0.00-0.02) Hypochromasia PRESENT Anisocytosis PRESENT Ovalocytes 1+ D-Dimer 630 ug/L FEU (0-500) Anion Gap 9.0 mmol/L (3-11) Est Creatinine Clear Calc Drug Dose 62.4 ml/min Estimated GFR () 63.3 Estimated GFR (Non- 54.6 BUN/Creatinine Ratio 10.5 (10-20) Calcium Level 8.8 mg/dl (8.5-10.1) Total Bilirubin 0.2 mg/dl (0.2-1) Direct Bilirubin < 0.1 mg/dl (0-0.2) Aspartate Amino Transf (AST/SGOT) 13 U/L (15-37) Alanine Aminotransferase (ALT/SGPT) 21 U/L (12-78) Alkaline Phosphatase 84 U/L (45-117) Troponin I < 0.015 ng/ml (0-0.045) Total Protein 7.6 gm/dl (6.4-8.2) Albumin 3.7 gm/dl (3.4-5.0) Lipase 314 U/L (73-393) Lactic Acid Level 2.7 mmol/L (0.4-2.0) The above labs were reviewed. D-dimer is now elevated. Creatinine 1.3. Hemoglobin is 8.6, which is baseline for the patient. She has a mild leukocytosis of 11.31. Troponin is normal. Medications Administered Medications (Trade) Dose Ordered Sig/Jluis Route Start Time Stop Time Status Last Admin Dose Admin Sodium Chloride 500 ml @ 999 mls/hr Q31M STAT IV 05/22/17 21:31 05/22/17 22:01 DC 05/22/17 22:05 999 MLS/HR Albuterol/ Ipratropium (Duoneb) 12 ml ONE ONCE INH 05/22/17 21:45 05/22/17 21:46 DC 05/22/17 21:53 12 ML Lorazepam (Ativan Inj) 0.5 mg NOW STAT IV 05/22/17 21:31 05/22/17 21:36 DC 05/22/17 22:04 0.5 MG Tramadol HCl (Ultram Tab) 50 mg NOW STAT PO 05/22/17 21:31 05/22/17 21:36 DC 05/22/17 22:04 50 MG Dexamethasone Sodium Phosphate (Decadron Inj) 10 mg NOW ONCE IV 05/22/17 21:45 05/22/17 21:46 DC 05/22/17 22:05 10 MG ED Course Patient history and physical exam were performed. Nurse's notes were reviewed. Vital signs were reviewed, showing that the patient is afebrile with a temperature 37.5C. Pulse rate is 136 with an O2 saturation of 95% in triage. On my assessment, her pulse rate was in the 120s with an O2 saturation of 92% on room air. O2 via nasal cannula was administered. A laboratory monitor was also applied. IV access was established, and labs were drawn. The patient was administered IV Decadron, and hydrated with a normal saline 500 mL bolus and Ativan 0.5 mg IVP. She was administered Ultram 50 mg for pain. Review of labs showed a mild leukocytosis. Creatinine was also elevated at 1.3. D-dimer was also mildly elevated with a normal troponin. An ECG and portable chest x-ray were normal. The patient was also administered an hour-long DuoNeb treatment. Whenever back to reevaluate the patient, she had fallen asleep, and her nebulizer mask was off. The patient was hypoxic with an O2 saturation of 88% on room air. She was placed back on O2 via nasal cannula at 4 L/m. Her heart rate continued to remain in the upper 120s. Chest CT angiography was ordered as well, showing a complete collapse of the left upper lobe. The case was discussed with Dr. Augustin, ED attending physician, who suggested hospitalist evaluation for an acute asthma exacerbation with hypoxia. Blood cultures 2 were collected, along with a lactic acid level. Because I do not suspect infection, antibiotic treatment was deferred to the hospitalist service. The case was discussed with Dr. Hendrickson, [facility] hospitalist, for further reevaluation. Please see his dictation for further treatment and final disposition. Medical Decision Patient presents to the emergency department with an asthma exacerbation and hypoxia. After an hour-long DuoNeb treatment and IV corticosteroids, the patient was still hypoxic. She remained on laboratory monitor without any concerning dysrhythmia. The patient remained tachycardic as well. Her CT does show complete collapse of the left upper lobe of unknown etiology. Medication Reconcilliation Current Medication List: was personally reviewed by me Blood Pressure Screening Patient's blood pressure: Normal blood pressure Impression Primary Impression: Left upper lobe collapse Additional Impressions: Acute asthma exacerbation Hypoxia Critical Care I have personally spent greater than 30 minutes of critical care time in the direct management of this patient. This includes bedside care, interpretation of diagnostic studies, and testing, discussion with consultants, patient, and family members, and other required patient management activities. This 30 minutes is in excess of all separately billable procedures. Departure Information Referrals Karely Oreilly D.O. (PCP) Patient Instructions My [facility] Problem Qualifiers Additional Impressions: Acute asthma exacerbation Asthma severity: mild intermittent Qualified Codes: J45.21 - Mild intermittent asthma with (acute) exacerbation
[2017-05-23] MEDS ORDERED: PANTOprazole INJ 40 MG in SYRINGE 0 ML IV STA (01:13)
[2017-05-23] MEDS ORDERED: SODIUM CHLORIDE 0.9% 1000ML 1,000 ML IV SCH (01:15)
[2017-05-23] MEDS: TRAMADOL HCL 50 MG TAB PO PRN ×4 (01:32→21:52)
[2017-05-23] MEDS: D5W AND NSS 1,000 ML IV SCH ×4 (01:33→21:08)
[2017-05-23] MEDS ORDERED: LEVOFLOXACIN / D5W 500 MG in PREMIXED IN D5W 100 ML IV SCH (02:00)
[2017-05-23 02:07] LABS: PREG INTERNAL NEGATIVE QC NEG CLEAR BACKGROUND; PREG INTERNAL POSITIVE QC POS CONTROL LINE
[2017-05-23] MEDS: LEVALBUTEROL 1.25MG/0.5ML NEB INH SCH ×6 (03:43→22:56)
[2017-05-23] MEDS: IPRATROPIUM BROMIDE NEB SOLN 0.02% 2.5 ML VIAL INH SCH ×6 (03:43→22:56)
[2017-05-23 03:49] LABS: PREG INTERNAL NEGATIVE QC NEG CLEAR BACKGROUND; PREG INTERNAL POSITIVE QC POS CONTROL LINE
[2017-05-23 04:07] LABS: BENZODIAZEPINE, URINE NEG (NEG); COCAINE,URINE NEG (NEG); PHENCYCLIDINE, URINE NEG (NEG)
[2017-05-23] MEDS: METHYLPREDNISOLONE IV 40 MG in SYRINGE 0 ML IV SCH ×3 (05:48→21:51)
[2017-05-23 05:56] LABS: MEAN CELL VOLUME 73.2 fL (80-100); MEAN CORPUSCULAR HEMOGLOBIN 21.7 pg (25-34); MEAN CORPUSCULAR HGB CONC 29.6 g/dl (32-36); MEAN PLATELET VOLUME 8.3 fL (7.4-10.4); PLATELET COUNT 471 K/uL (130-400); RED BLOOD COUNT 3.69 M/uL (4.2-5.4); WHITE BLOOD COUNT 9.51 K/uL (4.8-10.8)
--- NOTE | 2017-05-23 06:13 | DIAGNOSTIC IMAGING REPORT ---
(CHEST FOR PE) ANGIO WITH CT DOSE: 368.70 mGy.cm HISTORY: Chest pain dyspnea TECHNIQUE: Multiaxial CT images of the chest were performed following the intravenous administration of contrast to evaluate the pulmonary arteries. Maximal intensity projection images were also obtained. A dose lowering technique was utilized adhering to the principles of ALARA. COMPARISON STUDY: None. FINDINGS: There is a normal caliber thoracic aorta with no evidence for dissection. There is no evidence for pulmonary embolus. No pleural effusions. No pneumothorax. The liver and spleen are unremarkable. No mediastinal or hilar lymphadenopathy. The central airways are patent. The lungs demonstrate atelectasis of the left upper lobe. IMPRESSION: 1. No evidence for pulmonary embolus. 2. Complete atelectasis left upper lobe. 3. Monitoring to confirm complete re-opacification is suggested as well as exclude the possibility of a central obstructing lesion. The above report was generated using voice recognition software. It may contain grammatical, syntax or spelling errors. Electronically signed by: Gurinder Lau M.D. 05/23/2017 6:12 AM Dictated Date/Time: 05/23/2017 6:10 AM
[2017-05-23 06:17] LABS: ANISOCYTOSIS PRESENT; BASO % 0.1 %; BASO ABS # 0.01 K/uL (0-0.2); COMPLETE YES; HYPOCHROMIA PRESENT; IG% 0.2 %; LYMPH % 6.6 %; LYMPH ABS # 0.63 K/uL (1.2-3.4); MONO % 1.1 %; TEAR DROP CELLS 1+
--- NOTE | 2017-05-23 06:33 | DIAGNOSTIC IMAGING REPORT ---
VENOUS DOPPLER LWR EXT BILA HISTORY: Pain. Edema. rule out DVT COMPARISON STUDY: None. FINDINGS: There is normal compressibility, flow, and augmentation within the bilateral lower extremity deep venous systems. IMPRESSION: No DVT within the right or left lower extremity. The above report was generated using voice recognition software. It may contain grammatical, syntax or spelling errors. Electronically signed by: Gurinder Lau M.D. 05/23/2017 6:32 AM Dictated Date/Time: 05/23/2017 6:32 AM
[2017-05-23 06:34] LABS: BUN/CREATININE RATIO 10.3 (10-20); CALCIUM 8.7 mg/dl (8.5-10.1); CREATININE 0.95 mg/dl (0.60-1.20); POTASSIUM 4.1 mmol/L (3.5-5.1)
[2017-05-23] MEDS: ACETAMINOPHEN IV 650 MG in EMPTY BAG 0 ML IV PRN (07:54)
[2017-05-23] MEDS: FERROUS GLUCONATE 324 MG TAB PO SCH ×2 (09:56→21:09)
[2017-05-23] MEDS: BENZONATATE 100MG CAP PO PRN (09:57)
--- NOTE | 2017-05-23 10:16 | Pulmonary Consultation ---
History General Date of Service: May 23, 2017. Stated Complaint: Left upper lobe collapse with associated cough HPI The patient is a 32 year old female who presents to [facility] with complaints of Asthma Exacerbation. The patient's primary care provider is Karely Oreilly D.O.. This is a 32-year-old female who was initially evaluated for acute on chronic cough and during her workup was noted to have complete lobar atelectasis of the left upper lobe. The patient has a long history of cough associated with GI upset/vomiting since age 17. She has a significant past medical history of colon asthma (admitted for status asthmaticus), chronic rhinitis, nasal polyps, anemia, GERD/severe reflux and aspiration pneumonia. The patient has had multiple admissions over the past 3 months for asthma exacerbation which have all been proceeded by GI upset with nausea and vomiting. She was admitted in February 2017 with aspiration pneumonia and associated sepsis. Prior to her current admission she did note increased nausea, vomiting and substernal chest pain which proceeded the cough and her associated shortness of breath. She was denying any, sick contacts, productive cough, rhinitis, hemoptysis, unintentional weight loss, dysphagia, odynophagia or abnormal menses. Current workup: WBC: 11K--10K (Neutro: 8.29) Hgb: 8 Ptl: 471K D-dimer: 630 Cr: 1.30 BUN: 140.95 Lactic A: 2.7 HCG: Negative U Tox: Negative across the board Radiology Chest x-ray 05/22/2017: Mild left perihilar fullness CT angio 05/23/2017: Lobar collapse of the NIKKI, bilateral mosaic pattern CT angio 05/12/2017: Proximal bronchiectatic changes perihilar lymphadenopathy noted in the left upper lobe CT angio 02/14/2017: Atelectasis of the anterior left lower lobe, lingula enlarged mediastinal lymphadenopathy Historian: patient, EMS Review of Systems Constitutional: reports: no symptoms ENT: reports: as stated in HPI Cardiovascular: reports: no symptoms Respiratory: reports: as stated in HPI Gastrointestinal: reports: as stated in HPI Genitourinary - Female: reports: no symptoms Musculoskeletal: reports: no symptoms Integumentary: reports: no symptoms Neurologic: reports: no symptoms Psychiatric: reports: no symptoms Endocrine: no symptoms Hematologic / Lymphatic: no symptoms Allergic / Immunologic: no symptoms Past Medical History Past Medical History: 1. Asthma Status asthmaticus requiring hospitalization Triggers: Cold, exercise Attacks: Associated with vomiting mildly improved with omeprazole 2. Allergies 3. Chronic rhinitis 4. Nasal polyps 5. Chronic anemia baseline HGB: 10 6. Panic disorder 7. GERD/severe reflux 8. Sepsis/SIRS possible aspiration pneumonia--February 2017 Past Surgical History: 1. 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 Hx Tobacco Use In Past Year?: No Smoking Status: Never Smoker Marital status: single Occupational Status: [employer] student Allergies Coded Allergies: Cefuroxime (Verified Allergy, Severe, CHEST TIGHTENING, "FEEL LIKE CHOKING ", SOB, 05/11/17) Dairy (Verified Allergy, Severe, CHEST TIGHTENING, "CHOKING" FEELING, SOB , 05/11/17) Gluten (Verified Allergy, Severe, CHEST TIGHTENING, "CHOKING" FEELING, SOB , 05/11/17) Penicillins (Verified Allergy, Severe, CHEST TIGHTENING, "CHOKING" FEELING , SOB, 05/11/17) Peanut (Verified Allergy, Intermediate, "NON STOP COUGHING, FELT LIKE CHOKING", 05/11/17) Current Medications Reported Home Medications Medications Dose Route/Sig Max Daily Dose Days Date Category Tessalon Perles (Benzonatate) 100 Mg Cap 100 Mg PO TID PRN 05/22/17 Reported Protonix (Pantoprazole Sodium) 20 Mg Tab 20 Mg PO BID 05/22/17 Reported Control Pills (Miscellaneous) Tab 1 Tab PO DAILY 05/22/17 Reported Tramadol HCl 50 Mg Tab 25 Mg PO Q6H PRN 3 05/12/17 Rx Zofran Odt (Ondansetron HCl) 4 Mg Tab 4 Mg SL Q6H PRN 02/26/17 Reported Ferrous Gluconate 324 Mg Tab 324 Mg PO BID 02/26/17 Reported Ventolin Hfa (Albuterol) 200 Puffs/[id number] Mcg Aers 2 Puffs INH Q6H 02/13/17 Reported Physical Physical Exam Vital Signs: Date Time Temp Pulse Resp B/P (MAP) Pulse Ox O2 Delivery O2 Flow Rate FiO2 05/23/17 08:00 95 Room Air 05/23/17 07:19 36.7 117 20 137/72 (93) 95 Room Air 05/23/17 07:09 115 16 96 Nasal Cannula 3.0 05/23/17 04:20 36.5 113 28 108/72 (84) 96 05/23/17 04:02 Nasal Cannula 3.0 05/23/17 03:43 111 16 98 Nasal Cannula 3.0 05/23/17 01:00 Nasal Cannula 3.0 05/23/17 00:35 36.8 112 22 139/72 98 Nasal Cannula 3.0 05/22/17 23:01 119 18 134/84 97 Nebulizer 05/22/17 22:04 Room Air 05/22/17 22:04 Room Air 05/22/17 21:53 112 15 97 Nasal Cannula 3.0 05/22/17 20:54 128 05/22/17 20:38 37.5 136 25 133/69 95 Room Air General Appearance: WELL-APPEARING, NO APPARENT DISTRESS Head: NORMOCEPHALIC, ATRAUMATIC Eyes: PERRLA, NO DISCHARGE, EOMI, SCLERAE NORMAL, CONJUNCTIVAE NORMAL ENT: NORMAL EAR EXAM, NORMAL NASAL EXAM, NORMAL MOUTH EXAM, NORMAL THROAT EXAM , NORMAL DENTAL EXAM Neck: NORMAL RANGE OF MOTION, NO TENDERNESS, TRACHEA MIDLINE, NO STRIDOR, SUPPLE Respiratory: BREATH SOUNDS NORMAL, CLEAR TO AUSCULTATION, CLEAR TO PERCUSSION Cardiovasular: REGULAR RATE/RHYTHM, NORMAL S1S2, NO M/G/R, NO MURMUR, NO GALLOP Abdomen: NON TENDER, NORMAL BOWEL SOUNDS, NO REBOUND, NO MASSES, NO GUARDING, NO ORGANOMEGALY Genitourinary - Female: EXTERNAL GENITALIA NORMAL Back: NORMAL INSPECTION, NO MIDLINE TENDERNESS, NO CVA TENDERNESS, NO PARAVERTEBRAL TTP Upper Extremities: NO EDEMA, NO DEFORMITY, NORMAL ROM Lower Extremities: NO EDEMA, NO DEFORMITY, NORMAL ROM Pulses: carotid (R) (2+), carotid (L) (2+), dorsalis pedis (R) (2+), dorsalis pedis (L) (2+) Neuro: ALERT, ORIENTED x 3, NORMAL MOTOR EXAM, NORMAL SENSATION, NORMAL CEREBELLAR EXAM Reflexes: biceps (R) (2+), bicpes (L) (2+), achilles (R) (2+), achilles (L) (2+ ) Babinski Testing: right (downgoing), left (downgoing) Psychiatric: NORMAL AFFECT, NO SUICIDAL IDEATION, CONTRACTS FOR SAFETY Diagnostics Labs Results Past 24 Hours Test 05/22/17 22:17 05/22/17 23:48 05/23/17 03:20 05/23/17 05:16 Range/Units White Blood Count 11.31 9.51 4.8-10.8 K/uL Red Blood Count 3.99 3.69 4.2-5.4 M/uL Hemoglobin 8.6 8.0 12.0-16.0 g/dL Hematocrit 29.0 27.0 37-47 % Mean Corpuscular Volume 72.7 73.2 80-100 fL Mean Corpuscular Hemoglobin 21.6 21.7 25-34 pg Mean Corpuscular Hemoglobin Concent 29.7 29.6 32-36 g/dl Platelet Count 514 471 130-400 K/uL Mean Platelet Volume 8.5 8.3 7.4-10.4 fL Neutrophils (%) (Auto) 73.3 92.0 % Lymphocytes (%) (Auto) 16.6 6.6 % Monocytes (%) (Auto) 5.8 1.1 % Eosinophils (%) (Auto) 3.8 0.0 % Basophils (%) (Auto) 0.3 0.1 % Neutrophils # (Auto) 8.29 8.75 1.4-6.5 K/uL Lymphocytes # (Auto) 1.88 0.63 1.2-3.4 K/uL Monocytes # (Auto) 0.66 0.10 0.11-0.59 K/uL Eosinophils # (Auto) 0.43 0.00 0-0.5 K/uL Basophils # (Auto) 0.03 0.01 0-0.2 K/uL RDW Standard Deviation 60.9 61.2 36.4-46.3 fL RDW Coefficient of Variation 22.8 23.0 11.5-14.5 % Immature Granulocyte % (Auto) 0.2 0.2 % Immature Granulocyte # (Auto) 0.02 0.02 0.00-0.02 K/uL Hypochromasia PRESENT PRESENT Anisocytosis PRESENT PRESENT Ovalocytes 1+ D-Dimer 630 0-500 ug/L FEU Sodium Level 139 139 136-145 mmol/L Potassium Level 3.6 4.1 3.5-5.1 mmol/L Chloride Level 106 108 98-107 mmol/L Carbon Dioxide Level 24 22 21-32 mmol/L Anion Gap 9.0 9.0 3-11 mmol/L Blood Urea Nitrogen 14 10 7-18 mg/dl Creatinine 1.30 0.95 0.60-1.20 mg/dl Est Creatinine Clear Calc Drug Dose 62.4 84.1 ml/min Estimated GFR () 63.3 92.5 Estimated GFR (Non- 54.6 79.8 BUN/Creatinine Ratio 10.5 10.3 10-20 Random Glucose 101 169 70-99 mg/dl Calcium Level 8.8 8.7 8.5-10.1 mg/dl Total Bilirubin 0.2 0.2-1 mg/dl Direct Bilirubin < 0.1 0-0.2 mg/dl Aspartate Amino Transf (AST/SGOT) 13 15-37 U/L Alanine Aminotransferase (ALT/SGPT) 21 12-78 U/L Alkaline Phosphatase 84 45-117 U/L Troponin I < 0.015 0-0.045 ng/ml Total Protein 7.6 6.4-8.2 gm/dl Albumin 3.7 3.4-5.0 gm/dl Lipase 314 73-393 U/L Human Chorionic Gonadotropin, Qual NEG NEG Lactic Acid Level 2.7 0.4-2.0 mmol/L Urine Test NEG NEG Urine Opiates Screen NEG NEG Urine Methadone, Qualitative NEG NEG Urine Barbiturates NEG NEG Urine Phencyclidine (PCP) Level NEG NEG Ur Amphetamine/Methamphetamine NEG NEG MDMA (Ecstasy) Screen NEG NEG Urine Benzodiazepines Screen NEG NEG Urine Cocaine Metabolite NEG NEG Urine Marijuana (THC) NEG NEG Tear Drop Cells 1+ Test 05/23/17 07:16 Range/Units Lactic Acid Level 4.3 0.4-2.0 mmol/L Microbiology Results 05/22/17 Blood Culture, Received Pending 05/22/17 Blood Culture, Received Pending Diagnostic Radiology Chest x-ray 05/22/2017: Mild left perihilar fullness CT angio 05/23/2017: Lobar collapse of the NIKKI, bilateral mosaic pattern CT angio 05/12/2017: Proximal bronchiectatic changes perihilar lymphadenopathy noted in the left upper lobe CT angio 02/14/2017: Atelectasis of the anterior left lower lobe, lingula enlarged mediastinal lymphadenopathy EKG Sinus tachycardia no signs of ischemic changes Impression Assessment and Plan 32-year-old female with nausea vomiting and left upper lobe lobar collapse: 1. Lobar Collapse: I have discussed the case at length with the patient and also went over her last 3 months worth of CTs of the thorax. I have shown her the left upper lobe collapse and suggested that we undergo rigid bronchoscopy to help remove the obstruction in re-expand the left upper lobe. We also spoke about the possibility performing EBUS bronchoscopy as the patient has diffuse mediastinal lymphadenopathy as well as local bronchiectatic changes in left upper lobe that have been consistent over her last 3 CTs of the thorax. At this time the patient is not willing to move forward. We also did discuss her chronic nausea vomiting associated cough and I noted that she could have an EGD performed at the same time as the bronchoscopy. She is chronically refused workup with an EGD in once again at this time is not willing to move forward. As the patient is not willing to move forward with bronchoscopic intervention I will initiate dornase, chest physiotherapy and flutter valve to try to loosen up and re-expand the left upper lobe. 2. Asthma: Patient has been worked up in the past by produce specialist and is noted to be non-atopic and has never had an elevated eosinophil % in the peripheral blood. There is no eosinophil percentage based off sputum sample which I will attempt to acquired during this admission and/or via BAL if the patient would like to move forward. Patient does require more workup for atypical etiologies of cough and mediastinal fullness as well as associated nausea vomiting since she was 17 years old. At this time I do agree with continue the pantoprazole as well as Atrovent/Xopenex nebulizers in [place] [place] but I will decrease her methylprednisolone did q.12 hours as on physical exam today she had no active wheezing. We should also initiate peak flow meter 3 times per day monitor her throughout her hospital stay. 2. Infectious disease: At this time the patient does have an elderly lactic acidosis in lobar collapse we should initiate antibiotics with broad-spectrum coverage for post obstructive pneumonia/HCAP and she is pen allergic will initiate cefepime and vancomycin at this time.
[2017-05-23] MEDS ORDERED: VANCOMYCIN CONSULT ACTIVE PRN (10:45)
[2017-05-23] MEDS ORDERED: PANTOprazole INJ 40 MG in SYRINGE 0 ML IV SCH (11:00)
[2017-05-23] MEDS ORDERED: VANCOMYCIN INJ 1,750 MG in SODIUM CHLORIDE 0.9% 500ML 500 ML IV ONE (11:00)
[2017-05-23] MEDS: METRONIDAZOLE / NSS 500 MG in PREMIXED NSS 100 ML IV SCH ×2 (11:44→21:08)
--- NOTE | 2017-05-23 13:14 | Pharmacy Progress Note ---
Pharmacy Antibiotic Consult Date of Service: May 23, 2017. Pharmacy Dosing Scope Pharmacy is consulted to initiate vancomycin IV dosing therapy, order appropriate labs and adjust drug dose/frequency. Subjective The patient is a 32 year old female admitted on May 23, 2017 at 00:06. Objective Height (Feet): 5 Height (Inches): 4.00 Weight (Kilograms): 73.100 Lab Results (24hrs): Test 05/22/17 22:17 05/23/17 03:20 05/23/17 05:16 05/23/17 07:16 White Blood Count 11.31 K/uL (4.8-10.8) 9.51 K/uL (4.8-10.8) Red Blood Count 3.99 M/uL (4.2-5.4) 3.69 M/uL (4.2-5.4) Hemoglobin 8.6 g/dL (12.0-16.0) 8.0 g/dL (12.0-16.0) Hematocrit 29.0 % (37-47) 27.0 % (37-47) Mean Corpuscular Volume 72.7 fL (80-100) 73.2 fL (80-100) Mean Corpuscular Hemoglobin 21.6 pg (25-34) 21.7 pg (25-34) Mean Corpuscular Hemoglobin Concent 29.7 g/dl (32-36) 29.6 g/dl (32-36) Platelet Count 514 K/uL (130-400) 471 K/uL (130-400) Mean Platelet Volume 8.5 fL (7.4-10.4) 8.3 fL (7.4-10.4) Neutrophils (%) (Auto) 73.3 % 92.0 % Lymphocytes (%) (Auto) 16.6 % 6.6 % Monocytes (%) (Auto) 5.8 % 1.1 % Eosinophils (%) (Auto) 3.8 % 0.0 % Basophils (%) (Auto) 0.3 % 0.1 % Neutrophils # (Auto) 8.29 K/uL (1.4-6.5) 8.75 K/uL (1.4-6.5) Lymphocytes # (Auto) 1.88 K/uL (1.2-3.4) 0.63 K/uL (1.2-3.4) Monocytes # (Auto) 0.66 K/uL (0.11-0.59) 0.10 K/uL (0.11-0.59) Eosinophils # (Auto) 0.43 K/uL (0-0.5) 0.00 K/uL (0-0.5) Basophils # (Auto) 0.03 K/uL (0-0.2) 0.01 K/uL (0-0.2) RDW Standard Deviation 60.9 fL (36.4-46.3) 61.2 fL (36.4-46.3) RDW Coefficient of Variation 22.8 % (11.5-14.5) 23.0 % (11.5-14.5) Immature Granulocyte % (Auto) 0.2 % 0.2 % Immature Granulocyte # (Auto) 0.02 K/uL (0.00-0.02) 0.02 K/uL (0.00-0.02) Hypochromasia PRESENT PRESENT Anisocytosis PRESENT PRESENT Ovalocytes 1+ D-Dimer 630 ug/L FEU (0-500) Sodium Level 139 mmol/L (136-145) 139 mmol/L (136-145) Potassium Level 3.6 mmol/L (3.5-5.1) 4.1 mmol/L (3.5-5.1) Chloride Level 106 mmol/L (98-107) 108 mmol/L (98-107) Carbon Dioxide Level 24 mmol/L (21-32) 22 mmol/L (21-32) Anion Gap 9.0 mmol/L (3-11) 9.0 mmol/L (3-11) Blood Urea Nitrogen 14 mg/dl (7-18) 10 mg/dl (7-18) Creatinine 1.30 mg/dl (0.60-1.20) 0.95 mg/dl (0.60-1.20) Est Creatinine Clear Calc Drug Dose 62.4 ml/min 84.1 ml/min Estimated GFR () 63.3 92.5 Estimated GFR (Non- 54.6 79.8 BUN/Creatinine Ratio 10.5 (10-20) 10.3 (10-20) Random Glucose 101 mg/dl (70-99) 169 mg/dl (70-99) Calcium Level 8.8 mg/dl (8.5-10.1) 8.7 mg/dl (8.5-10.1) Total Bilirubin 0.2 mg/dl (0.2-1) Direct Bilirubin < 0.1 mg/dl (0-0.2) Aspartate Amino Transf (AST/SGOT) 13 U/L (15-37) Alanine Aminotransferase (ALT/SGPT) 21 U/L (12-78) Alkaline Phosphatase 84 U/L (45-117) Troponin I < 0.015 ng/ml (0-0.045) Total Protein 7.6 gm/dl (6.4-8.2) Albumin 3.7 gm/dl (3.4-5.0) Lipase 314 U/L (73-393) Human Chorionic Gonadotropin, Qual NEG (NEG) Urine Test NEG (NEG) Urine Opiates Screen NEG (NEG) Urine Methadone, Qualitative NEG (NEG) Urine Barbiturates NEG (NEG) Urine Phencyclidine (PCP) Level NEG (NEG) Ur Amphetamine/Methamphetamine NEG (NEG) MDMA (Ecstasy) Screen NEG (NEG) Urine Benzodiazepines Screen NEG (NEG) Urine Cocaine Metabolite NEG (NEG) Urine Marijuana (THC) NEG (NEG) Tear Drop Cells 1+ Lactic Acid Level 4.3 mmol/L (0.4-2.0) Test 05/23/17 12:30 Micro Results: Date/Time Source Procedure Growth Status 05/22/17 23:48 Blood Blood Culture Pending Received 05/22/17 23:45 Blood Blood Culture Pending Received Assessment & Plan Assessment: 32 yo female with pmh of asthma, cyclic vomiting Complete lobar atelectasis of left upper lobe Leukocytosis resolved, afebrile, lactic acid trending up- currently 4.3 Dr. Valadez starting vancomycin/flagyl/levaquin for broad-spectrum coverage for post obstructive pneumonia/HCAP Plan: Loading dose 1750 mg x 1 (24 mg/kg) Maintenance dose 1000 mg q12H PK: SCr 0.94 (decreased from 1.3), CrCl 84.1, Ke 0.074, T1/2 ~9 hours Dose may need adjusted if SCr continues to improve. Goal trough estimate: 15-20 mcg/mL Trough level has been ordered for 05/25 @ 1130 Pharmacy will continue to follow and will adjust dose/frequency as necessary. Thank you
--- NOTE | 2017-05-23 14:20 | Progress Note ---
Internal Med Progress Note Date of Service: May 23, 2017. Provider Documentation: SUBJECTIVE: pt remains persistently tachycardic on monitor , hypoxic on ambulation put on 2 L 02 via nasal canula denies of any SOB or pleuritic chest pain remains afebrile still indecisive regarding Bronchoscopy wants to think about it , worried about anesthesia and procedure explained to her -as she remains tachycardic , hypoxic , requiring 02 , Her lactic acid continued to go up even after giving continuous fluid and broad spectrum abx having a Bronchoscopy with possible suction and getting sampler for culture - can provide definitive treatment and could be life saving procedure for her -as her chance of developing overwhelmed sepsis form loculated left upper lobe pulmonary infection remains high I offered to speak with her Mother or any other family members to help her make decision for her or to give update regarding her status she refuses , mentions she will call her mother first if there is any concern or questions she will ask me to call family OBJECTIVE: Vital Signs-as noted below Exam: General-young female , no apparent distress , anxious Eyes-sclera non icteric ENT-NAD Neck-no JVD Lungs-diminished, no rales or wheeze noted Heart-tachycardic regular Abdomen-soft, non tender Extremities-no lower ext edema Neuro-AAo x3, no focal deficit Lab data as noted below. ASSESSMENT & PLAN: 32 year old female with history of Asthma, Cyclic Vomiting, GERD, Anemia, presenting with shortness of breath SEPSIS WITH LEFT UPPER LOBE PNEUMONIA : meets criteria for sepsis -presented with tachycardia , hypoxia , elevated lactic acid level /JORDEN continued with IV Abx , IVF , monitor in tele ID eval requested LEFT UPPER LOBE OPACITY /DIFFUSE ATELECTASIS /CONCERN FOR LOCULATED INFECTION : - CT chest shows : 1. No evidence for pulmonary embolus. 2. Complete atelectasis left upper lobe. 3. Monitoring to confirm complete re-opacification is suggested as well as exclude the possibility of a central obstructing lesion. remains tachycardic , with persisted Lactic acid elevation hx of cyclic vomiting syndrome -and severe GERD , concern for aspiration will benefit form Bronchoscopy Pulmonology Dr Valadez consulted -appreciate input had lengthy discussion with pt regarding her diagnosis , print copy of CT chest given to pt and explained the extent of infection and need for procedure pt dose not want to do the procedure today wants to have some time to think about it ABx coverage increased to add Vancomycin /Flagyl /Levaquin -for additional gram negative /and anaerobic coverage cont neb tx , flutter valve , chest PT blood and sputum culture ordered - ordered for NPO past midnight for possible Bronch tomorrow PERSISTENT LACTIC ACIDOSIS : due to above -loculated infection on left upper lobe cont Broad spectrum ABx as above cont IVF @ 200 ml /hr repeat Lactic acid level at 1800 and tomorrow -follow cultures ACUTE RENAL FAILURE due to sepsis resolved with IVF follow PPR D DIMER ELEVATION - 600s-due to sepsis - CT chest: No PE/ left upper lobe opacity Lower Ext Doppler-negative for DVT SINUS TACHYCARDIA - Due to sepsis /on going infection /complete atelectasis of left upper lobe / persisted hypoxia continue 02 supplement - CT chest no PE - IV fluids to correct dehydration monitor in Tele GERD WITH HX OF CYCLIC VOMITING Protonix 40mg IV bid Pt was evaluated by GI in last admission refused to have EGD done CHRONIC ANEMIA - Hg 9 on previous admission 8.6 today ; on Fe supplement monitor DVT PROPHYLAXIS SCDs low risk ambulate Full Code Disposition anticipate d/c home when medically stable Dr. Oreilly for PCP follow up Vital Signs: Date Time Temp Pulse Resp B/P (MAP) Pulse Ox O2 Delivery O2 Flow Rate FiO2 05/23/17 12:00 Room Air 05/23/17 11:29 130 16 113/62 (79) 96 Room Air 05/23/17 11:20 118 16 95 Room Air 05/23/17 10:52 36.7 120 20 113/62 (79) 95 Room Air 05/23/17 08:00 95 Room Air 05/23/17 07:19 36.7 117 20 137/72 (93) 95 Room Air 05/23/17 07:09 115 16 96 Nasal Cannula 3.0 05/23/17 04:20 36.5 113 28 108/72 (84) 96 05/23/17 04:02 Nasal Cannula 3.0 05/23/17 03:43 111 16 98 Nasal Cannula 3.0 05/23/17 01:00 Nasal Cannula 3.0 05/23/17 00:35 36.8 112 22 139/72 98 Nasal Cannula 3.0 05/22/17 23:01 119 18 134/84 97 Nebulizer 05/22/17 22:04 Room Air 05/22/17 22:04 Room Air 05/22/17 21:53 112 15 97 Nasal Cannula 3.0 05/22/17 20:54 128 05/22/17 20:38 37.5 136 25 133/69 95 Room Air Lab Results: Results Past 24 Hours Test 05/22/17 22:17 05/22/17 23:48 05/23/17 03:20 05/23/17 05:16 Range/Units White Blood Count 11.31 9.51 4.8-10.8 K/uL Red Blood Count 3.99 3.69 4.2-5.4 M/uL Hemoglobin 8.6 8.0 12.0-16.0 g/dL Hematocrit 29.0 27.0 37-47 % Mean Corpuscular Volume 72.7 73.2 80-100 fL Mean Corpuscular Hemoglobin 21.6 21.7 25-34 pg Mean Corpuscular Hemoglobin Concent 29.7 29.6 32-36 g/dl Platelet Count 514 471 130-400 K/uL Mean Platelet Volume 8.5 8.3 7.4-10.4 fL Neutrophils (%) (Auto) 73.3 92.0 % Lymphocytes (%) (Auto) 16.6 6.6 % Monocytes (%) (Auto) 5.8 1.1 % Eosinophils (%) (Auto) 3.8 0.0 % Basophils (%) (Auto) 0.3 0.1 % Neutrophils # (Auto) 8.29 8.75 1.4-6.5 K/uL Lymphocytes # (Auto) 1.88 0.63 1.2-3.4 K/uL Monocytes # (Auto) 0.66 0.10 0.11-0.59 K/uL Eosinophils # (Auto) 0.43 0.00 0-0.5 K/uL Basophils # (Auto) 0.03 0.01 0-0.2 K/uL RDW Standard Deviation 60.9 61.2 36.4-46.3 fL RDW Coefficient of Variation 22.8 23.0 11.5-14.5 % Immature Granulocyte % (Auto) 0.2 0.2 % Immature Granulocyte # (Auto) 0.02 0.02 0.00-0.02 K/uL Hypochromasia PRESENT PRESENT Anisocytosis PRESENT PRESENT Ovalocytes 1+ D-Dimer 630 0-500 ug/L FEU Sodium Level 139 139 136-145 mmol/L Potassium Level 3.6 4.1 3.5-5.1 mmol/L Chloride Level 106 108 98-107 mmol/L Carbon Dioxide Level 24 22 21-32 mmol/L Anion Gap 9.0 9.0 3-11 mmol/L Blood Urea Nitrogen 14 10 7-18 mg/dl Creatinine 1.30 0.95 0.60-1.20 mg/dl Est Creatinine Clear Calc Drug Dose 62.4 84.1 ml/min Estimated GFR () 63.3 92.5 Estimated GFR (Non- 54.6 79.8 BUN/Creatinine Ratio 10.5 10.3 10-20 Random Glucose 101 169 70-99 mg/dl Calcium Level 8.8 8.7 8.5-10.1 mg/dl Total Bilirubin 0.2 0.2-1 mg/dl Direct Bilirubin < 0.1 0-0.2 mg/dl Aspartate Amino Transf (AST/SGOT) 13 15-37 U/L Alanine Aminotransferase (ALT/SGPT) 21 12-78 U/L Alkaline Phosphatase 84 45-117 U/L Troponin I < 0.015 0-0.045 ng/ml Total Protein 7.6 6.4-8.2 gm/dl Albumin 3.7 3.4-5.0 gm/dl Lipase 314 73-393 U/L Human Chorionic Gonadotropin, Qual NEG NEG Lactic Acid Level 2.7 0.4-2.0 mmol/L Urine Test NEG NEG Urine Opiates Screen NEG NEG Urine Methadone, Qualitative NEG NEG Urine Barbiturates NEG NEG Urine Phencyclidine (PCP) Level NEG NEG Ur Amphetamine/Methamphetamine NEG NEG MDMA (Ecstasy) Screen NEG NEG Urine Benzodiazepines Screen NEG NEG Urine Cocaine Metabolite NEG NEG Urine Marijuana (THC) NEG NEG Tear Drop Cells 1+ Test 05/23/17 07:16 05/23/17 12:30 Range/Units Lactic Acid Level 4.3 5.8 0.4-2.0 mmol/L Procalcitonin 0.13 0-0.5 ng/ml Microbiology Results 05/22/17 Blood Culture, Received Pending 05/22/17 Blood Culture, Received Pending
[2017-05-23] MEDS: DORNASE ALFA (2500U) 2.5MG/2.5ML INH SCH ×2 (19:07→22:56)
[2017-05-23] MEDS: PANTOprazole INJ 40 MG in SYRINGE 0 ML IV SCH (21:09)
[2017-05-24] VITALS (23 sets, daily range): BP systolic 105–135; BP diastolic 70–84; PULSE 92–114; TEMP 36.5–37; O2SAT 95–99
[2017-05-24] MEDS: D5W AND NSS 1,000 ML IV SCH ×3 (00:06→20:18)
[2017-05-24] MEDS: VANCOMYCIN INJ 1,000 MG in SODIUM CHLORIDE 0.9% 250ML 250 ML IV SCH ×3 (00:08→22:06)
[2017-05-24] MEDS: LEVALBUTEROL 1.25MG/0.5ML NEB INH SCH ×6 (03:19→23:09)
[2017-05-24] MEDS: IPRATROPIUM BROMIDE NEB SOLN 0.02% 2.5 ML VIAL INH SCH ×6 (03:19→23:09)
[2017-05-24] MEDS: METRONIDAZOLE / NSS 500 MG in PREMIXED NSS 100 ML IV SCH ×3 (04:05→20:16)
[2017-05-24] MEDS: ACETAMINOPHEN IV 650 MG in EMPTY BAG 0 ML IV PRN (04:25)
[2017-05-24] MEDS: METHYLPREDNISOLONE IV 40 MG in SYRINGE 0 ML IV SCH ×3 (05:41→22:07)
[2017-05-24 05:51] LABS: BASO % 0.1 %; BASO ABS # 0.01 K/uL (0-0.2); HEMATOCRIT 25.5 % (37-47); IG% 0.4 %; LYMPH ABS # 1.43 K/uL (1.2-3.4); MEAN CORPUSCULAR HGB CONC 30.6 g/dl (32-36); MEAN PLATELET VOLUME 8.1 fL (7.4-10.4); MONO % 5.5 %; PLATELET COUNT 470 K/uL (130-400); RED BLOOD COUNT 3.54 M/uL (4.2-5.4); WHITE BLOOD COUNT 15.82 K/uL (4.8-10.8)
[2017-05-24 06:24] LABS: ANISOCYTOSIS PRESENT; COMPLETE YES; HYPOCHROMIA PRESENT; MICROCYTOSIS PRESENT; OVALOCYTES 1+
[2017-05-24 06:28] LABS: BUN/CREATININE RATIO 16.2 (10-20); CALCIUM 8.8 mg/dl (8.5-10.1); CREATININE 0.65 mg/dl (0.60-1.20)
[2017-05-24] MEDS: DORNASE ALFA (2500U) 2.5MG/2.5ML INH SCH ×2 (07:05→19:25)
--- NOTE | 2017-05-24 07:08 | DIAGNOSTIC IMAGING REPORT ---
CHEST ONE VIEW PORTABLE CLINICAL HISTORY: Pneumonia. COMPARISON STUDY: Chest radiograph May 22, [address] May 23, 2017. FINDINGS: There is no pneumothorax or pleural effusion. Hazy left suprahilar hilar opacity suggests left upper lobe atelectasis. This was shown on prior chest CT. There is no evidence of pulmonary edema. Cardiomediastinal silhouette is normal. IMPRESSION: Persistent hazy left suprahilar opacity which suggests left upper lobe atelectasis, as shown on CT of May 23, 2017. Radiographic follow-up to ensure resolution is recommended. Electronically signed by: Arcenio De La Torre M.D. 05/24/2017 7:06 AM Dictated Date/Time: 05/24/2017 7:04 AM
[2017-05-24] MEDS: TRAMADOL HCL 50 MG TAB PO PRN ×3 (08:29→21:47)
[2017-05-24] MEDS: PANTOprazole INJ 40 MG in SYRINGE 0 ML IV SCH ×2 (09:54→21:48)
[2017-05-24] MEDS: LEVOFLOXACIN / D5W 750 MG in PREMIXED IN D5W 150 ML IV SCH (09:54)
[2017-05-24] MEDS: FERROUS GLUCONATE 324 MG TAB PO SCH ×2 (09:55→21:46)
--- NOTE | 2017-05-24 10:40 | Progress Note ---
Internal Med Progress Note Date of Service: May 24, 2017. Provider Documentation: SUBJECTIVE: pt remains persistently tachycardic, hypoxic on 2 L 02 persisted lactic acidosis pt mention of having uneventful night denies of chest pain or cough still undeceived about Bronchoscopy-wants to be discharged and do it out pt -updated her White count been elevated > 15 K she is still hypoxic; requiring IV fluids and multiple Iv ABx -not safe to be discharged at present OBJECTIVE: Vital Signs-as noted below Exam: General-young female , no apparent distress , anxious Eyes-sclera non icteric ENT-NAD Neck-no JVD Lungs-diminished, no rales or wheeze noted Heart-tachycardic regular Abdomen-soft, non tender Extremities-no lower ext edema Neuro-AAo x3, no focal deficit Lab data as noted below. ASSESSMENT & PLAN: 32 year old female with history of Asthma, Cyclic Vomiting, GERD, Anemia, presenting with shortness of breath SEPSIS WITH LEFT UPPER LOBE PNEUMONIA : meets criteria for sepsis -presented with tachycardia , hypoxia , elevated lactic acid level /JORDEN continued with IV Abx , IVF Lactic acid improved but remains elevated > 2 tachycardic , hypoxic , worsening of leukocytosis 15 K ID eval requested LEFT UPPER LOBE OPACITY /DIFFUSE ATELECTASIS /CONCERN FOR LOCULATED INFECTION : - CT chest shows : 1. No evidence for pulmonary embolus. 2. Complete atelectasis left upper lobe. 3. Monitoring to confirm complete re-opacification is suggested as well as exclude the possibility of a central obstructing lesion. remains tachycardic , with persisted Lactic acid elevation hx of cyclic vomiting syndrome -and severe GERD , concern for aspiration will benefit form Bronchoscopy Pulmonology -appreciate input had lengthy discussion with pt regarding her diagnosis , print copy of CT chest given to pt and explained the extent of infection and need for procedure pt still remains indecisive wants to have some time to think about it ABx coverage increased to add Vancomycin /Flagyl /Levaquin -for additional gram negative /and anaerobic coverage cont neb tx , flutter valve , chest PT blood culture -no growth till date sputum culture ordered - PERSISTENT LACTIC ACIDOSIS : due to above -loculated infection on left upper lobe cont Broad spectrum ABx as above cont IVF @ 200 ml /hr repeat Lactic acid level tomorrow ACUTE RENAL FAILURE due to sepsis resolved with IVF follow PPR D DIMER ELEVATION - 600s-due to sepsis - CT chest: No PE/ left upper lobe opacity Lower Ext Doppler-negative for DVT SINUS TACHYCARDIA - Due to sepsis /on going infection /complete atelectasis of left upper lobe / persisted hypoxia continue 02 supplement - CT chest no PE - IV fluids to correct dehydration monitor in Tele GERD WITH HX OF CYCLIC VOMITING Protonix 40mg IV bid Pt was evaluated by GI in last admission refused to have EGD done CHRONIC ANEMIA - Hg 9 on previous admission 8.6 -> 7.8 today ;possible due to dilution on Fe supplement monitor; transfuse for Hb < 7 DVT PROPHYLAXIS SCDs low risk ambulate Full Code Disposition anticipate d/c home when medically stable Dr. Oreilly for PCP follow up Vital Signs: Date Time Temp Pulse Resp B/P (MAP) Pulse Ox O2 Delivery O2 Flow Rate FiO2 05/24/17 07:28 37.0 111 20 118/74 (89) 96 Room Air 05/24/17 07:07 107 16 95 Room Air 05/24/17 04:03 36.5 106 16 127/70 (89) 97 05/24/17 04:00 95 Nasal Cannula 2.0 05/24/17 03:19 102 16 95 Room Air 05/24/17 00:15 36.7 109 18 105/76 (86) 95 05/24/17 00:01 95 Nasal Cannula 2.0 05/23/17 22:56 106 16 97 Room Air 05/23/17 20:00 97 Nasal Cannula 2.0 05/23/17 19:20 36.8 92 18 129/73 (91) 97 Nasal Cannula 2.0 05/23/17 17:24 37.0 115 142/74 (96) 05/23/17 16:00 97 Nasal Cannula 2.0 05/23/17 15:45 37.0 119 20 129/76 (93) 97 05/23/17 15:20 111 16 97 Nasal Cannula 2.0 05/23/17 12:00 Room Air 05/23/17 11:29 130 16 113/62 (79) 96 Room Air 05/23/17 11:20 118 16 95 Room Air 05/23/17 10:52 36.7 120 20 113/62 (79) 95 Room Air Lab Results: Results Past 24 Hours Test 05/23/17 12:30 05/23/17 18:07 05/24/17 05:40 Range/Units Lactic Acid Level 5.8 4.9 3.6 0.4-2.0 mmol/L Procalcitonin 0.13 0-0.5 ng/ml White Blood Count 15.82 4.8-10.8 K/uL Red Blood Count 3.54 4.2-5.4 M/uL Hemoglobin 7.8 12.0-16.0 g/dL Hematocrit 25.5 37-47 % Mean Corpuscular Volume 72.0 80-100 fL Mean Corpuscular Hemoglobin 22.0 25-34 pg Mean Corpuscular Hemoglobin Concent 30.6 32-36 g/dl Platelet Count 470 130-400 K/uL Mean Platelet Volume 8.1 7.4-10.4 fL Neutrophils (%) (Auto) 85.0 % Lymphocytes (%) (Auto) 9.0 % Monocytes (%) (Auto) 5.5 % Eosinophils (%) (Auto) 0.0 % Basophils (%) (Auto) 0.1 % Neutrophils # (Auto) 13.45 1.4-6.5 K/uL Lymphocytes # (Auto) 1.43 1.2-3.4 K/uL Monocytes # (Auto) 0.87 0.11-0.59 K/uL Eosinophils # (Auto) 0.00 0-0.5 K/uL Basophils # (Auto) 0.01 0-0.2 K/uL RDW Standard Deviation 61.7 36.4-46.3 fL RDW Coefficient of Variation 23.4 11.5-14.5 % Immature Granulocyte % (Auto) 0.4 % Immature Granulocyte # (Auto) 0.06 0.00-0.02 K/uL Nucleated RBC Absolute Count (auto) 0.06 0-0 K/uL Nucleated Red Blood Cells % 0.4 % Hypochromasia PRESENT Anisocytosis PRESENT Microcytosis PRESENT Ovalocytes 1+ Sodium Level 140 136-145 mmol/L Potassium Level 4.0 3.5-5.1 mmol/L Chloride Level 107 98-107 mmol/L Carbon Dioxide Level 23 21-32 mmol/L Anion Gap 10.0 3-11 mmol/L Blood Urea Nitrogen 11 7-18 mg/dl Creatinine 0.65 0.60-1.20 mg/dl Est Creatinine Clear Calc Drug Dose 122.9 ml/min Estimated GFR () 137.1 Estimated GFR (Non- 118.3 BUN/Creatinine Ratio 16.2 10-20 Random Glucose 120 70-99 mg/dl Calcium Level 8.8 8.5-10.1 mg/dl
[2017-05-24] MEDS ORDERED: NURSING VERBAL MED ORDER ONE (11:30)
--- NOTE | 2017-05-24 12:30 | Pulmonology Progress Note ---
Pulmonary Progress Note Date of Service May 24, 2017. Attending Subjective Patient seen and examined. She has no respiratory complaints. She denies any fever, chills, cough, chest pain or shortness of breath. She had episode of midsternal chest pain that resolved with Ultram. She is currently NPO. Objective VS reviewed. Tm 37, BP 105/76, P 102-111, RR 16-20, SaO2 95-97, on 2L NC. Currently on RA. Gen: AAOx3, NAD, speaking in full sentences Mouth/Throat: Mallampati II CVS: S1, S2, RRR Lungs: CTA b/l, no wheezes, no crackles, no rales Abd: soft/NT/ND+ Ext: no edema b/l, no cyanosis, no clubbing. Psych: flat affect. Labs and medications reviewed. Images viewed by me. CXR: 05/24/2017 FINDINGS: There is no pneumothorax or pleural effusion. Hazy left suprahilar hilar opacity suggests left upper lobe atelectasis. This was shown on prior chest CT. There is no evidence of pulmonary edema. Cardiomediastinal silhouette is normal. IMPRESSION: Persistent hazy left suprahilar opacity which suggests left upper lobe atelectasis, as shown on CT of May 23, 2017. Radiographic follow-up to ensure resolution is recommended. Assessment & Plan NIKKI atelectasis Hypoxia Anemia Lactic acidosis Anxiety disorder Patient has NIKKI with atelectasis with intermittent. I explained to patient the need for bronchoscopy to evaluate for obstruction of NIKKI. I discussed the risk and benefits of the procedure and also with Dr. Valadez, interventional education department registrar. Patient has agreed. Patient's history of asthma is unclear. She states that she often has bronchospasm when she has vomiting episodes and uses inhaler when she coughs. She may have cough-variant asthma or this may be bronchospasm from GERD or post nasal drip. Lactic acidosis trending down. Continue with supplemental oxygen prn Continue with broad spectrum antibiotics and bronchodilator treatment. Blood cultures are negative to date. Obtain sputum cultures Continue with dornase alpha and flutter valve for aggressive chest PT Will keep NPO for bronchoscopy. Data Medications: Current Inpatient Medications Medications (Trade) Dose Ordered Sig/Jluis Route Start Time Stop Time Status Last Admin Dose Admin Ioversol (Optiray 320) 100 ml UD PRN IV 9/9/17 23:45 05/26/17 23:44 Methylprednisolone Sodium Succinate 40 mg/Syringe 0.64 ml @ 1.5 mls/min Q8H IV 05/23/17 06:00 06/22/17 05:59 05/24/17 05:41 1.5 MLS/MIN Acetaminophen (Tylenol Tab) 650 mg Q4H PRN PO 05/23/17 00:15 06/22/17 00:14 Ondansetron HCl (Zofran Inj) 4 mg Q6H PRN IV 05/23/17 00:15 06/22/17 00:14 Benzonatate (Tessalon Perles Cap) 100 mg TID PRN PO 05/23/17 00:15 06/22/17 00:14 05/23/17 09:57 100 MG Ferrous Gluconate (Ferrous Gluconate Tab) 324 mg BID PO 05/23/17 09:00 06/22/17 08:59 05/24/17 09:55 324 MG Tramadol HCl (Ultram Tab) 25 mg Q6H PRN PO 05/23/17 00:15 06/22/17 00:14 05/24/17 08:29 25 MG Ipratropium [place] (Atrovent 0.02% 0.5MG/2.5ML Neb) 0.5 mg Q4R INH 05/23/17 04:00 06/22/17 03:59 05/24/17 11:07 0.5 MG Levalbuterol (Xopenex 1.25MG/ 0.5ML Neb) 1.25 mg Q4R INH 05/23/17 04:00 06/22/17 03:59 05/24/17 11:07 1.25 MG Acetaminophen 650 mg/Empty Bag 65 ml @ 260 mls/hr Q6H PRN IV 05/23/17 01:45 06/22/17 01:44 05/24/17 04:25 260 MLS/HR Dornase [place] (Pulmozyme Inhalation Soln 2.5ml Amp) 2.5 ml BIDR INH 05/23/17 20:00 05/25/17 20:00 05/24/17 07:05 2.5 ML Levofloxacin 750 mg/Prmx 150 ml @ 100 mls/hr Q24H IV 05/24/17 08:00 05/31/17 07:59 05/24/17 09:54 100 MLS/HR Vancomycin HCl 1000 mg/Sodium Chloride 270 ml @ 125 mls/hr Q12@0000,1200 IV 05/24/17 00:00 05/31/17 00:00 05/24/17 00:08 125 MLS/HR Metronidazole 500 mg/Prmx 100 ml @ 100 mls/hr Q8H IV 05/23/17 12:00 05/30/17 11:59 05/24/17 04:05 100 MLS/HR Vancomycin HCl (Consult) 1 ea UD PRN N/A 05/23/17 10:45 06/22/17 10:44 Pantoprazole Sodium 40 mg/ Syringe 10 ml @ 5 mls/min Q12@0900,2100 IV 05/23/17 21:00 06/22/17 20:59 05/24/17 09:54 5 MLS/MIN Dextrose/Sodium Chloride 1,000 ml @ 150 mls/hr Q6H40M IV 05/24/17 08:30 06/23/17 08:29 05/24/17 09:54 200 MLS/HR Vital Signs: Date Time Temp Pulse Resp B/P (MAP) Pulse Ox O2 Delivery O2 Flow Rate FiO2 05/24/17 11:07 108 16 97 Room Air 05/24/17 07:28 37.0 111 20 118/74 (89) 96 Room Air 05/24/17 07:07 107 16 95 Room Air 05/24/17 04:03 36.5 106 16 127/70 (89) 97 05/24/17 04:00 95 Nasal Cannula 2.0 05/24/17 03:19 102 16 95 Room Air 05/24/17 00:15 36.7 109 18 105/76 (86) 95 05/24/17 00:01 95 Nasal Cannula 2.0 05/23/17 22:56 106 16 97 Room Air 05/23/17 20:00 97 Nasal Cannula 2.0 05/23/17 19:20 36.8 92 18 129/73 (91) 97 Nasal Cannula 2.0 05/23/17 17:24 37.0 115 142/74 (96) 05/23/17 16:00 97 Nasal Cannula 2.0 05/23/17 15:45 37.0 119 20 129/76 (93) 97 05/23/17 15:20 111 16 97 Nasal Cannula 2.0 05/23/17 12:00 Room Air Laboratory Results: Last 24 Hours Test 05/23/17 12:30 05/23/17 18:07 05/24/17 05:40 Lactic Acid Level 5.8 mmol/L 4.9 mmol/L 3.6 mmol/L Procalcitonin 0.13 ng/ml White Blood Count 15.82 K/uL Red Blood Count 3.54 M/uL Hemoglobin 7.8 g/dL Hematocrit 25.5 % Mean Corpuscular Volume 72.0 fL Mean Corpuscular Hemoglobin 22.0 pg Mean Corpuscular Hemoglobin Concent 30.6 g/dl Platelet Count 470 K/uL Mean Platelet Volume 8.1 fL Neutrophils (%) (Auto) 85.0 % Lymphocytes (%) (Auto) 9.0 % Monocytes (%) (Auto) 5.5 % Eosinophils (%) (Auto) 0.0 % Basophils (%) (Auto) 0.1 % Neutrophils # (Auto) 13.45 K/uL Lymphocytes # (Auto) 1.43 K/uL Monocytes # (Auto) 0.87 K/uL Eosinophils # (Auto) 0.00 K/uL Basophils # (Auto) 0.01 K/uL RDW Standard Deviation 61.7 fL RDW Coefficient of Variation 23.4 % Immature Granulocyte % (Auto) 0.4 % Immature Granulocyte # (Auto) 0.06 K/uL Nucleated RBC Absolute Count (auto) 0.06 K/uL Nucleated Red Blood Cells % 0.4 % Hypochromasia PRESENT Anisocytosis PRESENT Microcytosis PRESENT Ovalocytes 1+ Sodium Level 140 mmol/L Potassium Level 4.0 mmol/L Chloride Level 107 mmol/L Carbon Dioxide Level 23 mmol/L Anion Gap 10.0 mmol/L Blood Urea Nitrogen 11 mg/dl Creatinine 0.65 mg/dl Est Creatinine Clear Calc Drug Dose 122.9 ml/min Estimated GFR () 137.1 Estimated GFR (Non- 118.3 BUN/Creatinine Ratio 16.2 Random Glucose 120 mg/dl Calcium Level 8.8 mg/dl
[2017-05-24] MEDS ORDERED: FENTANYL CITRATE INJ 50 MCG/1 ML 2 ML VIAL ONE (12:59)
[2017-05-24] MEDS ORDERED: MIDAZOLAM HCL 1 MG/ML 2ML VIAL ONE (12:59)
--- NOTE | 2017-05-24 13:09 | History & Physical Bridge Note ---
H&P Re-Evaluation Bridge Note: I have examined the patient, reviewed the History & Physical and in the interval since the performance of the History & Physical I have noted the following changes of clinical significance: No changes noted
[2017-05-24] MEDS ORDERED: DEXAMETHASONE SOD INJ 4 MG/ML VIAL ONE (14:26)
[2017-05-24] MEDS ORDERED: PROPOFOL IV EMULSION 10 MG/ML 20 ML VIAL IV ONE (14:26)
[2017-05-24] MEDS ORDERED: ONDANSETRON INJ 2 MG/ML 2 ML VIAL ONE (14:26)
[2017-05-24] MEDS ORDERED: SUCCINYLCHOLINE CHLORIDE 20 MG/ML 10 ML VIAL IV ONE (14:26)
[2017-05-24] MEDS ORDERED: LIDOCAINE HCL 2% 2 ML VIAL (20MG/ML) ONE (14:26)
[2017-05-24] MEDS ORDERED: ATROPINE SULFATE 0.1 MG/ML 5ML SYR IV PRN ×2 (14:30→15:30)
[2017-05-24] MEDS ORDERED: ONDANSETRON INJ 2 MG/ML 2 ML VIAL IV PRN ×2 (14:30→15:30)
[2017-05-24] MEDS ORDERED: FENTANYL CITRATE INJ 50 MCG/1 ML 2 ML VIAL IV PRN ×2 (14:30→15:30)
[2017-05-24] MEDS ORDERED: EpHEDrine SULFATE INJ 50 MG/ML AMP IV PRN ×2 (14:30→15:30)
--- NOTE | 2017-05-24 14:35 | Bronchoscopy Procedure Note ---
Bronchoscopy Procedure Note Procedure: Flexible bronchoscopy, rigid bronchoscopy, bronchial lavage Consent: Obtained through the patient placed into the chart Pre-procedural diagnosis: Aspiration Post-procedural diagnosis: Aspiration Sedation:GETA Procedure: Initially the [place] 13.2 mm rigid bronchoscope was attempted but was too large for the patient's vocal cord subglottic region and we switched to the 12.0 mm rigid bronchoscope. Along with this the Olympus video bronchoscope was used for this procedure. Glottis: The glottic tissue was severely erythematous as well as had characteristic of malacia. Vocal cords: Anatomically within normal limits Subglottis/trachea/Carleen: Diffuse erythema with notable edema throughout with mild mucous secretions throughout Right bronchial tree: Right mainstem bronchus: Diffuse erythema with edema Right upper lobe: Diffuse erythema with edema, large mucous plugs in the posterior right upper lobe with complete occlusion Bronchus intermedius: Diffuse erythema with edema Right middle lobe: Diffuse erythema with edema Right lower lobe: Diffuse erythema with edema, large mucous plugs with occlusion of all the subsegments Findings: All subsegments had diffuse erythema and notable edema as well as mucous plugs Left bronchial tree: Left mainstem bronchus: Diffuse erythema with edema Left upper lobe: Diffuse erythema with severe edema of all subsegments, diffuse mucous plugs throughout all the subsegments requiring aggressive bronchoscopic intervention for removal these plugs completely obstructed the takeoff to the lingula as well as left upper lobe. Lingula: Diffuse erythema with edema, diffuse mucus plugging initially completely obstructing the takeoff Left lower lobe: Anatomically within normal limits Findings: Anatomically within normal limits, with diffuse mucous plugs Bronchial alveolar lavage: Left upper lobe EBL: None Complications: None Follow-up: Return to her inpatient bed
[2017-05-24] MEDS ORDERED: ALBUT/IPRATROP 3MG/0.5MG NEB 3 ML VIAL INH PRN (15:30)
--- NOTE | 2017-05-24 16:05 | Anesthesiology Progress Note ---
Anesthesia Post Op Note Date & Time May 24, 2017 at 16:05 Vital Signs Pain Intensity: 5 Vital Signs Past 12 Hours Date Time Temp Pulse Resp B/P (MAP) Pulse Ox O2 Delivery O2 Flow Rate FiO2 05/24/17 15:55 108 16 129/85 94 Nasal Cannula 2 05/24/17 15:45 36.3 111 18 116/84 92 Room Air 05/24/17 15:35 113 16 126/83 92 Room Air 05/24/17 15:25 116 18 126/83 100 Room Air 05/24/17 15:15 108 21 106/69 100 Mask 10 05/24/17 15:08 36.2 118 21 118/46 99 Oxymask 10 05/24/17 13:17 36.3 110 18 121/80 (94) 95 Room Air 05/24/17 11:07 108 16 97 Room Air 05/24/17 10:59 36.7 106 20 116/84 (95) 96 Nasal Cannula 2.0 05/24/17 07:28 37.0 111 20 118/74 (89) 96 Room Air 05/24/17 07:07 107 16 95 Room Air Notes Mental Status: alert / awake / arousable, participated in evaluation Pt Amnestic to Procedure: Yes Nausea / Vomiting: adequately controlled Pain: adequately controlled Airway Patency, RR, SpO2: stable & adequate BP & HR: stable & adequate Hydration State: stable & adequate Anesthetic Complications: no major complications apparent
--- NOTE | 2017-05-24 18:10 | Progress Note ---
Progress Note Date of Service May 24, 2017. Progress Note updated by Pulmonology had diffuse erythematous lesion on all air way with large mucus plug concerned for possible collagenous disease vs vasculitis ESR / SILVA /ANCA /complement level ordered rheumatology eval requested
[2017-05-25] VITALS (17 sets, daily range): BP systolic 117–129; BP diastolic 68–83; PULSE 86–112; TEMP 36.7–36.9; O2SAT 0–99
[2017-05-25] MEDS: LEVALBUTEROL 1.25MG/0.5ML NEB INH SCH ×6 (03:34→23:10)
[2017-05-25] MEDS: IPRATROPIUM BROMIDE NEB SOLN 0.02% 2.5 ML VIAL INH SCH ×6 (03:34→23:10)
[2017-05-25] MEDS: D5W AND NSS 1,000 ML IV SCH ×4 (03:41→23:30)
[2017-05-25] MEDS: METRONIDAZOLE / NSS 500 MG in PREMIXED NSS 100 ML IV SCH ×3 (03:44→22:09)
[2017-05-25] MEDS: VANCOMYCIN INJ 1,000 MG in SODIUM CHLORIDE 0.9% 250ML 250 ML IV SCH ×2 (04:12→13:58)
[2017-05-25] MEDS: TRAMADOL HCL 50 MG TAB PO PRN ×4 (04:19→22:09)
[2017-05-25] MEDS: METHYLPREDNISOLONE IV 40 MG in SYRINGE 0 ML IV SCH ×3 (06:31→22:09)
[2017-05-25 07:15] LABS: BASO ABS # 0.01 K/uL (0-0.2); HEMATOCRIT 25.9 % (37-47); IG% 0.4 %; LYMPH ABS # 1.65 K/uL (1.2-3.4); MEAN CORPUSCULAR HEMOGLOBIN 21.7 pg (25-34); MEAN CORPUSCULAR HGB CONC 29.7 g/dl (32-36); MEAN PLATELET VOLUME 8.5 fL (7.4-10.4); MONO % 3.3 %; NEUT % 88.3 %; PLATELET COUNT 548 K/uL (130-400); RED BLOOD COUNT 3.55 M/uL (4.2-5.4); WHITE BLOOD COUNT 20.58 K/uL (4.8-10.8)
[2017-05-25 07:41] LABS: BUN/CREATININE RATIO 16.5 (10-20); CALCIUM 8.2 mg/dl (8.5-10.1); CREATININE 0.73 mg/dl (0.60-1.20); POTASSIUM 3.9 mmol/L (3.5-5.1)
--- NOTE | 2017-05-25 08:05 | Anesthesiology Progress Note ---
Anesthesia Post Op Note Date & Time May 25, 2017 at 08:05 Vital Signs Vital Signs Past 12 Hours Date Time Temp Pulse Resp B/P (MAP) Pulse Ox O2 Delivery O2 Flow Rate FiO2 05/25/17 04:00 98 Nasal Cannula 2.0 05/25/17 03:54 36.7 94 18 123/74 (90) 98 Nasal Cannula 2.0 05/25/17 03:34 103 16 97 Room Air 05/25/17 00:01 97 Nasal Cannula 2.0 05/25/17 00:01 97 Nasal Cannula 2.0 05/24/17 23:00 36.7 92 18 111/73 (86) 97 Nasal Cannula 2.0 Notes Mental Status: alert / awake / arousable, participated in evaluation Pt Amnestic to Procedure: Yes Nausea / Vomiting: adequately controlled Pain: adequately controlled Airway Patency, RR, SpO2: stable & adequate BP & HR: stable & adequate Hydration State: stable & adequate Anesthetic Complications: no major complications apparent
[2017-05-25 08:21] LABS: COMPLETE YES; HYPERSEGMENTED POLYS 1+; HYPOCHROMIA PRESENT; MICROCYTOSIS PRESENT; POIKILOCYTOSIS PRESENT; POLYCHROMASIA 1+
[2017-05-25] MEDS: LEVOFLOXACIN / D5W 750 MG in PREMIXED IN D5W 150 ML IV SCH (08:33)
[2017-05-25] MEDS: FERROUS GLUCONATE 324 MG TAB PO SCH ×2 (08:36→22:09)
[2017-05-25] MEDS: BENZONATATE 100MG CAP PO PRN (08:36)
[2017-05-25] MEDS: PANTOprazole INJ 40 MG in SYRINGE 0 ML IV SCH ×2 (08:37→22:09)
[2017-05-25] MEDS: DORNASE ALFA (2500U) 2.5MG/2.5ML INH SCH ×2 (08:43→19:10)
--- NOTE | 2017-05-25 09:54 | Progress Note ---
Internal Med Progress Note Date of Service: May 25, 2017. Provider Documentation: SUBJECTIVE: Seen and examined at bedside Has intermittent dry cough Saturating 99% on Room air Denies SOB, chest pain, wheezing, nausea, vomiting Offers no other complaints Denies rash or Joint pain OBJECTIVE: Vital Signs-as noted below Physical Exam: General Appearance:Moderately built and nourished, no apparent distress Head: normocephalic, Atraumatic Eyes: normal inspection, EOMI, PERRL Neck: supple, Trachea midline Respiratory/Chest: Normal breath sounds, CTA Cardiovascular: S1, S2, No murmur Abdomen/GI:Soft, Non tender, Bowel sounds present Extremities/Musculoskelatal:normal inspection, no edema Neurologic/Psych: grossly no focal neurological deficits Skin: normal color, warm Lab data as noted below. ASSESSMENT & PLAN: Patient is 32 yr female with H/O Asthma, Cyclic Vomiting, GERD, Anemia, presenting with shortness of breath SEPSIS WITH LEFT UPPER LOBE PNEUMONIA: presented with tachycardia, hypoxia, elevated lactic acid level /JORDEN continue IV Abx, IV Fluids Lactic acidosis improving slowly S/P Bronchoscopy on 05/24/17 Appreciate Pulmonology Input Bronchoscopy showed diffuse erythema of the bronchial tree and was ? concerned for vasculitis Serological work up pending Rheumatology consulted Blood culture:no growth to date Bronchial cultures pending H/O cyclic vomiting syndrome and severe GERD, concern for aspiration Patient reports epigastric pain with food intake Will consult GI for possible EGD Continue PPI BID ACUTE RENAL FAILURE Resolved with IV Fluids monitor renal function D DIMER ELEVATION 600s-due to sepsis CT chest: No PE/ left upper lobe opacity Lower Ext Doppler-negative for DVT SINUS TACHYCARDIA Due to sepsis /on going infection /complete atelectasis of left upper lobe / persisted hypoxia CT chest no PE monitor in Tele CHRONIC ANEMIA Hb 9 on previous admission Hb 7.7 today likely secondary to hemodilution on Fe supplement monitor DVT Px SCDs low risk ambulate Code Status: Full Code Disposition anticipate d/c home when medically stable Dr. Oreilly for PCP follow up Vital Signs: Date Time Temp Pulse Resp B/P (MAP) Pulse Ox O2 Delivery O2 Flow Rate FiO2 05/25/17 08:43 98 15 99 Room Air 05/25/17 08:00 0 Nasal Cannula 2.0 05/25/17 07:20 36.8 102 20 117/68 (84) 94 Room Air 05/25/17 04:00 98 Nasal Cannula 2.0 05/25/17 03:54 36.7 94 18 123/74 (90) 98 Nasal Cannula 2.0 05/25/17 03:34 103 16 97 Room Air 05/25/17 00:01 97 Nasal Cannula 2.0 05/25/17 00:01 97 Nasal Cannula 2.0 05/24/17 23:00 36.7 92 18 111/73 (86) 97 Nasal Cannula 2.0 05/24/17 20:00 96 Nasal Cannula 2.0 05/24/17 20:00 97 Nasal Cannula 2.0 05/24/17 19:55 36.6 114 20 134/77 (96) 96 Room Air 05/24/17 19:25 107 16 99 Nasal Cannula 2.0 05/24/17 17:30 36.7 107 24 135/81 (99) 98 05/24/17 17:16 104 28 122/81 (95) 98 05/24/17 17:15 108 15 97 05/24/17 17:00 99 19 118/78 (91) 96 05/24/17 16:45 102 27 122/77 (92) 96 05/24/17 16:30 104 15 113/78 (90) 98 05/24/17 16:22 36.7 96 19 112/75 (87) 96 Nasal Cannula 2.0 05/24/17 16:05 105 16 112/82 96 Nasal Cannula 2 05/24/17 16:00 97 Nasal Cannula 2.0 05/24/17 15:55 108 16 129/85 94 Nasal Cannula 2 05/24/17 15:45 36.3 111 18 116/84 92 Room Air 05/24/17 15:35 113 16 126/83 92 Room Air 05/24/17 15:25 116 18 126/83 100 Room Air 05/24/17 15:15 108 21 106/69 100 Mask 10 05/24/17 15:08 36.2 118 21 118/46 99 Oxymask 10 05/24/17 13:17 36.3 110 18 121/80 (94) 95 Room Air 05/24/17 12:00 36.7 106 20 116/84 (95) 96 Nasal Cannula 2.0 05/24/17 12:00 97 Nasal Cannula 2.0 05/24/17 11:07 108 16 97 Room Air 05/24/17 10:59 36.7 106 20 116/84 (95) 96 Nasal Cannula 2.0 Lab Results: Results Past 24 Hours Test 05/24/17 14:15 05/24/17 16:56 05/25/17 04:44 05/25/17 06:52 Range/Units Erythrocyte Sedimentation Rate 30 0-21 mm/hr C-Reactive Protein 0.70 0-0.29 mg/dl Rheumatoid Factor < 10.0 0-15 U/mL Cyclic Citrullinated Peptide IgG Ab < 0.40 0-4.99 U/mL White Blood Count 20.58 4.8-10.8 K/uL Red Blood Count 3.55 4.2-5.4 M/uL Hemoglobin 7.7 12.0-16.0 g/dL Hematocrit 25.9 37-47 % Mean Corpuscular Volume 73.0 80-100 fL Mean Corpuscular Hemoglobin 21.7 25-34 pg Mean Corpuscular Hemoglobin Concent 29.7 32-36 g/dl Platelet Count 548 130-400 K/uL Mean Platelet Volume 8.5 7.4-10.4 fL Neutrophils (%) (Auto) 88.3 % Lymphocytes (%) (Auto) 8.0 % Monocytes (%) (Auto) 3.3 % Eosinophils (%) (Auto) 0.0 % Basophils (%) (Auto) 0.0 % Neutrophils # (Auto) 18.16 1.4-6.5 K/uL Lymphocytes # (Auto) 1.65 1.2-3.4 K/uL Monocytes # (Auto) 0.67 0.11-0.59 K/uL Eosinophils # (Auto) 0.00 0-0.5 K/uL Basophils # (Auto) 0.01 0-0.2 K/uL RDW Standard Deviation 64.8 36.4-46.3 fL RDW Coefficient of Variation 24.1 11.5-14.5 % Immature Granulocyte % (Auto) 0.4 % Immature Granulocyte # (Auto) 0.09 0.00-0.02 K/uL Nucleated RBC Absolute Count (auto) 0.08 0-0 K/uL Nucleated Red Blood Cells % 0.4 % Hypersegmented Polys 1+ Polychromasia 1+ Hypochromasia PRESENT Poikilocytosis PRESENT Microcytosis PRESENT Sodium Level 139 136-145 mmol/L Potassium Level 3.9 3.5-5.1 mmol/L Chloride Level 107 98-107 mmol/L Carbon Dioxide Level 24 21-32 mmol/L Anion Gap 8.0 3-11 mmol/L Blood Urea Nitrogen 12 7-18 mg/dl Creatinine 0.73 0.60-1.20 mg/dl Est Creatinine Clear Calc Drug Dose 111.2 ml/min Estimated GFR () 127.2 Estimated GFR (Non- 109.7 BUN/Creatinine Ratio 16.5 10-20 Random Glucose 124 70-99 mg/dl Calcium Level 8.2 8.5-10.1 mg/dl Microbiology Results 05/24/17 Fungal Smear - Final, Resulted 05/24/17 Fungal Culture, Resulted Pending 05/24/17 Acid Fast Stain, Received Pending 05/24/17 Mycobacterial Culture, Received Pending 05/24/17 Gram Stain - Final, Resulted 05/24/17 Bronchoalveolar Lavage Culture, Resulted Pending
--- NOTE | 2017-05-25 11:11 | Gastrointestinal Consultation ---
Gastrointestinal Consultation Date of Consultation: May 25, 2017 Attending Physician: Kervin Consulting Physician: Javi Reason for Consultation: abdominal pain History of Present Illness Patient is a 32 year old female w/ history of Asthma admitted to [facility] with wheezing and SOB found to be hypoxic, tachycardiac with elevated lactic acid, Bo with a left upper lobe pneumonia, sepsis likely secondary - GI is consulted for upper abdominal pain. Pt was seen and evaluated, chart reviewed. Of note she was scheduled for an outpatient EGD but did not come to the appointment as she was out of town. She was last evaluated at [facility] by SINDHU Barakat and Dr. Herbert in April. Pt tells me that at rest she does not have any abdominal pain or nausea. however , every time she swallows she notes severe sharp stabbing pain pointing to her epigastric region. There is associated nausea and can be bouts of emesis and cough. No history of coffee ground emesis or hematemesis. She tells me the PPI did not relieve her pain but notes when she was able to use PPI with pain medication the pain was managed - however, she ran out of her pain medication so the pain returned. No weight loss. Moving bowels well, 1-2 times daily, no lower abdominal pain, no black or bloody stool. Past Medical/Surgical History Medical Problems: (1) Acute asthma exacerbation Status: Acute (2) Allergic rhinitis Status: Acute (3) Anemia Status: Acute (4) Asthma Status: Acute (5) Asthma Status: Acute (6) Asthma exacerbation Status: Acute (7) Cough Status: Acute (8) Cough Status: Acute (9) Dehydration Status: Acute (10) Encounter for medication refill Status: Acute (11) GERD (gastroesophageal reflux disease) Status: Acute (12) Hypoxia Status: Acute (13) Medication refill Status: Acute (14) Nausea and vomiting Status: Acute (15) Pneumonia Status: Acute (16) Reflux esophagitis Status: Acute (17) Vomiting Status: Acute Past Medical History: asthma, allergic rhinitis, anemia, chronic cough, CVS, GERD Past Surgical History: bronchoscopy, sinus surgery Family History No significant family history Social History Smoking Status: Never Smoker Alcohol Use: occasionally Drug Use: none Marital Status: single Housing Status: lives with family Occupation Status: [employer] / [employer] student Allergies Coded Allergies: Cefuroxime (Verified Allergy, Severe, CHEST TIGHTENING, "FEEL LIKE CHOKING ", SOB, 05/24/17) Dairy (Verified Allergy, Severe, CHEST TIGHTENING, "CHOKING" FEELING, SOB , 05/24/17) Gluten (Verified Allergy, Severe, CHEST TIGHTENING, "CHOKING" FEELING, SOB , 05/24/17) Penicillins (Verified Allergy, Severe, CHEST TIGHTENING, "CHOKING" FEELING , SOB, 05/24/17) Peanut (Verified Allergy, Intermediate, "NON STOP COUGHING, FELT LIKE CHOKING", 05/24/17) Current Medications Home Meds and Scripts Medications Dose Route/Sig Max Daily Dose Days Date Category Tessalon Perles (Benzonatate) 100 Mg Cap 100 Mg PO TID PRN 05/22/17 Reported Protonix (Pantoprazole Sodium) 20 Mg Tab 20 Mg PO BID 05/22/17 Reported Control Pills (Miscellaneous) Tab 1 Tab PO DAILY 05/22/17 Reported Tramadol HCl 50 Mg Tab 25 Mg PO Q6H PRN 3 05/12/17 Rx Zofran Odt (Ondansetron HCl) 4 Mg Tab 4 Mg SL Q6H PRN 02/26/17 Reported Ferrous Gluconate 324 Mg Tab 324 Mg PO BID 02/26/17 Reported Ventolin Hfa (Albuterol) 200 Puffs/14970 Mcg Aers 2 Puffs INH Q6H 02/13/17 Reported Review of Systems Constitutional: No fever, No chills Respiratory: + shortness of breath, No cough, No sputum Cardiac: No chest pain, No edema Abdomen: + pain, + nausea, + vomiting, No diarrhea, No constipation, No GI bleeding Physical Exam Date Time Temp Pulse Resp B/P (MAP) Pulse Ox O2 Delivery O2 Flow Rate FiO2 05/25/17 08:43 98 15 99 Room Air 05/25/17 08:00 0 Nasal Cannula 2.0 05/25/17 07:20 36.8 102 20 117/68 (84) 94 Room Air 05/25/17 04:00 98 Nasal Cannula 2.0 05/25/17 03:54 36.7 94 18 123/74 (90) 98 Nasal Cannula 2.0 05/25/17 03:34 103 16 97 Room Air 05/25/17 00:01 97 Nasal Cannula 2.0 05/25/17 00:01 97 Nasal Cannula 2.0 05/24/17 23:00 36.7 92 18 111/73 (86) 97 Nasal Cannula 2.0 05/24/17 20:00 96 Nasal Cannula 2.0 05/24/17 20:00 97 Nasal Cannula 2.0 05/24/17 19:55 36.6 114 20 134/77 (96) 96 Room Air 05/24/17 19:25 107 16 99 Nasal Cannula 2.0 05/24/17 17:30 36.7 107 24 135/81 (99) 98 05/24/17 17:16 104 28 122/81 (95) 98 05/24/17 17:15 108 15 97 05/24/17 17:00 99 19 118/78 (91) 96 05/24/17 16:45 102 27 122/77 (92) 96 05/24/17 16:30 104 15 113/78 (90) 98 05/24/17 16:22 36.7 96 19 112/75 (87) 96 Nasal Cannula 2.0 05/24/17 16:05 105 16 112/82 96 Nasal Cannula 2 05/24/17 16:00 97 Nasal Cannula 2.0 05/24/17 15:55 108 16 129/85 94 Nasal Cannula 2 05/24/17 15:45 36.3 111 18 116/84 92 Room Air 05/24/17 15:35 113 16 126/83 92 Room Air 05/24/17 15:25 116 18 126/83 100 Room Air 05/24/17 15:15 108 21 106/69 100 Mask 10 05/24/17 15:08 36.2 118 21 118/46 99 Oxymask 10 05/24/17 13:17 36.3 110 18 121/80 (94) 95 Room Air 05/24/17 12:00 36.7 106 20 116/84 (95) 96 Nasal Cannula 2.0 05/24/17 12:00 97 Nasal Cannula 2.0 05/24/17 11:07 108 16 97 Room Air 05/24/17 10:59 36.7 106 20 116/84 (95) 96 Nasal Cannula 2.0 General Appearance: no apparent distress (upright in bed) Eyes: PERRL ENT: hearing grossly normal Neck: supple Respiratory/Chest: no accessory muscle use, + decreased breath sounds, + rhonchi (dont clear with cough), + wheezing (scattered) Cardiovascular: regular rate, rhythm, + tachycardia Abdomen: normal bowel sounds, non tender, soft, no organomegaly, no pulsatile mass Neurologic/Psych: alert, normal mood/affect, oriented x 3 Skin: normal color, no jaundice, warm/dry Laboratory Results Last 24 Hours Test 05/24/17 14:15 05/24/17 16:56 05/25/17 04:44 05/25/17 06:52 Erythrocyte Sedimentation Rate 30 mm/hr C-Reactive Protein 0.70 mg/dl Rheumatoid Factor < 10.0 U/mL Cyclic Citrullinated Peptide IgG Ab < 0.40 U/mL White Blood Count 20.58 K/uL Red Blood Count 3.55 M/uL Hemoglobin 7.7 g/dL Hematocrit 25.9 % Mean Corpuscular Volume 73.0 fL Mean Corpuscular Hemoglobin 21.7 pg Mean Corpuscular Hemoglobin Concent 29.7 g/dl Platelet Count 548 K/uL Mean Platelet Volume 8.5 fL Neutrophils (%) (Auto) 88.3 % Lymphocytes (%) (Auto) 8.0 % Monocytes (%) (Auto) 3.3 % Eosinophils (%) (Auto) 0.0 % Basophils (%) (Auto) 0.0 % Neutrophils # (Auto) 18.16 K/uL Lymphocytes # (Auto) 1.65 K/uL Monocytes # (Auto) 0.67 K/uL Eosinophils # (Auto) 0.00 K/uL Basophils # (Auto) 0.01 K/uL RDW Standard Deviation 64.8 fL RDW Coefficient of Variation 24.1 % Immature Granulocyte % (Auto) 0.4 % Immature Granulocyte # (Auto) 0.09 K/uL Nucleated RBC Absolute Count (auto) 0.08 K/uL Nucleated Red Blood Cells % 0.4 % Hypersegmented Polys 1+ Polychromasia 1+ Hypochromasia PRESENT Poikilocytosis PRESENT Microcytosis PRESENT Sodium Level 139 mmol/L Potassium Level 3.9 mmol/L Chloride Level 107 mmol/L Carbon Dioxide Level 24 mmol/L Anion Gap 8.0 mmol/L Blood Urea Nitrogen 12 mg/dl Creatinine 0.73 mg/dl Est Creatinine Clear Calc Drug Dose 111.2 ml/min Estimated GFR () 127.2 Estimated GFR (Non- 109.7 BUN/Creatinine Ratio 16.5 Random Glucose 124 mg/dl Calcium Level 8.2 mg/dl Impression Patient is a 32 year old female with report of reflux symptoms with epigastric pain, nausea, emesis and cough who was admitted through the ED as she was tachycardiac and septic secondary to left upper lobe pneumonia. S/P bronchoscopy by Dr. Valadez with large mucous plug and erythematous lesions of the airway with concern of a vasculitis vs collagenous disease, rheumatology has been consulted. As for her upper GI symptoms, she needs to have an EGD +/- motility studies, this will need to be postponed until she is more stable from a respiratory standpoint. Plan Celiac AB Omeprazole 40 mg in the AM Zantac 150 mg HS Trial of Bentyl 10 mg BID for abdominal pain Outpatient EGD +/- motility I saw and evaluated the patient. She has a history of recurrent nausea and vomiting and was under evaluation with . She had been scheduled for an upper endoscopy several months ago but Mr. appointment as she decided to go on vacation and not reschedule. She denies having difficulty with swallowing pain with swallowing and notes having epigastric discomfort. She is presently admitted for left upper lobe pneumonia and underwent a bronchoscopy yesterday. Physical examination No obvious distress No abdominal tenderness No scleral icterus Impression: Patient with a history of recurrent nausea and vomiting thought to be cyclic vomiting syndrome by her regular GI provider. Given her pneumonia and recent bronchoscopy I would suggest holding on upper endoscopy for 4-6 weeks unless more urgent evaluation is felt necessary. Plan Upper endoscopy with Dr. Leroy in 4-6 weeks
[2017-05-25] MEDS ORDERED: VANCOMYCIN TROUGH ONE (11:30)
--- NOTE | 2017-05-25 13:09 | Rheumatology Consultation ---
Rheumatology Consultation Date of Consultation: May 25, 2017. Requesting Physician: Dr Rory Cartwright Attending Physician: Dr Henderson Reason for Consultation: bronchial inflammatory, ? CTD, vasculitis History of Present Illness Ms Phuong Mulligan was recently admitted to [facility] for asthma/vomiting episode and returned several days ago with recurrent symptoms. On CT imaging she had left upper lung collapse likely from mucus plugging. Otherwise no ILD noted on CT imaging. she underwent bronchoscopy yesterday by Dr Valadez and noted to have edematous, inflamed bronchial tissue in both lungs with mucus plugging. Bronchial washings were done. given the degree of inflammation Dr Valadez wondered about an inflammatory process. she was supposed to have an EGD as well but that was not done. She was seen today laying comfortably in bed. she denies any SOB, ZAMORA, cough at this point. she reports that she believes her breathing issues are related to her stomach issues. she reports a history of chronic vomiting syndrome since the age of 17. Her asthma also started around that time. she states that it started with food poisoning and believes that her parents (mother) was purposefully poisoning her food. she did go away for college for some time in [place] but states the episodes continued away from home. she reports that her weight is stable and has gained some weight. she states that almost every time she eats solid food she gets vomiting. she also reports choking sensations as well. she states these episodes can last a few minutes to 1/2 to 1 hr. it gets to the point where she is choking so bad that she has to call the ambulance. after last visit she had been given some medrol and that seemed to help. she also was admitted in February for sepsis from pneumonia. at that time had CT abd/pelvis.chest that did not show any vascular disease, liver dz. only abnormal finding was left lower lobe/lingula consolidation. she denies any family history of autoimmune diseases. she is an only child. parents from [place] but she grew up in [facility]. she denies any joint issues, no skin rashes, nodules, no history of inflammatory eye disease, chondritis. denies hematuria, hemoptysis. only surgery was a sinus surgery. 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 she reports she has not eaten since being in the hospital. she can drink liquids with no issues. had seen Dr Leroy as outpatient but did not get her EGD done this summer as planned - states she was away. she is currently on IV solumedrol 40mg BID. she is chronically anemic for some time. she had low + ESR at this admission. so far autoimmune labs show normal RF, CCP, this has been normal in past as well. she had a slightly elevated IgE level in the past. SILVA, ANCA pending. her CBC does not show any eosinophilia (in past had slight elevation of eos). Bronchial washing, cultures pending. Past Medical/Surgical History Medical History: asthma, other (chronic vomiting syndrome) Surgical History: sinus surgery Family History denies any family history of autoimmune diseases Social History Smoking Status: Never Smoker History of Alcohol Use: No Drug Use: none Marital Status: single Occupation Status: employed Review of Systems Constitutional: No fever, No chills Eyes: + see HPI ENT: + see HPI Respiratory: + see HPI Cardiac: No chest pain, No edema Abdomen: + nausea, + vomiting Musculoskeletal: + see HPI Skin: + see HPI All Other Systems: Reviewed and Negative Allergies Coded Allergies: Cefuroxime (Verified Allergy, Severe, CHEST TIGHTENING, "FEEL LIKE CHOKING ", SOB, 05/24/17) Dairy (Verified Allergy, Severe, CHEST TIGHTENING, "CHOKING" FEELING, SOB , 05/24/17) Gluten (Verified Allergy, Severe, CHEST TIGHTENING, "CHOKING" FEELING, SOB , 05/24/17) Penicillins (Verified Allergy, Severe, CHEST TIGHTENING, "CHOKING" FEELING , SOB, 05/24/17) Peanut (Verified Allergy, Intermediate, "NON STOP COUGHING, FELT LIKE CHOKING", 05/24/17) Medications Current Inpatient Medications Medications (Trade) Dose Ordered Sig/Jluis Route Start Time Stop Time Status Last Admin Dose Admin Ioversol (Optiray 320) 100 ml UD PRN IV 05/22/17 23:45 05/26/17 23:44 Methylprednisolone Sodium Succinate 40 mg/Syringe 0.64 ml @ 1.5 mls/min Q8H IV 05/23/17 06:00 06/22/17 05:59 05/25/17 06:31 1.5 MLS/MIN Acetaminophen (Tylenol Tab) 650 mg Q4H PRN PO 05/23/17 00:15 06/22/17 00:14 Ondansetron HCl (Zofran Inj) 4 mg Q6H PRN IV 05/23/17 00:15 06/22/17 00:14 Benzonatate (Tessalon Perles Cap) 100 mg TID PRN PO 05/23/17 00:15 06/22/17 00:14 05/23/17 09:57 100 MG Ferrous Gluconate (Ferrous Gluconate Tab) 324 mg BID PO 05/23/17 09:00 06/22/17 08:59 05/24/17 21:46 324 MG Tramadol HCl (Ultram Tab) 25 mg Q6H PRN PO 05/23/17 00:15 06/22/17 00:14 05/25/17 04:19 25 MG Ipratropium [place] (Atrovent 0.02% 0.5MG/2.5ML Neb) 0.5 mg Q4R INH 05/23/17 04:00 06/22/17 03:59 05/25/17 03:34 0.5 MG Levalbuterol (Xopenex 1.25MG/ 0.5ML Neb) 1.25 mg Q4R INH 05/23/17 04:00 06/22/17 03:59 05/25/17 03:34 1.25 MG Acetaminophen 650 mg/Empty Bag 65 ml @ 260 mls/hr Q6H PRN IV 05/23/17 01:45 06/22/17 01:44 05/24/17 04:25 260 MLS/HR Dornase Dwight (Pulmozyme Inhalation Soln 2.5ml Amp) 2.5 ml BIDR INH 05/23/17 20:00 05/25/17 20:00 05/24/17 19:25 2.5 ML Levofloxacin 750 mg/Prmx 150 ml @ 100 mls/hr Q24H IV 05/24/17 08:00 05/31/17 07:59 05/24/17 09:54 100 MLS/HR Metronidazole 500 mg/Prmx 100 ml @ 100 mls/hr Q8H IV 05/23/17 12:00 05/30/17 11:59 05/25/17 03:44 100 MLS/HR Vancomycin HCl (Consult) 1 ea UD PRN N/A 05/23/17 10:45 06/22/17 10:44 Pantoprazole Sodium 40 mg/ Syringe 10 ml @ 5 mls/min Q12@0900,2100 IV 05/23/17 21:00 06/22/17 20:59 05/24/17 21:48 5 MLS/MIN Dextrose/Sodium Chloride 1,000 ml @ 150 mls/hr Q6H40M IV 05/24/17 08:30 06/23/17 08:29 05/25/17 03:41 150 MLS/HR Vancomycin HCl 1000 mg/Sodium Chloride 270 ml @ 125 mls/hr Q8H IV 05/24/17 20:00 05/31/17 19:59 05/25/17 04:12 125 MLS/HR Ondansetron HCl (Zofran Inj) 4 mg ONE PRN IV 05/24/17 14:30 Physical Exam Date Time Temp Pulse Resp B/P (MAP) Pulse Ox O2 Delivery O2 Flow Rate FiO2 05/25/17 04:00 98 Nasal Cannula 2.0 05/25/17 03:54 36.7 94 18 123/74 (90) 98 Nasal Cannula 2.0 05/25/17 03:34 103 16 97 Room Air 05/25/17 00:01 97 Nasal Cannula 2.0 05/25/17 00:01 97 Nasal Cannula 2.0 05/24/17 23:00 36.7 92 18 111/73 (86) 97 Nasal Cannula 2.0 05/24/17 20:00 96 Nasal Cannula 2.0 05/24/17 20:00 97 Nasal Cannula 2.0 05/24/17 19:55 36.6 114 20 134/77 (96) 96 Room Air 05/24/17 19:25 107 16 99 Nasal Cannula 2.0 05/24/17 17:30 36.7 107 24 135/81 (99) 98 05/24/17 17:16 104 28 122/81 (95) 98 05/24/17 17:15 108 15 97 05/24/17 17:00 99 19 118/78 (91) 96 05/24/17 16:45 102 27 122/77 (92) 96 05/24/17 16:30 104 15 113/78 (90) 98 05/24/17 16:22 36.7 96 19 112/75 (87) 96 Nasal Cannula 2.0 05/24/17 16:05 105 16 112/82 96 Nasal Cannula 2 05/24/17 16:00 97 Nasal Cannula 2.0 05/24/17 15:55 108 16 129/85 94 Nasal Cannula 2 05/24/17 15:45 36.3 111 18 116/84 92 Room Air 05/24/17 15:35 113 16 126/83 92 Room Air 05/24/17 15:25 116 18 126/83 100 Room Air 05/24/17 15:15 108 21 106/69 100 Mask 10 05/24/17 15:08 36.2 118 21 118/46 99 Oxymask 10 05/24/17 13:17 36.3 110 18 121/80 (94) 95 Room Air 05/24/17 12:00 36.7 106 20 116/84 (95) 96 Nasal Cannula 2.0 05/24/17 12:00 97 Nasal Cannula 2.0 05/24/17 11:07 108 16 97 Room Air 05/24/17 10:59 36.7 106 20 116/84 (95) 96 Nasal Cannula 2.0 05/24/17 08:00 98 Nasal Cannula 2.0 05/24/17 07:28 37.0 111 20 118/74 (89) 96 Room Air General Appearance: WD/WN, no apparent distress Eyes: bilateral eyes normal inspection, bilateral eyes EOMI Respiratory: chest non-tender, lungs clear, normal breath sounds, no respiratory distress, no accessory muscle use Cardiovascular: regular rate, rhythm, no edema, no gallop, no murmur Abdomen: normal bowel sounds, non tender, soft Musculoskeletal: no synovitis or effusions Neurologic/Psychiatric: alert, normal mood/affect, oriented x 3 Skin: normal color, warm/dry, no rash Laboratory Results Last 24 Hours Test 05/24/17 14:15 05/24/17 16:56 05/25/17 04:44 05/25/17 06:52 Erythrocyte Sedimentation Rate 30 mm/hr C-Reactive Protein 0.70 mg/dl Rheumatoid Factor < 10.0 U/mL Cyclic Citrullinated Peptide IgG Ab < 0.40 U/mL White Blood Count 20.58 K/uL Red Blood Count 3.55 M/uL Hemoglobin 7.7 g/dL Hematocrit 25.9 % Mean Corpuscular Volume 73.0 fL Mean Corpuscular Hemoglobin 21.7 pg Mean Corpuscular Hemoglobin Concent 29.7 g/dl Platelet Count 548 K/uL Mean Platelet Volume 8.5 fL Neutrophils (%) (Auto) 88.3 % Lymphocytes (%) (Auto) 8.0 % Monocytes (%) (Auto) 3.3 % Eosinophils (%) (Auto) 0.0 % Basophils (%) (Auto) 0.0 % Neutrophils # (Auto) 18.16 K/uL Lymphocytes # (Auto) 1.65 K/uL Monocytes # (Auto) 0.67 K/uL Eosinophils # (Auto) 0.00 K/uL Basophils # (Auto) 0.01 K/uL RDW Standard Deviation 64.8 fL RDW Coefficient of Variation 24.1 % Immature Granulocyte % (Auto) 0.4 % Immature Granulocyte # (Auto) 0.09 K/uL Nucleated RBC Absolute Count (auto) 0.08 K/uL Nucleated Red Blood Cells % 0.4 % Assessment & Plan Assessment & Plan: Assessment: Phuong is a 32 y/o female with a chronic history of vomiting/nausea/ choking since age 17 that she attributes to food poisoning with associated asthma. she has had several hospitalizations recently for airway obstruction and pneumonia. I spoke with Dr Valadez this am and he reports bronch showed diffuse erythema of the bronchial tree that looked like a vasculitis and her epiglottis was damaged. Chronic aspiration is also a consideration. as for a vasculitic process she has no other historical features concerning and given her history of asthma Churgg debbie or now eosinophilic vasculitis would be a consideration but her eosinophile count overall has been normal. So far RF, CCP are normal and other autoimmune testing including ANCA is pending. My feeling this is less likely a vasculitis and I wonder if related to her chronic vomiting syndrome. Has seen GI in past and EGD was planned and awaiting for this to be completed as well. I also spoke with Dr Galeana. I do not feel this is likely a autoimmune vasculitis but need to await lab studies. Plan: 1. await cultures and bronchial washings 2. await EGD 3. await labs 4. can taper solumedrol as needed for her breathing at this point 5. Thank you for the consult and involving 6. I will continue to follow along and can arrange outpatient follow up if needed
--- NOTE | 2017-05-25 14:18 | Pulmonology Progress Note ---
Pulmonary Progress Note Date of Service May 25, 2017. Attending Dr. Acevedo Subjective Patient seen and examined. She states that she is feeling fine. She has a little hoarse voice, but otherwise feels ok. She denies any fever, chills, chest pain or shortness of breath. Denies any episodes of nausea or vomiting. Objective VS reviewed. Tm 36.8, BP 117/68-123/74, P 94-104, RR 15-20, SaO2 99%, .Currently on RA. Gen: AAOx3, NAD, speaking in full sentences Mouth/Throat: Mallampati II CVS: S1, S2, RRR Lungs: CTA b/l, no wheezes, no crackles, no rales Abd: soft/NT/ND+ Ext: no edema b/l, no cyanosis, no clubbing. Psych: flat affect. Labs and medications reviewed. Images viewed by me. CXR: 05/24/2017 FINDINGS: There is no pneumothorax or pleural effusion. Hazy left suprahilar hilar opacity suggests left upper lobe atelectasis. This was shown on prior chest CT. There is no evidence of pulmonary edema. Cardiomediastinal silhouette is normal. IMPRESSION: Persistent hazy left suprahilar opacity which suggests left upper lobe atelectasis, as shown on CT of May 23, 2017. Radiographic follow-up to ensure resolution is recommended. Assessment & Plan NIKKI atelectasis Hypoxia--resolved Anemia Lactic acidosis--resolved Anxiety disorder Patient has NIKKI with atelectasis with intermittent hypoxia. She is rigid bronchoscopy on 05/24/2017--with removal of thick mucus plugs from NIKKI. She was also noted to have friable mucus and inflamed epiglottis concerning for inflammatory disorder, ie Shemar's granulomatosis or Churg-Rubia. I have sent of SILVA, ANCA, and IgE, RF and anti-CCP are negative at this time. Rheumatology has been consulted as well as GI--who recommend that patient have EGD and work up as outpatient. Patient's history of asthma is unclear. She states that she often has bronchospasm when she has vomiting episodes and uses inhaler when she coughs. She may have cough-variant asthma or this may be bronchospasm from GERD or post nasal drip. Lactic acidosis trending down. Continue with supplemental oxygen prn F/u bronchoscopy cultures--prelim shows normal malia. Blood cultures are negative to date. I have deescalated to Unasyn. Pathology from bronchial washings--pending. Continue with bronchodilator treatment. Continue with dornase alpha and flutter valve for aggressive chest PT Taper solumedrol. Will continue to follow with you. Data Medications: Current Inpatient Medications Medications (Trade) Dose Ordered Sig/Jluis Route Start Time Stop Time Status Last Admin Dose Admin Ioversol (Optiray 320) 100 ml UD PRN IV 05/22/17 23:45 05/26/17 23:44 Methylprednisolone Sodium Succinate 40 mg/Syringe 0.64 ml @ 1.5 mls/min Q8H IV 05/23/17 06:00 06/22/17 05:59 05/25/17 13:57 1.5 MLS/MIN Acetaminophen (Tylenol Tab) 650 mg Q4H PRN PO 05/23/17 00:15 06/22/17 00:14 Ondansetron HCl (Zofran Inj) 4 mg Q6H PRN IV 05/23/17 00:15 06/22/17 00:14 Benzonatate (Tessalon Perles Cap) 100 mg TID PRN PO 05/23/17 00:15 06/22/17 00:14 05/25/17 08:36 100 MG Ferrous Gluconate (Ferrous Gluconate Tab) 324 mg BID PO 05/23/17 09:00 06/22/17 08:59 05/25/17 08:36 324 MG Tramadol HCl (Ultram Tab) 25 mg Q6H PRN PO 05/23/17 00:15 06/22/17 00:14 05/25/17 10:40 25 MG Ipratropium [place] (Atrovent 0.02% 0.5MG/2.5ML Neb) 0.5 mg Q4R INH 05/23/17 04:00 06/22/17 03:59 05/25/17 10:59 0.5 MG Levalbuterol (Xopenex 1.25MG/ 0.5ML Neb) 1.25 mg Q4R INH 05/23/17 04:00 06/22/17 03:59 05/25/17 10:59 1.25 MG Acetaminophen 650 mg/Empty Bag 65 ml @ 260 mls/hr Q6H PRN IV 05/23/17 01:45 06/22/17 01:44 05/24/17 04:25 260 MLS/HR Dornase [place] (Pulmozyme Inhalation Soln 2.5ml Amp) 2.5 ml BIDR INH 05/23/17 20:00 05/25/17 20:00 05/25/17 08:43 2.5 ML Vancomycin HCl (Consult) 1 ea UD PRN N/A 05/23/17 10:45 06/22/17 10:44 Pantoprazole Sodium 40 mg/ Syringe 10 ml @ 5 mls/min Q12@0900,2100 IV 05/23/17 21:00 06/22/17 20:59 05/25/17 08:37 5 MLS/MIN Dextrose/Sodium Chloride 1,000 ml @ 150 mls/hr Q6H40M IV 05/24/17 08:30 06/23/17 08:29 05/25/17 13:54 150 MLS/HR Vancomycin HCl 1000 mg/Sodium Chloride 270 ml @ 125 mls/hr Q8H IV 05/24/17 20:00 05/31/17 19:59 05/25/17 13:58 125 MLS/HR Ondansetron HCl (Zofran Inj) 4 mg ONE PRN IV 05/24/17 14:30 Vital Signs: Date Time Temp Pulse Resp B/P (MAP) Pulse Ox O2 Delivery O2 Flow Rate FiO2 05/25/17 12:00 0 Nasal Cannula 2.0 05/25/17 11:01 97 16 97 Nasal Cannula 05/25/17 10:32 36.8 104 20 121/79 (93) 94 Room Air 05/25/17 08:43 98 15 99 Room Air 05/25/17 08:00 0 Nasal Cannula 2.0 05/25/17 07:20 36.8 102 20 117/68 (84) 94 Room Air 05/25/17 04:00 98 Nasal Cannula 2.0 05/25/17 03:54 36.7 94 18 123/74 (90) 98 Nasal Cannula 2.0 05/25/17 03:34 103 16 97 Room Air 05/25/17 00:01 97 Nasal Cannula 2.0 05/25/17 00:01 97 Nasal Cannula 2.0 05/24/17 23:00 36.7 92 18 111/73 (86) 97 Nasal Cannula 2.0 05/24/17 20:00 96 Nasal Cannula 2.0 05/24/17 20:00 97 Nasal Cannula 2.0 05/24/17 19:55 36.6 114 20 134/77 (96) 96 Room Air 05/24/17 19:25 107 16 99 Nasal Cannula 2.0 05/24/17 17:30 36.7 107 24 135/81 (99) 98 05/24/17 17:16 104 28 122/81 (95) 98 05/24/17 17:15 108 15 97 05/24/17 17:00 99 19 118/78 (91) 96 05/24/17 16:45 102 27 122/77 (92) 96 05/24/17 16:30 104 15 113/78 (90) 98 05/24/17 16:22 36.7 96 19 112/75 (87) 96 Nasal Cannula 2.0 05/24/17 16:05 105 16 112/82 96 Nasal Cannula 2 05/24/17 16:00 97 Nasal Cannula 2.0 05/24/17 15:55 108 16 129/85 94 Nasal Cannula 2 05/24/17 15:45 36.3 111 18 116/84 92 Room Air 05/24/17 15:35 113 16 126/83 92 Room Air 05/24/17 15:25 116 18 126/83 100 Room Air 05/24/17 15:15 108 21 106/69 100 Mask 10 05/24/17 15:08 36.2 118 21 118/46 99 Oxymask 10 Laboratory Results: Last 24 Hours Test 05/24/17 14:15 05/24/17 16:56 05/25/17 06:52 05/25/17 11:26 Erythrocyte Sedimentation Rate 30 mm/hr C-Reactive Protein 0.70 mg/dl Rheumatoid Factor < 10.0 U/mL Cyclic Citrullinated Peptide IgG Ab < 0.40 U/mL White Blood Count 20.58 K/uL Red Blood Count 3.55 M/uL Hemoglobin 7.7 g/dL Hematocrit 25.9 % Mean Corpuscular Volume 73.0 fL Mean Corpuscular Hemoglobin 21.7 pg Mean Corpuscular Hemoglobin Concent 29.7 g/dl Platelet Count 548 K/uL Mean Platelet Volume 8.5 fL Neutrophils (%) (Auto) 88.3 % Lymphocytes (%) (Auto) 8.0 % Monocytes (%) (Auto) 3.3 % Eosinophils (%) (Auto) 0.0 % Basophils (%) (Auto) 0.0 % Neutrophils # (Auto) 18.16 K/uL Lymphocytes # (Auto) 1.65 K/uL Monocytes # (Auto) 0.67 K/uL Eosinophils # (Auto) 0.00 K/uL Basophils # (Auto) 0.01 K/uL RDW Standard Deviation 64.8 fL RDW Coefficient of Variation 24.1 % Immature Granulocyte % (Auto) 0.4 % Immature Granulocyte # (Auto) 0.09 K/uL Nucleated RBC Absolute Count (auto) 0.08 K/uL Nucleated Red Blood Cells % 0.4 % Hypersegmented Polys 1+ Polychromasia 1+ Hypochromasia PRESENT Poikilocytosis PRESENT Microcytosis PRESENT Sodium Level 139 mmol/L Potassium Level 3.9 mmol/L Chloride Level 107 mmol/L Carbon Dioxide Level 24 mmol/L Anion Gap 8.0 mmol/L Blood Urea Nitrogen 12 mg/dl Creatinine 0.73 mg/dl Est Creatinine Clear Calc Drug Dose 111.2 ml/min Estimated GFR () 127.2 Estimated GFR (Non- 109.7 BUN/Creatinine Ratio 16.5 Random Glucose 124 mg/dl Calcium Level 8.2 mg/dl Lactic Acid Level 3.6 mmol/L Vancomycin Level Trough 11.0 mcg/ml
[2017-05-25] MEDS ORDERED: AMPICILLIN/SULBACTAM SOD INJ 3,000 MG in SODIUM CHLORIDE 0.9% 100ML 100 ML IV SCH (15:00)
[2017-05-26] VITALS (11 sets, daily range): BP systolic 119–134; BP diastolic 77–83; PULSE 94–110; TEMP 36.7–36.8; O2SAT 92–96
[2017-05-26] MEDS: LEVALBUTEROL 1.25MG/0.5ML NEB INH SCH ×5 (03:15→19:45)
[2017-05-26] MEDS: IPRATROPIUM BROMIDE NEB SOLN 0.02% 2.5 ML VIAL INH SCH ×5 (03:15→19:45)
[2017-05-26] MEDS: TRAMADOL HCL 50 MG TAB PO PRN ×3 (04:49→19:55)
[2017-05-26] MEDS: METHYLPREDNISOLONE IV 40 MG in SYRINGE 0 ML IV SCH (05:58)
[2017-05-26] MEDS: D5W AND NSS 1,000 ML IV SCH ×2 (05:58→14:32)
[2017-05-26] MEDS: METRONIDAZOLE / NSS 500 MG in PREMIXED NSS 100 ML IV SCH ×3 (05:58→22:49)
[2017-05-26] MEDS: FERROUS GLUCONATE 324 MG TAB PO SCH ×2 (07:48→19:55)
--- NOTE | 2017-05-26 08:02 | DIAGNOSTIC IMAGING REPORT ---
(BARIUM SWALLOW) ESOPHAGUS CLINICAL HISTORY: Postprandial vomiting. COMPARISON STUDY: FLUOROSCOPY TIME: 1.2 minutes. NUMBER OF FLUOROSCOPIC IMAGES: 22 FINDINGS: The patient swallowed effervescent granules and barium without difficulty. Rapid sequence swallows in the AP and lateral projections reveal unremarkable swallowing mechanics. Note is made of a reversal the normal cervical lordosis. No esophageal masses or ulcerations are visualized. The patient swallowed one half inch barium tablet which freely passed into the stomach. IMPRESSION: Normal study. Electronically signed by: David Catalan M.D. 05/26/2017 8:01 AM Dictated Date/Time: 05/26/2017 8:00 AM
--- NOTE | 2017-05-26 08:11 | Gastroenterology Progress Note ---
Progress Note Date of Service: May 26, 2017 Subjective Pt evaluation today including: conversation w/ patient, physical exam Pt was seen and evaluated, chart reviewed. No acute events overnight. Just returned from barium swallow - feels well and wants to go home. From a GI standpoint, no change in symptoms. Has not had any abdominal pain since yesterday w/ use of pain medications. Moving her bowels daily, no black/bloody stools. Still tells me she is fatigues, SOB and w/ cough, especially w/ any activity. Morning labs pending. Barium swallow 05/26/17: The patient swallowed effervescent granules and barium without difficulty. Rapid sequence swallows in the AP and lateral projections reveal unremarkable swallowing mechanics. Note is made of a reversal the normal cervical lordosis. No esophageal masses or ulcerations are visualized. The patient swallowed one half inch barium tablet which freely passed into the stomach. Review of Systems Constitutional: No fever, No chills Respiratory: + cough, + shortness of breath Cardiac: No chest pain Abdomen: No pain, No nausea, No vomiting, No diarrhea, No constipation, No GI bleeding Medications Current Inpatient Medications Medications (Trade) Dose Ordered Sig/Jluis Route Start Time Stop Time Status Last Admin Dose Admin Ioversol (Optiray 320) 100 ml UD PRN IV 05/22/17 23:45 05/26/17 23:44 Methylprednisolone Sodium Succinate 40 mg/Syringe 0.64 ml @ 1.5 mls/min Q8H IV 05/23/17 06:00 06/22/17 05:59 05/26/17 05:58 1.5 MLS/MIN Acetaminophen (Tylenol Tab) 650 mg Q4H PRN PO 05/23/17 00:15 06/22/17 00:14 Ondansetron HCl (Zofran Inj) 4 mg Q6H PRN IV 05/23/17 00:15 06/22/17 00:14 Benzonatate (Tessalon Perles Cap) 100 mg TID PRN PO 05/23/17 00:15 06/22/17 00:14 05/25/17 08:36 100 MG Ferrous Gluconate (Ferrous Gluconate Tab) 324 mg BID PO 05/23/17 09:00 06/22/17 08:59 05/25/17 22:09 324 MG Tramadol HCl (Ultram Tab) 25 mg Q6H PRN PO 05/23/17 00:15 06/22/17 00:14 05/26/17 04:49 25 MG Ipratropium [place] (Atrovent 0.02% 0.5MG/2.5ML Neb) 0.5 mg Q4R INH 05/23/17 04:00 06/22/17 03:59 05/26/17 07:01 0.5 MG Levalbuterol (Xopenex 1.25MG/ 0.5ML Neb) 1.25 mg Q4R INH 05/23/17 04:00 06/22/17 03:59 05/26/17 07:01 1.25 MG Acetaminophen 650 mg/Empty Bag 65 ml @ 260 mls/hr Q6H PRN IV 05/23/17 01:45 06/22/17 01:44 05/24/17 04:25 260 MLS/HR Levofloxacin 750 mg/Prmx 150 ml @ 100 mls/hr Q24H IV 05/24/17 08:00 05/31/17 07:59 05/25/17 08:33 100 MLS/HR Pantoprazole Sodium 40 mg/ Syringe 10 ml @ 5 mls/min Q12@0900,2100 IV 05/23/17 21:00 06/22/17 20:59 05/25/17 22:09 5 MLS/MIN Dextrose/Sodium Chloride 1,000 ml @ 150 mls/hr Q6H40M IV 05/24/17 08:30 06/23/17 08:29 05/26/17 05:58 150 MLS/HR Ondansetron HCl (Zofran Inj) 4 mg ONE PRN IV 05/24/17 14:30 Metronidazole 500 mg/Prmx 100 ml @ 100 mls/hr Q8H IV 05/25/17 22:00 05/30/17 21:59 05/26/17 05:58 100 MLS/HR Objective Vital Signs Date Time Temp Pulse Resp B/P (MAP) Pulse Ox O2 Delivery O2 Flow Rate FiO2 05/26/17 04:05 36.7 103 16 131/81 (98) 94 Room Air 05/26/17 04:00 Room Air 2.0 Nasal Cannula 05/26/17 03:15 107 16 95 Room Air 05/25/17 23:59 Room Air 05/25/17 23:10 103 16 96 Room Air 05/25/17 23:00 36.8 86 16 129/79 (96) 94 Room Air 05/25/17 20:00 Nasal Cannula 2.0 05/25/17 19:10 112 16 98 Nasal Cannula 2.0 05/25/17 19:05 36.7 112 18 125/80 (95) 95 Nasal Cannula 2.0 05/25/17 16:00 0 Nasal Cannula 2.0 05/25/17 15:37 102 14 95 Room Air 05/25/17 15:07 36.9 99 18 126/83 (97) 95 Room Air 05/25/17 12:00 0 Nasal Cannula 2.0 05/25/17 11:01 97 16 97 Nasal Cannula 05/25/17 10:32 36.8 104 20 121/79 (93) 94 Room Air 05/25/17 08:43 98 15 99 Room Air Physical Exam General Appearance: no apparent distress Eyes: PERRL ENT: hearing grossly normal Neck: supple Respiratory/Chest: lungs clear, + decreased breath sounds, + pertinent finding (improvement of breath sounts, no apparent rhonci or wheeze this AM) Cardiovascular: regular rate, rhythm Abdomen: normal bowel sounds, non tender, soft, no organomegaly Neurologic/Psych: alert, normal mood/affect, oriented x 3 Skin: normal color Laboratory Results Last 24 Hours Test 05/25/17 11:26 05/26/17 04:44 Lactic Acid Level 3.6 mmol/L Vancomycin Level Trough 11.0 mcg/ml Assessment and Plan Patient is a 32 year old female with report of reflux symptoms with epigastric pain, nausea, emesis and cough who was admitted through the ED as she was tachycardiac and septic secondary to left upper lobe pneumonia. S/P bronchoscopy by Dr. Valadez with large mucous plug and erythematous lesions of the airway with concern of a vasculitis vs collagenous disease, rheumatology has been consulted. As for her upper GI symptoms, she needs to have an EGD +/- motility studies, this will need to be postponed until she is more stable from a respiratory standpoint. Celiac AB Omeprazole 40 mg in the AM Zantac 150 mg HS Trial of Bentyl 10 mg BID for abdominal pain Outpatient EGD +/- motility in 4-6 weeks Consider evaluation by [facility] while admitted, will defer to primary team GI to sign off, please call with any questions or concerns. I saw and evaluated the patient. We reviewed her upper GI series which showed no worrisome changes. She will follow-up with for her outpatient upper endoscopy once her pulmonary status has resolved.
[2017-05-26] MEDS: PANTOprazole INJ 40 MG in SYRINGE 0 ML IV SCH (08:21)
[2017-05-26] MEDS: LEVOFLOXACIN / D5W 750 MG in PREMIXED IN D5W 150 ML IV SCH (08:21)
--- NOTE | 2017-05-26 10:04 | Pulmonology Progress Note ---
Pulmonary Progress Note Date of Service May 26, 2017. Attending Dr. Curtis Andrews I had a conversation with the patient. She is feeling well today and hoping to go home soon. No continued vomiting. No notable SOB. Some mild hoarseness and mild sore throat on and off, but otherwise no change. No complaints of chest pain/abdominal pain this morning. Continues liquid diet. Rheumatology and GI evaluated this patient. These recommendations were reviewed. Rheumatology feels that chronic aspiration is a consideration, but Churgg Rubia or Non-Eosinophil vasculitis would be considerations though her eosinophil count has been normal. Other Rheumatologic workup is pending. GI feels the patient needs EGD and possibly motility studies which can be done as an outpatient. She was also started on Omeprazole, Zantac, and Bentyl for abdominal pain. Labs reviewed: Studies reviewed: Bronch washing cultures are pending. Bacterial cx showing moderate normal malia. Esophagus X-Ray showed no abnormalities in swallowing. Reviewed inpatient medications: Continues with Metronidazole, Levaquin, Atrovent and Xopenex Discussed patient with Dr. Galeana. Objective VS Reviewed: Afebrile HR: Tachycardia, 110 this morning BP: 124/80 SaO2 93% and above over the past 24 hours on room air General: Patient is awake, alert, cooperative, and in no acute distress. Well developed. Obese Head: Normocephalic, Atraumatic. ENT: PERRLA, No discharge, EOMI, Sclera normal Neck: Normal ROM. Trachea midline. No stridor Respiratory: No adventitious sounds heard on exam. Normal breath sounds. No respiratory distress. No accessory muscle use. Cardiovascular: Regular rate and rhythm. No murmur appreciate. Normal S1/S2. Abdomen: Nontender to palpation. Normal bowel sounds hear throughout. No guarding. Abdomen is soft and nontender Back: Normal inspection. Extremities: No edema, cyanosis. Normal ROM Neuro: Alert, Oriented x 3. CN II-XII grossly intact. Sensation and motor function grossly intact. Psych: Mood and affect are normal. (BARIUM SWALLOW) ESOPHAGUS CLINICAL HISTORY: Postprandial vomiting. COMPARISON STUDY: FLUOROSCOPY TIME: 1.2 minutes. NUMBER OF FLUOROSCOPIC IMAGES: 22 FINDINGS: The patient swallowed effervescent granules and barium without difficulty. Rapid sequence swallows in the AP and lateral projections reveal unremarkable swallowing mechanics. Note is made of a reversal the normal cervical lordosis. No esophageal masses or ulcerations are visualized. The patient swallowed one half inch barium tablet which freely passed into the stomach. IMPRESSION: Normal study. Assessment & Plan NIKKI Atelectasis Chronic Vomiting, possible chronic aspiration Hypoxia- resolved Lactic Acidosis Anemia Anxiety disorder Patient with NIKKI atelectasis, intermittent hypoxia, and possible chronic aspiration. She is s/p rigid bronchoscopy on 05/24/17 which showed thick mucus plugging especially of the NIKKI with friable tissue, and inflamed airways and epiglottis. There is concern for possible underlying inflammatory disorder versus chronic aspiration from long-term vomiting. Patient's history of asthma is unclear. She states that she often has bronchospasm when she has vomiting episodes and uses inhaler when she coughs. She may have cough-variant asthma or this may be bronchospasm from GERD or post nasal drip. Lactic acidosis stable. Patient continues with Metronidazole and Levaquin for possible infectious etiology of NIKKI atelectatic changes. Continue with bronchodilator treatment. Continue with dornase alpha and flutter valve for aggressive chest PT Will taper SoluMedrol to PO Prednisone 60 mg daily. Will taper by 5 mg every 3 days until finished. Patient should follow up with [facility] [place] following discharge in 1 -2 weeks. Data Medications: Current Inpatient Medications Medications (Trade) Dose Ordered Sig/Jluis Route Start Time Stop Time Status Last Admin Dose Admin Ioversol (Optiray 320) 100 ml UD PRN IV 05/22/17 23:45 05/26/17 23:44 Methylprednisolone Sodium Succinate 40 mg/Syringe 0.64 ml @ 1.5 mls/min Q8H IV 05/23/17 06:00 06/22/17 05:59 05/26/17 05:58 1.5 MLS/MIN Acetaminophen (Tylenol Tab) 650 mg Q4H PRN PO 05/23/17 00:15 06/22/17 00:14 Ondansetron HCl (Zofran Inj) 4 mg Q6H PRN IV 05/23/17 00:15 06/22/17 00:14 Benzonatate (Tessalon Perles Cap) 100 mg TID PRN PO 05/23/17 00:15 06/22/17 00:14 05/25/17 08:36 100 MG Ferrous Gluconate (Ferrous Gluconate Tab) 324 mg BID PO 05/23/17 09:00 06/22/17 08:59 05/25/17 22:09 324 MG Tramadol HCl (Ultram Tab) 25 mg Q6H PRN PO 05/23/17 00:15 06/22/17 00:14 05/26/17 04:49 25 MG Ipratropium [place] (Atrovent 0.02% 0.5MG/2.5ML Neb) 0.5 mg Q4R INH 05/23/17 04:00 06/22/17 03:59 05/26/17 07:01 0.5 MG Levalbuterol (Xopenex 1.25MG/ 0.5ML Neb) 1.25 mg Q4R INH 05/23/17 04:00 06/22/17 03:59 05/26/17 07:01 1.25 MG Acetaminophen 650 mg/Empty Bag 65 ml @ 260 mls/hr Q6H PRN IV 05/23/17 01:45 06/22/17 01:44 05/24/17 04:25 260 MLS/HR Levofloxacin 750 mg/Prmx 150 ml @ 100 mls/hr Q24H IV 05/24/17 08:00 05/31/17 07:59 05/26/17 08:21 100 MLS/HR Pantoprazole Sodium 40 mg/ Syringe 10 ml @ 5 mls/min Q12@0900,2100 IV 05/23/17 21:00 06/22/17 20:59 05/26/17 08:21 5 MLS/MIN Dextrose/Sodium Chloride 1,000 ml @ 150 mls/hr Q6H40M IV 05/24/17 08:30 06/23/17 08:29 05/26/17 05:58 150 MLS/HR Ondansetron HCl (Zofran Inj) 4 mg ONE PRN IV 05/24/17 14:30 Metronidazole 500 mg/Prmx 100 ml @ 100 mls/hr Q8H IV 05/25/17 22:00 05/30/17 21:59 05/26/17 05:58 100 MLS/HR Vital Signs: Date Time Temp Pulse Resp B/P (MAP) Pulse Ox O2 Delivery O2 Flow Rate FiO2 05/26/17 08:00 Room Air 05/26/17 07:14 36.7 110 20 134/80 (98) 93 Room Air 05/26/17 07:00 94 16 96 Room Air 05/26/17 04:05 36.7 103 16 131/81 (98) 94 Room Air 05/26/17 04:00 Room Air 2.0 Nasal Cannula 05/26/17 03:15 107 16 95 Room Air 05/25/17 23:59 Room Air 05/25/17 23:10 103 16 96 Room Air 05/25/17 23:00 36.8 86 16 129/79 (96) 94 Room Air 05/25/17 20:00 Nasal Cannula 2.0 05/25/17 19:10 112 16 98 Nasal Cannula 2.0 05/25/17 19:05 36.7 112 18 125/80 (95) 95 Nasal Cannula 2.0 05/25/17 16:00 0 Nasal Cannula 2.0 05/25/17 15:37 102 14 95 Room Air 05/25/17 15:07 36.9 99 18 126/83 (97) 95 Room Air 05/25/17 12:00 0 Nasal Cannula 2.0 05/25/17 11:01 97 16 97 Nasal Cannula 05/25/17 10:32 36.8 104 20 121/79 (93) 94 Room Air Laboratory Results: Last 24 Hours Test 05/25/17 11:26 05/26/17 04:44 Lactic Acid Level 3.6 mmol/L Vancomycin Level Trough 11.0 mcg/ml
[2017-05-26 10:24] LABS: HEMATOCRIT 28.1 % (37-47); MEAN CELL VOLUME 72.8 fL (80-100); MEAN CORPUSCULAR HGB CONC 28.8 g/dl (32-36); PLATELET COUNT 526 K/uL (130-400); RED BLOOD COUNT 3.86 M/uL (4.2-5.4); WHITE BLOOD COUNT 13.15 K/uL (4.8-10.8)
--- NOTE | 2017-05-26 10:47 | Progress Note ---
Internal Med Progress Note Date of Service: May 26, 2017. Provider Documentation: SUBJECTIVE: Seen and examined at bedside States feeling well Denies SOB, chest pain, palpitations, wheezing, nausea/vomiting/ abd pain Offers no other complaints Eager to get discharged No new complaints OBJECTIVE: Vital Signs-as noted below Physical Exam: General Appearance:Moderately built and nourished, no apparent distress Head: normocephalic, Atraumatic Eyes: normal inspection, EOMI, PERRL Neck: supple, Trachea midline Respiratory/Chest: Normal breath sounds, CTA Cardiovascular: S1, S2, No murmur, +Tachycardia Abdomen/GI:Soft, Non tender, Bowel sounds present Extremities/Musculoskelatal:normal inspection, no edema Neurologic/Psych: grossly no focal neurological deficits Skin: normal color, warm Lab data as noted below. ASSESSMENT & PLAN: Patient is 32 yr female with H/O Asthma, Cyclic Vomiting, GERD, Anemia, presenting with shortness of breath SEPSIS WITH LEFT UPPER LOBE PNEUMONIA/ATELECTASIS: presented with tachycardia, hypoxia, elevated lactic acid level /JORDEN continue IV Abx (Levaquin, flagyl), IV Fluids Vancomycin discontinued Lactic acidosis stable S/P Bronchoscopy on 05/24/17 Appreciate Pulmonology Input Bronchoscopy showed diffuse erythema of the bronchial tree and was ? concerned for vasculitis Chronic aspiration is a possibility for vasculitic process Serological work up pending Appreciate Rheumatology Input Blood culture:no growth to date Bronchial cultures:Normal malia Hypoxia resolved speech and swallow eval Barium swallow: normal study H/O cyclic vomiting syndrome and severe GERD, concern for aspiration Patient reports epigastric pain with food intake Appreciate GI Input DC IV PPI BID Celiac AB pending Continue Omeprazole 40 mg in AM, Zantac 150 mg HS Trial of Bentyl 10 mg BID for abdominal pain Needs Outpatient EGD +/- motility in 4-6 weeks barium swallow: normal study Speech and swallow eval ACUTE RENAL FAILURE Resolved with IV Fluids monitor renal function D DIMER ELEVATION 600s-due to sepsis CT chest: No PE/ left upper lobe opacity Lower Ext Doppler-negative for DVT SINUS TACHYCARDIA Due to sepsis /on going infection /complete atelectasis of left upper lobe / persisted hypoxia CT chest no PE monitor in Tele CHRONIC ANEMIA Hb 9 on previous admission Hb 8.1 today likely secondary to hemodilution on Fe supplement monitor DVT Px SCDs low risk ambulate Code Status: Full Code Disposition anticipate d/c home when medically stable Dr. Oreilly for PCP follow up Vital Signs: Date Time Temp Pulse Resp B/P (MAP) Pulse Ox O2 Delivery O2 Flow Rate FiO2 05/26/17 08:00 Room Air 05/26/17 07:14 36.7 110 20 134/80 (98) 93 Room Air 05/26/17 07:00 94 16 96 Room Air 05/26/17 04:05 36.7 103 16 131/81 (98) 94 Room Air 05/26/17 04:00 Room Air 2.0 Nasal Cannula 05/26/17 03:15 107 16 95 Room Air 05/25/17 23:59 Room Air 05/25/17 23:10 103 16 96 Room Air 05/25/17 23:00 36.8 86 16 129/79 (96) 94 Room Air 05/25/17 20:00 Nasal Cannula 2.0 05/25/17 19:10 112 16 98 Nasal Cannula 2.0 05/25/17 19:05 36.7 112 18 125/80 (95) 95 Nasal Cannula 2.0 05/25/17 16:00 0 Nasal Cannula 2.0 05/25/17 15:37 102 14 95 Room Air 05/25/17 15:07 36.9 99 18 126/83 (97) 95 Room Air 05/25/17 12:00 0 Nasal Cannula 2.0 05/25/17 11:01 97 16 97 Nasal Cannula Lab Results: Results Past 24 Hours Test 05/25/17 11:26 05/26/17 10:06 Range/Units Lactic Acid Level 3.6 0.4-2.0 mmol/L Vancomycin Level Trough 11.0 SEE COMMENT mcg/ml White Blood Count 13.15 4.8-10.8 K/uL Red Blood Count 3.86 4.2-5.4 M/uL Hemoglobin 8.1 12.0-16.0 g/dL Hematocrit 28.1 37-47 % Mean Corpuscular Volume 72.8 80-100 fL Mean Corpuscular Hemoglobin 21.0 25-34 pg Mean Corpuscular Hemoglobin Concent 28.8 32-36 g/dl Platelet Count 526 130-400 K/uL Mean Platelet Volume 8.0 7.4-10.4 fL Neutrophils (%) (Auto) 86.0 % Lymphocytes (%) (Auto) 10.2 % Monocytes (%) (Auto) 2.7 % Eosinophils (%) (Auto) 0.1 % Basophils (%) (Auto) 0.1 % Neutrophils # (Auto) 11.32 1.4-6.5 K/uL Lymphocytes # (Auto) 1.34 1.2-3.4 K/uL Monocytes # (Auto) 0.35 0.11-0.59 K/uL Eosinophils # (Auto) 0.01 0-0.5 K/uL Basophils # (Auto) 0.01 0-0.2 K/uL RDW Standard Deviation 64.3 36.4-46.3 fL RDW Coefficient of Variation 24.3 11.5-14.5 % Immature Granulocyte % (Auto) 0.9 % Immature Granulocyte # (Auto) 0.12 0.00-0.02 K/uL Nucleated RBC Absolute Count (auto) 0.14 0-0 K/uL Nucleated Red Blood Cells % 1.0 % Polychromasia 1+ Hypochromasia PRESENT Poikilocytosis PRESENT Anisocytosis PRESENT Microcytosis PRESENT Sodium Level 139 136-145 mmol/L Potassium Level 3.7 3.5-5.1 mmol/L Chloride Level 105 98-107 mmol/L Carbon Dioxide Level 23 21-32 mmol/L Anion Gap 11.0 3-11 mmol/L Blood Urea Nitrogen 9 7-18 mg/dl Creatinine 0.77 0.60-1.20 mg/dl Est Creatinine Clear Calc Drug Dose 104.2 ml/min Estimated GFR () 119.2 Estimated GFR (Non- 102.9 BUN/Creatinine Ratio 12.3 10-20 Random Glucose 180 70-99 mg/dl Calcium Level 8.3 8.5-10.1 mg/dl
[2017-05-26 10:48] LABS: BUN/CREATININE RATIO 12.3 (10-20); CALCIUM 8.3 mg/dl (8.5-10.1); CREATININE 0.77 mg/dl (0.60-1.20); POTASSIUM 3.7 mmol/L (3.5-5.1)
[2017-05-26 10:50] LABS: ANISOCYTOSIS PRESENT; BASO % 0.1 %; BASO ABS # 0.01 K/uL (0-0.2); COMPLETE YES; EOS % 0.1 %; HYPOCHROMIA PRESENT; IG% 0.9 %; LYMPH % 10.2 %; LYMPH ABS # 1.34 K/uL (1.2-3.4); MICROCYTOSIS PRESENT; MONO % 2.7 %; POIKILOCYTOSIS PRESENT; POLYCHROMASIA 1+
[2017-05-26] MEDS ORDERED: RANITIDINE HCL 150 MG TAB PO SCH (21:00)
[2017-05-27] MEDS: IPRATROPIUM BROMIDE NEB SOLN 0.02% 2.5 ML VIAL INH SCH ×4 (00:20→11:15)
[2017-05-27] MEDS: LEVALBUTEROL 1.25MG/0.5ML NEB INH SCH ×4 (00:20→11:14)
[2017-05-27 00:21] VITALS: PULSE 99; O2SAT 91
[2017-05-27 03:19] VITALS: PULSE 72; O2SAT 94
[2017-05-27] MEDS: D5W AND NSS 1,000 ML IV SCH (04:33)
[2017-05-27] MEDS: METRONIDAZOLE / NSS 500 MG in PREMIXED NSS 100 ML IV SCH (06:03)
[2017-05-27 07:15] VITALS: BP 120/83; PULSE 74; TEMP 36.8; O2SAT 94
[2017-05-27 07:39] VITALS: PULSE 91; O2SAT 97
[2017-05-27] MEDS ORDERED: PANTOprazole SOD 40 MG TAB PO SCH (08:00)
[2017-05-27 08:49] LABS: HEMATOCRIT 32.2 % (37-47); MEAN CELL VOLUME 72.7 fL (80-100); MEAN CORPUSCULAR HEMOGLOBIN 21.7 pg (25-34); MEAN CORPUSCULAR HGB CONC 29.8 g/dl (32-36); MEAN PLATELET VOLUME 8.1 fL (7.4-10.4); PLATELET COUNT 580 K/uL (130-400); RED BLOOD COUNT 4.43 M/uL (4.2-5.4)
[2017-05-27] MEDS: TRAMADOL HCL 50 MG TAB PO PRN (08:56)
[2017-05-27] MEDS: LEVOFLOXACIN / D5W 750 MG in PREMIXED IN D5W 150 ML IV SCH (08:58)
[2017-05-27] MEDS: FERROUS GLUCONATE 324 MG TAB PO SCH (08:58)
[2017-05-27 09:21] LABS: BUN/CREATININE RATIO 22.4 (10-20); CALCIUM 8.7 mg/dl (8.5-10.1); CREATININE 0.71 mg/dl (0.60-1.20); POTASSIUM 3.2 mmol/L (3.5-5.1)
[2017-05-27 10:00] LABS: ANISOCYTOSIS PRESENT; BASO % 0.1 %; BASO ABS # 0.02 K/uL (0-0.2); COMPLETE YES; EOS % 0.1 %; LYMPH % 34.3 %; LYMPH ABS # 5.28 K/uL (1.2-3.4); NEUT % 58.5 %; OVALOCYTES 1+; POLYCHROMASIA 1+; TEAR DROP CELLS 1+; VACUOLIZATION 1+
[2017-05-27 11:17] VITALS: PULSE 91; O2SAT 98
[2017-05-27] MEDS ORDERED: POTASSIUM CHLORIDE 10 MEQ TABCR PO ONE (12:15)
[2017-05-27 12:22] LABS: HERPES SIMPLEX CULT SOURCE OTHER-LUL BAL; HERPES SIMPLEX VIRUS CULT NOT ISOLATED (NOT ISOLATED)
--- NOTE | 2017-05-27 12:25 | Progress Note ---
Internal Med Progress Note Date of Service: May 27, 2017. Provider Documentation: SUBJECTIVE: Seen and examined at bedside Doing well Denies SOB, chest pain, palpitations, wheezing, nausea/vomiting/ abd pain Eager to get discharged No new complaints OBJECTIVE: Vital Signs-as noted below Physical Exam: General Appearance:Moderately built and nourished, no apparent distress Head: normocephalic, Atraumatic Eyes: normal inspection, EOMI, PERRL Neck: supple, Trachea midline Respiratory/Chest: Normal breath sounds, CTA Cardiovascular: S1, S2, No murmur Abdomen/GI:Soft, Non tender, Bowel sounds present Extremities/Musculoskelatal:normal inspection, no edema Neurologic/Psych: grossly no focal neurological deficits Skin: normal color, warm Lab data as noted below. ASSESSMENT & PLAN: Patient is 32 yr female with H/O Asthma, Cyclic Vomiting, GERD, Anemia, presenting with shortness of breath SEPSIS WITH LEFT UPPER LOBE PNEUMONIA/ATELECTASIS: presented with tachycardia, hypoxia, elevated lactic acid level /JORDEN continue IV Abx (Levaquin, flagyl) to complete 7 day course Vancomycin discontinued Lactic acidosis stable S/P Bronchoscopy on 05/24/17:which showed thick mucus plugging especially of the NIKKI with friable tissue, and inflamed airways and epiglottis concern for possible underlying inflammatory disorder versus chronic aspiration from long-term vomiting. Appreciate Pulmonology Input Chronic aspiration is a possibility for vasculitic process Serological work up pending Appreciate Rheumatology Input Blood culture:no growth to date Bronchial cultures:Normal malia Hypoxia resolved speech and swallow eval suggested Regular diet, "slippery" and thin liquids with aspiration precautions Barium swallow: normal study Immunological work up pending Will plan to taper prednisone per Pulm recommendations Needs follow up with [facility] Pulmonary department in 1-2 weeks upon discharge H/O cyclic vomiting syndrome and severe GERD, concern for aspiration Patient reports epigastric pain with food intake Appreciate GI Input DC IV PPI BID Celiac AB pending Continue Omeprazole 40 mg in AM, Zantac 150 mg HS Trial of Bentyl 10 mg BID for abdominal pain Needs Outpatient EGD +/- motility in 4-6 weeks barium swallow: normal study ACUTE RENAL FAILURE Resolved with IV Fluids monitor renal function D DIMER ELEVATION 600s-due to sepsis CT chest: No PE/ left upper lobe opacity Lower Ext Doppler-negative for DVT SINUS TACHYCARDIA Due to sepsis /on going infection /complete atelectasis of left upper lobe / persisted hypoxia CT chest no PE monitor in Tele CHRONIC ANEMIA Hb 9 on previous admission Hb 9.6 today on Fe supplement monitor Leukocytosis likely secondary to steroids DVT Px SCDs low risk ambulate Code Status: Full Code Disposition Plan to discharge home today Follow up with Dr. Oreilly for primary care on 06/01/17 at 1:15pm Follow up with your Panama Hat Smearer in 1-2 weeks as advised Follow up with your release of information clerk for outpatient upper endoscopy and motility studies in 4-6 weeks Vital Signs: Date Time Temp Pulse Resp B/P (MAP) Pulse Ox O2 Delivery O2 Flow Rate FiO2 05/27/17 11:17 91 12 98 Room Air 05/27/17 08:00 Room Air 05/27/17 07:39 91 12 97 Room Air 05/27/17 07:15 36.8 74 16 120/83 (95) 94 Room Air 05/27/17 03:19 72 16 94 Room Air 05/27/17 00:21 99 14 91 Room Air 05/27/17 00:00 Room Air 05/26/17 22:58 36.7 101 18 119/80 (93) 94 Room Air 05/26/17 20:00 Room Air 05/26/17 19:45 102 18 96 Room Air 05/26/17 16:00 Room Air 05/26/17 15:45 36.8 94 18 120/77 (91) 95 Room Air 05/26/17 13:15 36.8 94 18 124/78 (93) 96 Room Air 05/26/17 12:38 36.7 99 18 92 2.0 Lab Results: Results Past 24 Hours Test 05/27/17 08:33 Range/Units White Blood Count 15.40 4.8-10.8 K/uL Red Blood Count 4.43 4.2-5.4 M/uL Hemoglobin 9.6 12.0-16.0 g/dL Hematocrit 32.2 37-47 % Mean Corpuscular Volume 72.7 80-100 fL Mean Corpuscular Hemoglobin 21.7 25-34 pg Mean Corpuscular Hemoglobin Concent 29.8 32-36 g/dl Platelet Count 580 130-400 K/uL Mean Platelet Volume 8.1 7.4-10.4 fL Neutrophils (%) (Auto) 58.5 % Lymphocytes (%) (Auto) 34.3 % Monocytes (%) (Auto) 6.0 % Eosinophils (%) (Auto) 0.1 % Basophils (%) (Auto) 0.1 % Neutrophils # (Auto) 8.99 1.4-6.5 K/uL Lymphocytes # (Auto) 5.28 1.2-3.4 K/uL Monocytes # (Auto) 0.93 0.11-0.59 K/uL Eosinophils # (Auto) 0.02 0-0.5 K/uL Basophils # (Auto) 0.02 0-0.2 K/uL RDW Standard Deviation 63.9 36.4-46.3 fL RDW Coefficient of Variation 24.2 11.5-14.5 % Immature Granulocyte % (Auto) 1.0 % Immature Granulocyte # (Auto) 0.16 0.00-0.02 K/uL Nucleated RBC Absolute Count (auto) 0.33 0-0 K/uL Nucleated Red Blood Cells % 2.2 % Toxic Vacuolation 1+ Polychromasia 1+ Anisocytosis PRESENT Tear Drop Cells 1+ Ovalocytes 1+ Sodium Level 138 136-145 mmol/L Potassium Level 3.2 3.5-5.1 mmol/L Chloride Level 103 98-107 mmol/L Carbon Dioxide Level 26 21-32 mmol/L Anion Gap 9.0 3-11 mmol/L Blood Urea Nitrogen 16 7-18 mg/dl Creatinine 0.71 0.60-1.20 mg/dl Est Creatinine Clear Calc Drug Dose 111.4 ml/min Estimated GFR () 131.5 Estimated GFR (Non- 113.5 BUN/Creatinine Ratio 22.4 10-20 Random Glucose 86 70-99 mg/dl Calcium Level 8.7 8.5-10.1 mg/dl
[2017-05-27] MEDS ORDERED: MTR500 PO (12:56)
[2017-05-27] MEDS ORDERED: PRT/20 PO (12:56)
[2017-05-27] MEDS ORDERED: LVQ750 PO (12:56)
[2017-05-27] MEDS ORDERED: PRED-301 PO (12:56)
[2017-05-27] MEDS ORDERED: PRED10TA PO (12:56)
[2017-05-27] MEDS ORDERED: ULT50X PO (12:56)
[2017-05-27] MEDS ORDERED: ZNT150 PO (12:56)
--- NOTE | 2017-05-27 13:03 | Discharge Summary ---
Discharge Summary Date of Service May 27, 2017. Discharge Summary Admission Date: May 23, 2017 at 00:06 Discharge Date: May 27, 2017 Discharge Disposition: Home Principal Diagnosis: Left upper Lobe Atelectasis/Pneumonia. Possible inflammatory process Procedures: CTA: 1. No evidence for pulmonary embolus. 2. Complete atelectasis left upper lobe. 3. Monitoring to confirm complete re-opacification is suggested as well as exclude the possibility of a central obstructing lesion. Venous Doppler: No DVT within the right or left lower extremity. Barium swallow: : Normal study. Consultations: Pulmonary, GI, Rheumatology Pending Studies/Follow-Up: Follow up with Dr. Oreilly for primary care on 06/01/17 at 1:15pm Follow up with your Junior Linux Administrator in 1-2 weeks as advised Follow up with your fireproof door maker for outpatient upper endoscopy and motility studies in 4-6 weeks Seek immediate medical attention if your symptoms reoccur or worsen Complete the antibiotic course as advised Prednisone Course: Start taking 60mg for 2 days then 55mg for 3 days, 50mg for 3 days, then 45mg for 3 days, then 40mg for 3 days, 35mg for 3 days, 30mg for 3 days, 25mg for 3 days, 20mg for 3 days, 15mg for 3 days, 10mg for 3 days, 5mg for 3 days and stop Speech Therapy Discharge Instructions * 1.Regular diet, "slippery" and thin liquids. 2.Aspiration and GERD precautions. Fully upright for meals and for 30 minutes after meals. Do not lay flat. 3.Safe swallow strategies: Avoid foods that are dry, thick, pasty, or doughy. Use of condiments such as gravy to assist with making foods moist. Rest breaks while eating. Alternate solids and liquids. Small frequent meals Medication Reconciliation New Medications: Levofloxacin (Levofloxacin) 750 Mg Tab 750 MG PO DAILY for 3 Days, #3 TAB Metronidazole (Metronidazole) 500 Mg Tab 500 MG PO TID for 3 Days, #15 TAB Prednisone (Prednisone) 5 Mg Tab 5 MG PO UD for 35 Days, #18 TAB Start taking prednisone course as instructed Prednisone Tab (Prednisone) 10 Mg Tab 10 MG PO UD for 35 Days, #102 TAB Start 60mg for 2 days, then 55mg for 3 days, 50mg for 3 days and taper down by 5mg every 3rd day to 5mg for 3 days to stop Ranitidine HCl (Ranitidine HCl) 150 Mg Tab 150 MG PO HS for 30 Days, #30 TAB Changed Medications: Pantoprazole (Protonix) 20 Mg Tab 40 MG PO QAM for 30 Days, #60 TAB (Changed from: 20 MG; BID) Continued Medications: Albuterol Hfa (Ventolin Hfa) 200 Puffs/94233 Mcg Aers 2 PUFFS INH Q6H, INHALER Benzonatate (Tessalon Perles) 100 Mg Cap 100 MG PO TID PRN for Cough, CAP Control Pills ( Control Pills) Tab 1 TAB PO DAILY, TAB Ferrous Gluconate (Ferrous Gluconate) 324 Mg Tab 324 MG PO BID, TAB Ondasetron Odt (Zofran Odt) 4 Mg Tab 4 MG SL Q6H PRN for Nausea or Vomiting, TAB Tramadol HCl (Tramadol HCl) 50 Mg Tab 25 MG PO Q6H PRN for Pain for 3 Days, #6 TAB (This prescription has been renewed ) Admission Information HPI (per Admitting provider): 32 year old female with history of Asthma, Cyclic Vomiting, GERD, Anemia, presenting with shortness of breath that started today. Patient follows with Dr. Oreilly for Primary Care. She was discharged last 05/12/17 from [facility] after being treated for vomiting, asthma exacerbation and was discharged on Medrol dosepak. Patient states since she finished the Medrol dosepak, she had non productive cough again. She also has intermittent epigastric pain, followed by reflux symptoms which triggers her cough more. Today, the shortness of breath worsened. She presented to the ER this morning, given Duoneb and was discharged home. She returned due to progressive shortness of breath. On arrival, O2 sats was 95% , HR 136. She was given Decadron, Duoneb. CXR did not show pneumonia. CT chest for PE pending. On exam, patient is sitting up in bed, comfortable, o2 via NC is off with o2 sats 92%, HR 120s. She states her breathing has improved since arrival. Denies active chest pain, palpitations, dizziness, nausea, abdominal pain. Physical Exam (per Admitting): General Appearance: WD/WN, no apparent distress Head: normocephalic, atraumatic Eyes: normal inspection, EOMI, sclerae normal ENT: normal ENT inspection, hearing grossly normal, pharynx normal Neck: supple, no adenopathy, thyroid normal, no JVD, trachea midline Respiratory/Chest: no respiratory distress, no accessory muscle use, + pertinent finding ((+) scattered mild rhonchi and wheeze bilaterally at mid- bases) Cardiovascular: no edema, no JVD, no murmur, + tachycardia (regular) Abdomen/GI: normal bowel sounds, non tender, soft, no organomegaly Back: normal inspection, no CVA tenderness Extremities/Musculoskelatal: normal inspection, no calf tenderness, no pedal edema, non-tender Neurologic/Psych: 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 nml as tested, no motor/sensory deficits, alert , normal mood/affect, oriented x 3 Skin: normal color, warm/dry, no rash Lymphatic: no adenopathy Hospital Course Patient is 32 yr female with H/O Asthma, Cyclic Vomiting, GERD, Anemia, presenting with shortness of breath SEPSIS WITH LEFT UPPER LOBE PNEUMONIA/ATELECTASIS: presented with tachycardia, hypoxia, elevated lactic acid level /JORDEN continue IV Abx (Levaquin, flagyl) to complete 7 day course Vancomycin discontinued Lactic acidosis stable S/P Bronchoscopy on 05/24/17:which showed thick mucus plugging especially of the NIKKI with friable tissue, and inflamed airways and epiglottis concern for possible underlying inflammatory disorder versus chronic aspiration from long-term vomiting. Appreciate Pulmonology Input Chronic aspiration is a possibility for vasculitic process Serological work up pending Appreciate Rheumatology Input Blood culture:no growth to date Bronchial cultures:Normal malia Hypoxia resolved speech and swallow eval suggested Regular diet, "slippery" and thin liquids with aspiration precautions Barium swallow: normal study Immunological work up pending Will plan to taper prednisone per Pulm recommendations Needs follow up with [facility] [place] Pulmonary department in 1-2 weeks upon discharge H/O cyclic vomiting syndrome and severe GERD, concern for aspiration Patient reports epigastric pain with food intake Appreciate GI Input DC IV PPI BID Celiac AB pending Continue Omeprazole 40 mg in AM, Zantac 150 mg HS Trial of Bentyl 10 mg BID for abdominal pain Needs Outpatient EGD +/- motility in 4-6 weeks barium swallow: normal study ACUTE RENAL FAILURE Resolved with IV Fluids monitor renal function D DIMER ELEVATION 600s-due to sepsis CT chest: No PE/ left upper lobe opacity Lower Ext Doppler-negative for DVT SINUS TACHYCARDIA Due to sepsis /on going infection /complete atelectasis of left upper lobe / persisted hypoxia CT chest no PE monitor in Tele CHRONIC ANEMIA Hb 9 on previous admission Hb 9.6 today on Fe supplement monitor Leukocytosis likely secondary to steroids DVT Px SCDs low risk ambulate Code Status: Full Code Disposition Plan to discharge home today Follow up with Dr. Oreilly for primary care on 06/01/17 at 1:15pm Follow up with your Junior Linux Administrator in 1-2 weeks as advised Follow up with your fireproof door maker for outpatient upper endoscopy and motility studies in 4-6 weeks Total time spent on discharge = 32 minutes This includes examination of the patient, discharge planning, medication reconciliation, and communication with other providers. Discharge Instructions Discharge Instructions Date of Service May 27, 2017. Admission Reason for Admission: Asthma Exacerbation Discharge Discharge Diagnosis / Problem: Left upper Lobe Atelectasis/Pneumonia. Possible inflammatory process Discharge Goals Goal(s): Decrease discomfort, Improve function Activity Recommendations Activity Limitations: resume your previous activity Exercise/Sports Limitations: as tolerated Driving or Machine Use: Do not drive until cleared by your Primary care physician . Instructions / Follow-Up Instructions / Follow-Up Follow up with Dr. Oreilly for primary care on 06/01/17 at 1:15pm Follow up with your Junior Linux Administrator in 1-2 weeks as advised Follow up with your fireproof door maker for outpatient upper endoscopy and motility studies in 4-6 weeks Seek immediate medical attention if your symptoms reoccur or worsen Complete the antibiotic course as advised Prednisone Course: Start taking 60mg for 2 days then 55mg for 3 days, 50mg for 3 days, then 45mg for 3 days, then 40mg for 3 days, 35mg for 3 days, 30mg for 3 days, 25mg for 3 days, 20mg for 3 days, 15mg for 3 days, 10mg for 3 days, 5mg for 3 days and stop Speech Therapy Discharge Instructions * 1.Regular diet, "slippery" and thin liquids. 2.Aspiration and GERD precautions. Fully upright for meals and for 30 minutes after meals. Do not lay flat. 3.Safe swallow strategies: Avoid foods that are dry, thick, pasty, or doughy. Use of condiments such as gravy to assist with making foods moist. Rest breaks while eating. Alternate solids and liquids. Small frequent meals Current Hospital Diet Patient's current hospital diet: Regular Diet Discharge Diet Recommended Diet: Regular Diet (Thin liquids) Procedures Procedures Performed: Flexible and Rigid-Bronchoscopy, Bronchial Lavage Left Upper Lobe Pending Studies Studies pending at discharge: yes List of pending studies: Immunological work up Medical Emergencies . Who to Call and When: Medical Emergencies: If at any time you feel your situation is an emergency, please call 911 immediately. . Non-Emergent Contact Non-Emergency issues call your: Primary Care Provider, Milk Of Lime Slaker, Junior Linux Administrator Call Non-Emergent contact if: you have a fever, your pain is not controlled, your pain is worsening, your pain is unusual for you, your pain is concerning you, you have any medication questions Seek immediate medical attention if your symptoms reoccur or worsen . . "Provider Documentation" section prepared by Rolando Galeana. . VTE Core Measure Inpt VTE Proph given/why not?: SCD's
[2017-05-27 13:17] VITALS: BP 120/83; PULSE 91; TEMP 36.8; O2SAT 98
[2017-05-27 21:35] LABS: IMMUNOGLOBULIN E TC 24620E 197 KU/L (<115); MYELOPEROXIDASE AB <1.0 AI (<1.0)
[2017-05-28 18:38] LABS: IGA SERUM 257 mg/dL (81-463); TIS TRANS IGA 1 U/mL (<4)
[2017-06-25] MEDS ORDERED: PANT40TA PO (15:06)
== END 2017-05-27 13:50 | disposition home or self-care (01) | DRG 853 ==
LOC: C.EDB 20:38 → C.2E 05-23 00:06 → EEVIPCON 05-23 00:06 → ENRESERV 05-23 00:13 → UNDOADMIN 05-23 00:25 → C.2E 05-23 00:25 → ENRESERV 05-26 11:30 → C.MS4W 05-26 13:09
PROVIDERS: ADMIT Internal Medicine; ATTEND Internal Medicine
PROC: 0B9G8ZZ Drainage of Left Upper Lung Lobe, Via Natural or Artificial Opening Endoscopic (ICD-10-PCS; principal; 2017-05-24 12:30)
PROC: 0BC88ZZ Extirpation of Matter from Left Upper Lobe Bronchus, Via Natural or Artificial Opening Endoscopic (ICD-10-PCS; principal; 2017-05-24 12:30)
DX: A41.9 Sepsis, unspecified organism (principal); J18.9 Pneumonia, unspecified organism; R65.20 Severe sepsis without septic shock; N17.9 Acute kidney failure, unspecified; J45.21 Mild intermittent asthma with (acute) exacerbation; J98.11 Atelectasis; T17.990A Other foreign object in respiratory tract, part unspecified in causing asphyxiation, initial encounter; R09.02 Hypoxemia; J20.9 Acute bronchitis, unspecified; K21.9 Gastro-esophageal reflux disease without esophagitis; G43.A0 Cyclical vomiting, in migraine, not intractable; D64.9 Anemia, unspecified; Z79.899 Other long term (current) drug therapy; Z83.3 Family history of diabetes mellitus; Z76.0 Encounter for issue of repeat prescription

== ENCOUNTER 2017-06-13 21:29 | Emergency (ER) | payer BC ==
[~2017-06-13] VITALS: Ht 162.6 cm; Wt 74.9 kg
[~2017-06-13 21:29] MED LIST changes: -BENZ100C7 PO; -CETI10TA84 PO; +LVQ750 PO; -METH4PAK PO; +MTR500 PO; -NORGTAB39 PO; +PRED-301 PO; +PRED10TA PO; +ZNT150 PO
[2017-06-13 21:43] VITALS: TEMP 37.3; Ht 162.6 cm; Wt 74.9 kg
[2017-06-13] MEDS ORDERED: SODIUM CHLORIDE 0.9% 1000ML 1,000 ML IV STA (21:56)
[2017-06-13] MEDS ORDERED: ONDANSETRON INJ 2 MG/ML 2 ML VIAL IV STA (21:56)
[2017-06-13] MEDS ORDERED: DiphenhydrAMINE HCL 50 MG/ML VIAL IV STA (21:56)
[2017-06-13 22:38] LABS: BASO % 0.3 %; BASO ABS # 0.03 K/uL (0-0.2); EOS % 5.6 %; HEMATOCRIT 31.9 % (37-47); IG% 0.2 %; LYMPH % 37.1 %; LYMPH ABS # 3.55 K/uL (1.2-3.4); MEAN CELL VOLUME 71.7 fL (80-100); MEAN CORPUSCULAR HEMOGLOBIN 21.1 pg (25-34); MEAN CORPUSCULAR HGB CONC 29.5 g/dl (32-36); MEAN PLATELET VOLUME 8.4 fL (7.4-10.4); MONO % 4.9 %; NEUT % 51.9 %; PLATELET COUNT 691 K/uL (130-400); RED BLOOD COUNT 4.45 M/uL (4.2-5.4); WHITE BLOOD COUNT 9.58 K/uL (4.8-10.8)
[2017-06-13 22:50] LABS: PREG INTERNAL NEGATIVE QC NEG CLEAR BACKGROUND; PREG INTERNAL POSITIVE QC POS CONTROL LINE
[2017-06-13 22:56] LABS: ALT/SGPT 31 U/L (12-78); BLOOD UREA NITROGEN 9 mg/dl (7-18); BUN/CREATININE RATIO 12.6 (10-20); CALCIUM 8.9 mg/dl (8.5-10.1); CARBON DIOXIDE 24 mmol/L (21-32); CHLORIDE 104 mmol/L (98-107); GLUCOSE 93 mg/dl (70-99); POTASSIUM 3.9 mmol/L (3.5-5.1); SODIUM 138 mmol/L (136-145)
[2017-06-13 22:59] LABS: ALKALINE PHOSPHATASE 81 U/L (45-117); AST/SGOT 20 U/L (15-37)
[2017-06-13 23:00] LABS: ANISOCYTOSIS PRESENT; COMPLETE YES; HYPOCHROMIA PRESENT; MICROCYTOSIS PRESENT; TEAR DROP CELLS 1+
--- NOTE | 2017-06-13 23:00 | DIAGNOSTIC IMAGING REPORT ---
ABDOMEN 2VIEW W/PA CHEST RTN HISTORY: 32 years-old Female ABDOMINAL PAIN/GI acute generalized abdominal pain with vomiting COMPARISON: Chest radiograph 05/24/2017 TECHNIQUE: Frontal view of the chest with erect and supine views of the abdomen FINDINGS: Cardiomediastinal and hilar silhouettes are within normal limits. No pneumothorax, pleural effusion or focal airspace consolidation. No overt pulmonary edema. Bones of the chest appear grossly intact. There is a linear 1.5 cm structure within the left mid abdomen suggesting ingested material, possibly a pill. Bowel gas pattern is nonobstructive. No urolith or organomegaly. No pneumoperitoneum on the upright projection. IMPRESSION: 1. No acute cardiopulmonary process. 2. Nonobstructive bowel gas pattern without pneumoperitoneum. 3. Linear 1.5 cm ovoid opaque structure of the left mid abdomen suggests an ingested pill. The above report was generated using voice recognition software. It may contain grammatical, syntax or spelling errors. Electronically signed by: Jay Palmer M.D. 06/13/2017 10:59 PM Dictated Date/Time: 06/13/2017 10:56 PM
[2017-06-13] MEDS ORDERED: BENTYL HOME PACK 10 MG VIAL PO ONE (23:45)
[2017-06-13 23:50] VITALS: PULSE 92; O2SAT 96
--- NOTE | 2017-06-13 23:50 | EMERGENCY ROOM VISIT NOTE ---
History Report prepared by Moses: Jocelyn Shaw Under the Supervision of: Dax PalmaO. First contact with patient: 21:47 Chief Complaint: VOMITING Stated Complaint: VOMIT,GAGGING PERSISTANT History of Present Illness The patient is a 32 year old female who presents to the Emergency Room with complaints of intermittent vomiting beginning [employer]LE[employer]ERK. The patient has had vomiting for the past few years. She had a bronchoscopy a few weeks ago that helped to alleviate her symptoms. She was discharged on antibiotics after the procedure. She had improvement of her symptoms but states that they are starting to return. The patient states that she has vomiting and stomach spasms. These spams occur about once an hour. She also reports shortness of breath. The patient rates her pain as a 5/10 in severity. She denies fever, chills, and nausea. She is scheduled for an endoscopy with her GI specialist. Source of History: patient Onset: [employer]LE[employer] CLERK Position: abdomen Symptom Intensity: 5/10 Quality: other (spasm) Timing: intermittent Modifying Factors (Relieving): other (bronchoscopy) Associated Symptoms: + SOB, No fevers, No chills, No nausea Review of Systems See HPI for pertinent positives & negatives. A total of 10 systems reviewed and were otherwise negative. Past Medical & Surgical Medical Problems: (1) Asthma, Unspecified (2) Nausea (3) Sepsis Surgical Problems: (1) No significant past surgical history Family History No significant family history Social History Smoking Status: Never Smoker Smokeless Tobacco Use: No Alcohol Use: occasionally Drug Use: none Marital Status: single Housing Status: lives with family Occupation Status: employed Current/Historical Medications Scheduled Albuterol Hfa (Ventolin Hfa), 2 PUFFS INH Q6H Control Pills ( Control Pills), 1 TAB PO DAILY Ferrous Gluconate (Ferrous Gluconate), 324 MG PO BID Pantoprazole (Protonix), 40 MG PO QAM Ranitidine HCl (Ranitidine HCl), 150 MG PO HS Scheduled PRN Ondasetron Odt (Zofran Odt), 4 MG SL Q6H PRN for Nausea or Vomiting Tramadol HCl (Tramadol HCl), 25 MG PO Q6H PRN for Pain Allergies Coded Allergies: Cefuroxime (Verified Allergy, Severe, CHEST TIGHTENING, "FEEL LIKE CHOKING ", SOB, 05/24/17) Dairy (Verified Allergy, Severe, CHEST TIGHTENING, "CHOKING" FEELING, SOB , 05/24/17) Gluten (Verified Allergy, Severe, CHEST TIGHTENING, "CHOKING" FEELING, SOB , 05/24/17) Penicillins (Verified Allergy, Severe, CHEST TIGHTENING, "CHOKING" FEELING , SOB, 05/24/17) Peanut (Verified Allergy, Intermediate, "NON STOP COUGHING, FELT LIKE CHOKING", 05/24/17) Physical Exam Vital Signs Date Time Temp Pulse Resp B/P (MAP) Pulse Ox O2 Delivery O2 Flow Rate FiO2 06/13/17 23:58 109/64 06/13/17 23:50 92 19 96 06/13/17 23:35 97 14 100 06/13/17 23:20 90 19 99 06/13/17 23:05 100 19 97 06/13/17 22:35 100 16 95 06/13/17 22:30 121/70 06/13/17 22:29 96 19 99 06/13/17 22:01 99/75 06/13/17 21:59 98 21 100 Room Air 06/13/17 21:58 98 06/13/17 21:55 128/77 06/13/17 21:43 37.3 57 18 115/64 94 Room Air Physical Exam GENERAL: Patient is awake, alert, and in no acute distress. Patient is resting comfortably and showing no signs of anxiety EYES: The conjunctivae are clear. The pupils are round and reactive. EARS, NOSE, MOUTH AND THROAT: The nose is without any evidence of any deformity. Mucous membranes are moist tongue is midline NECK: The neck is nontender and supple. RESPIRATORY: Normal respiratory effort is noted there is no evidence of wheezing rhonchi or rales CARDIOVASCULAR: Regular rate and rhythm noted there no murmurs rubs or gallops normal S1 normal S2 GASTROINTESTINAL: The abdomen is soft. Bowel sounds are present in all quadrants. Abdomen is nontender MUSCULOSKELETAL/EXTREMITIES: There is no evidence of gross deformity full range of motion is noted in the hips and shoulders SKIN: There is no obvious evidence of any rash. There are no petechiae, pallor or cyanosis noted. NEUROLOGIC: Patient is awake alert and oriented x3 Medical Decision & Procedures ER Provider Diagnostic Interpretation: Radiology results as stated below per my review and radiologist interpretation: ABDOMEN 2VIEW W/PA CHEST RTN HISTORY: 32 years-old Female ABDOMINAL PAIN/GI acute generalized abdominal pain with vomiting COMPARISON: Chest radiograph 05/24/2017 TECHNIQUE: Frontal view of the chest with erect and supine views of the abdomen FINDINGS: Cardiomediastinal and hilar silhouettes are within normal limits. No pneumothorax, pleural effusion or focal airspace consolidation. No overt pulmonary edema. Bones of the chest appear grossly intact. There is a linear 1.5 cm structure within the left mid abdomen suggesting ingested material, possibly a pill. Bowel gas pattern is nonobstructive. No urolith or organomegaly. No pneumoperitoneum on the upright projection. IMPRESSION: 1. No acute cardiopulmonary process. 2. Nonobstructive bowel gas pattern without pneumoperitoneum. 3. Linear 1.5 cm ovoid opaque structure of the left mid abdomen suggests an ingested pill. The above report was generated using voice recognition software. It may contain grammatical, syntax or spelling errors. Electronically signed by: Jay Palmer M.D. 06/13/2017 10:59 PM Dictated Date/Time: 06/13/2017 10:56 PM Laboratory Results 06/13/17 22:20 Red Blood Count 4.45, Mean Corpuscular Volume 71.7, Mean Corpuscular Hemoglobin 21.1, Mean Corpuscular Hemoglobin Concent 29.5, Mean Platelet Volume 8.4, Neutrophils (%) (Auto) 51.9, Lymphocytes (%) (Auto) 37.1, Monocytes (%) (Auto) 4.9, Eosinophils (%) (Auto) 5.6, Basophils (%) (Auto) 0.3, Neutrophils # (Auto) 4.97, Lymphocytes # (Auto) 3.55, Monocytes # (Auto) 0.47, Eosinophils # (Auto) 0.54, Basophils # (Auto) 0.03 06/13/17 22:20 Test 06/13/17 22:20 White Blood Count 9.58 K/uL (4.8-10.8) Red Blood Count 4.45 M/uL (4.2-5.4) Hemoglobin 9.4 g/dL (12.0-16.0) Hematocrit 31.9 % (37-47) Mean Corpuscular Volume 71.7 fL (80-100) Mean Corpuscular Hemoglobin 21.1 pg (25-34) Mean Corpuscular Hemoglobin Concent 29.5 g/dl (32-36) Platelet Count 691 K/uL (130-400) Mean Platelet Volume 8.4 fL (7.4-10.4) Neutrophils (%) (Auto) 51.9 % Lymphocytes (%) (Auto) 37.1 % Monocytes (%) (Auto) 4.9 % Eosinophils (%) (Auto) 5.6 % Basophils (%) (Auto) 0.3 % Neutrophils # (Auto) 4.97 K/uL (1.4-6.5) Lymphocytes # (Auto) 3.55 K/uL (1.2-3.4) Monocytes # (Auto) 0.47 K/uL (0.11-0.59) Eosinophils # (Auto) 0.54 K/uL (0-0.5) Basophils # (Auto) 0.03 K/uL (0-0.2) RDW Standard Deviation 56.0 fL (36.4-46.3) RDW Coefficient of Variation 21.3 % (11.5-14.5) Immature Granulocyte % (Auto) 0.2 % Immature Granulocyte # (Auto) 0.02 K/uL (0.00-0.02) Hypochromasia PRESENT Anisocytosis PRESENT Microcytosis PRESENT Tear Drop Cells 1+ Anion Gap 10.0 mmol/L (3-11) Est Creatinine Clear Calc Drug Dose 115.4 ml/min Estimated GFR () 133.8 Estimated GFR (Non- 115.5 BUN/Creatinine Ratio 12.6 (10-20) Calcium Level 8.9 mg/dl (8.5-10.1) Total Bilirubin 0.2 mg/dl (0.2-1) Direct Bilirubin < 0.1 mg/dl (0-0.2) Aspartate Amino Transf (AST/SGOT) 20 U/L (15-37) Alanine Aminotransferase (ALT/SGPT) 31 U/L (12-78) Alkaline Phosphatase 81 U/L (45-117) Total Protein 7.9 gm/dl (6.4-8.2) Albumin 3.7 gm/dl (3.4-5.0) Lipase 219 U/L (73-393) Human Chorionic Gonadotropin, Qual NEG (NEG) Laboratory results per my review. Medications Administered Medications (Trade) Dose Ordered Sig/Jluis Route Start Time Stop Time Status Last Admin Dose Admin Sodium Chloride 1,000 ml @ 999 mls/hr Q1H1M STAT IV 06/13/17 21:56 06/13/17 22:56 DC 06/13/17 22:25 999 MLS/HR Ondansetron HCl (Zofran Inj) 4 mg NOW STAT IV 06/13/17 21:56 06/13/17 21:57 DC 06/13/17 22:34 4 MG Diphenhydramine HCl (Benadryl Inj) 25 mg NOW STAT IV 06/13/17 21:56 06/13/17 21:58 DC 06/13/17 22:37 25 MG Dicyclomine HCl (Dicyclomine HCl 10MG Home Pack) 1 ea UD ONCE PO 06/13/17 23:45 06/13/17 23:46 DC 06/13/17 23:57 1 EA ED Course 2147: The patient was evaluated in room B10. A complete history and physical examination were performed. 2156: Benadryl 25 mg IV, Zofran 4 mg IV, NSS 1000 ml @ 999 mls/hr IV 2341: I reassessed the patient at this time. She is feeling better and resting comfortably. I discussed the results and treatment plan with the patient. I answered all pertaining questions that she had. She expressed understanding and verbalized agreement. The patient will be discharged home. 2345: Dicyclomine HCl PO Medical Decision Differential diagnosis: Etiologies such as gastroenteritis, food borne illness, infections, appendicitis , diverticulitis, inflammatory bowel disease, obstruction, GI bleed, biliary pathology, as well as others were entertained. Nursing notes reviewed. Patient's previous electronic medical records reviewed. The patient is a 32-year-old female who presented to the emergency department for evaluation of cramping in her abdomen. The patient has had a history of similar episodes in the past. Her physical exam was not consistent with an acute surgical abdomen. She was treated with IV fluids and medications for abdominal cramping in the emergency department. She was reevaluated multiple times. On subsequent reevaluation she was feeling much better. She was encouraged to rest and avoid any strenuous activity. She was also encouraged to continue all medications as prescribed. She was also encouraged to follow-up with her doctor for further evaluation but return to the emergency department immediately if symptoms change worsen or the need arises. Medication Reconcilliation Current Medication List: was personally reviewed by me Blood Pressure Screening Patient's blood pressure: Normal blood pressure Impression Primary Impression: Abdominal cramping Scribe Attestation The scribe's documentation has been prepared under my direction and personally reviewed by me in its entirety. I confirm that the note above accurately reflects all work, treatment, procedures, and medical decision making performed by me. Departure Information Dispostion Home / Self-Care Referrals Karely Oreilly D.O. (PCP) Forms HOME CARE DOCUMENTATION FORM, IMPORTANT VISIT INFORMATION Patient Instructions My [facility] Additional Instructions Continue all medications as prescribed. Call your family in the morning to schedule a follow-up appointment. Drink plenty clear liquids.
[2017-06-13 23:58] VITALS: BP 109/64
== END 2017-06-14 00:02 | disposition home or self-care (01) ==
LOC: C.EDB 21:30
DX: R11.2 Nausea with vomiting, unspecified (principal); R10.9 Unspecified abdominal pain; Z98.890 Other specified postprocedural states; J45.909 Unspecified asthma, uncomplicated; Z79.3 Long term (current) use of hormonal contraceptives; Z79.899 Other long term (current) drug therapy

== ENCOUNTER 2017-06-27 16:33 | Emergency (ER) | payer BC, OTHER ==
[~2017-06-27] VITALS: Ht 162.6 cm; Wt 76.0 kg
[~2017-06-27 16:33] MED LIST changes: -BENZ100C84 PO; -FERR325T18 PO; -LVQ750 PO; -MTR500 PO; +PANT40TA PO; -PRED-301 PO; -PRED10TA PO; -PRT/20 PO; -ULT50X PO
[2017-06-27 17:09] VITALS: Ht 162.6 cm; Wt 76.0 kg
[2017-06-27 17:51] LABS: BASO % 0.5 %; BASO ABS # 0.04 K/uL (0-0.2); EOS % 6.8 %; HEMATOCRIT 31.1 % (37-47); IG% 0.3 %; LYMPH % 42.5 %; LYMPH ABS # 3.65 K/uL (1.2-3.4); MEAN CORPUSCULAR HEMOGLOBIN 20.4 pg (25-34); MEAN CORPUSCULAR HGB CONC 29.6 g/dl (32-36); MEAN PLATELET VOLUME 8.1 fL (7.4-10.4); MONO % 4.8 %; NEUT % 45.1 %; PLATELET COUNT 420 K/uL (130-400); RED BLOOD COUNT 4.51 M/uL (4.2-5.4); WHITE BLOOD COUNT 8.59 K/uL (4.8-10.8)
[2017-06-27 18:08] LABS: ALT/SGPT 27 U/L (12-78); AST/SGOT 17 U/L (15-37); BLOOD UREA NITROGEN 11 mg/dl (7-18); BUN/CREATININE RATIO 18.5 (10-20); CALCIUM 8.4 mg/dl (8.5-10.1); CARBON DIOXIDE 25 mmol/L (21-32); CHLORIDE 106 mmol/L (98-107); CREATININE 0.57 mg/dl (0.60-1.20); GLUCOSE 120 mg/dl (70-99); POTASSIUM 3.5 mmol/L (3.5-5.1); SODIUM 140 mmol/L (136-145)
[2017-06-27 18:10] LABS: ALKALINE PHOSPHATASE 75 U/L (45-117)
[2017-06-27 18:14] LABS: ANISOCYTOSIS PRESENT; COMPLETE YES; HYPOCHROMIA PRESENT; MICROCYTOSIS PRESENT; SCHISTOCYTES 1+; TEAR DROP CELLS 1+
--- NOTE | 2017-06-27 19:04 | DIAGNOSTIC IMAGING REPORT ---
PA CHEST RADIOGRAPH AND UPRIGHT AND SUPINE AP RADIOGRAPHS OF THE ABDOMEN CLINICAL HISTORY: Abdominal pain. COMPARISON STUDY: Chest radiograph and abdominal series June 13, 2017. FINDINGS: There is mild left lower lung opacity. Artifact size is normal. Mediastinal contours are normal. There is no evidence of pulmonary edema. No pneumothorax or pleural effusion is present. No free air is present. There is a moderate amount of stool within the colon and rectum. A few oval shaped densities likely reflect ingested tablets. IMPRESSION: 1. No free air or evidence of bowel obstruction. 2. Moderate amount of stool within the colon and rectum. 3. Mild left lower lung opacity which could reflect atelectasis or an infectious process. Electronically signed by: Arcenio De La Torre M.D. 06/27/2017 7:02 PM Dictated Date/Time: 06/27/2017 7:00 PM
[2017-06-27] MEDS ORDERED: LORAZEPAM 2 MG/ML 1 ML VIAL IV STA (19:05)
[2017-06-27] MEDS ORDERED: ALBUTEROL 0.083% NEBU SOLN 3 ML VIAL INH STA (19:05)
[2017-06-27] MEDS ORDERED: LEVO1TAB34 PO (20:23)
[2017-06-27] MEDS ORDERED: LEVOFLOXACIN 250 MG TAB PO ONE (20:30)
[2017-06-27 20:56] LABS: URINE APPEARANCE CLEAR (CLEAR); URINE BILIRUBIN NEG (NEG); URINE COLOR YELLOW; URINE NITRITE NEG (NEG); URINE PH 6.5 (4.5-7.5); URINE SPECIFIC GRAVITY 1.025 (1.000-1.030); UROBILINOGEN NEG (NEG); ZZUR CULT IF INDIC CLEAN CATCH NO
[2017-06-27 20:57] LABS: MANUAL MICROSCOPIC REQUIRED? NO; REVIEW REQ? NO
[2017-06-27 21:01] LABS: PREG INTERNAL NEGATIVE QC NEG CLEAR BACKGROUND; PREG INTERNAL POSITIVE QC POS CONTROL LINE
[2017-06-27 21:33] VITALS: BP 116/77; PULSE 115; TEMP 36.9; O2SAT 95
--- NOTE | 2017-06-28 | EMERGENCY ROOM VISIT NOTE ---
History Report prepared by Moses: Segun Lawson Under the Supervision of: Dr. Vasu Johnson D.O. First contact with patient: 17:13 Chief Complaint: VOMITING Stated Complaint: VOMIT History of Present Illness The patient is a 32 year old female who presents to the Emergency Room with complaints of constant, upper, abdominal pain beginning this morning. The patient states she has an endoscopy scheduled in two days for excessive vomiting , abdominal pain, and a choking sensation. She reports her abdominal pain leads to coughing, which in turn leads to vomiting. The patient notes she was admitted last time and given tramadol and an antifungal medication. She states these helped her symptoms, until she stopped taking the antifungal medication. She also states she had x-rays and CTs that were all negative. The patient reports she still has her gallbladder and appendix. She notes her last bowel movement was this morning, and it was normal. The patient denies chest pain, shortness of breath, burning with urination, and pain with urination. 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 Source of History: patient Onset: this morning Position: abdomen (upper) Timing: constant Associated Symptoms: + cough, + vomiting, No chest pain, No SOB, No urinary symptoms Review of Systems See HPI for pertinent positives & negatives. A total of 10 systems reviewed and were otherwise negative. Past Medical & Surgical Medical Problems: (1) Asthma, Unspecified (2) Nausea (3) Sepsis Surgical Problems: (1) No significant past surgical history Family History No significant family history Social History Smoking Status: Never Smoker Alcohol Use: occasionally Drug Use: none Marital Status: single Housing Status: lives with family Occupation Status: employed Current/Historical Medications Scheduled Control Pills ( Control Pills), 1 TAB PO HS Levofloxacin (Levaquin), 1 TAB PO DAILY Pantoprazole (Protonix), 40 MG PO QAM Ranitidine HCl (Ranitidine HCl), 150 MG PO HS Scheduled PRN Albuterol Hfa (Ventolin Hfa), 2 PUFFS INH Q6H PRN for Shortness of Breath Ondasetron Odt (Zofran Odt), 4 MG SL Q6H PRN for Nausea or Vomiting Allergies Coded Allergies: Cefuroxime (Verified Allergy, Severe, CHEST TIGHTENING, "FEEL LIKE CHOKING ", SOB, 06/27/17) Dairy (Verified Allergy, Severe, CHEST TIGHTENING, "CHOKING" FEELING, SOB , 06/27/17) Gluten (Verified Allergy, Severe, CHEST TIGHTENING, "CHOKING" FEELING, SOB , 06/27/17) Penicillins (Verified Allergy, Severe, CHEST TIGHTENING, "CHOKING" FEELING , SOB, 06/27/17) Peanut (Verified Allergy, Intermediate, "NON STOP COUGHING, FELT LIKE CHOKING", 06/27/17) Physical Exam Vital Signs Date Time Temp Pulse Resp B/P (MAP) Pulse Ox O2 Delivery O2 Flow Rate FiO2 06/27/17 21:33 36.9 115 16 116/77 95 06/27/17 21:32 115 16 116/77 95 Room Air 06/27/17 19:55 110 16 118/74 95 Room Air 06/27/17 18:26 110 16 122/76 95 Room Air 06/27/17 17:09 36.9 110 16 95 Room Air Physical Exam GENERAL: Sitting up in bed, alert, well appearing, well nourished, no distress, non-toxic EYE EXAM: normal conjunctiva OROPHARYNX: no exudate, no erythema, lips, buccal mucosa, and tongue normal and mucous membranes are moist NECK: supple, no nuchal rigidity, no adenopathy, non-tender LUNGS: Clear to auscultation. Normal chest wall mechanics HEART: no murmurs, S1 normal and S2 normal ABDOMEN: abdomen soft, non-tender, normo-active bowel sounds, no masses, no rebound or guarding. BACK: Back is symmetrical on inspection and there is no deformity, no midline tenderness, no CVA tenderness. SKIN: no rashes and no bruising UPPER EXTREMITIES: upper extremities are grossly normal. LOWER EXTREMITIES: No pitting edema. NEURO EXAM: Normal sensorium, cranial nerves II-XII grossly intact, normal speech, no gross weakness of arms, no gross weakness of legs. Medical Decision & Procedures ER Provider Diagnostic Interpretation: Radiology results as stated below per my review and the radiologist's interpretation: PA CHEST RADIOGRAPH AND UPRIGHT AND SUPINE AP RADIOGRAPHS OF THE ABDOMEN CLINICAL HISTORY: Abdominal pain. COMPARISON STUDY: Chest radiograph and abdominal series June 13, 2017. FINDINGS: There is mild left lower lung opacity. Artifact size is normal. Mediastinal contours are normal. There is no evidence of pulmonary edema. No pneumothorax or pleural effusion is present. No free air is present. There is a moderate amount of stool within the colon and rectum. A few oval shaped densities likely reflect ingested tablets. IMPRESSION: 1. No free air or evidence of bowel obstruction. 2. Moderate amount of stool within the colon and rectum. 3. Mild left lower lung opacity which could reflect atelectasis or an infectious process. Electronically signed by: Arcenio De La Torre M.D. 06/27/2017 7:02 PM Dictated Date/Time: 06/27/2017 7:00 PM Laboratory Results 06/27/17 17:35 Red Blood Count 4.51, Mean Corpuscular Volume 69.0, Mean Corpuscular Hemoglobin 20.4, Mean Corpuscular Hemoglobin Concent 29.6, Mean Platelet Volume 8.1, Neutrophils (%) (Auto) 45.1, Lymphocytes (%) (Auto) 42.5, Monocytes (%) (Auto) 4.8, Eosinophils (%) (Auto) 6.8, Basophils (%) (Auto) 0.5, Neutrophils # (Auto) 3.88, Lymphocytes # (Auto) 3.65, Monocytes # (Auto) 0.41, Eosinophils # (Auto) 0.58, Basophils # (Auto) 0.04 06/27/17 17:35 Test 06/27/17 17:35 06/27/17 20:25 White Blood Count 8.59 K/uL (4.8-10.8) Red Blood Count 4.51 M/uL (4.2-5.4) Hemoglobin 9.2 g/dL (12.0-16.0) Hematocrit 31.1 % (37-47) Mean Corpuscular Volume 69.0 fL (80-100) Mean Corpuscular Hemoglobin 20.4 pg (25-34) Mean Corpuscular Hemoglobin Concent 29.6 g/dl (32-36) Platelet Count 420 K/uL (130-400) Mean Platelet Volume 8.1 fL (7.4-10.4) Neutrophils (%) (Auto) 45.1 % Lymphocytes (%) (Auto) 42.5 % Monocytes (%) (Auto) 4.8 % Eosinophils (%) (Auto) 6.8 % Basophils (%) (Auto) 0.5 % Neutrophils # (Auto) 3.88 K/uL (1.4-6.5) Lymphocytes # (Auto) 3.65 K/uL (1.2-3.4) Monocytes # (Auto) 0.41 K/uL (0.11-0.59) Eosinophils # (Auto) 0.58 K/uL (0-0.5) Basophils # (Auto) 0.04 K/uL (0-0.2) RDW Standard Deviation 50.4 fL (36.4-46.3) RDW Coefficient of Variation 20.1 % (11.5-14.5) Immature Granulocyte % (Auto) 0.3 % Immature Granulocyte # (Auto) 0.03 K/uL (0.00-0.02) Hypochromasia PRESENT Anisocytosis PRESENT Microcytosis PRESENT Tear Drop Cells 1+ Schistocytes 1+ Anion Gap 9.0 mmol/L (3-11) Est Creatinine Clear Calc Drug Dose 142.8 ml/min Estimated GFR () 143.2 Estimated GFR (Non- 123.5 BUN/Creatinine Ratio 18.5 (10-20) Calcium Level 8.4 mg/dl (8.5-10.1) Total Bilirubin 0.2 mg/dl (0.2-1) Direct Bilirubin < 0.1 mg/dl (0-0.2) Aspartate Amino Transf (AST/SGOT) 17 U/L (15-37) Alanine Aminotransferase (ALT/SGPT) 27 U/L (12-78) Alkaline Phosphatase 75 U/L (45-117) Total Protein 7.5 gm/dl (6.4-8.2) Albumin 3.5 gm/dl (3.4-5.0) Lipase 256 U/L (73-393) Human Chorionic Gonadotropin, Qual NEG (NEG) Urine Color YELLOW Urine Appearance CLEAR (CLEAR) Urine pH 6.5 (4.5-7.5) Urine Specific Hospers 1.025 (1.000-1.030) Urine Protein NEG (NEG) Urine Glucose (UA) NEG (NEG) Urine Ketones TRACE (NEG) Urine Occult Blood NEG (NEG) Urine Nitrite NEG (NEG) Urine Bilirubin NEG (NEG) Urine Urobilinogen NEG (NEG) Urine Leukocyte Esterase NEG (NEG) Urine WBC (Auto) 1-5 /hpf (0-5) Urine RBC (Auto) 0-4 /hpf (0-4) Urine Hyaline Casts (Auto) 0 /lpf (0-5) Urine Epithelial Cells (Auto) 10-20 /lpf (0-5) Urine Bacteria (Auto) NEG (NEG) Urine Test NEG (NEG) Laboratory results per my review. Medications Administered Medications (Trade) Dose Ordered Sig/Jluis Route Start Time Stop Time Status Last Admin Dose Admin Lorazepam (Ativan Inj) 0.5 mg NOW STAT IV 06/27/17 19:05 06/27/17 19:06 DC 06/27/17 19:19 0.5 MG Albuterol Sulfate (Ventolin 0.083% 2.5MG/3ML Neb) 2.5 mg NOW STAT INH 06/27/17 19:05 06/27/17 19:06 DC 06/27/17 19:18 2.5 MG Levofloxacin (Levaquin Tab) 500 mg NOW ONCE PO 06/27/17 20:30 06/27/17 20:31 DC 06/27/17 20:49 500 MG ED Course ED COURSE: Vital signs were reviewed and showed tachycardia. The patients medical record was reviewed The above diagnostic studies were performed and reviewed. ED treatments and interventions as stated above. 1726: The patient was evaluated in room A12B. A complete history and physical examination was performed. 1904: Ordered Albuterol Sulfate 2.5mg INH, Lorazepam 0.5mg IV 1915: I reevaluated the patient and updated her of her current exam findings. 2007: I reevaluated the patient, and she is feeling better. 2021: I reevaluated the patient, and she is feeling better. She provided a urine sample, and she is talking on the phone. 2029: Ordered Levofloxacin 500mg PO 2120: Upon reevaluation, the patient is resting and comfortable. I discussed my findings with the patient and she understands and agrees with the treatment plan. Based on the patients age, coexisting illnesses, exam and lab findings the decision to treat as an outpatient was made. The patient remained stable while under my care. The patient appeared well at the time of discharge. Medical Decision Differential diagnoses includes but is not limited to gastritis, peptic ulcer disease, GERD, gallbladder disease, pancreatitis, small bowel obstruction, acute coronary syndrome, pericarditis, ischemic bowel, irritable bowel disease, irritable bowel syndrome, appendicitis, diverticulitis, malignancy, hernia, urinary tract infection, torsion, /ectopic (if female), perforation, trauma, infectious. Patient is a 32-year-old female seen multiple times for abdominal pain associated with nausea and vomiting. She notes she has no complaints currently. She notes only starts with her gagging and vomiting. She denies any shortness of breath. Chest x-ray supports a questionable infiltrate versus atelectasis. Abdominal exam is completely benign. X-rays is negative. GC shows a chronic anemia. BMP all LFTs, bilirubin and lipase is unremarkable. HCG was negative. UA was negative. was negative. Patient was given a small dose of Ativan and a neb treatment. She felt slightly better. She is discharged on a dose of Levaquin for possible pneumonia to follow-up with PCP. She'll be scoped this Wednesday. Discussed with Pt concerning signs and symptoms to watch out for. Pt was instructed to follow up with their PCP and discussed with the patient their option to return to the ED at anytime for persistent or worsening symptoms. The appropriate anticipatory guidance and out-patient management, including indications for return to the emergency department, were explained at length to the patient and understood. Medication Reconcilliation Current Medication List: was personally reviewed by me Blood Pressure Screening Patient's blood pressure: Normal blood pressure Blood pressure disposition: Did not require urgent referral Impression Primary Impression: Abdominal pain Additional Impressions: Pneumonia Chronic anemia Scribe Attestation The scribe's documentation has been prepared under my direction and personally reviewed by me in its entirety. I confirm that the note above accurately reflects all work, treatment, procedures, and medical decision making performed by me. Departure Information Dispostion Home / Self-Care Prescriptions Levofloxacin (LEVAQUIN) 500 Mg Tab 1 TAB PO DAILY for 7 Days, #7 TAB Prov: Vasu Johnson DO 06/27/17 Referrals Karely Oreilly D.O. (PCP) Forms HOME CARE DOCUMENTATION FORM, IMPORTANT VISIT INFORMATION Patient Instructions Abdominal Pain - [facility], My [facility], Pneumonia (Bacterial) - [facility] Additional Instructions Please follow up with your primary care doctor with in the next 24 hours. Any worsening of your symptoms, please return to the ED immediately. This includes any fevers greater than 100.4, worsening pain, chest pain, shortness breath, persistent nausea, vomiting, unable to eat or drink, or any other concerning signs or symptoms from your standpoint. You were given medications during this visit that will inhibit your ability to drive, operate machinery and work. Please do NOT drive, operate machinery, drink alcohol or work for the next 12hrs. Please take antibiotics as prescribed. Problem Qualifiers Primary Impression: Abdominal pain Abdominal location: epigastric Qualified Codes: R10.13 - Epigastric pain Additional Impressions: Pneumonia Pneumonia type: due to unspecified organism Laterality: unspecified laterality Lung location: unspecified part of lung Qualified Codes: J18.9 - Pneumonia, unspecified organism
== END 2017-06-27 21:34 | disposition home or self-care (01) ==
LOC: C.EDB 16:35 → C.EDA 21:34
DX: R10.10 Upper abdominal pain, unspecified (principal); J18.9 Pneumonia, unspecified organism; D64.9 Anemia, unspecified; J45.909 Unspecified asthma, uncomplicated; Z79.899 Other long term (current) drug therapy; Z88.0 Allergy status to penicillin; Z88.8 Allergy status to other drugs, medicaments and biological substances; Z91.010 Allergy to peanuts; Z91.011 Allergy to milk products

== ENCOUNTER → 2017-06-29 | Day surgery (SDC) | payer BC, OTHER ==
[2017-06-25 15:06] VITALS: Ht 162.6 cm; Wt 72.7 kg
[~2017-06-29] VITALS: Ht 162.6 cm; Wt 72.7 kg
[~2017-06-29] MED LIST changes: +ALBUTEROL 0.083% NEBU SOLN 3 ML VIAL INH STA; +LEVO1TAB34 PO; +LIDOCAINE HCL 2% 2 ML VIAL (20MG/ML) ONE; +MIDAZOLAM HCL 1 MG/ML 2ML VIAL ONE; +ONDANSETRON INJ 2 MG/ML 2 ML VIAL ONE; +PROPOFOL IV EMULSION 10 MG/ML 20 ML VIAL IV ONE; +SODIUM CHLORIDE 0.9% 500ML 500 ML IV ONE
--- NOTE | 2017-06-29 10:41 | Endo History and Physical ---
History & Physical Date of Service: Jun 29, 2017. Chief Complaint: Epigastric pain Referring Physician: Tonya History of Present Illness 32 yo who presents for regurgitation and vomiting Past Medical History Asthma Past Surgical History Hx Cardiac Surgery: No Hx Internal Defibrillator: No Hx Pacemaker: No Hx Abdominal Surgery: No Hx Post-Op Nausea and Vomiting: No Hx Cancer Surgery: No Hx Thoracic Surgery: Yes (BRONCHOSCOPY) Hx Orthopedic: No Hx Urinary Tract Surgery: No Family History None Social History Smoking Status: Never Smoker Hx Substance Use: No Hx Alcohol Use: No Allergies Coded Allergies: Cefuroxime (Verified Allergy, Severe, CHEST TIGHTENING, "FEEL LIKE CHOKING ", SOB, 06/27/17) Dairy (Verified Allergy, Severe, CHEST TIGHTENING, "CHOKING" FEELING, SOB , 06/27/17) Gluten (Verified Allergy, Severe, CHEST TIGHTENING, "CHOKING" FEELING, SOB , 06/27/17) Penicillins (Verified Allergy, Severe, CHEST TIGHTENING, "CHOKING" FEELING , SOB, 06/27/17) Peanut (Verified Allergy, Intermediate, "NON STOP COUGHING, FELT LIKE CHOKING", 06/27/17) Current Medications Reported Home Medications Medications Dose Route/Sig Max Daily Dose Days Date Category Levaquin (Levofloxacin) 500 Mg Tab 1 Tab PO DAILY 7 06/27/17 Rx Protonix (Pantoprazole Sodium) 40 Mg Tab 40 Mg PO QAM 06/25/17 Reported Ranitidine HCl 150 Mg Tab 150 Mg PO HS 30 05/27/17 Rx Control Pills (Miscellaneous) Tab 1 Tab PO HS 05/22/17 Reported Zofran Odt (Ondansetron HCl) 4 Mg Tab 4 Mg SL Q6H PRN 02/26/17 Reported Ventolin Hfa (Albuterol) 200 Puffs/50885 Mcg Aers 2 Puffs INH Q6H PRN 02/13/17 Reported Vital Signs Weight (Kilograms): 72.73 Height (Feet): 5 Height (Inches): 4 Date Time Temp Pulse Resp B/P (MAP) Pulse Ox O2 Delivery O2 Flow Rate FiO2 06/29/17 10:11 36.6 94 16 119/83 (95) 98 Room Air Physical Exam General Appearance: WD/WN, no apparent distress Respiratory/Chest: Respiratory effort: no dyspnea Auscultation: breath sounds normal Cardiovascular: Apical Impulse: not displaced Heart Auscultation: RRR Assessment and Plan 32 yo presenting for EGD for vomiting/regurgitation and GERD
[2017-06-29 10:53] VITALS: PULSE 91; O2SAT 99
--- NOTE | 2017-06-29 11:38 | GI REPORT ---
Procedure Date: 06/29/2017 11:07 AM Procedure: Upper GI endoscopy Indications: Nausea with vomiting, Regurgitation Medicines: General Anesthesia Complications: No immediate complications. Estimated blood loss: None. Estimated Blood Loss: Estimated blood loss: none. Procedure: Pre-Anesthesia Assessment: - Pre-Anesthesia Assessment: - Prior to the procedure, a History and Physical was performed, and patient medications, allergies and sensitivities were reviewed. The patient's tolerance of previous anesthesia was reviewed. Please see [facility] for complete details. - The risks and benefits of the procedure and the sedation options and risks were discussed with the patient. All questions were answered and informed consent was obtained. - Patient identification and proposed procedure were verified prior to the procedure by the physician and the nurse. The procedure was verified in the pre-procedure area in the procedure room. After obtaining informed consent, the endoscope was passed carefully and meticuously under direct vision and only advanced when the lumen was clearly identified, C02 insuflation was utilized throughout the entirity of the procedure. Throughout the procedure, the patient's blood pressure, pulse, and oxygen saturations were monitored continuously. After obtaining informed consent, the endoscope was passed under direct vision. Throughout the procedure, the patient's blood pressure, pulse, and oxygen saturations were monitored continuously. The Scope was introduced through the mouth, and advanced to the second part of duodenum. The upper GI endoscopy was accomplished without difficulty. The patient tolerated the procedure well. Findings: The examined esophagus was normal. Biopsies were taken with a cold forceps for histology. The entire examined stomach was normal. Biopsies were taken with a cold forceps for histology. The examined duodenum was normal. Biopsies were taken with a cold forceps for histology. Impression: - Normal esophagus. Biopsied. - Normal stomach. Biopsied. - Normal examined duodenum. Biopsied. Recommendation: - Await pathology results. - Discharge patient to home (with escort). - Return to referring physician as previously scheduled. - Continue present medications. Richi Friend MD 06/29/2017 11:37:48 AM This report has been signed electronically. Note Initiated On: 06/29/2017 11:07 AM I attest to the content of the Intraoperative Record and orders documented therein, exceptions below
--- NOTE | 2017-06-29 11:55 | Discharge Instructions ---
Endoscopy Patient Instructions Date / Procedure(s) Performed Jun 29, 2017. EGD Allergy Information Coded Allergies: Cefuroxime (Verified Allergy, Severe, CHEST TIGHTENING, "FEEL LIKE CHOKING ", SOB, 06/29/17) Dairy (Verified Allergy, Severe, CHEST TIGHTENING, "CHOKING" FEELING, SOB , 06/29/17) Gluten (Verified Allergy, Severe, CHEST TIGHTENING, "CHOKING" FEELING, SOB , 06/29/17) Penicillins (Verified Allergy, Severe, CHEST TIGHTENING, "CHOKING" FEELING , SOB, 06/29/17) Peanut (Verified Allergy, Intermediate, "NON STOP COUGHING, FELT LIKE CHOKING", 06/29/17) Discharge Date / Findings Jun 29, 2017. Impression: - Normal esophagus. Biopsied. - Normal stomach. Biopsied. - Normal examined duodenum. Biopsied. Recommendation: - Await pathology results. - Discharge patient to home (with escort). - Return to referring physician as previously scheduled. - Continue present medications. Provider Instructions Activity Restrictions - No exercising or heavy lifting for 24 hours. - Do not drink alcohol the day of the procedure. - Do not drive a car or operate machinery until the day after the procedure. - Do not make any important decisions or sign important papers in 24 hours after the procedure. Following Day: - Return to full activity which may include returning to work/school. Diet Start your diet with liquids and light foods (jello, soup, juice, toast). Then eat your usual diet if not nauseated. Treatment For Common After Affects For mild abdominal pain, bloating, or excessive gas: - Rest - Eat lightly - Lie on right side Follow-Up Information Follow-up with [facility] as scheduled Anesthesia Information What You Should Know You have had a procedure that required some medicine to reduce anxiety and discomfort. This treatment is called moderate sedation. After receiving the treatment, you may be sleepy, but you will be able to breathe on your own. The effects of the treatment may last for several hours. Follow these instructions along with Activity/Diet recommendations noted above: * Do NOT do anything where dizziness or clumsiness would be dangerous. * Rest quietly at home today, then you can be up and about tomorrow. * Have a responsible person stay with you the rest of today. * You may have had an I.V. today. If so, you may take the dressing off later today. Recommendations Call your doctor if: * Trouble breathing * Continuous vomiting for more than 24 hours * Temperature above 101 degrees * Severe abdominal pain or bloating * Pain not relieved by pain medicine ordered * There is increased drainage or redness from any incision * A large amount of rectal bleeding greater than 2-3 tablespoons. (If you had a polyp/s removed or have hemorrhoids, a small amount of blood - from the rectum is to be expected.) * You have any unanswered questions or concerns. IN THE EVENT OF A SERIOUS EMERGENCY, GO TO THE NEAREST EMERGENCY ROOM Your discharge instructions were prepared by provider Richi Friend. Patient Instructions Signature Page Phuong Mulligan Patient (or Guardian) Signature/Date: I have read and understand the instructions given to me by my caregivers. Caregiver/RN/Doctor Signature/Date: The above-named patient and/or guardian has received patient instructions on this date. + Original Patient Signature Page (only) stays with chart. Please make copy for patient.
[2017-06-29 13:10] VITALS: BP 112/73; PULSE 90; O2SAT 96
--- NOTE | 2017-06-29 13:28 | Anesthesiology Progress Note ---
Anesthesia Post Op Note Date & Time Jun 29, 2017 at 13:27 Vital Signs Pain Intensity: 0 Vital Signs Past 12 Hours Date Time Temp Pulse Resp B/P (MAP) Pulse Ox O2 Delivery O2 Flow Rate FiO2 06/29/17 13:10 90 18 112/73 (86) 96 Room Air 06/29/17 12:20 100 18 131/70 (90) 98 Room Air 06/29/17 12:05 107 18 103/74 (84) 99 Room Air 06/29/17 11:40 104 18 110/61 (77) 98 Mask 10 06/29/17 10:53 91 14 99 Room Air 06/29/17 10:11 36.6 94 16 119/83 (95) 98 Room Air Notes Mental Status: alert / awake / arousable, participated in evaluation Pt Amnestic to Procedure: Yes Nausea / Vomiting: adequately controlled Pain: adequately controlled Airway Patency, RR, SpO2: stable & adequate BP & HR: stable & adequate Hydration State: stable & adequate Anesthetic Complications: no major complications apparent
== END | disposition home or self-care (01) ==
LOC: C.GI 09:46
PROVIDERS: ATTEND Internal Medicine
DX: K29.50 Unspecified chronic gastritis without bleeding (principal); J45.909 Unspecified asthma, uncomplicated; Z88.0 Allergy status to penicillin; Z91.011 Allergy to milk products; Z79.3 Long term (current) use of hormonal contraceptives; Z68.27 Body mass index [BMI] 27.0-27.9, adult

== ENCOUNTER 2017-07-13 23:58 | Emergency (ER) | payer OTHER ==
[~2017-07-13] VITALS: Ht 162.6 cm; Wt 75.3 kg
[~2017-07-13 23:58] MED LIST changes: -ALBUTEROL 0.083% NEBU SOLN 3 ML VIAL INH STA; -LEVO1TAB34 PO; -LIDOCAINE HCL 2% 2 ML VIAL (20MG/ML) ONE; -MIDAZOLAM HCL 1 MG/ML 2ML VIAL ONE; -ONDANSETRON INJ 2 MG/ML 2 ML VIAL ONE; -PROPOFOL IV EMULSION 10 MG/ML 20 ML VIAL IV ONE; -SODIUM CHLORIDE 0.9% 500ML 500 ML IV ONE
[2017-07-14 00:15] VITALS: O2SAT 95; Ht 162.6 cm; Wt 75.3 kg
[2017-07-14] MEDS ORDERED: SODIUM CHLORIDE 0.9% 1000ML 2,000 ML IV STA (00:23)
[2017-07-14] MEDS ORDERED: MAGNESIUM SULFATE 1GM / D5W 1 GM BAG IV STA (00:23)
[2017-07-14] MEDS ORDERED: ALBUT/IPRATROP 3MG/0.5MG NEB 3 ML VIAL INH ONE (00:30)
--- NOTE | 2017-07-14 00:31 | EMERGENCY ROOM VISIT NOTE ---
History Report prepared by Moses: Al Valderrama Under the Supervision of: Dr. Lee Alberto M.D. First contact with patient: 00:19 Chief Complaint: SHORTNESS OF BREATH Stated Complaint: Short of Breath Nursing Triage Summary: Pt arrives by ALS from home for c/o SOB. reports onset of SOB this evening, hx of asthma and states that his does happen at times. pt tried inhaler at home without relief. Medicated with Albuterol tx en route. Some relief. Denies CP History of Present Illness The patient is a 32 year old female who presents to the Emergency Room with complaints of constant shortness of breath beginning this morning. The patient states that she has a history of asthma, and notes that her current symptoms feel like one of her normal asthma flare ups. She reports that she took her normal asthma medication today but states that she still felt as though she was "choking and could not breathe in." She notes that she is currently feeling better after nebulizer treatment. She reports that she took her typical asthma medication prior to arrival with no relief to her symptoms. She reports that she has been previously admitted to the intensive care unit for her asthma symptoms and states that her flare ups are typically triggered by the cold weather. She denies any fevers, chills, nausea, vomiting, and urinary problems. She also complains of lightheadedness. The patient states that she had a partially collapsed lung a couple of months ago. She notes that her last menstrual cycle was a month ago and that there is no chance that she is . She reports that she was on antibiotics up until two weeks ago. Source of History: patient Onset: this morning Position: chest Quality: other (SOB) Timing: constant Modifying Factors (Relieving): other (nebulizer treatment) Associated Symptoms: No fevers, No chills, No nausea, No vomiting, No urinary symptoms Note: She also complains of lightheadedness. Review of Systems See HPI for pertinent positives and negatives. A total of ten systems were reviewed and were otherwise negative. Past Medical & Surgical Medical Problems: (1) Asthma, Unspecified (2) Nausea (3) Sepsis Surgical Problems: (1) No significant past surgical history Family History No significant family history Social History Smoking Status: Never Smoker Alcohol Use: occasionally Drug Use: none Marital Status: single Housing Status: lives with family Occupation Status: employed Current/Historical Medications Scheduled Azithromycin (Zithromax), 250 MG PO DAILY Control Pills ( Control Pills), 1 TAB PO HS Pantoprazole (Protonix), 40 MG PO QAM Prednisone (Prednisone), 0 PO DAILY Ranitidine HCl (Ranitidine HCl), 150 MG PO HS Scheduled PRN Albuterol Hfa (Ventolin Hfa), 2 PUFFS INH Q6H PRN for Shortness of Breath Ondasetron Odt (Zofran Odt), 4 MG SL Q6H PRN for Nausea or Vomiting Allergies Coded Allergies: Cefuroxime (Verified Allergy, Severe, CHEST TIGHTENING, "FEEL LIKE CHOKING ", SOB, 07/14/17) Dairy (Verified Allergy, Severe, CHEST TIGHTENING, "CHOKING" FEELING, SOB , 07/14/17) Gluten (Verified Allergy, Severe, CHEST TIGHTENING, "CHOKING" FEELING, SOB , 07/14/17) Penicillins (Verified Allergy, Severe, CHEST TIGHTENING, "CHOKING" FEELING , SOB, 07/14/17) Peanut (Verified Allergy, Intermediate, "NON STOP COUGHING, FELT LIKE CHOKING", 07/14/17) Physical Exam Vital Signs Date Time Temp Pulse Resp B/P (MAP) Pulse Ox O2 Delivery O2 Flow Rate FiO2 07/14/17 03:22 36.7 100 18 110/60 93 07/14/17 02:31 109 18 109/63 91 Room Air 07/14/17 00:56 98 20 116/65 100 Nebulizer 07/14/17 00:56 100 07/14/17 00:39 94 26 96 Room Air 07/14/17 00:15 94 Room Air 07/14/17 00:15 36.5 103 20 121/78 94 Room Air 07/14/17 00:15 95 Room Air Physical Exam GENERAL: Awake, alert, appearing mildly dyspneic , in no distress HENT: Normocephalic, atraumatic. Oropharynx dry mm but otherwise unremarkable. EYES: Normal conjunctiva. Sclera non-icteric. NECK: Supple. No nuchal rigidity. FROM. No JVD. RESPIRATORY: Diffuse wheezing but good air movement. CARDIAC: ST. Extremities warm and well perfused. Pulses equal. ABDOMEN: Soft, non-distended. No tenderness to palpation. No rebound or guarding. No masses. RECTAL: Deferred. MUSCULOSKELETAL: Chest examination reveals no tenderness. The back is symmetrical on inspection without obvious abnormality. There is no CVA tenderness to palpation. No joint edema. LOWER EXTREMITIES: Calves are equal size bilaterally and non-tender. No edema. No discoloration. NEURO: Normal sensorium. No sensory or motor deficits noted. SKIN: No rash or jaundice noted. Medical Decision & Procedures ER Provider Diagnostic Interpretation: Radiology results as stated below per my review and radiologist interpretation: CHEST X-RAY: Mild lung field linear opacities, atelectases versus resolving pneumonia. Laboratory Results 07/14/17 00:35 Red Blood Count 4.60, Mean Corpuscular Volume 68.3, Mean Corpuscular Hemoglobin 19.8, Mean Corpuscular Hemoglobin Concent 29.0, Mean Platelet Volume 8.3, Neutrophils (%) (Auto) 42.5, Lymphocytes (%) (Auto) 38.6, Monocytes (%) (Auto) 3.9, Eosinophils (%) (Auto) 14.4, Basophils (%) (Auto) 0.3, Neutrophils # (Auto ) 4.85, Lymphocytes # (Auto) 4.41, Monocytes # (Auto) 0.45, Eosinophils # (Auto ) 1.65, Basophils # (Auto) 0.03 07/14/17 00:35 Test 07/14/17 00:35 White Blood Count 11.43 K/uL (4.8-10.8) Red Blood Count 4.60 M/uL (4.2-5.4) Hemoglobin 9.1 g/dL (12.0-16.0) Hematocrit 31.4 % (37-47) Mean Corpuscular Volume 68.3 fL (80-100) Mean Corpuscular Hemoglobin 19.8 pg (25-34) Mean Corpuscular Hemoglobin Concent 29.0 g/dl (32-36) Platelet Count 589 K/uL (130-400) Mean Platelet Volume 8.3 fL (7.4-10.4) Neutrophils (%) (Auto) 42.5 % Lymphocytes (%) (Auto) 38.6 % Monocytes (%) (Auto) 3.9 % Eosinophils (%) (Auto) 14.4 % Basophils (%) (Auto) 0.3 % Neutrophils # (Auto) 4.85 K/uL (1.4-6.5) Lymphocytes # (Auto) 4.41 K/uL (1.2-3.4) Monocytes # (Auto) 0.45 K/uL (0.11-0.59) Eosinophils # (Auto) 1.65 K/uL (0-0.5) Basophils # (Auto) 0.03 K/uL (0-0.2) RDW Standard Deviation 47.8 fL (36.4-46.3) RDW Coefficient of Variation 19.4 % (11.5-14.5) Immature Granulocyte % (Auto) 0.3 % Immature Granulocyte # (Auto) 0.04 K/uL (0.00-0.02) Hypochromasia PRESENT Microcytosis PRESENT Tear Drop Cells 1+ Ovalocytes 1+ Anion Gap 9.0 mmol/L (3-11) Est Creatinine Clear Calc Drug Dose 117.4 ml/min Estimated GFR () 134.4 Estimated GFR (Non- 116.0 BUN/Creatinine Ratio 16.7 (10-20) Calcium Level 8.7 mg/dl (8.5-10.1) Human Chorionic Gonadotropin, Qual NEG (NEG) Laboratory results reviewed by me Medications Administered Medications (Trade) Dose Ordered Sig/Jluis Route Start Time Stop Time Status Last Admin Dose Admin Albuterol/ Ipratropium (Duoneb) 12 ml ONE ONCE INH 07/14/17 00:30 07/14/17 00:31 DC 07/14/17 00:37 12 ML Prednisone (PredniSONE TAB) 60 mg NOW STAT PO 07/14/17 00:23 07/14/17 00:29 DC 07/14/17 00:50 60 MG Magnesium Sulfate (Magnesium Sulfate) 2 gm NOW STAT IV 07/14/17 00:23 07/14/17 00:29 DC 07/14/17 00:50 2 GM Sodium Chloride 2,000 ml @ 999 mls/hr Q2H1M STAT IV 07/14/17 00:23 07/14/17 02:23 DC 07/14/17 00:51 999 MLS/HR Azithromycin (Zithromax Tab) 500 mg NOW ONCE PO 07/14/17 03:15 07/14/17 03:16 DC 07/14/17 03:09 500 MG ECG Indication: SOB/dyspnea Rate (beats per minute): 89 Rhythm: normal sinus Findings: no acute ischemic change, other (normal axis) ED Course 0022: The patient was evaluated in room C12. A complete history and physical exam was performed. 0023: Magnesium Sulfate 2gm IV, Prednisone 60mg PO, Sodium Chloride 2000 ml @ 999 mls/hr IV 0030: Duoneb 12ml INH 0205: I reevaluated and updated the patient. She is feeling better. Medical Decision I reviewed the patient's past medical history, medications, and the nursing notes as described above. Differential diagnoses include: pneumonia, bronchitis, asthma exacerbation, pericarditis, ACS, PE The patient is a 32 y/o woman with a pmhx of asthma with prior hospitalization and ICU admissions presents to the ED with acute exacerbation of her asthma sx per HPI. Of note, patient currently on prednisone taper after being seen in the ED 1.5 weeks ago when treated for PNA. On arrival the patient is dysniec but in NAD. AF. HR 100s but otherwise VSS. Has diffuse wheezing but with good air movement. Given 1 hour continuous neb, prednisone, mag, IVF with good effect. Patient feeling improved and OK for d/c. My preliminary interpretatino of CXR with ?left lung field atelectasis vs resolving PNA. Given the patient's history of hospitalizations will treat with Azithro and restart patient's steroid taper. Findings and plan for follow-up reviewed with patient. Patient agreeable and d/c'd per discharge instructions. Medication Reconcilliation Current Medication List: was personally reviewed by me Blood Pressure Screening Patient's blood pressure: Normal blood pressure Impression Primary Impression: Asthma with exacerbation Scribe Attestation The scribe's documentation has been prepared under my direction and personally reviewed by me in its entirety. I confirm that the note above accurately reflects all work, treatment, procedures, and medical decision making performed by me. Departure Information Prescriptions Azithromycin (Zithromax) 250 Mg Tab 250 MG PO DAILY, #4 TAB Prov: Lee Alberto M.D. 07/14/17 Prednisone (Prednisone) 20 Mg Tab 0 PO DAILY, #18 TAB 3 DAILY FOR 3 DAYS, THEN 2 DAILY FOR 3 DAYS, THEN 1 DAILY FOR 3 DAYS. Prov: Lee Alberto M.D. 07/14/17 Referrals Karely Oreilly D.O. (PCP) Patient Instructions Asthma, My [facility] Additional Instructions Please follow up with your primary care physician in the next 1-3 days for re- evaluation. You were seen for an asthma attack and improved with nebulizer and prednisone. Otherwise, your exam, EKG, chest xray, and lab results did not show signs of an emergent condition at this time. Restart prednisone taper as directed. Azithromycin as directed. Use your inhaler or nebulizer every 4 hours for the next 48 hours scheduled and then as needed thereafter. Return to the emergency department for worsening symptoms as described in the accompanying instructions.
[2017-07-14 00:39] VITALS: PULSE 94; O2SAT 96
[2017-07-14 00:51] LABS: BASO % 0.3 %; BASO ABS # 0.03 K/uL (0-0.2); EOS % 14.4 %; HEMATOCRIT 31.4 % (37-47); IG% 0.3 %; LYMPH % 38.6 %; LYMPH ABS # 4.41 K/uL (1.2-3.4); MEAN CELL VOLUME 68.3 fL (80-100); MEAN CORPUSCULAR HEMOGLOBIN 19.8 pg (25-34); MEAN PLATELET VOLUME 8.3 fL (7.4-10.4); MONO % 3.9 %; NEUT % 42.5 %; PLATELET COUNT 589 K/uL (130-400); WHITE BLOOD COUNT 11.43 K/uL (4.8-10.8)
[2017-07-14 01:12] LABS: BUN/CREATININE RATIO 16.7 (10-20); CALCIUM 8.7 mg/dl (8.5-10.1); CREATININE 0.69 mg/dl (0.60-1.20); POTASSIUM 3.6 mmol/L (3.5-5.1)
[2017-07-14 01:17] LABS: PREG INTERNAL NEGATIVE QC NEG CLEAR BACKGROUND; PREG INTERNAL POSITIVE QC POS CONTROL LINE
[2017-07-14 01:19] LABS: COMPLETE YES; HYPOCHROMIA PRESENT; MICROCYTOSIS PRESENT; OVALOCYTES 1+; TEAR DROP CELLS 1+
[2017-07-14] MEDS ORDERED: PRED20TA PO (02:35)
[2017-07-14] MEDS ORDERED: AZIT250T PO (02:41)
[2017-07-14] MEDS ORDERED: AZITHROMYCIN 250 MG TAB PO ONE (03:15)
[2017-07-14 03:22] VITALS: BP 110/60; PULSE 100; TEMP 36.7; O2SAT 93
--- NOTE | 2017-07-14 06:41 | DIAGNOSTIC IMAGING REPORT ---
CHEST ONE VIEW PORTABLE CLINICAL HISTORY: Chest pain. COMPARISON STUDY: Chest CT May 23, 2017 and chest radiograph June 27, 2017. FINDINGS: Lung volumes are normal. No pneumothorax or pleural effusion is present. There is no evidence of pulmonary edema. Cardiac size is normal. Slight left hilar prominence is noted. IMPRESSION: Mild left hilar/suprahilar prominence. This is likely due to normal structures although an infectious process could appear similar. Electronically signed by: Arcenio De La Torre M.D. 07/14/2017 6:39 AM Dictated Date/Time: 07/14/2017 6:36 AM
== END 2017-07-14 03:22 | disposition home or self-care (01) ==
LOC: EDBD 23:58 → C.EDC 23:59 → C.EDB 07-14 03:22
DX: J45.901 Unspecified asthma with (acute) exacerbation (principal); Z79.3 Long term (current) use of hormonal contraceptives; Z79.899 Other long term (current) drug therapy

== ENCOUNTER 2017-08-09 05:38 | Inpatient (IN) | payer OTHER ==
[2017-08-09] VITALS (8 sets, daily range): BP systolic 103–128; BP diastolic 65–75; PULSE 72–128; TEMP 36.2–36.3; O2SAT 94–98; Ht 162.6 cm; Wt 75.3 kg
[~2017-08-09] VITALS: Ht 162.6 cm; Wt 75.3 kg
[~2017-08-09 05:38] MED LIST changes: +AZIT250T PO; +PRED20TA PO
[2017-08-09] MEDS ORDERED: METHYLPREDNISOLONE 125 MG VIAL IV STA (05:55)
[2017-08-09] MEDS ORDERED: MAGNESIUM SULFATE 1GM / D5W 1 GM BAG IV STA (05:55)
--- NOTE | 2017-08-09 05:59 | EMERGENCY ROOM VISIT NOTE ---
History Report prepared by Moses: Bret Horner Under the Supervision of: Dr. Kriss Vyas D.O. First contact with patient: 05:42 Chief Complaint: RESPIRATORY DISTRESS Stated Complaint: RESPIRATORY DISTRESS History of Present Illness The patient is a 32 year old female who presents to the Emergency Room with complaints of worsening respiratory difficulty that the patient woke up to this morning, shortly prior to arrival. The patient states that her asthma has given her difficulty for the past couple of years. When she woke up this morning she was coughing significantly and felt "tightness" in her chest. She was using Venilon and inhalers to try to get back to sleep, without any relief. The patient is on Prednisone, 20 mg daily. She notes having a history of a collapsed lung and had a bronchoscopy this past May. She received a nebulizer treatment en route to the hospital. Source of History: patient Onset: Shortly prior to arrival Position: chest (Respiratory) Quality: other Associated Symptoms: + chest pain Review of Systems See HPI for pertinent positives & negatives. A total of 10 systems reviewed and were otherwise negative. Past Medical & Surgical Medical Problems: (1) Asthma, Unspecified (2) Nausea (3) Sepsis Surgical Problems: (1) No significant past surgical history Family History No significant family history Social History Smoking Status: Never Smoker Alcohol Use: occasionally Drug Use: none Marital Status: single Housing Status: lives with family Occupation Status: employed Current/Historical Medications Scheduled Albuterol Sulfate (Albuterol Sulfate), 1 VIAL NEB TID Control Pills ( Control Pills), 1 TAB PO HS Fluticasone Prop/Salmeterol (Advair Diskus 100-50 Mcg/Dose), 1 PUFF INH BID Levofloxacin (Levaquin), 1 TAB OR DAILY Montelukast Sodium (Singulair), 10 MG PO HS Pantoprazole (Protonix), 40 MG PO QAM Prednisone (Prednisone), 2 TAB OR DAILY Ranitidine HCl (Ranitidine HCl), 150 MG PO HS Scheduled PRN Albuterol Hfa (Ventolin Hfa), 2 PUFFS INH Q6H PRN for Shortness of Breath Ondasetron Odt (Zofran Odt), 4 MG SL Q6H PRN for Nausea or Vomiting Durable Medical Equipment Nebulizer Machine (Home Use) (Nebulizer Machine (Home Use) ), EA N/A UD Allergies Coded Allergies: Cefuroxime (Verified Allergy, Severe, CHEST TIGHTENING, "FEEL LIKE CHOKING ", SOB, 08/09/17) Dairy (Verified Allergy, Severe, CHEST TIGHTENING, "CHOKING" FEELING, SOB , 08/09/17) Gluten (Verified Allergy, Severe, CHEST TIGHTENING, "CHOKING" FEELING, SOB , 08/09/17) Penicillins (Verified Allergy, Severe, CHEST TIGHTENING, "CHOKING" FEELING , SOB, 08/09/17) Peanut (Verified Allergy, Intermediate, "NON STOP COUGHING, FELT LIKE CHOKING", 08/09/17) Physical Exam Vital Signs Date Time Temp Pulse Resp B/P (MAP) Pulse Ox O2 Delivery O2 Flow Rate FiO2 08/09/17 07:16 94 Nasal Cannula 2.0 08/09/17 07:15 88 Room Air 08/09/17 07:04 110 24 129/79 92 Room Air 08/09/17 06:20 90 20 134/72 100 Room Air 08/09/17 06:06 100 20 95 Room Air 08/09/17 05:46 102 08/09/17 05:44 Room Air 92 08/09/17 05:42 92 Room Air 08/09/17 05:39 36.5 103 20 117/76 92 Room Air Physical Exam GENERAL: alert, well appearing, well nourished, no distress, non-toxic EYE EXAM: normal conjunctiva, PERRL and EOM's grossly intact OROPHARYNX: no exudate, no erythema, lips, buccal mucosa, and tongue normal and mucous membranes are moist NECK: supple, no nuchal rigidity, no adenopathy, non-tender LUNGS: Bilateral inspiratory and expiratory wheezes to auscultation. Normal chest wall mechanics HEART: no murmurs, S1 normal and S2 normal ABDOMEN: abdomen soft, non-tender, normo-active bowel sounds, no masses, no rebound or guarding. BACK: Back is symmetrical on inspection and there is no deformity, no midline tenderness, no CVA tenderness. SKIN: no rashes and no bruising UPPER EXTREMITIES: upper extremities are grossly normal. LOWER EXTREMITIES: No pitting edema. NEURO EXAM: Normal sensorium. Medical Decision & Procedures ER Provider Diagnostic Interpretation: CHEST 2 VIEWS ROUTINE CLINICAL HISTORY: cough, sob dyspnea COMPARISON STUDY: 07/14/2017 FINDINGS: Small parenchymal infiltrate left base. Lungs otherwise appear clear. Diaphragms smooth. Costophrenic angles are sharp. IMPRESSION: Small parenchymal infiltrate left base. The above report was generated using voice recognition software. It may contain grammatical, syntax or spelling errors. Electronically signed by: Gurinder Lau M.D. 08/09/2017 7:39 AM Dictated Date/Time: 08/09/2017 7:38 AM Laboratory Results Test 08/09/17 06:15 Prothrombin Time 10.2 SECONDS (9.0-12.0) Prothromb Time International Ratio 1.0 (0.9-1.1) Activated Partial Thromboplast Time 28.5 SECONDS (21.0-31.0) Partial Thromboplastin Ratio 1.1 Medications Administered Medications (Trade) Dose Ordered Sig/Jluis Route Start Time Stop Time Status Last Admin Dose Admin Albuterol/ Ipratropium (Duoneb) 12 ml ONE ONCE INH 08/09/17 06:00 08/09/17 06:01 DC 08/09/17 06:06 12 ML Magnesium Sulfate (Magnesium Sulfate) 2 gm NOW STAT IV 08/09/17 05:55 08/09/17 05:57 DC 08/09/17 06:16 2 GM Methylprednisolone Sodium Succinate (Solu-Medrol IV) 60 mg NOW STAT IV 08/09/17 05:55 08/09/17 05:57 DC 08/09/17 06:16 60 MG Albuterol/ Ipratropium (Duoneb) 12 ml ONE ONCE INH 08/09/17 07:45 08/09/17 07:46 DC 08/09/17 07:50 12 ML Levofloxacin (Levaquin / D5W) 750 mg NOW STAT IV 08/09/17 07:55 08/09/17 07:57 DC 08/09/17 08:10 750 MG ECG Indication: SOB/dyspnea Rate (beats per minute): 96 Rhythm: normal sinus Findings: no acute ischemic change, no ectopy, other (Normal axis normal intervals) ED Course 0543: The patient was evaluated in room A10. A complete history and physical exam was performed. 0555: I reviewed the EMR, and the patient's Bronchoscopy from May 2017. I also reviewed EGD that was performed in June of 2017. EGD was normal. 0735: RA sats following continuous neb 88%, pt placed on NC. States feeling improved though. Repeat lung exam with improved air movement, now with more diffuse b/l wheezing. Will order additional nebs. Awaiting CXR read by lex. 0745: CXR with infiltrate. Will add labs. 0804: D/W hospitalist for admission. Medical Decision Differential diagnosis: Etiologies such as infections, reactive airway disease, pneumonia, pneumothorax , COPD, CHF, cardiac ischemia, pulmonary embolism, musculoskeletal, gastrointestinal, as well as others were entertained. Pt with extensive hx of asthma and pneumonia, recent bronch and EGD as pt's symptoms have been difficult to control. Given hypoxia after continuous neb and pneumonia on cxr, discussed with hospitalist for additional evaluation. Doubt PE, doubt bacteremia/sepsis. Other VS stable. Medication Reconcilliation Current Medication List: was personally reviewed by me Blood Pressure Screening Patient's blood pressure: Elevated blood pressure Blood pressure disposition: Elevated BP felt to be situational Consults Time Called: 0758 Consulting Physician: Hospitalist Returned Call: 08 Dr. Hicks Impression Primary Impression: Acute asthma exacerbation Additional Impressions: Pneumonia Hypoxia Scribe Attestation The scribe's documentation has been prepared under my direction and personally reviewed by me in its entirety. I confirm that the note above accurately reflects all work, treatment, procedures, and medical decision making performed by me. Departure Information Prescriptions Ranitidine HCl (Ranitidine HCl) 150 Mg Tab 150 MG PO HS for 30 Days, #30 TAB Prov: Merritt Redding M.D. 08/10/17 Albuterol Sulfate (ALBUTEROL SULFATE) 0.63 Mg/3 Ml Neb 1 VIAL NEB TID for Shortness of Breath for 25 Days, #225 ML Prov: Merritt Redding M.D. 08/10/17 Nebulizer Machine (Home Use) (NEBULIZER MACHINE (HOME USE) ) Mis EA N/A UD, #1 Prov: Merritt Redding M.D. 08/10/17 Levofloxacin (Levaquin) 500 Mg Tab 1 TAB OR DAILY, #5 TAB Prov: Merritt Redding M.D. 08/10/17 Prednisone (Prednisone) 20 Mg Tab 2 TAB OR DAILY for 5 Days, #10 TAB Prov: Merritt Redding M.D. 08/10/17 Montelukast Sodium (SINGULAIR) 10 Mg Tab 10 MG PO HS for 30 Days, #30 TAB 1 Refill Prov: Merritt Redding M.D. 08/10/17 Fluticasone Prop/Salmeterol (Advair Diskus 100-50 Mcg/Dose) 14 Puff/1 Inhaler Aerp 1 PUFF INH BID for 30 Days, #1 INHALER 1 Refill Prov: Merritt Redding M.D. 08/10/17 Pantoprazole (Protonix) 40 Mg Tab 40 MG PO QAM for 30 Days, #30 TAB Prov: Merritt Redding M.D. 08/10/17 Albuterol Hfa (VENTOLIN HFA) 200 Puffs/35688 Mcg Aers 2 PUFFS INH Q6H Y for Shortness of Breath for 30 Days, #1 INHALER 1 Refill Prov: Merritt Redding M.D. 08/10/17 Referrals Karely Oreilly D.OKirk (PCP) Patient Instructions Asthma - [facility], COPD - [facility], Croup - [facility], [facility] Problem Qualifiers Primary Impression: Acute asthma exacerbation Asthma severity: severe Asthma persistence: persistent Qualified Codes: J45.51 - Severe persistent asthma with (acute) exacerbation Additional Impressions: Pneumonia Pneumonia type: due to unspecified organism Laterality: left Lung location : lower lobe of lung Qualified Codes: J18.1 - Lobar pneumonia, unspecified organism
[2017-08-09] MEDS ORDERED: ALBUT/IPRATROP 3MG/0.5MG NEB 3 ML VIAL INH ONE ×2 (06:00→07:45)
--- NOTE | 2017-08-09 07:40 | DIAGNOSTIC IMAGING REPORT ---
CHEST 2 VIEWS ROUTINE CLINICAL HISTORY: cough, sob dyspnea COMPARISON STUDY: 07/14/2017 FINDINGS: Small parenchymal infiltrate left base. Lungs otherwise appear clear. Diaphragms smooth. Costophrenic angles are sharp. IMPRESSION: Small parenchymal infiltrate left base. The above report was generated using voice recognition software. It may contain grammatical, syntax or spelling errors. Electronically signed by: Gurinder Lau M.D. 08/09/2017 7:39 AM Dictated Date/Time: 08/09/2017 7:38 AM
[2017-08-09] MEDS ORDERED: LEVAQUIN 750MG / 150ML D5W IV STA (07:55)
[2017-08-09 08:04] LABS: BASO % 0.6 %; BASO ABS # 0.08 K/uL (0-0.2); EOS % 30.9 %; HEMATOCRIT 34.7 % (37-47); IG% 0.2 %; LYMPH % 31.5 %; LYMPH ABS # 4.06 K/uL (1.2-3.4); MEAN CELL VOLUME 68.7 fL (80-100); MEAN CORPUSCULAR HEMOGLOBIN 20.4 pg (25-34); MEAN CORPUSCULAR HGB CONC 29.7 g/dl (32-36); MEAN PLATELET VOLUME 8.7 fL (7.4-10.4); NEUT % 32.8 %; PLATELET COUNT 526 K/uL (130-400); RED BLOOD COUNT 5.05 M/uL (4.2-5.4)
[2017-08-09 08:12] LABS: BUN/CREATININE RATIO 10.5 (10-20); CALCIUM 9.4 mg/dl (8.5-10.1); CREATININE 0.74 mg/dl (0.60-1.20); POTASSIUM 4.3 mmol/L (3.5-5.1)
[2017-08-09 08:27] LABS: ANISOCYTOSIS PRESENT; COMPLETE YES; MICROCYTOSIS PRESENT; OVALOCYTES 1+
[2017-08-09] MEDS ORDERED: MONT1TAB3 PO (08:40)
[2017-08-09] MEDS ORDERED: IPRASOL4 INH (08:40)
[2017-08-09] MEDS ORDERED: ADVIN10050 INH (08:40)
[2017-08-09] MEDS ORDERED: POLYETHYLENE (MIRALAX) 17 GM PACK PO PRN (08:45)
[2017-08-09] MEDS ORDERED: ALBUTEROL HFA 8 GM INHALER INH PRN (08:45)
[2017-08-09] MEDS ORDERED: LEVALBUTEROL/IPRATROPIUM NEB INH PRN (08:45)
[2017-08-09] MEDS ORDERED: ONDANSETRON 4MG OD TAB SL PRN (08:45)
[2017-08-09] MEDS ORDERED: ALUMINUM/MAGNESIUM/SIMETH (MAALOX MAX) 30 ML UDC PO PRN (08:45)
[2017-08-09] MEDS ORDERED: ACETAMINOPHEN 325 MG TAB PO PRN (08:45)
[2017-08-09] MEDS ORDERED: NITROGLYCERIN 0.4 MG SL PER TAB CHARGE SL PRN (08:45)
[2017-08-09] MEDS ORDERED: ONDANSETRON INJ 2 MG/ML 2 ML VIAL IV PRN (08:45)
[2017-08-09] MEDS ORDERED: IPRATROPIUM BROMIDE NEB SOLN 0.02% 2.5 ML VIAL INH PRN (09:00)
[2017-08-09] MEDS ORDERED: LEVALBUTEROL/IPRATROPIUM NEB INH SCH ×2 (09:00)
[2017-08-09] MEDS ORDERED: LEVALBUTEROL 1.25MG/0.5ML NEB INH PRN (09:00)
[2017-08-09] MEDS ORDERED: LEVALBUTEROL 0.63MG/3 ML NEB INH SCH (09:00)
[2017-08-09] MEDS ORDERED: IPRATROPIUM BROMIDE NEB SOLN 0.02% 2.5 ML VIAL INH SCH (09:00)
--- NOTE | 2017-08-09 09:30 | HISTORY & PHYSICAL EXAMINATION ---
DATE OF ADMISSION: 08/09/2017 CHIEF COMPLAINT: Asthma exacerbation. HISTORY OF PRESENT ILLNESS: This is a 32-year-old female with past medical history significant for cyclic vomiting, panic disorder, chocking due to phlegm, and multiple admissions for asthma exacerbation and cyclic vomiting, presents with shortness of breath. Since last 2 months, she was doing okay, but today early in the morning, she thought she had asthma attack, WAS getting short of breath, and could not breath so she came to the ER. In the ER, she was somewhat hypoxic and she was placed on HOUR long breathing treatments and steroids and she is still wheezing, so we were called for admission. The patient says that whenever she gets asthma attack she gets nausea and vomiting but this time she did not have those symptoms. She denies any chest pain, denies any headaches. No blurred vision, no dizziness. No runny nose. No sore throat, no difficulty swallowing. No nausea and vomiting. No abdominal pain. Normal appetite. Normal bowel and bladder movements. No skin rash. The patient states she followed with GI and she had an upper endoscopy for her reflux symptoms which was okay as per her. She is followed with pulmonary Dr. Valadez couple months ago and was advised to be on current medications as per patient. ALLERGIES: TO PENICILLIN, Cefuroxime, DAIRY GLUTEN, AND PEANUTS. PAST MEDICAL HISTORY: As mentioned above. PAST SURGICAL HISTORY: EGD and sinus surgery. MEDICATIONS: The patient currently on Advair Diskus 100/50 one inhalation b.i.d., Zofran 8 mg p.o. q. 8 hours p.r.n., Ventolin 2 puffs every 6 hours p.r.n., DuoNebs q.i.d., Zoloft 50 mg p.o. daily, and Singulair 10 mg p.o. daily. FAMILY HISTORY: Significant for father had diabetes. SOCIAL HISTORY: Never smoked. No alcohol, no drug use. Single, currently living with a roommate. REVIEW OF SYMPTOMS: As per HPI. Rest of review of symptoms negative. PHYSICAL EXAMINATION: GENERAL: The patient is of moderate build, not in distress. VITAL SIGNS: Temperature 36.5, pulse 110, respiratory rate 24, blood pressure 129/79, oxygen 92% on room air. HEENT: No pallor, no icterus. Pupils equal, round, and reactive to light. NECK: No JVD, no neck masses, no carotid bruits. CARDIOVASCULAR: S1, S2 heard. Tachycardia. No murmurs. RESPIRATORY SYSTEM: Normal AP diameter, and increased breathing, bilateral wheezing heard. No crackles. ABDOMEN: Soft, bowel sounds present. Nontender. No distention. CENTRAL NERVOUS SYSTEM: Cranial nerves II-XII grossly intact. Nonfocal. EXTREMITIES: No edema, no erythema. LABORATORY DATA: WBC 12.9, hemoglobin 10.3, hematocrit 34.7, platelets 526. Sodium 138, potassium 4.3, chloride 103, CO2 25, BUN 8, creatinine 0.7, serum glucose 94, calcium 9.4. CHEST X-RAY: Small parenchymal infiltrate left base. EKG: Shows normal sinus rhythm with rate of 96, no significant change from previous EKG. ASSESSMENT AND PLAN: This is a 32-year-old female who presents with asthma exacerbation. 1. Acute asthma exacerbation, possible community acquired pneumonia. We will place her on IV stress steroids, nebs around the clock, IV Levaquin, oxygen and closely monitor on tele floor. Consult pulmonary for recurrent asthma exacerbation and continue home medications of Advair Diskus and Singulair. 2. Recurrent asthma attacks, possible aspirations, cyclic nausea, vomiting, whenever she gets asthma exacerbation. Currently, there is no nausea, vomiting. The patient had esophagogastroduodenoscopy in june 2017 in his hospital and it was unremakable. biopsy shows moderate chronic gastritis. The patient had a bronchoscopy in May admission which shows mucus plugs. She is having these recurrent symptoms since 17yrs old. Consult with pulmonary for further recommendations. 3. History of panic disorder. Continue Zoloft. 4. Deep vein thrombosis prophylaxis, sequential compression devices and heparin subQ. 5. Disposition: Admit to tele floor. Expect to discharge home and follow with the family doctor and pulmonary. 6. Level 1 full code. MTDD
[2017-08-09 10:45] LABS: PARTIAL THROMBOPLASTIN RATIO 1.1; PROTHROMBIN TIME (PATIENT) 10.2 SECONDS (9.0-12.0)
[2017-08-09] MEDS: HEPARIN SOD 5000 UNIT/0.5 ML CARP SQ SCH ×2 (11:15→20:37)
[2017-08-09] MEDS: IPRATROPIUM BROMIDE NEB SOLN 0.02% 2.5 ML VIAL INH SCH ×3 (11:43→20:13)
[2017-08-09] MEDS: LEVALBUTEROL 1.25MG/0.5ML NEB INH SCH ×3 (11:43→20:13)
[2017-08-09] MEDS: FLUTICASONE/SALMETEROL 100/50 (ADVAIR) 14 PUFF/1 INHALER INH SCH ×2 (12:41→20:37)
[2017-08-09] MEDS: METHYLPREDNISOLONE IV 40 MG in SYRINGE 0 ML IV SCH ×2 (12:42→20:37)
--- NOTE | 2017-08-09 13:46 | PULMONARY CONSULTATION ---
DATE OF CONSULTATION: 08/09/2017 TIME: 12:15 p.m. REPORT OF CONSULTATION: The patient was seen in room #276, bed #2. HISTORY OF PRESENT ILLNESS: She is a 32-year-old female who has a history of asthma dating back to about age 17. She presents with a complaint of shortness of breath. She states she has been awakening most nights with shortness of breath. She feels like she cannot get her air in. The patient has a peak flow meter at home. She states that when she feels good, her peak flows run between 150 and 220. When she is bad, she can barely push the needle. Last evening, she fell asleep sometime between 10:00 p.m. and midnight. She awakened about 1:30 with shortness of breath. She took a rescue inhaler. She does not have a nebulizer at home. She is feeling better currently. She has had numerous ER admissions or hospital admissions this year. She was hospitalized from May 23 through the . At that time, she presented with symptoms then she had a left upper lobe atelectasis. Bronchoscopy was done by Dr. Valadez. She was found to have diffuse erythematous changes and edematous changes throughout with thick tenacious secretions, particularly on the left. The patient's history is that she often has abdominal pain and vomiting associated with the cough and this seems to make everything worse. She did not have any vomiting this morning, however. She did undergo endoscopy, June [address] Leroy. The endoscopy was negative according to her viewing, but there was a report of gastritis on biopsy specimens. She had an asthma exacerbation with an ER visit on July 13. She was in the ER on the with abdominal pain. She was in the ER on June 13 with abdominal cramping. Previously, she had been in the ER on May 11 with a cough. She had an asthma attack on March 01. On February 26, she was in the ER with nausea and vomiting. On January 18, she had an asthma attack. On 12/24/2016, she had an asthma attack. Obviously, this has been an ongoing issue. The patient states she has been allergy tested a couple of times and they were essentially negative. She denies having any pets. She has never smoked. She has had multiple CAT scans of the chest done which has revealed some atelectasis as noted from the May 23 CAT scan. Some adenopathy had been reported in the perihilar region from a CAT scan done May 12. She carries a diagnosis of panic disorder as well. PAST MEDICAL HISTORY: 1. Asthma as noted. 2. Panic disorder. 3. Rhinitis. 4. Nasal polyps. 5. Significant anemia. 6. Reflux. PAST SURGICAL HISTORY: Positive only for nasal polypectomy IN 2007. SOCIAL HISTORY: Tobacco never. ETOH - None. ALLERGIES: LISTED ALLERGIES TO PEANUTS, but she states she is not allergic to PEANUTS. Likewise, she says she is not allergic to gluten. SHE IS ALLERGIC TO PENICILLIN AND CEFUROXIME. FAMILY HISTORY: Mother and father both age 60 and alive and well with no problems. OCCUPATIONAL HISTORY: The patient states she graduated from college in math. 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 MEDICATIONS AT HOME: 1. Ventolin HFA. 2. Oral contraceptive. 3. Advair 500/50 according to the patient by in the medication reconciliation of the same 100/50. 4. Nebulizer with DuoNebs listed in the med rec, but the patient denies that she has a nebulizer to me. Likewise, she denied being on Singulair which is listed in her medicines. She is taking pantoprazoles daily and the med list says ranitidine, but she did not confirm that with me. REVIEW OF SYSTEMS: Negative except for the above-mentioned complaints. PHYSICAL EXAMINATION: GENERAL: The patient is a 32-year-old female who was cooperative, alert and oriented. She was in no distress. VITAL SIGNS: Temperature is 36.2. HEENT: Pupils were reactive to light. Nares were clear. Mouth exam showed no erythema or exudate. NECK: Palpation of the neck reveals no lymph nodes or masses. HEART: Rate is increased to 130 per minute. The rhythm is regular. PULMONARY: Lung benjamin revealed very mild wheeze on expirations. The breath sounds seem to be fairly well heard throughout. Respiratory rate was 20 breaths per minute and not labored. Oxygen saturation on room air was 95%, taken by myself. Blood pressure was 103/68. ABDOMEN: Soft and nontender. Bowel sounds were normal. EXTREMITIES: Showed no cyanosis, clubbing or edema. IMAGING DATA: Chest x-ray was essentially clear. Cannot exclude a very small left base infiltrate. She did have a CT angio done May 23 that showed no evidence of pulmonary embolic disease. Likewise, she had one on May 12 that showed no evidence of pulmonary embolic disease. In February likewise, she had a CAT scan that showed no evidence of pulmonary embolic disease. Mildly enlarged lymph nodes of the mediastinum were noted at that time. LABORATORY DATA: CBC today showed a white count of 12.9. Hemoglobin was 10.3. Platelets were 526,000. Of note, her differential showed 30.9% eosinophils. The eosinophil count was 3.99 which would be well elevated above the upper limit of 0.5. Coags were normal. Electrolytes show sodium 138, potassium 4.3, chloride 103, bicarbonate 25. BUN was 8 with a creatinine of 0.74. IMPRESSION: 1. Asthma with exacerbation. 2. Left base infiltrate - rule out pneumonia. 3. Status post left upper lobe atelectasis. 4. Elevated eosinophils. COMMENTS: The patient has marked eosinophilia today. Review of some of her prior labs show an eosinophil percent in April of 8.2. On July 14, the eosinophil count was 11.4%. On February 26, the eosinophil percent was only 1.8. It is unknown; however, if she was on steroids at that time. With her significant asthma, one may need to consider things such as Churg-Rubia syndrome. She did have a rheumatology consult in the past. This was done by Dr. Soto on May. At that time, the information he had was that the eosinophils had been normal. Perhaps a reevaluation by rheumatology would be advised. The patient seems well, but she is tachycardic. The reason for that is not clear to me. Her nebulizer solutions currently are listed as levalbuterol and ipratropium, which should not typically give such a tachycardia. I have ordered a serum IgE level. Ideally, it would best be done when she has not had any steroids. We are trying to do a stat so she has less steroid effect from what she is have thus far. The patient does not have a nebulizer at home apparently. That would be advised. I have asked her to check her peak flows on a regular basis. The patient is currently on Singulair. There is confusion on my part because she told me that she was not on Singulair at home, but yet it is listed. Perhaps she did not realize that montelukast was the same. I need to verify that with her. If Churg-Rubia is a possibility, then she likely should not have the montelukast. Will discuss this case with the hospitalist team. One might wonder if she would be a Xolair candidate in light of the high eosinophil count.
--- NOTE | 2017-08-09 19:26 | Rheumatology Consultation ---
Rheumatology Consultation Date of Consultation: Aug 09, 2017. History of Present Illness 32 year old female with history of asthma diagnosed at age 17 that has been poorly controlled for many years. She was admitted today for shortness of breath, chest pain, and choking. She was noted to be hypoxic in the ED. Labs on admission showed elevated eosinophils therefore, rheumatology was consulted for question of Churg Rubia. Patient reports that she has presented to [facility] and [facility] ED several times for asthma exacerbation. She has history of cyclic vomiting and was admitted in May with breathing difficulties and recurrent nausea with vomiting. She had extensive workup during that admission including bronchoscopy, imaging of the chest, and laboratory studies. She had atelectasis of the left upper lobe. Bronchoscopy demonstrated inflammation without specifically commenting on cellular infiltrate. She was discharged on prednisone taper and metronidazole. CBC during that admission was not notable for eosinophilia. In June, she had an EGD with biopsies that demonstrated moderate chronic gastritis without acute inflammation and mild nonspecific inflammatory changes in the esophagus with infiltration by rare eosinophils. She is on ranitidine and omeprazole. She reports that her asthma has not responded to her Ventolin inhaler. She was seen at [facility] on 07/14/17 because of worsening respiratory symptoms. At the time she was on albuterol inhaler, doxycycline, and had 5 more days of prednisone. She received a breathing treatment and was prescribed a nebulizer and advised to complete antibiotics and prednisone. A referral to pulmonary medicine was placed. She reports that she went to bed last night and was awakened by chest heaviness, chest pain, shortness of breath and felt as if she was choking. She had completed her prednisone and was just using her Ventolin inhaler. She has not seen pulmonary as an outpatient. She reports fatigue and trouble sleeping due to her asthma. Her abdominal pain and vomiting have improved as they only occur about once a week. Last episode was 1 week ago. She denies fevers, chills, chest pain when sitting up, weight loss , rash, nasal involvement, oral/nasal ulcers, joint pain, diarrhea, recent travel or sick contacts. 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 She lives with a roommate. No tobacco or alcohol. No pets Review of Systems Constitutional: + see HPI All Other Systems: Reviewed and Negative Allergies Coded Allergies: Cefuroxime (Verified Allergy, Severe, CHEST TIGHTENING, "FEEL LIKE CHOKING ", SOB, 08/09/17) Dairy (Verified Allergy, Severe, CHEST TIGHTENING, "CHOKING" FEELING, SOB , 08/09/17) Gluten (Verified Allergy, Severe, CHEST TIGHTENING, "CHOKING" FEELING, SOB , 08/09/17) Penicillins (Verified Allergy, Severe, CHEST TIGHTENING, "CHOKING" FEELING , SOB, 08/09/17) Peanut (Verified Allergy, Intermediate, "NON STOP COUGHING, FELT LIKE CHOKING", 08/09/17) Medications Current Inpatient Medications Medications (Trade) Dose Ordered Sig/Jluis Route Start Time Stop Time Status Last Admin Dose Admin Heparin Sodium (Porcine) (Heparin Sq 5000 Unit/0.5ml) 5,000 unit Q12 SQ 08/09/17 11:15 09/08/17 11:14 Acetaminophen (Tylenol Tab) 650 mg Q4H PRN PO 08/09/17 08:45 09/08/17 08:44 Al Hydrox/Mg Hydrox/Simethicone (Maalox Max Susp) 15 ml Q4H PRN PO 08/09/17 08:45 09/08/17 08:44 Ondansetron HCl (Zofran Inj) 4 mg Q6H PRN IV 08/09/17 08:45 09/08/17 08:44 Nitroglycerin (Nitrostat Tab) 0.4 mg UD PRN SL 08/09/17 08:45 09/08/17 08:44 Polyethylene (Miralax Powder Packet) 17 gm DAILY PRN PO 08/09/17 08:45 09/08/17 08:44 Albuterol (Ventolin Hfa Inhaler) 2 puffs Q6H PRN INH 08/09/17 08:45 09/08/17 08:44 Ondansetron HCl (Zofran Odt) 4 mg Q6H PRN SL 08/09/17 08:45 09/08/17 08:44 Pantoprazole Sodium (Protonix Tab) 40 mg QAM PO 08/10/17 09:00 09/09/17 08:59 Methylprednisolone Sodium Succinate 40 mg/Syringe 0.64 ml @ 1.5 mls/min TID IV 08/09/17 14:00 09/08/17 13:59 08/09/17 12:42 1.5 MLS/MIN Levofloxacin 750 mg/Prmx 150 ml @ 100 mls/hr Q24H IV 08/10/17 08:00 08/17/17 07:59 Salmeterol Xinafoate/ Fluticasone (Advair Diskus 100/50 Inh) 1 puff BID INH 08/09/17 11:00 09/08/17 10:59 08/09/17 12:41 1 PUFF Montelukast Sodium (Singulair Tab) 10 mg HS PO 08/09/17 21:00 09/08/17 20:59 Ipratropium Mina (Atrovent 0.02% 0.5MG/2.5ML Neb) 0.5 mg Q2H PRN INH 08/09/17 09:00 09/08/17 08:59 Levalbuterol (Xopenex 1.25MG/ 0.5ML Neb) 1.25 mg Q2H PRN INH 08/09/17 09:00 09/08/17 08:59 Ipratropium Mina (Atrovent 0.02% 0.5MG/2.5ML Neb) 0.5 mg Q6R INH 08/09/17 09:00 09/08/17 08:59 08/09/17 14:48 0.5 MG Levalbuterol (Xopenex 1.25MG/ 0.5ML Neb) 1.25 mg Q6R INH 08/09/17 09:00 09/08/17 08:59 08/09/17 14:48 1.25 MG Physical Exam Date Time Temp Pulse Resp B/P (MAP) Pulse Ox O2 Delivery O2 Flow Rate FiO2 08/09/17 16:06 36.3 72 20 128/75 (92) 94 Room Air 08/09/17 14:48 110 20 95 Room Air 08/09/17 12:07 Nasal Cannula 2.0 08/09/17 10:05 36.2 123 20 103/68 (80) 95 Nasal Cannula 2.0 08/09/17 09:15 94 Nasal Cannula 2.0 08/09/17 08:57 117 20 125/70 100 Nebulizer 08/09/17 08:48 121 08/09/17 07:16 94 Nasal Cannula 2.0 08/09/17 07:15 88 Room Air 08/09/17 07:04 110 24 129/79 92 Room Air 08/09/17 06:20 90 20 134/72 100 Room Air 08/09/17 06:06 100 20 95 Room Air 08/09/17 05:46 102 08/09/17 05:44 Room Air 92 08/09/17 05:42 92 Room Air 08/09/17 05:39 36.5 103 20 117/76 92 Room Air Eyes: bilateral eyes normal inspection, bilateral eyes EOMI ENT: normal ENT inspection Neck: supple, no adenopathy, thyroid normal Respiratory: chest non-tender, + rhonchi, + wheezing Cardiovascular: regular rate, rhythm, no edema, no gallop, no murmur Abdomen: normal bowel sounds, non tender, soft Musculoskeletal: No joint tenderness or swelling; hypermobility noted in the upper extremities Neurologic/Psychiatric: alert, normal mood/affect, oriented x 3 Skin: normal color, warm/dry, no rash Lymphatic: no adenopathy Laboratory Results Last 24 Hours Test 08/09/17 06:15 08/09/17 12:24 White Blood Count 12.90 K/uL Red Blood Count 5.05 M/uL Hemoglobin 10.3 g/dL Hematocrit 34.7 % Mean Corpuscular Volume 68.7 fL Mean Corpuscular Hemoglobin 20.4 pg Mean Corpuscular Hemoglobin Concent 29.7 g/dl Platelet Count 526 K/uL Mean Platelet Volume 8.7 fL Neutrophils (%) (Auto) 32.8 % Lymphocytes (%) (Auto) 31.5 % Monocytes (%) (Auto) 4.0 % Eosinophils (%) (Auto) 30.9 % Basophils (%) (Auto) 0.6 % Neutrophils # (Auto) 4.24 K/uL Lymphocytes # (Auto) 4.06 K/uL Monocytes # (Auto) 0.51 K/uL Eosinophils # (Auto) 3.99 K/uL Basophils # (Auto) 0.08 K/uL RDW Standard Deviation 54.3 fL RDW Coefficient of Variation 22.1 % Immature Granulocyte % (Auto) 0.2 % Immature Granulocyte # (Auto) 0.02 K/uL Anisocytosis PRESENT Microcytosis PRESENT Ovalocytes 1+ Prothrombin Time 10.2 SECONDS Prothromb Time International Ratio 1.0 Activated Partial Thromboplast Time 28.5 SECONDS Partial Thromboplastin Ratio 1.1 Sodium Level 138 mmol/L Potassium Level 4.3 mmol/L Chloride Level 103 mmol/L Carbon Dioxide Level 25 mmol/L Anion Gap 10.0 mmol/L Blood Urea Nitrogen 8 mg/dl Creatinine 0.74 mg/dl Est Creatinine Clear Calc Drug Dose 111.4 ml/min Estimated GFR () 125.1 Estimated GFR (Non- 108.0 BUN/Creatinine Ratio 10.5 Random Glucose 94 mg/dl Calcium Level 9.4 mg/dl Pertinent immune serologies from May SILVA- C3 low, P6ypodif, CH50 high ANCA negative RF- Assessment & Plan Assessment & Plan: Phuong is a 32 year old woman with poorly controlled asthma admitted due to recent asthma exacerbation. Labs now notable for eosinophilia. CXR with left lower lobe infiltrate. Presentation not overwhelmingly pathognomonic for Churg Rubia but it is on the differentia. She has no other systemic features. Initial therapy for asthma exacerbation and ?Churg Rubia is systemic glucocorticoids. Recommendations 1. Continue IV steroids and breathing treatments until breathing improves then transition to oral steroids 2. Stop montelukast if there is concern for Churg Rubia 3. Trend CBC with differential. She would benefit from PFTs and seeing pulmonary as an outpatient. 4. Continue PPI and H2 flower. Discussed lifestyle measures to minimize reflux symptoms. 5. More than happy to see Phuong as an outpatient 1 week after discharge for ongoing evaluation. Discussed next at noon with patient. Thank you for allowing rheumatology to participate in the care of this patient.
[2017-08-09] MEDS ORDERED: MONTELUKAST SOD 10 MG TAB PO SCH (21:00)
[2017-08-10] VITALS (7 sets, daily range): BP systolic 111–130; BP diastolic 60–74; PULSE 102–122; TEMP 36.3–36.8; O2SAT 91–95
[2017-08-10] MEDS: IPRATROPIUM BROMIDE NEB SOLN 0.02% 2.5 ML VIAL INH SCH ×2 (03:11→06:53)
[2017-08-10] MEDS: LEVALBUTEROL 1.25MG/0.5ML NEB INH SCH ×2 (03:11→06:53)
[2017-08-10] MEDS ORDERED: LEVOFLOXACIN / D5W 750 MG in PREMIXED IN D5W 150 ML IV SCH (08:00)
[2017-08-10 08:14] LABS: BASO % 0.1 %; BASO ABS # 0.01 K/uL (0-0.2); HEMATOCRIT 32.8 % (37-47); IG% 0.3 %; LYMPH ABS # 1.84 K/uL (1.2-3.4); MEAN CELL VOLUME 67.5 fL (80-100); MEAN CORPUSCULAR HGB CONC 29.6 g/dl (32-36); MEAN PLATELET VOLUME 8.4 fL (7.4-10.4); MONO % 3.4 %; NEUT % 86.2 %; PLATELET COUNT 534 K/uL (130-400); RED BLOOD COUNT 4.86 M/uL (4.2-5.4); WHITE BLOOD COUNT 18.41 K/uL (4.8-10.8)
[2017-08-10 08:46] LABS: BUN/CREATININE RATIO 14.2 (10-20); CALCIUM 9.3 mg/dl (8.5-10.1); CREATININE 0.84 mg/dl (0.60-1.20); MAGNESIUM 2.3 mg/dl (1.8-2.4); POTASSIUM 3.9 mmol/L (3.5-5.1)
[2017-08-10] MEDS ORDERED: PANTOprazole SOD 40 MG TAB PO SCH (09:00)
[2017-08-10] MEDS: HEPARIN SOD 5000 UNIT/0.5 ML CARP SQ SCH (09:00)
[2017-08-10] MEDS: METHYLPREDNISOLONE IV 40 MG in SYRINGE 0 ML IV SCH ×2 (09:05→13:50)
[2017-08-10] MEDS: FLUTICASONE/SALMETEROL 100/50 (ADVAIR) 14 PUFF/1 INHALER INH SCH (09:05)
[2017-08-10 09:14] LABS: ANISOCYTOSIS PRESENT; COMPLETE YES; HYPOCHROMIA PRESENT; MICROCYTOSIS PRESENT; OVALOCYTES 1+
[2017-08-10] MEDS ORDERED: PANT40TA PO (10:09)
[2017-08-10] MEDS ORDERED: VNTHFA/IN INH (10:09)
[2017-08-10] MEDS ORDERED: ADVIN10050 INH (10:09)
[2017-08-10] MEDS ORDERED: NEBMAC (10:10)
[2017-08-10] MEDS ORDERED: LEVO-459 OR (10:10)
[2017-08-10] MEDS ORDERED: PRD20 OR (10:10)
[2017-08-10] MEDS ORDERED: MONT1TAB3 PO (10:10)
[2017-08-10] MEDS ORDERED: ALBU0.633 NEB (10:11)
[2017-08-10] MEDS ORDERED: SODIUM CHLORIDE 0.9% 1000ML 1,000 ML IV ONE (10:15)
[2017-08-10] MEDS ORDERED: ZNT150 PO (10:26)
--- NOTE | 2017-08-10 10:39 | Progress Note ---
Internal Med Progress Note Date of Service: Aug 10, 2017. Provider Documentation: SUBJECTIVE: Patient seen and assessed at bedside. Denies respiratory distress or wheezing. Denies pain. Patient requesting to be discharged from the hospital since her asthma exacerbation has resolved OBJECTIVE: Exam: General- no acute distress, speaks in full sentences Eyes- EOMI ENT- no epistaxis Neck- no JVD Lungs- breathing on room air, no use of accessory muscles, no wheezing, no crackles Heart- tachycardic Abdomen- soft, nontender, + bowel sounds Extremities- no edema Neuro- no focal deficits ASSESSMENT & PLAN: Patient was admitted for asthma exacerbation on 08/09/17 with asthma symptoms resolved. Patient requesting to be discharged on 08/10/17 For Asthma: In the hospital patient was given nebulizer treatments and prescriptions made for nebulizer machine, albuterol inhaler, advair inhaler, montelukast In the hospital patient was given methylprednisone IV and prescriptions made for prednisone 40 mg once daily for 5 days In case patient had underlying pneumonia (on admission chest X ray, Small parenchymal infiltrate left base): In the Hospital, patient was given IV Levaquin and prescription made for 5 days of oral Levaquin History of gastric reflux Prescriptions made for ranitidine and pantoprazole Tachycardia: IV fluids given, tachycardia also could be due to nebulizer treatments Rheumatology was consulted as inpatient due to Eosinophilia, as per rheumatology the patient's presentation not overwhelmingly pathognomonic for Churg Rubia: -Rheumatology recommends stopping Montelukast if high suspicion for Churg Rubia but since this is not high on the differential diagnosis list and patient has had recurrent asthma, would continue montelukast at this time and this medication can be stopped based on outpatient evaluations -Serum IgE pending Patient has follow up appointments on: 08/13/2017 1:30 PM Karely Oreilly DO Family Practice [facility] for primary care follow up 08/19/2017 1:40 PM Leticia Caraballo MD Rheumatology [facility] for rheumatology evaluation for Eosinophilia Above appointments can be re-scheduled if needed with call to [facility] appointment line [phone] Patient was also seen by [facility] pulmonary service, Dr. Calzada, and patient has appointment on 9:30 AM, Dr. Calzada, on [address] [facility] [address] Vital Signs: Date Time Temp Pulse Resp B/P (MAP) Pulse Ox O2 Delivery O2 Flow Rate FiO2 08/10/17 08:35 Room Air 08/10/17 07:30 36.7 111 16 113/72 (86) 93 Room Air 08/10/17 06:55 102 20 93 Room Air 08/10/17 04:00 Room Air 08/10/17 03:54 36.5 116 16 130/74 (92) 91 Room Air 08/10/17 03:08 109 20 94 Room Air 08/10/17 00:10 36.8 122 18 111/60 (77) 93 Room Air 08/10/17 00:00 Room Air 08/09/17 23:14 128 30 98 Room Air 08/09/17 20:19 36.2 121 18 113/65 (81) 94 Room Air 08/09/17 20:16 119 20 96 Room Air 08/09/17 20:00 Room Air 08/09/17 16:06 36.3 72 20 128/75 (92) 94 Room Air 08/09/17 16:00 Room Air 08/09/17 14:48 110 20 95 Room Air 08/09/17 12:07 Nasal Cannula 2.0 Lab Results: Results Past 24 Hours Test 08/09/17 12:24 08/10/17 07:47 Range/Units White Blood Count 18.41 4.8-10.8 K/uL Red Blood Count 4.86 4.2-5.4 M/uL Hemoglobin 9.7 12.0-16.0 g/dL Hematocrit 32.8 37-47 % Mean Corpuscular Volume 67.5 80-100 fL Mean Corpuscular Hemoglobin 20.0 25-34 pg Mean Corpuscular Hemoglobin Concent 29.6 32-36 g/dl Platelet Count 534 130-400 K/uL Mean Platelet Volume 8.4 7.4-10.4 fL Neutrophils (%) (Auto) 86.2 % Lymphocytes (%) (Auto) 10.0 % Monocytes (%) (Auto) 3.4 % Eosinophils (%) (Auto) 0.0 % Basophils (%) (Auto) 0.1 % Neutrophils # (Auto) 15.87 1.4-6.5 K/uL Lymphocytes # (Auto) 1.84 1.2-3.4 K/uL Monocytes # (Auto) 0.63 0.11-0.59 K/uL Eosinophils # (Auto) 0.00 0-0.5 K/uL Basophils # (Auto) 0.01 0-0.2 K/uL RDW Standard Deviation 54.6 36.4-46.3 fL RDW Coefficient of Variation 22.6 11.5-14.5 % Immature Granulocyte % (Auto) 0.3 % Immature Granulocyte # (Auto) 0.06 0.00-0.02 K/uL Hypochromasia PRESENT Anisocytosis PRESENT Microcytosis PRESENT Ovalocytes 1+ Sodium Level 136 136-145 mmol/L Potassium Level 3.9 3.5-5.1 mmol/L Chloride Level 105 98-107 mmol/L Carbon Dioxide Level 18 21-32 mmol/L Anion Gap 13.0 3-11 mmol/L Blood Urea Nitrogen 12 7-18 mg/dl Creatinine 0.84 0.60-1.20 mg/dl Est Creatinine Clear Calc Drug Dose 96.4 ml/min Estimated GFR () 107.3 Estimated GFR (Non- 92.6 BUN/Creatinine Ratio 14.2 10-20 Random Glucose 120 70-99 mg/dl Calcium Level 9.3 8.5-10.1 mg/dl Magnesium Level 2.3 1.8-2.4 mg/dl
--- NOTE | 2017-08-10 12:19 | Discharge Instructions ---
Discharge Instructions Date of Service Aug 10, 2017. Admission Reason for Admission: Acute Asthma Exacerbation, Pneumonia Discharge Discharge Diagnosis / Problem: asthma, eosinophilia, tachycardia Discharge Goals Goal(s): Improve function, Improve disease control Activity Recommendations Activity Limitations: per Instructions/Follow-up section Lifting Limitations: until after follow-up appointment Exercise/Sports Limitations: until after follow-up appointment Shower/Bathe: no limitations . Instructions / Follow-Up Instructions / Follow-Up Patient was admitted for asthma exacerbation on 08/09/17 with asthma symptoms resolved. Patient requesting to be discharged on 08/10/17 For Asthma: In the hospital patient was given nebulizer treatments and prescriptions made for nebulizer machine, albuterol inhaler, advair inhaler, montelukast In the hospital patient was given methylprednisone IV and prescriptions made for prednisone 40 mg once daily for 5 days In case patient had underlying pneumonia (on admission chest X ray, Small parenchymal infiltrate left base): In the Hospital, patient was given IV Levaquin and prescription made for 5 days of oral Levaquin History of gastric reflux Prescriptions made for ranitidine and pantoprazole Tachycardia: IV fluids given, tachycardia also could be due to nebulizer treatments Rheumatology was consulted as inpatient due to Eosinophilia, as per rheumatology the patient's presentation not overwhelmingly pathognomonic for Churg Rubia: -Rheumatology recommends stopping Montelukast if high suspicion for Churg Rubia but since this is not high on the differential diagnosis list and patient has had recurrent asthma, would continue montelukast at this time and this medication can be stopped based on outpatient evaluations -Serum IgE pending Patient has follow up appointments on: 08/13/2017 1:30 PM Karely Oreilly DO Family [facility] for primary care follow up 08/19/2017 1:40 PM Leticia Caraballo MD Rheumatology [facility] for rheumatology evaluation for Eosinophilia Above appointments can be re-scheduled if needed with call to [facility] appointment line [phone] Patient was also seen by [facility] pulmonary service, Dr. Calzada, and patient has appointment on 9:30 AM, Dr. Calzada, on [address] [facility] [address] Vital Signs: Current Hospital Diet Patient's current hospital diet: Regular Diet, Gluten Free Diet, Low Lactose Diet Discharge Diet Recommended Diet: Regular Diet, N/A (gluten free, low lactose diet) Pending Studies Studies pending at discharge: yes List of pending studies: serum IgE results Laboratory Results 08/10/17 07:47 Red Blood Count 4.86, Mean Corpuscular Volume 67.5, Mean Corpuscular Hemoglobin 20.0, Mean Corpuscular Hemoglobin Concent 29.6, Mean Platelet Volume 8.4, Neutrophils (%) (Auto) 86.2, Lymphocytes (%) (Auto) 10.0, Monocytes (%) (Auto) 3.4, Eosinophils (%) (Auto) 0.0, Basophils (%) (Auto) 0.1, Neutrophils # (Auto) 15.87, Lymphocytes # (Auto) 1.84, Monocytes # (Auto) 0.63, Eosinophils # (Auto) 0.00, Basophils # (Auto) 0.01 08/10/17 07:47 Test 08/09/17 06:15 08/09/17 12:24 08/10/17 07:47 Prothrombin Time 10.2 SECONDS (9.0-12.0) Prothromb Time International Ratio 1.0 (0.9-1.1) Activated Partial Thromboplast Time 28.5 SECONDS (21.0-31.0) Partial Thromboplastin Ratio 1.1 White Blood Count 18.41 K/uL (4.8-10.8) Red Blood Count 4.86 M/uL (4.2-5.4) Hemoglobin 9.7 g/dL (12.0-16.0) Hematocrit 32.8 % (37-47) Mean Corpuscular Volume 67.5 fL (80-100) Mean Corpuscular Hemoglobin 20.0 pg (25-34) Mean Corpuscular Hemoglobin Concent 29.6 g/dl (32-36) Platelet Count 534 K/uL (130-400) Mean Platelet Volume 8.4 fL (7.4-10.4) Neutrophils (%) (Auto) 86.2 % Lymphocytes (%) (Auto) 10.0 % Monocytes (%) (Auto) 3.4 % Eosinophils (%) (Auto) 0.0 % Basophils (%) (Auto) 0.1 % Neutrophils # (Auto) 15.87 K/uL (1.4-6.5) Lymphocytes # (Auto) 1.84 K/uL (1.2-3.4) Monocytes # (Auto) 0.63 K/uL (0.11-0.59) Eosinophils # (Auto) 0.00 K/uL (0-0.5) Basophils # (Auto) 0.01 K/uL (0-0.2) RDW Standard Deviation 54.6 fL (36.4-46.3) RDW Coefficient of Variation 22.6 % (11.5-14.5) Immature Granulocyte % (Auto) 0.3 % Immature Granulocyte # (Auto) 0.06 K/uL (0.00-0.02) Hypochromasia PRESENT Anisocytosis PRESENT Microcytosis PRESENT Ovalocytes 1+ Anion Gap 13.0 mmol/L (3-11) Est Creatinine Clear Calc Drug Dose 96.4 ml/min Estimated GFR () 107.3 Estimated GFR (Non- 92.6 BUN/Creatinine Ratio 14.2 (10-20) Calcium Level 9.3 mg/dl (8.5-10.1) Magnesium Level 2.3 mg/dl (1.8-2.4) Medical Emergencies . Who to Call and When: Medical Emergencies: If at any time you feel your situation is an emergency, please call 911 immediately. . Non-Emergent Contact Non-Emergency issues call your: Primary Care Provider, Warp Knitter, Specialist (rheumatology) . . "Provider Documentation" section prepared by Merritt Redding. . VTE Core Measure Inpt VTE Proph given/why not?: Unfractionated heparin SQ
--- NOTE | 2017-08-10 12:20 | Discharge Summary ---
Discharge Summary Date of Service Aug 10, 2017. Discharge Summary Admission Date: Aug 09, 2017 at 08:37 Discharge Date: Aug 10, 2017 Discharge Disposition: Home Principal Diagnosis: asthma, Eosinophilia, Tachycardia Consultations: pulmonary, rheumatology Pending Studies/Follow-Up: serum IgE results Medication Reconciliation New Medications: Albuterol Sulfate (Albuterol Sulfate) 0.63 Mg/3 Ml Neb 1 VIAL NEB TID for Shortness of Breath for 25 Days, #225 ML Levofloxacin (Levaquin) 500 Mg Tab 1 TAB OR DAILY, #5 TAB Nebulizer Machine (Home Use) (Nebulizer Machine (Home Use) ) Mis EA N/A UD, #1 Prednisone (Prednisone) 20 Mg Tab 2 TAB OR DAILY for 5 Days, #10 TAB Continued Medications: Albuterol Hfa (Ventolin Hfa) 200 Puffs/70815 Mcg Aers 2 PUFFS INH Q6H PRN for Shortness of Breath for 30 Days, #1 INHALER 1 Refill ( This prescription has been renewed) Control Pills ( Control Pills) Tab 1 TAB PO HS, TAB Fluticasone Prop/Salmeterol (Advair Diskus 100-50 Mcg/Dose) 14 Puff/1 Inhaler Aerp 1 PUFF INH BID for 30 Days, #1 INHALER 1 Refill (This prescription has been renewed) Montelukast Sodium (Singulair) 10 Mg Tab 10 MG PO HS for 30 Days, #30 TAB 1 Refill (This prescription has been renewed) Ondasetron Odt (Zofran Odt) 4 Mg Tab 4 MG SL Q6H PRN for Nausea or Vomiting, TAB Pantoprazole (Protonix) 40 Mg Tab 40 MG PO QAM for 30 Days, #30 TAB (This prescription has been renewed) Ranitidine HCl (Ranitidine HCl) 150 Mg Tab 150 MG PO HS for 30 Days, #30 TAB (This prescription has been renewed) Discontinued Medications: Ipratropium-Albuterol (Duoneb) 3 Ml Nebu 1 TREATMENT INH QID, #1 INHA Admission Information HPI (per Admitting provider): CHIEF COMPLAINT: Asthma exacerbation. HISTORY OF PRESENT ILLNESS: This is a 32-year-old female with past medical history significant for cyclic vomiting, panic disorder, chocking due to phlegm, and multiple admissions for asthma exacerbation and cyclic vomiting, presents with shortness of breath. Since last 2 months, she was doing okay, but today early in the morning, she thought she had asthma attack, WAS getting short of breath, and could not breath so she came to the ER. In the ER, she was somewhat hypoxic and she was placed on HOUR long breathing treatments and steroids and she is still wheezing, so we were called for admission. The patient says that whenever she gets asthma attack she gets nausea and vomiting but this time she did not have those symptoms. She denies any chest pain, denies any headaches. No blurred vision, no dizziness. No runny nose. No sore throat, no difficulty swallowing. No nausea and vomiting. No abdominal pain. Normal appetite. Normal bowel and bladder movements. No skin rash. The patient states she followed with GI and she had an upper endoscopy for her reflux symptoms which was okay as per her. She is followed with pulmonary Dr. Valadez couple months ago and was advised to be on current medications as per patient. ALLERGIES: TO PENICILLIN, Cefuroxime, DAIRY GLUTEN, AND PEANUTS. PAST MEDICAL HISTORY: As mentioned above. PAST SURGICAL HISTORY: EGD and sinus surgery. MEDICATIONS: The patient currently on Advair Diskus 100/50 one inhalation b.i.d., Zofran 8 mg p.o. q. 8 hours p.r.n., Ventolin 2 puffs every 6 hours p.r.n., DuoNebs q.i.d., Zoloft 50 mg p.o. daily, and Singulair 10 mg p.o. daily. FAMILY HISTORY: Significant for father had diabetes. SOCIAL HISTORY: Never smoked. No alcohol, no drug use. Single, currently living with a roommate. REVIEW OF SYMPTOMS: As per HPI. Rest of review of symptoms negative. Physical Exam (per Admitting): PHYSICAL EXAMINATION: GENERAL: The patient is of moderate build, not in distress. VITAL SIGNS: Temperature 36.5, pulse 110, respiratory rate 24, blood pressure 129/79, oxygen 92% on room air. HEENT: No pallor, no icterus. Pupils equal, round, and reactive to light. NECK: No JVD, no neck masses, no carotid bruits. CARDIOVASCULAR: S1, S2 heard. Tachycardia. No murmurs. RESPIRATORY SYSTEM: Normal AP diameter, and increased breathing, bilateral wheezing heard. No crackles. ABDOMEN: Soft, bowel sounds present. Nontender. No distention. CENTRAL NERVOUS SYSTEM: Cranial nerves II-XII grossly intact. Nonfocal. EXTREMITIES: No edema, no erythema. Hospital Course Patient was admitted for asthma exacerbation on 08/09/17 with asthma symptoms resolved. Patient requesting to be discharged on 08/10/17 For Asthma: In the hospital patient was given nebulizer treatments and prescriptions made for nebulizer machine, albuterol inhaler, advair inhaler, montelukast In the hospital patient was given methylprednisone IV and prescriptions made for prednisone 40 mg once daily for 5 days In case patient had underlying pneumonia (on admission chest X ray, Small parenchymal infiltrate left base): In the Hospital, patient was given IV Levaquin and prescription made for 5 days of oral Levaquin History of gastric reflux Prescriptions made for ranitidine and pantoprazole Tachycardia: IV fluids given, tachycardia also could be due to nebulizer treatments Rheumatology was consulted as inpatient due to Eosinophilia, as per rheumatology the patient's presentation not overwhelmingly pathognomonic for Churg Rubia: -Rheumatology recommends stopping Montelukast if high suspicion for Churg Rubia but since this is not high on the differential diagnosis list and patient has had recurrent asthma, would continue montelukast at this time and this medication can be stopped based on outpatient evaluations -Serum IgE pending Patient has follow up appointments on: 08/13/2017 1:30 PM Karely Oreilly DO Family Practice [facility] for primary care follow up 08/19/2017 1:40 PM Leticia Caraballo MD Rheumatology [facility] for rheumatology evaluation for Eosinophilia Above appointments can be re-scheduled if needed with call to [facility] appointment line [phone] Patient was also seen by [facility] pulmonary service, Dr. Calzada, and patient has appointment on 9:30 AM, Dr. Calzada, on [address] [facility] [address] Total time spent on discharge = 60 minutes This includes examination of the patient, discharge planning, medication reconciliation, and communication with other providers. Discharge Instructions Patient was admitted for asthma exacerbation on 08/09/17 with asthma symptoms resolved. Patient requesting to be discharged on 08/10/17 For Asthma: In the hospital patient was given nebulizer treatments and prescriptions made for nebulizer machine, albuterol inhaler, advair inhaler, montelukast In the hospital patient was given methylprednisone IV and prescriptions made for prednisone 40 mg once daily for 5 days In case patient had underlying pneumonia (on admission chest X ray, Small parenchymal infiltrate left base): In the Hospital, patient was given IV Levaquin and prescription made for 5 days of oral Levaquin History of gastric reflux Prescriptions made for ranitidine and pantoprazole Tachycardia: IV fluids given, tachycardia also could be due to nebulizer treatments Rheumatology was consulted as inpatient due to Eosinophilia, as per rheumatology the patient's presentation not overwhelmingly pathognomonic for Churg Rubia: -Rheumatology recommends stopping Montelukast if high suspicion for Churg Rubia but since this is not high on the differential diagnosis list and patient has had recurrent asthma, would continue montelukast at this time and this medication can be stopped based on outpatient evaluations -Serum IgE pending Patient has follow up appointments on: 08/13/2017 1:30 PM Karely Oreilly DO Family Practice [facility] for primary care follow up 08/19/2017 1:40 PM Leticia Caraballo MD Rheumatology [facility] for rheumatology evaluation for Eosinophilia Above appointments can be re-scheduled if needed with call to [facility] appointment line [phone] Patient was also seen by [facility] pulmonary service, Dr. Calzada, and patient has appointment on 9:30 AM, Dr. Calzada, on [address] [facility] [address] Vital Signs:
== END 2017-08-10 14:15 | disposition home or self-care (01) | DRG 202 ==
LOC: EDBD 05:38 → C.EDA 05:40 → C.MED 08:37 → EDBEDREQ 08:44 → ENRESERV 09:06
PROVIDERS: ADMIT Internal Medicine; ATTEND Hospitalist
DX: J45.51 Severe persistent asthma with (acute) exacerbation (principal); J18.9 Pneumonia, unspecified organism; Z83.3 Family history of diabetes mellitus; F41.0 Panic disorder [episodic paroxysmal anxiety]; K21.9 Gastro-esophageal reflux disease without esophagitis

== ENCOUNTER 2017-11-18 05:58 | Emergency (ER) | payer OTHER, BC ==
[~2017-11-18] VITALS: Ht 162.6 cm; Wt 83.9 kg
[~2017-11-18 05:58] MED LIST changes: +ADVIN10050 INH; -AZIT250T PO; +LEVO-459 OR; +MONT1TAB3 PO; +PRD20 OR; -PRED20TA PO
[2017-11-18 06:01] VITALS: TEMP 36.4; Ht 162.6 cm; Wt 83.9 kg
[2017-11-18] MEDS ORDERED: ALBUT/IPRATROP 3MG/0.5MG NEB 3 ML VIAL INH ONE (06:15)
[2017-11-18] MEDS ORDERED: DEXAMETHASONE **PF** INJ 10 MG/ML VIAL IV ONE (06:15)
--- NOTE | 2017-11-18 06:22 | EMERGENCY ROOM VISIT NOTE ---
History First contact with patient: 06:15 Chief Complaint: RESPIRATORY PROBLEMS Stated Complaint: ASTHMA,VOMITING,CHOKING Nursing Triage Summary: pt c/o "cough and choking" beginning yesterday. hx of asthma. pt states she used her inhaler at home with no relief. pt reports sob and cough. pt alert and oriented x4, breathing regularly and independently. History of Present Illness The patient is a 32 year old female who presents to the Emergency Room for evaluation of shortness of breath. Patient with long history asthma issues and multiple preivous admissions for same. Notes wheezing/cough over the last 24 hours rapidly worsening. Cough getting to point where she vomits periodically. Used her inhaler multiple times without improvement. Associated with mild nausea and lightheadedness. Worse with walking, better with rest. No fevers, chills, cp, syncope, abdominal pain, headache, neck pain, leg swelling, calf pain, nor other symptoms. No history DVT/PE. She notes this is similar to previous exacerbations. Denies trauma/injury. Has had no exposure to chemicals /lung irritants. On no antibiotics nor steroids recently. Review of Systems See HPI for pertinent positives & negatives. A total of 10 systems reviewed and were otherwise negative. Past Medical/Surgical History Medical Problems: (1) Asthma, Unspecified (2) Nausea (3) Sepsis Surgical Problems: (1) No significant past surgical history Family History No significant family history Social History Smoking Status: Never Smoker Alcohol Use: occasionally Drug Use: none Marital Status: single Housing Status: lives with family Occupation Status: employed Current/Historical Medications Scheduled Fluticasone Prop/Salmeterol (Advair Diskus 100/50 60 Dose), 1 PUFF INH BID Prednisone (Prednisone), 0 PO DAILY Scheduled PRN Albuterol (Ventolin Hfa), 2 PUFFS INH QID PRN for Wheezing Albuterol Hfa (Ventolin Hfa), 2 PUFFS INH Q6H PRN for SOB/Wheezing Physical Exam Vital Signs Date Time Temp Pulse Resp B/P (MAP) Pulse Ox O2 Delivery O2 Flow Rate FiO2 11/18/17 08:33 106 20 137/87 97 11/18/17 06:45 101 18 97 Room Air 11/18/17 06:10 Room Air 11/18/17 06:01 36.4 119 20 122/75 94 Room Air Physical Exam GENERAL: Patient is well appearing and in moderate distress. EYES: No scleral icterus, unremarkable pupils. ENT: Mucous membranes moist, no nasal congestion. NECK: No masses appreciated, no meningismus, trachea is midline. RESPIRATORY: Moderate dyspnea. Equal bilaterally. Diffuse expiratory/ inspiratory wheezing, no rhonchi. CARDIOVASCULAR: Mildly tachycardic. No murmurs, rubs, gallops appreciated. GASTROINTESTINAL: Abdomen soft, nontender, no peritonitis. Bowel sounds positive. No masses appreciated. BACK: No midline tenderness, no CVA tenderness EXTREMITIES: Normal motion all extremities, no cyanosis, no edema. NEUROLOGIC: Alert and oriented, no acute motor or sensory deficits, no focal weakness, cranial nerves grossly intact. SKIN: No rash, no jaundice, no diaphoresis. Medical Decision & Procedures ER Provider Diagnostic Interpretation: X ray results are stated below per my interpretation: Chest: 1 view: No infiltrate, no effusion, normal cardiac border. Laboratory Results 11/18/17 06:20 Red Blood Count 5.48, Mean Corpuscular Volume 77.4, Mean Corpuscular Hemoglobin 25.7, Mean Corpuscular Hemoglobin Concent 33.3, Mean Platelet Volume 8.7, Neutrophils (%) (Auto) 40.0, Lymphocytes (%) (Auto) 28.9, Monocytes (%) (Auto) 3.7, Eosinophils (%) (Auto) 26.7, Basophils (%) (Auto) 0.5, Neutrophils # (Auto ) 4.04, Lymphocytes # (Auto) 2.92, Monocytes # (Auto) 0.37, Eosinophils # (Auto ) 2.70, Basophils # (Auto) 0.05 11/18/17 06:20 Test 11/18/17 06:20 White Blood Count 10.10 K/uL (4.8-10.8) Red Blood Count 5.48 M/uL (4.2-5.4) Hemoglobin 14.1 g/dL (12.0-16.0) Hematocrit 42.4 % (37-47) Mean Corpuscular Volume 77.4 fL (80-100) Mean Corpuscular Hemoglobin 25.7 pg (25-34) Mean Corpuscular Hemoglobin Concent 33.3 g/dl (32-36) Platelet Count 385 K/uL (130-400) Mean Platelet Volume 8.7 fL (7.4-10.4) Neutrophils (%) (Auto) 40.0 % Lymphocytes (%) (Auto) 28.9 % Monocytes (%) (Auto) 3.7 % Eosinophils (%) (Auto) 26.7 % Basophils (%) (Auto) 0.5 % Neutrophils # (Auto) 4.04 K/uL (1.4-6.5) Lymphocytes # (Auto) 2.92 K/uL (1.2-3.4) Monocytes # (Auto) 0.37 K/uL (0.11-0.59) Eosinophils # (Auto) 2.70 K/uL (0-0.5) Basophils # (Auto) 0.05 K/uL (0-0.2) RDW Standard Deviation 49.5 fL (36.4-46.3) RDW Coefficient of Variation 17.5 % (11.5-14.5) Immature Granulocyte % (Auto) 0.2 % Immature Granulocyte # (Auto) 0.02 K/uL (0.00-0.02) Anion Gap 7.0 mmol/L (3-11) Est Creatinine Clear Calc Drug Dose 92.9 ml/min Estimated GFR () 96.2 Estimated GFR (Non- 83.0 BUN/Creatinine Ratio 16.3 (10-20) Calcium Level 8.9 mg/dl (8.5-10.1) Magnesium Level 2.0 mg/dl (1.8-2.4) Influenza Type A (RT-PCR) Neg for Influ A (NEG) Influenza Type B (RT-PCR) Neg for Influ B (NEG) Medications Administered Medications (Trade) Dose Ordered Sig/Jluis Route Start Time Stop Time Status Last Admin Dose Admin Albuterol/ Ipratropium (Duoneb) 12 ml ONE ONCE INH 11/18/17 06:15 11/18/17 06:16 DC 11/18/17 06:45 12 ML Dexamethasone Sodium Phosphate (Dexamethasone Inj Pf) 10 mg NOW ONCE IV 11/18/17 06:15 11/18/17 06:16 DC 11/18/17 06:31 10 MG Albuterol (Ventolin Hfa Inhaler) 2 puffs NOW ONCE INH 11/18/17 07:30 11/18/17 07:31 DC 11/18/17 07:56 2 PUFFS Medical Decision Differential: Asthma Exacerbation, Influenza, Pneumonia, Pneumothorax, Pulmonary Embolism, Electrolyte Abnormality, amongst other etiologies entertained. 32 yr old female with long history of asthma issues and previous admissions. Arrives for worsening asthma over last 24 hours. Exam with extensive ins/exp wheezing, mild tachy and dyspnea. Given hour neb with vast improvement. Patient states she is back to her baseline and is much improved, however is still wheezing a fair amount. Discussed admission for monitoring and further treatment, however she makes clear she wishes to go home. She states that she feels her baseline and comfortable going home. States she has had similar exacerbations previously and does well with PO steroids and inhalers. No evidence this is infectious at this time. She has no history of dvt/pe, no significant risk factors for clotting, and I feel PE is less likely than Asthma as cause of her symptoms. I feel tachy is secondary to breathing difficulty on arrival. She is stable, breathing comfortably and confident with wish to go home. Discussed RTED at any time if worsening or other concerns. Medication Reconcilliation Current Medication List: was personally reviewed by me Blood Pressure Screening Patient's blood pressure: Normal blood pressure Impression Primary Impression: Acute asthma exacerbation Departure Information Dispostion Home / Self-Care Condition GOOD Prescriptions Albuterol (Ventolin Hfa) 60 Puffs/5400 Mcg Aers 2 PUFFS INH QID Y for Wheezing, #1 INHALER 2 Refills Prov: Antonio Bobo M.D. 11/18/17 Prednisone (Prednisone) 20 Mg Tab 0 PO DAILY, #18 TAB 3 DAILY FOR 3 DAYS, THEN 2 DAILY FOR 3 DAYS, THEN 1 DAILY FOR 3 DAYS. Prov: Antonio Bobo M.D. 11/18/17 [facility] Patient Instructions My [facility] Additional Instructions Rest and avoid exertion as well as irritants in the air. Call 911 immediately if worsening breathing difficulty, chest pain, passing out , or other severe symptoms/concerns. Return for further evaluation if no improvement, fevers, or other concerns. Take steroids as prescribed.
[2017-11-18 06:34] LABS: BASO % 0.5 %; BASO ABS # 0.05 K/uL (0-0.2); EOS % 26.7 %; HEMATOCRIT 42.4 % (37-47); HEMOGLOBIN 14.1 g/dL (12.0-16.0); IG# 0.02 K/uL (0.00-0.02); LYMPH % 28.9 %; LYMPH ABS # 2.92 K/uL (1.2-3.4); MEAN CELL VOLUME 77.4 fL (80-100); MEAN CORPUSCULAR HEMOGLOBIN 25.7 pg (25-34); MEAN CORPUSCULAR HGB CONC 33.3 g/dl (32-36); MEAN PLATELET VOLUME 8.7 fL (7.4-10.4); MONO % 3.7 %; MONO ABS # 0.37 K/uL (0.11-0.59); NEUT ABS # 4.04 K/uL (1.4-6.5); PLATELET COUNT 385 K/uL (130-400); RED CELL DISTRIBUTION WIDTH CV 17.5 % (11.5-14.5); RED CELL DISTRIBUTION WIDTH SD 49.5 fL (36.4-46.3)
--- NOTE | 2017-11-18 06:34 | DIAGNOSTIC IMAGING REPORT ---
CHEST ONE VIEW PORTABLE CLINICAL HISTORY: Shortness of breath COMPARISON STUDY: 08/09/2017 FINDINGS: The heart is normal in size. There is no failure. There is no lobar consolidation. Slightly prominent left basilar markings are likely atelectatic.[ IMPRESSION: Slight prominence in the left basilar markings, statistically atelectatic. Otherwise negative AP portable chest Electronically signed by: David Catalan M.D. 11/18/2017 6:33 AM Dictated Date/Time: 11/18/2017 6:32 AM
[2017-11-18] MEDS ORDERED: VNTHFA/IN INH (06:43)
[2017-11-18 06:45] VITALS: PULSE 101; O2SAT 97
[2017-11-18] MEDS ORDERED: ADVIN10/60 INH (06:45)
[2017-11-18 06:48] LABS: CALCIUM 8.9 mg/dl (8.5-10.1); CREATININE 0.92 mg/dl (0.60-1.20); POTASSIUM 3.8 mmol/L (3.5-5.1)
[2017-11-18] MEDS ORDERED: PRED20TA PO (07:17)
[2017-11-18] MEDS ORDERED: PRVHFAIN INH (07:17)
[2017-11-18] MEDS ORDERED: ALBUTEROL HFA 8 GM INHALER INH ONE (07:30)
[2017-11-18 07:32] LABS: INFLUENZA A PCR Neg for Influ A (NEG); INFLUENZA B PCR Neg for Influ B (NEG)
[2017-11-18 08:33] VITALS: BP 137/87; PULSE 106; O2SAT 97
== END 2017-11-18 08:00 | disposition home or self-care (01) ==
LOC: C.EDB 06:00 → C.EDA 08:00
DX: J45.901 Unspecified asthma with (acute) exacerbation (principal); Z79.51 Long term (current) use of inhaled steroids

== ENCOUNTER 2017-12-24 20:15 | Emergency (ER) | payer OTHER, BC ==
[~2017-12-24] VITALS: Ht 162.6 cm; Wt 86.6 kg
[~2017-12-24 20:15] MED LIST changes: +ADVIN10/60 INH; -ADVIN10050 INH; -BCPILLS PO; -LEVO-459 OR; -MONT1TAB3 PO; -ONDA4TAB10 SL; -PANT40TA PO; -PRD20 OR; +PRED20TA PO; +PRVHFAIN INH; -ZNT150 PO
[2017-12-24 20:20] VITALS: TEMP 36.7; Ht 162.6 cm; Wt 86.6 kg
[2017-12-24] MEDS ORDERED: SODIUM CHLORIDE 0.9% 1000ML 1,000 ML IV STA (20:59)
[2017-12-24] MEDS ORDERED: METHYLPREDNISOLONE 125 MG VIAL IV STA (20:59)
[2017-12-24] MEDS ORDERED: ALBUT/IPRATROP 3MG/0.5MG NEB 3 ML VIAL INH ONE (21:00)
[2017-12-24 21:15] VITALS: O2SAT 96
--- NOTE | 2017-12-24 21:28 | EMERGENCY ROOM VISIT NOTE ---
History Report prepared by Moses: Kelton Esquivel Under the Supervision of: Dr. Bassem Marino M.D. First contact with patient: 20:52 Chief Complaint: RESPIRATORY PROBLEMS Stated Complaint: CHOKING Nursing Triage Summary: pt states has asthma and having difficulty breathing for past hour and half, used her inhaler without relief. 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 She rates her discomfort as a 7/10 in severity. The patient states she developed an asthma attack that worsened 30 minutes prior to arrival. She reports she tried to use her inhaler three times without any relief. The patient states she also used Advair. She reports the last time she was in the ER she was given a steroid for her asthma. Positive choking, dizziness. Negative triggers for asthma attacks, alcohol or tobacco use, nausea , vomiting, chest pains, history of blood clots, previous intubation. The patient states her last menstrual period was three weeks ago, which was normal. 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 A total of ten systems were reviewed and were otherwise negative. Past Medical & Surgical Medical Problems: (1) Asthma, Unspecified (2) Nausea (3) Sepsis Surgical Problems: (1) No significant past surgical history Family History No significant family history Social History Smoking Status: Never Smoker Alcohol Use: occasionally Drug Use: none Marital Status: single Housing Status: lives with family Occupation Status: employed Current/Historical Medications Scheduled Albuterol (Ventolin Hfa), 2 PUFFS INH QID Fluticasone Prop/Salmeterol (Advair Diskus 100/50 60 Dose), 1 PUFF INH BID Prednisone (Prednisone), 50 MG PO DAILY Scheduled PRN Albuterol Hfa (Ventolin Hfa), 2 PUFFS INH Q6H PRN for SOB/Wheezing Allergies Coded Allergies: Cefuroxime (Verified Allergy, Severe, CHEST TIGHTENING, "FEEL LIKE CHOKING ", SOB, 08/09/17) Dairy (Verified Allergy, Severe, CHEST TIGHTENING, "CHOKING" FEELING, SOB , 08/09/17) Gluten (Verified Allergy, Severe, CHEST TIGHTENING, "CHOKING" FEELING, SOB , 08/09/17) Penicillins (Verified Allergy, Severe, CHEST TIGHTENING, "CHOKING" FEELING , SOB, 08/09/17) Peanut (Verified Allergy, Intermediate, "NON STOP COUGHING, FELT LIKE CHOKING", 08/09/17) Physical Exam Vital Signs Date Time Temp Pulse Resp B/P (MAP) Pulse Ox O2 Delivery O2 Flow Rate FiO2 12/25/17 00:04 70 20 112/76 95 12/24/17 23:06 102 18 133/83 94 Room Air 12/24/17 22:00 98 12/24/17 21:35 112 20 94 Room Air 12/24/17 21:25 101 16 116/82 94 Room Air 12/24/17 21:15 96 Room Air 12/24/17 20:20 36.7 119 22 122/54 97 Room Air Physical Exam GENERAL: Obese, awake, alert, well-appearing, NAD HENT: Normocephalic, atraumatic. EYES: Normal conjunctiva. Sclera non-icteric. NECK: Supple. No nuchal rigidity. FROM. RESPIRATORY: CTAB, no rhonchi, wheezing, crackles CARDIAC: RRR, no MRG ABDOMEN: Soft, NTND, BS+ MSK: No chest wall TTP, no LE edema NEURO: GCS 15, CN 2-12 intact, moves all 4s on command SKIN: No rash or jaundice noted. Medical Decision & Procedures Medications Administered Medications (Trade) Dose Ordered Sig/Jluis Route Start Time Stop Time Status Last Admin Dose Admin Albuterol/ Ipratropium (Duoneb) 12 ml ONE ONCE INH 12/24/17 21:00 12/24/17 21:01 DC 12/24/17 21:00 12 ML Methylprednisolone Sodium Succinate (Solu-Medrol IV) 125 mg NOW STAT IV 12/24/17 20:59 12/24/17 21:01 DC 12/24/17 21:24 125 MG Sodium Chloride 1,000 ml @ 999 mls/hr Q1H1M STAT IV 12/24/17 20:59 12/24/17 21:59 DC 12/24/17 21:24 999 MLS/HR Menthol (Nice Cain) 1 cain NOW STAT CAIN 12/24/17 22:20 12/24/17 22:22 DC 12/24/17 22:40 1 CAIN Benzonatate (Tessalon Perles Cap) 100 mg NOW ONCE PO 12/24/17 22:30 12/24/17 22:31 DC 12/24/17 22:40 100 MG Acetaminophen (Tylenol Tab) 650 mg NOW STAT PO 12/24/17 22:20 12/24/17 22:22 DC 12/24/17 22:40 650 MG ECG Per My Interpretation Indication: SOB/dyspnea Rate (beats per minute): 102 Rhythm: sinus tachycardia Findings: PVC, left axis deviation, other (Normal intervals, No STS changes or TWI) ED Course 2054: The patient was evaluated in room C06. A complete history and physical exam was performed. 4: I reevaluated the patient. Discussed results and discharge instructions: She verbalized understanding and agreement. The patient is ready for discharge. Medical Decision Nursing notes reviewed. Ancillary studies and prior records reviewed. 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 The patient's presentation and history were concerning for etiologies such as infections, reactive airway disease, pneumonia, pneumothorax, COPD, CHF, cardiac ischemia, pulmonary embolism, musculoskeletal, gastrointestinal, as well as others were entertained. Patient was seen and evaluated the bedside. Patient was complaining of some shortness of breath states that she does have a history of asthma. Patient has used her inhaler approximately 3 times today without much relief. Patient may have trace expiratory wheezes and does have some mild tachycardia. Patient was given duo nebs, steroids and additional treatment for her asthma. Upon reassessment the patient was moving good air and had no wheezing. The patient was still complaining of some what she described as choking. Patient was known stridulous and patient was able to handle secretions well without issue. Patient was given Cepacol and Tessalon Perles along with Motrin and Tylenol. Upon reassessment thereafter the patient was feeling improved. Patient did have some mild tachycardia. I believe this is mostly related to extra sensory water loss from increased breathing as well as the DuoNeb and albuterol administration. I believe PE less likely. Patient did not have any infectious symptoms and does have a history of asthma center chest x-ray was completed and pneumonia is less likely. Patient was given a prescription for both her inhaler and instructed on how to use it along with a prescription for steroids. Patient was given strict follow-up, discharge, and return precautions. All questions were answered. Patient was deemed suitable for outpatient follow-up at this time. Patient agreed with the plan of care and was safely discharged home. Medication Reconcilliation Current Medication List: was personally reviewed by me Blood Pressure Screening Patient's blood pressure: Normal blood pressure Impression Primary Impression: Acute asthma exacerbation Scribe Attestation The scribe's documentation has been prepared under my direction and personally reviewed by me in its entirety. I confirm that the note above accurately reflects all work, treatment, procedures, and medical decision making performed by me. Departure Information Dispostion Home / Self-Care Prescriptions Prednisone (PREDNISONE) 50 Mg Tab 50 MG PO DAILY for 4 Days, #4 TAB Prov: Bassem Marino M.D. 12/24/17 Albuterol (Ventolin Hfa) 60 Puffs/5400 Mcg Aers 2 PUFFS INH QID for 5 Days, #1 INHALER Prov: Bassem Marino M.D. 12/24/17 Referrals No Doctor, Assigned (PCP) Patient Instructions Asthma, Asthma Control, My [facility] Additional Instructions Please return to the emergency department if you have worsening or recurrent symptoms not amenable to at-home treatment. Please call for a follow-up appointment with her primary care physician. Please take your medications as prescribed. If you have other concerns and/or complaints please feel free to also call your primary care physician's office or return the ED for further evaluation, management, and treatment. Please take your steroids preferably in the morning and with food. For your albuterol please make sure to use a spacer and take 2 puffs every 4 hours 1 day , 2 puffs every 6 hours the second day, 1 puff every 4 hours the third day, and then 1 puff every 6 hours the fourth day. Then you may use it as needed. Take your medications as prescribed. You may continue to use Tessalon Perles and/or Cepacol. You have been examined and treated today on an emergency basis only. This is not a substitute for, or an effort to provide, complete comprehensive medical care. It is impossible to recognize and treat all injuries or illnesses in a single emergency department visit. It is therefore important that you follow up closely with [facility], your PCP, and/or your specialist(s). Call as soon as possible for an appointment. Thank you for your time and consideration. I look forward to speaking with you again soon. Please don't hesitate to call us if you have any questions. Problem Qualifiers Primary Impression: Acute asthma exacerbation Asthma severity: mild Asthma persistence: intermittent Qualified Codes: J45.21 - Mild intermittent asthma with (acute) exacerbation
[2017-12-24 21:35] VITALS: PULSE 112; O2SAT 94
[2017-12-24] MEDS ORDERED: COUGH DROP (SUGAR FREE) LOZ 24 LOZ/1 BOX LOZ STA (22:20)
[2017-12-24] MEDS ORDERED: ACETAMINOPHEN 325 MG TAB PO STA (22:20)
[2017-12-24] MEDS ORDERED: BENZONATATE 100MG CAP PO ONE (22:30)
[2017-12-24] MEDS ORDERED: PRVHFAIN INH (23:51)
[2017-12-24] MEDS ORDERED: PRED50TA PO (23:51)
[2017-12-25 00:04] VITALS: BP 112/76; PULSE 70; O2SAT 95
== END 2017-12-25 00:04 | disposition home or self-care (01) ==
LOC: C.EDB 20:16 → C.EDC 12-25 00:04
DX: J45.21 Mild intermittent asthma with (acute) exacerbation (principal); Z91.011 Allergy to milk products; Z88.0 Allergy status to penicillin; Z91.010 Allergy to peanuts; Z91.018 Allergy to other foods

== ENCOUNTER 2018-01-15 14:15 | Emergency (ER) | payer OTHER, BC ==
[~2018-01-15] VITALS: Ht 162.6 cm; Wt 84.2 kg
[~2018-01-15 14:15] MED LIST changes: -PRED20TA PO; -PRVHFAIN INH
[2018-01-15 14:26] VITALS: TEMP 36.5; Ht 162.6 cm; Wt 84.2 kg
[2018-01-15] MEDS ORDERED: ALBUT/IPRATROP 3MG/0.5MG NEB 3 ML VIAL INH STA (14:44)
[2018-01-15 15:13] VITALS: BP 132/83; PULSE 100; O2SAT 98
[2018-01-15] MEDS ORDERED: PRED20TA PO (15:21)
--- NOTE | 2018-01-15 17:31 | EMERGENCY ROOM VISIT NOTE ---
History Report prepared by Moses: Jennifer See Under the Supervision of: Dr. Jared Fisher M.D. First contact with patient: 14:37 Chief Complaint: SHORTNESS OF BREATH Stated Complaint: SHORT OF BREATH Nursing Triage Summary: pt reports "i have asthma and have felt short of breath since last night, i thought maybe i need a nebulizer treatment or something and an oral steroid." History of Present Illness The patient is a 32 year old female who presents to the Emergency Room with complaints of SOB beginning last night. She reports she went on a walk and felt more out of breath than usual. She does state, however, that she has not really walked very much since her bronchoscopy. She states she used her albuterol MDI before she went on her walk. She denies any fevers, chest pain, abdominal pain, cough, or leg swelling. She did use a nebulizer. She currently feels like her symptoms have improved. The patient was seen here for difficulty breathing on December 24. She was diagnosed with asthma exacerbation and was treated with prednisone. Source of History: patient Onset: last night Position: other (lungs) Quality: other (SOB) Timing: other (Improved) Modifying Factors (Relieving): other (nebulizer) Associated Symptoms: No fevers, No cough, No chest pain, No abdominal pain Note: Negative leg swelling. Review of Systems See HPI for pertinent positives & negatives. A total of 10 systems reviewed and were otherwise negative. Past Medical & Surgical Medical Problems: (1) Asthma, Unspecified (2) Nausea (3) Sepsis Surgical Problems: (1) No significant past surgical history Family History No significant family history Social History Smoking Status: Never Smoker Alcohol Use: occasionally Drug Use: none Marital Status: single Housing Status: lives with family Occupation Status: employed Current/Historical Medications Scheduled Fluticasone Prop/Salmeterol (Advair Diskus 100/50 60 Dose), 1 PUFF INH BID Prednisone (Prednisone), 3 TAB PO DAILY Scheduled PRN Albuterol Hfa (Ventolin Hfa), 2 PUFFS INH Q6H PRN for SOB/Wheezing Allergies Coded Allergies: Cefuroxime (Verified Allergy, Severe, CHEST TIGHTENING, "FEEL LIKE CHOKING ", SOB, 08/09/17) Dairy (Verified Allergy, Severe, CHEST TIGHTENING, "CHOKING" FEELING, SOB , 08/09/17) Gluten (Verified Allergy, Severe, CHEST TIGHTENING, "CHOKING" FEELING, SOB , 08/09/17) Penicillins (Verified Allergy, Severe, CHEST TIGHTENING, "CHOKING" FEELING , SOB, 08/09/17) Peanut (Verified Allergy, Intermediate, "NON STOP COUGHING, FELT LIKE CHOKING", 08/09/17) Physical Exam Vital Signs Date Time Temp Pulse Resp B/P (MAP) Pulse Ox O2 Delivery O2 Flow Rate FiO2 01/15/18 15:13 100 16 132/83 98 Room Air 01/15/18 14:26 36.5 120 18 120/68 97 Room Air Physical Exam Constitutional: Vital signs reviewed. Eyes: Pupils are equal round reactive to light. Conjunctiva are noninjected. ENT: Pharynx is clear without erythema or exudate. Mucous membranes are moist. Neck supple without meningeal signs. Respiratory: Scattered wheezing bilaterally. Breath sounds are equal bilaterally. Cardiovascular: Regular rate and rhythm. No rubs or gallops. GI: Soft, nondistended and nontender. Bowel sounds are present. Musculoskeletal: No peripheral edema. No lower extremity tenderness. Integumentary: No cyanosis. Neurological: The patient is awake and alert. No focal deficits. Psychiatric: Normal affect. Medical Decision & Procedures Medications Administered Medications (Trade) Dose Ordered Sig/Jluis Route Start Time Stop Time Status Last Admin Dose Admin Albuterol/ Ipratropium (Duoneb) 3 ml NOW STAT INH 01/15/18 14:44 01/15/18 14:45 DC 01/15/18 14:59 3 ML Prednisone (PredniSONE TAB) 60 mg NOW STAT PO 01/15/18 14:44 01/15/18 14:45 DC 01/15/18 14:59 60 MG ED Course 1440: The patient was evaluated in room B7. A complete history and physical exam was performed. 1444: Ordered Prednisone 60 mg PO Duoneb 3 ml INH 1518: She feels better and she has no wheezing on exam. 1520: Upon reevaluation, the patient appeared to have improvement of her symptoms. I discussed claritzaight's findings with her. She verbalized agreement of the treatment plan. She was discharged home. Medical Decision This is a 32-year-old female presents with difficulty breathing. Differential diagnosis includes asthma exacerbation, URI, anxiety. I did perform a limited focused review of portions of the patient's old chart on the electronic medical record. The patient was seen here for difficulty breathing on December 24. She was diagnosed with asthma exacerbation and was treated with prednisone. I did evaluate the patient as noted above. Patient does have some scattered wheezing. I did treat patient with a DuoNeb. I did not feel the patient likely needed prednisone but she felt that she did. She was therefore given prednisone 60 mg. I did reassess patient. She has no wheezing on exam. She states she feels much better. She was given a short prescription for prednisone and advised to follow-up with her doctor. Medication Reconcilliation Current Medication List: was personally reviewed by me Blood Pressure Screening Patient's blood pressure: Normal blood pressure Blood pressure disposition: Did not require urgent referral Impression Primary Impression: Asthma exacerbation Scribe Attestation The scribe's documentation has been prepared under my direct and personally reviewed by me in its entirety. I confirm that the note above accurately reflects all work, treatment, procedures, and medical decision making performed by me. Departure Information Dispostion Home / Self-Care Prescriptions Prednisone (Prednisone) 20 Mg Tab 3 TAB PO DAILY, #12 TAB FOR 4 DAYS Prov: Jared Fisher M.D. 01/15/18 Referrals Karely Oreilly D.OKirk (PCP) Forms HOME CARE DOCUMENTATION FORM, IMPORTANT VISIT INFORMATION Patient Instructions My [facility] Additional Instructions You have been examined and treated today on an emergency basis only. This is not a substitute for, or an effort to provide, complete comprehensive medical care. It is impossible to recognize and treat all injuries or illnesses in a single emergency department visit. It is therefore important that you follow up closely with your physician. Call as soon as possible for an appointment. Return for worsening symptoms or if you develop fever, vomiting, chest pain or any other concerning symptoms. Problem Qualifiers Primary Impression: Asthma exacerbation Asthma severity: mild Asthma persistence: intermittent Qualified Codes: J45.21 - Mild intermittent asthma with (acute) exacerbation
== END 2018-01-15 15:31 | disposition home or self-care (01) ==
LOC: C.EDB 14:16
DX: J45.21 Mild intermittent asthma with (acute) exacerbation (principal); Z88.0 Allergy status to penicillin; Z88.1 Allergy status to other antibiotic agents; Z91.011 Allergy to milk products; Z91.010 Allergy to peanuts

== ENCOUNTER 2018-02-01 14:52 | Emergency (ER) | payer OTHER, BC ==
[~2018-02-01] VITALS: Ht 162.6 cm; Wt 82.1 kg
[~2018-02-01 14:52] MED LIST changes: +PRED20TA PO
[2018-02-01 14:55] VITALS: BP 107/78; PULSE 103; TEMP 36.8; Ht 162.6 cm; Wt 82.1 kg
--- NOTE | 2018-02-01 15:14 | EMERGENCY ROOM VISIT NOTE ---
History Report prepared by Moses: Jennifer See Under the Supervision of: Dr. Matthieu Montelongo D.O. First contact with patient: 15:00 Chief Complaint: RESPIRATORY PROBLEMS Stated Complaint: BREATHING PROBLEMS - ASTHMA History of Present Illness The patient is a 32 year old female who presents to the Emergency Room with complaints of SOB beginning this morning. She notes she used her inhalers this morning but found no relief. She reports this feels like one of her past asthma attacks as she begins choking whenever she has an attack. She denies any fevers , cough, or recent illnesses. The patient states that cold typically triggers her asthma and her nebulizer alleviates her SOB. She does note that she recently ran out of her albuterol inhaler. Source of History: patient Onset: this morning Position: other (lungs) Quality: other (SOB (asthma attack)) Timing: other (sudden) Modifying Factors (Worsening): other (cold) Associated Symptoms: No fevers, No cough Note: Negative recent illnesses Review of Systems See HPI for pertinent positives & negatives. A total of 10 systems reviewed and were otherwise negative. Past Medical & Surgical Medical Problems: (1) Asthma, Unspecified (2) Nausea (3) Sepsis Surgical Problems: (1) No significant past surgical history Family History No significant family history Social History Smoking Status: Never Smoker Alcohol Use: occasionally Drug Use: none Marital Status: single Housing Status: lives with family Occupation Status: employed Current/Historical Medications Scheduled Fluticasone Prop/Salmeterol (Advair Diskus 100/50 60 Dose), 1 PUFF INH BID Prednisone (Prednisone), 3 TAB PO DAILY Scheduled PRN Albuterol Hfa (Ventolin Hfa), 2 PUFFS INH Q6H PRN for SOB/Wheezing Allergies Coded Allergies: Cefuroxime (Verified Allergy, Severe, CHEST TIGHTENING, "FEEL LIKE CHOKING ", SOB, 08/09/17) Dairy (Verified Allergy, Severe, CHEST TIGHTENING, "CHOKING" FEELING, SOB , 08/09/17) Gluten (Verified Allergy, Severe, CHEST TIGHTENING, "CHOKING" FEELING, SOB , 08/09/17) Penicillins (Verified Allergy, Severe, CHEST TIGHTENING, "CHOKING" FEELING , SOB, 08/09/17) Peanut (Verified Allergy, Intermediate, "NON STOP COUGHING, FELT LIKE CHOKING", 08/09/17) Physical Exam Vital Signs Date Time Temp Pulse Resp B/P (MAP) Pulse Ox O2 Delivery O2 Flow Rate FiO2 02/01/18 14:55 36.8 103 18 107/78 95 Room Air Physical Exam CONSTITUTIONAL/VITAL SIGNS: Reviewed / noted above. GENERAL: Non-toxic in appearance. INTEGUMENTARY: Warm, dry, and [place]. HEAD: Normocephalic. EYES: without scleral icterus or trauma. ENT/OROPHARYNX: clear and moist. LYMPHADENOPATHY/NECK: Is supple without lymphadenopathy or meningismus. RESPIRATORY: Lungs clear and equal. Minimal scattered and expiratory wheezing. CARDIOVASCULAR: Regular rate and rhythm. GI/ABDOMEN: Soft and nontender. No organomegaly or pulsatile mass. No rebound or guarding. Normal bowel sounds. EXTREMITIES: Warm and well perfused. BACK: No CVA tenderness. NEUROLOGICAL: Intact without focal deficits. PSYCHIATRIC: normal affect. MUSCULOSKELETAL: Normally developed with good muscle tone. Medical Decision & Procedures ED Course 1502: Previous medical records were reviewed. The patient was evaluated in room A11. A complete history and physical examination was performed. 1510: Ordered Albuterol MDI 2 puffs and was discharged. Medical Decision the differential was considered includes acute myocardial infarction, acute coronary syndrome, myocarditis, pericarditis, pericardial effusions /tamponad, esophageal perforation, pulmonary embolism, pneumonia, pneumothorax, cardiomyopathy, congestive heart, anemia , COPD/asthma exacerbation. This is a 32-year-old female who presents to the ED with a chief complaint of asthma. The patient is seen regularly and last was placed on steroids on 15 January , about 2 weeks ago. She presents today with a chief complaint of asthma exacerbation. She states that she ran out of her inhaler. She does have a nebulizer at home and has used this. She is feeling much better at this time. Her exam reveals stable vital signs. She has not febrile or hypoxic. She is mildly tachycardic possibly related to using the nebulizer. The patient's lungs reveal some mild scattered end expiratory wheezing. Her exam was otherwise unremarkable and her breathing appears normal. She is in no distress. She was given an inhaler with 2 puffs. She is felt to be stable for discharge. I do not feel the patient needs steroids at this time. Medication Reconcilliation Current Medication List: was personally reviewed by me Blood Pressure Screening Patient's blood pressure: Normal blood pressure Blood pressure disposition: Did not require urgent referral Impression Primary Impression: Acute asthma exacerbation Scribe Attestation The scribe's documentation has been prepared under my direction and personally reviewed by me in its entirety. I confirm that the note above accurately reflects all work, treatment, procedures, and medical decision making performed by me. Departure Information Dispostion Home / Self-Care Referrals Karely Oreilly D.O. (PCP) Patient Instructions [facility] Additional Instructions Use your inhaler and nebulizer as needed. Follow-up with your avionic technician later this week or next week.
[2018-02-01 15:15] VITALS: O2SAT 98
[2018-02-01] MEDS ORDERED: ALBUTEROL HFA 8 GM INHALER INH ONE (15:15)
== END 2018-02-01 15:21 | disposition home or self-care (01) ==
LOC: C.EDB 14:53 → C.EDA 15:21
DX: J45.901 Unspecified asthma with (acute) exacerbation (principal); R06.02 Shortness of breath